=== PATIENT | female | born 1960 | race Caucasian/White ===

== ENCOUNTER 2017-03-03 12:09 | Emergency (ER) | payer MEDICARE, BC ==
[~2017-03-03] VITALS: Ht 170.2 cm; Wt 98.9 kg
[~2017-03-03 12:09] MED LIST: ALB0.5 BC; ALB17R INH; ALBU2.5V36 INH; ALL300 PO; AMO500 PO; AMOX-559 PO; ASP81 PO; ATOR20TA PO; ATOR20TA22 PO; ATOR20TA65; AUG500 PO; AZI250 PO; AZIT-1 PO; AZIT500T47 PO; BENZ100C4 PO; CEFU250T11 PO; CEP500 PO; CEPH500C24 PO; CEPH500T7 PO; CIPR-344 PO; CYC10 PO; DAPA10TA PO; DIA5 PO; DOXY150T6 PO; DULO60CA51 PO; DUONEB; EMPA10TA PO; ESC10 PO; FENO145T PO; FLUO40CA76 PO; FLUT1DIS28 IH; GAB300 PO; GARL1CAP15 PO; GUAI-648 PO; GUALA600 PO; HYDR-2946 PO; HYDR-3078 PO; HYDR-3083 PO; HYDR-3503 PO; HYDR1TAB PO; HYDR2TAB74 PO; HYDR473S4 PO; IBUP600T22 PO; INDO-1 PO; IPRA3AMP36 IH; ISOS30TA55 PO; LEV500 PO; LIDO PATCH; LIRA0.6P3 SQ; LISI-362 PO; LOR5 PO; LOR5/325 PO; LOSA50TA72 PO; MET500 PO; METH-271 PO; METH4TAB66 PO; METHO500 PO; METO25TA91 PO; MUCINEX PO; NAP500 PO; ORP100 PO; OXYC-717 PO; OXYC-865 PO; OXYC1TAB54 PO; OXYGEN INH; PAN40 PO; PER PO; PHEN120S16 PO; PIOG30TA27 PO; PIOG45TA3 PO; PRAS10TA4 PO; PRE20 PO; PRED-1 PO; PRED20TA6 PO; PREG75CA61 PO; SITA1TAB17 PO; SITA1TBM4 PO; SPIR50TA30 PO; SPIR50TA31 PO; SULF-198 PO; TRAM-420 PO; TRILI135PT PO; WARF-1 PO; ZINC30CA2 PO; [UNRECOGNIZED DRUG - CODE] IV; [UNRECOGNIZED DRUG - CODE] PO
--- NOTE | 2017-03-03 12:22 | ER Report ---
History and Physical Time Seen By MD: 12:21 Hx. of Stated Complaint: PATIENT STATES THAT HER COUGH HAS BEEN GETTING WORSE SINCE LAST TUESDAY; PATIENT CAME TO THE ER AND WAS PERSCRIBED MEDICATION AND FINISHED IT AND DID NOT GET BETTER; PATIENT STATES THAT SHE TRIED TO GET INTO HER DOCTOR AND THE DOCTOR DID NOT HAVE ANY OPENINGS AT THIS TIME HPI/ROS CC: Cough with sinusitis HPI: 56-year-old female with a past medical history of axilla abscess on the left abscess of the right groin, rotator cuff tendinitis, bronchitis, COPD, tobacco dependence. Patient Presents to the emergency department with continued cough over the last 2 weeks and increased right sinus maxillary pressure. She was here on 02/22/2017 and was diagnosed with bronchitis and given Z-Seng. She states that she has progressively on worse especially with the right maxillary sinus. Her discomfort level is a 7 out of 10. She states that she is having yellow-green drainage from the nose. She does have increased pressure on the right maxillary sinus. She also states that she has yellow drainage from her lungs. No blood. She denies any chest pain or chest pressure but does have increased shortness of breath. She does use oxygen at night and states that her oxygen requirements have not increased. She tried getting into her PCP but was unable and therefore came to the emergency department. There are no alleviating factors. ROS: 12 point review of systems essentially negative other than what's mentioned in history of present illness. NURSES AND OLD MEDICAL RECORDS: Reviewed PMH: Reviewed SURGICAL HX: Reviewed FAMILY HX: Noncontributory SOCIAL HX: She continues to smoke half a pack to pack of cigarettes a day. Denies any illicit drugs or alcohol. Lives at home. VITAL SIGNS: Reviewed CONSTITUTIONAL: He 6-year-old female in moderate distress. PHYSICAL EXAM: HEENT: Pupils equal round reactive to light and accommodate, EOMI, tympanic membranes pearly white umbo present with good light reflex. Lips dry mucous membranes moist gums nonbleeding uvula midline and rises equally with phonation, oropharynx noninjected, teeth intact. Right maxillary sinus tenderness. NECK: Neck supple, thyroid not appreciated, anterior and posterior cervical lymphadenopathy not appreciated. Trachea midline and rises equally with phonation. CARDIAC: S1-S2 regular rate rhythm no murmurs rubs or gallops. LUNGS: Lungs decreased air movement in bilateral lungs. Bilaterally posteriorly in all jones. ABDOMEN: Abdomen soft, nondistended, bowel sounds active in all 4 quadrants, no bruits noted, no CVA tenderness. MUSCULOSKELETAL: Strength 5 out of 5 x 4 extremities, no deformities noted. NEUROLOGIC: Patient alert and oriented by 3 Allergies: Coded Allergies: egg (Verified Allergy, Mild, 03/03/17) Home Meds Active Scripts Benzonatate 100 Mg Cap (TESSALON PERLE 100 MG CAP) 100 Mg Capsule, 100 MG PO TID for cough, #15 CAP 0 Refills Prov:GRETA MARCANO MD 02/22/17 Albuterol Sulfate 0.083% (ALBUTEROL SULFATE 0.083%) 2.5 Mg/3 Ml Vial.neb, 2.5 MG INH Q4-6H for cough, #1 BOX 0 Refills Prov:GRETA MARCANO MD 05/04/16 Reported Medications Losartan Potassium (LOSARTAN POTASSIUM) 50 Mg Tablet, 50 MG PO QDAY 12/20/16 Pioglitazone Hcl (PIOGLITAZONE HCL) 45 Mg Tablet, 45 MG PO QDAY 12/20/16 Dapagliflozin Propanediol (Farxiga) 10 Mg Tablet, 10 MG PO DAILY 12/20/16 Sitagliptin Phos/Metformin Hcl (JANUMET XR 50-1,000 MG TABLET) 1 Each Tbmp.24hr , 1 EACH PO BID 12/20/16 Guaifenesin/Dextromethorphan (MUCINEX DM ER 600-30 MG TABLET) 1 Each Tab.er.12h , 1 EACH PO BID 05/17/16 Aspirin (Childrens Chewable Aspirin) 81 Mg Chew, 81 MG PO DAILY, 0 Refills 08/26/11 Metoprolol Succinate (Toprol Xl) 25 Mg Tab.sr.24h, 25 MG PO BID, 0 Refills 08/26/11 Spironolactone (Aldactone) 50 Mg Tablet, 50 MG PO DAILY, 0 Refills 08/26/11 Oxygen (Oxygen) 2 L Inha, 2 L INH PRN, 0 Refills At Night With BiPap 03/10/11 Gabapentin (Neurontin) 300 Mg Cap, 600 MG PO TID, 0 Refills 03/10/11 Fluoxetine Hcl (Prozac) 40 Mg Capsule, 40 MG PO BID, #20 0 Refills 03/10/11 Allopurinol (Zyloprim) 300 Mg Tab, 300 MG PO QDAY, 0 Refills 03/10/11 Fluticasone/Salmeterol (Advair 250-50 Diskus) 1 Disk W/Dev Disk.w.dev, 1 DISK IH BID, 0 Refills 03/10/11 Albuterol (Proventil Inhaler) 17 Gm Inh, 0 INH PRN, 0 Refills 1-2 PUFFS 03/10/11 Discontinued Scripts Azithromycin (ZITHROMAX) 250 Mg Tablet, 0 PO QDAY, #6 TAB 0 Refills Prov:GRETA MARCANO MD 02/22/17 Hx Smoking: Yes (1/2 PPD) Smoking Status: Current: Every Day Smoker Exposure to Second Hand Smoke?: Yes Hx Substance Use Disorder: No Hx Alcohol Use: No Constitutional Vital Sign - Last 24 Hours 03/03/17 03/03/17 03/03/17 03/03/17 12:15 12:51 12:51 12:56 Temp 97.6 Pulse 63 58 62 Resp 17 18 18 B/P (MAP) 108/68 Pulse Ox 93 93 O2 Delivery Room Air Room Air Medical Decision Making Data Points Result Diagram: 03/03/17 1323 03/03/17 1323 Laboratory Hematology Test 03/03/17 13:23 Red Blood Count 5.13 M/uL (4.17-5.56) Mean Corpuscular Volume 84.4 fL (80.0-96.0) Mean Corpuscular Hemoglobin 27.2 pg (26.0-33.0) Mean Corpuscular Hemoglobin Concent 32.3 g/dL (32.0-36.0) Red Cell Distribution Width 17.4 % (11.5-14.5) Mean Platelet Volume 7.6 fL (7.2-11.1) Neutrophils (%) (Auto) 64.9 % (39.4-72.5) Lymphocytes (%) (Auto) 23.4 % (17.6-49.6) Monocytes (%) (Auto) 8.3 % (4.1-12.4) Eosinophils (%) (Auto) 2.2 % (0.4-6.7) Basophils (%) (Auto) 1.2 % (0.3-1.4) Nucleated RBC Relative Count (auto) 0.0 /100WBC Neutrophils # (Auto) 8.6 K/uL (2.0-7.4) Lymphocytes # (Auto) 3.1 K/uL (1.3-3.6) Monocytes # (Auto) 1.1 K/uL (0.3-1.0) Eosinophils # (Auto) 0.3 K/uL (0.0-0.5) Basophils # (Auto) 0.2 K/uL (0.0-0.1) Nucleated RBC Absolute Count (auto) 0.00 K/uL Peripheral Blood Smear No Y/N Sodium Level 142 mmol/L (137-145) Potassium Level 4.2 mmol/L (3.5-5.0) Chloride Level 105 mmol/L (98-107) Carbon Dioxide Level 26 mmol/L (22-31) Blood Urea Nitrogen 15 mg/dl (7-18) Creatinine 0.60 mg/dl (0.52-1.04) Glomerular Filtration Rate Calc > 60.0 Random Glucose 112 mg/dl (75-110) Calcium Level 9.5 mg/dl (8.4-10.2) Total Bilirubin 0.4 mg/dl (0.2-1.3) Aspartate Amino Transf (AST/SGOT) 14 U/L (0-35) Alanine Aminotransferase (ALT/SGPT) 22 U/L (0-56) Alkaline Phosphatase 85 U/L (0-126) Total Protein 7.5 gm/dl (6.3-8.2) Albumin 3.9 g/dl (3.5-5.0) Chemistry Test 03/03/17 13:23 White Blood Count 13.2 k/uL (4.5-11.0) Red Blood Count 5.13 M/uL (4.17-5.56) Hemoglobin 14.0 g/dL (12.0-16.0) Hematocrit 43.3 % (34.0-47.0) Mean Corpuscular Volume 84.4 fL (80.0-96.0) Mean Corpuscular Hemoglobin 27.2 pg (26.0-33.0) Mean Corpuscular Hemoglobin Concent 32.3 g/dL (32.0-36.0) Red Cell Distribution Width 17.4 % (11.5-14.5) Platelet Count 361 K/uL (150-450) Mean Platelet Volume 7.6 fL (7.2-11.1) Neutrophils (%) (Auto) 64.9 % (39.4-72.5) Lymphocytes (%) (Auto) 23.4 % (17.6-49.6) Monocytes (%) (Auto) 8.3 % (4.1-12.4) Eosinophils (%) (Auto) 2.2 % (0.4-6.7) Basophils (%) (Auto) 1.2 % (0.3-1.4) Nucleated RBC Relative Count (auto) 0.0 /100WBC Neutrophils # (Auto) 8.6 K/uL (2.0-7.4) Lymphocytes # (Auto) 3.1 K/uL (1.3-3.6) Monocytes # (Auto) 1.1 K/uL (0.3-1.0) Eosinophils # (Auto) 0.3 K/uL (0.0-0.5) Basophils # (Auto) 0.2 K/uL (0.0-0.1) Nucleated RBC Absolute Count (auto) 0.00 K/uL Peripheral Blood Smear No Y/N Glomerular Filtration Rate Calc > 60.0 Calcium Level 9.5 mg/dl (8.4-10.2) Total Bilirubin 0.4 mg/dl (0.2-1.3) Aspartate Amino Transf (AST/SGOT) 14 U/L (0-35) Alanine Aminotransferase (ALT/SGPT) 22 U/L (0-56) Alkaline Phosphatase 85 U/L (0-126) Total Protein 7.5 gm/dl (6.3-8.2) Albumin 3.9 g/dl (3.5-5.0) EKG/Imaging Imaging Chest x-ray reveals peribronchial thickening most likely bronchitis. CT of sinuses shows maxillary sinusitis right greater than left. ED Course/Re-evaluation ED Course I discussed the patient is placed on Augmentin for 3 weeks and follow up with her PCP. Patient will plan and in agreement. Re-evaluation MDM bronchitis versus sinusitis versus pneumonia. This most likely sinusitis with continuing bronchitis. Patient continues to smoke. Decision to Disposition Date: Mar 03, 2017 Decision to Disposition Time: 13:43 Depart Departure Latest Vital Signs Vital Signs Date Time Temp Pulse Resp B/P (MAP) Pulse Ox O2 Delivery O2 Flow Rate FiO2 03/03/17 12:56 62 18 03/03/17 12:51 93 Room Air 03/03/17 12:15 97.6 108/68 Impression: Primary Impression: Sinusitis Condition: Condition Unchanged Disposition: HOME OR SELF-CARE Referrals: EVERARDO PARKS DO (PCP) New Scripts Amoxicillin/Pot Clav 875-125 Mg Tab (AUGMENTIN 875-125 TABLET) 1 Each Tablet 1 TAB PO Q12H for 21 Days, #42 TAB 1 Refill Prov: SHAWN DE LEON MD 03/03/17 Patient Instructions: Sinusitis (ED) Additional Instructions: You have been given Augmentin and take as directed. Follow-up with your regular physician. I and the staff wanted to thank you for allowing us to take care of your needs today in the emergency department at [facility]. We have tried to answer all of your questions and concerns. Please feel free to return to the emergency department for any further concerns or unanswered questions. Problem Qualifiers Primary Impression: Sinusitis Sinusitis location: maxillary Chronicity: acute Recurrence: recurrent Qualified Codes: J01.01 - Acute recurrent maxillary sinusitis SHAWN DE LEON MD Mar 03, 2017 12:22
[2017-03-03] MEDS ORDERED: DEXAMETHASONE 4 MG TAB PO ONE (12:40)
[2017-03-03] MEDS ORDERED: ALBUTEROL/IPRATROPIUM 3 ML NEB NEB ONE (12:40)
[2017-03-03 13:35] LABS: PLATELET COUNT, AUTOMATED 361 K/uL (150-450)
--- NOTE | 2017-03-03 13:39 | RADIOLOGY IMAGING REPORT ---
FACILITY: [facility] [place] PATIENT NAME: Dimas Max : 1960 MR: [id number] V: [id number] EXAM DATE: ORDERING PHYSICIAN: SHAWN DE LEON TECHNOLOGIST: Location: [facility] Patient: Dimas Max : 1960 Visit/Account:[id number] Date of Sevice: 03/03/2017 Examination: CHEST PA AND LAT Comparison: 02/22/2017 and earlier. History: Respiratory distress. Cough for one week. Findings: Mild pulmonary hyperexpansion. Unchanged mild peribronchial thickening. No new or enlarging consolidation. No pneumothorax, edema, or effusion. Cardiac and hilar contour size is within normal limits. Osseous structures are intact. IMPRESSION: Unchanged mild peribronchial thickening which could be due to an acute versus chronic bronchitis or reactive airway disease. No consolidation. Report Dictated By: Mansoor Goddard MD at 03/03/2017 1:34 PM Report E-Signed By: Mansoor Goddard MD at 03/03/2017 1:35 PM WSN:[id number]
[2017-03-03] MEDS ORDERED: AMOX-559 PO (13:46)
--- NOTE | 2017-03-03 13:50 | RADIOLOGY IMAGING REPORT ---
FACILITY: [facility] PATIENT NAME: Dimas Max : 1960 MR: [id number] V: [id number] EXAM DATE: ORDERING PHYSICIAN: SHAWN DE LEON TECHNOLOGIST: Location: [facility] [place] Patient: Dimas Max : 1960 Visit/Account:[id number] Date of Sevice: 03/03/2017 EXAMINATION: CT of the Paranasal Sinuses HISTORY: Right facial pain. TECHNIQUE: Contiguous axial images were obtained through the paranasal sinuses without intravenous c ontrast administration. Coronal and sagittal reformatted images were obtained from the axial source d he. One of the following dose optimization techniques was utilized in the performance of this exam: Autom ated exposure control; adjustment of the mA and/or kV according to the patient's size; or use of an i terative reconstruction technique. Specific details can be referenced in the facility's radiology C T exam operational policy. COMPARISON: None. FINDINGS: Maxillary sinuses: Moderate to severe circumferential mucosal thickening in the bilateral maxillary s inuses. Fractured or carious distal left maxillary molar. Unerupted distal right maxillary molar. Frontal sinuses: Occlusive mucosal thickening in the bilateral frontal sinus drainage pathways. Mild to moderate mucosal thickening in the frontal sinuses. Partially opacified agger nasi and type 3 fro ntal cells on the left. Nearly completely opacified agger nasi and type 1 or 2 frontal cells on the r ight. Ethmoid air cells: Nearly completely opacified bilateral anterior and posterior ethmoid air cells. 2 osteomas in the left anterior ethmoid air cells measuring 6 mm and 3 mm. Small supraorbital ethmoid a ir cells bilaterally. The bilateral anterior ethmoidal artery canals travel through the ethmoid compl ex. Anterior skull base and lamina papyracea are intact. Sphenoid sinuses: Mild mucosal thickening. Otherwise negative. Ostiomeatal units: Patent. Nasal septum / nasal cavity: Mild rightward nasal septal deviation. Orbits: Negative. Visualized intracranial contents/soft tissues: Negative. TMJs: Negative. IMPRESSION: 1. Extensive mucosal thickening throughout the paranasal sinuses. This may represent acute and/or chr onic sinusitis. 2. Small osteomas in the left anterior ethmoid air cells. 3. Mild rightward nasal septal deviation. 4. Fractured or carious distal left maxillary molar. Unerupted distal right maxillary molar. Report Dictated By: Mirza Granger MD at 03/03/2017 1:37 PM Report E-Signed By: Mirza Granger MD at 03/03/2017 1:46 PM WSN:[id number]
[2017-03-03 13:57] VITALS: BP 107/92
== END 2017-03-03 14:00 | disposition home or self-care (01) ==
LOC: ER 12:09
DX: J01.01 Acute recurrent maxillary sinusitis (principal)
CPT/HCPCS: 36415; 70486; 71020; 85025; 94640; 99283; J7620; J8540; 82040; 82247; 82310; 82374; 82435; 82565; 82947; 84075; 84132; 84155; 84295; 84450; 84460; 84520

== ENCOUNTER 2017-04-04 14:40 | Emergency (ER) | payer MEDICARE ==
[~2017-04-04] VITALS: Ht 170.2 cm; Wt 102.5 kg
[2017-04-04] MEDS ORDERED: METF-410 PO (14:48)
--- NOTE | 2017-04-04 14:50 | ER Report ---
History and Physical Time Seen By MD: 14:49 Hx. of Stated Complaint: SORE ON FOOT. SWELLING AND INFLAMATION SURROUNDING. (MIKA CHAU [facility]-) HPI/ROS CHIEF COMPLAINT: Skin infection HISTORY OF PRESENT ILLNESS: This is a 56-year-old female who presents to the emergency department for a skin infection to her right foot. Patient states that yesterday morning she noticed she had some discomfort and mild swelling to the top of her right foot progressively increasing in size, discomfort and redness over the course of the day. Patient states that today she decided come in for further evaluation as the area has doubled in size, there is a spot that has come to a point with increased redness and pain. Patient denies aches, chills, nausea, vomiting, fevers, chest pain or shortness of breath. REVIEW OF SYSTEMS: Constitutional: No fever, no chills. Eyes: No discharge. ENT: No sore throat. Cardiovascular: No chest pain, no palpitations. Respiratory: No cough, no shortness of breath. Gastrointestinal: No abdominal pain, no vomiting. Genitourinary: No hematuria. Musculoskeletal: No back pain. Skin: As above. Neurological: No headache. (MIKA CHAU [facility]) Allergies: Coded Allergies: egg (Verified Allergy, Mild, 04/04/17) Home Meds Active Scripts Doxycycline Hyclate (DOXYCYCLINE HYCLATE) 100 Mg Tablet, 100 MG PO BID, #20 TAB Prov:MIKA CHAU NURSE HEAD- 04/04/17 Amoxicillin/Pot Clav 875-125 Mg Tab (AUGMENTIN 875-125 TABLET) 1 Each Tablet, 1 TAB PO Q12H for 21 Days, #42 TAB 1 Refill Prov:SHAWN DE LEON MD 03/03/17 Benzonatate 100 Mg Cap (TESSALON PERLE 100 MG CAP) 100 Mg Capsule, 100 MG PO TID for cough, #15 CAP 0 Refills Prov:GRETA MARCANO MD 02/22/17 Albuterol Sulfate 0.083% (ALBUTEROL SULFATE 0.083%) 2.5 Mg/3 Ml Vial.neb, 2.5 MG INH Q4-6H for cough, #1 BOX 0 Refills Prov:GRETA MARCANO MD 05/04/16 Reported Medications Metformin Hcl (METFORMIN HCL) 500 Mg Tablet, 1 TAB PO BID, TAB 04/04/17 Losartan Potassium (LOSARTAN POTASSIUM) 50 Mg Tablet, 50 MG PO QDAY 12/20/16 Pioglitazone Hcl (PIOGLITAZONE HCL) 45 Mg Tablet, 45 MG PO QDAY 12/20/16 Dapagliflozin Propanediol (Farxiga) 10 Mg Tablet, 10 MG PO DAILY 12/20/16 Guaifenesin/Dextromethorphan (MUCINEX DM ER 600-30 MG TABLET) 1 Each Tab.er.12h , 1 EACH PO BID 05/17/16 Aspirin (Childrens Chewable Aspirin) 81 Mg Chew, 81 MG PO DAILY, 0 Refills 08/26/11 Metoprolol Succinate (Toprol Xl) 25 Mg Tab.sr.24h, 25 MG PO BID, 0 Refills 08/26/11 Spironolactone (Aldactone) 50 Mg Tablet, 50 MG PO DAILY, 0 Refills 08/26/11 Oxygen (Oxygen) 2 L Inha, 2 L INH PRN, 0 Refills At Night With BiPap 03/10/11 Gabapentin (Neurontin) 300 Mg Cap, 600 MG PO TID, 0 Refills 03/10/11 Fluoxetine Hcl (Prozac) 40 Mg Capsule, 40 MG PO BID, #20 0 Refills 03/10/11 Allopurinol (Zyloprim) 300 Mg Tab, 300 MG PO QDAY, 0 Refills 03/10/11 Fluticasone/Salmeterol (Advair 250-50 Diskus) 1 Disk W/Dev Disk.w.dev, 1 DISK IH BID, 0 Refills 03/10/11 Albuterol (Proventil Inhaler) 17 Gm Inh, 0 INH PRN, 0 Refills 1-2 PUFFS 03/10/11 Discontinued Reported Medications Sitagliptin Phos/Metformin Hcl (JANUMET XR 50-1,000 MG TABLET) 1 Each Tbmp.24hr , 1 EACH PO BID 12/20/16 Past Medical/Surgical History Patient has a past medical and surgical history of migraines, bulging disc in her neck, hypertension, stents 3, [place], chronic bronchitis, asthma, emphysema, pneumonia, COPD, GERD, hysterectomy, arthritis, wears glasses, diabetes, takes oral medications, depression, hysterectomy, tubal ligation, back surgeries, right knee surgery, arm surgery, total right hip, right rotator cuff surgery. (MIKA CHAU[facility]) Reviewed Nurses Notes: Yes (MIKA CHAU) Hx Smoking: Yes (1/2 PPD) Smoking Status: Current: Every Day Smoker Exposure to Second Hand Smoke?: Yes Hx Substance Use Disorder: No Hx Alcohol Use: No (MIKA CHAU) Constitutional Vital Sign - Last 24 Hours 04/04/17 04/04/17 04/04/17 04/04/17 14:44 15:00 15:30 16:00 Temp 97.9 Pulse 72 65 61 Resp 6 B/P (MAP) 139/69 115/59 (77) 109/56 (73) 106/45 (65) Pulse Ox 92 93 93 O2 Delivery Room Air 04/04/17 16:34 B/P (MAP) 116/58 (77) (PRISCILA VALIENTE MD) Physical Exam General Appearance: The patient is alert, has no immediate need for airway protection and no signs of toxicity. Eyes: Pupils equal and round no pallor or injection. ENT, Mouth: Mucous membranes are moist. Respiratory: There are no retractions, lungs are clear to auscultation. Cardiovascular: Regular rate and rhythm, no murmurs, clicks or rubs. Gastrointestinal: Abdomen is soft and non tender, no masses, bowel sounds normal. Neurological: Alert and oriented 4. Moving all extremities. Following all commands. No focal neuro deficits. Skin: Warm and dry, no rashes. Musculoskeletal: Neck is supple non tender. Extremities are nontender, nonswollen and have full range of motion. DIFFERENTIAL DIAGNOSIS: After history and physical exam differential diagnosis was considered for abscess, cellulitis, ostial myelitis. (MIKA CHAU) Medical Decision Making Data Points Result Diagram: 04/04/17 1630 04/04/17 1630 Laboratory Hematology Test 04/04/17 16:30 Red Blood Count 5.32 M/uL (4.17-5.56) Mean Corpuscular Volume 84.8 fL (80.0-96.0) Mean Corpuscular Hemoglobin 27.5 pg (26.0-33.0) Mean Corpuscular Hemoglobin Concent 32.4 g/dL (32.0-36.0) Red Cell Distribution Width 18.8 % (11.5-14.5) Mean Platelet Volume 8.0 fL (7.2-11.1) Neutrophils (%) (Auto) 58.6 % (39.4-72.5) Lymphocytes (%) (Auto) 28.6 % (17.6-49.6) Monocytes (%) (Auto) 9.9 % (4.1-12.4) Eosinophils (%) (Auto) 2.1 % (0.4-6.7) Basophils (%) (Auto) 0.8 % (0.3-1.4) Nucleated RBC Relative Count (auto) 0.0 /100WBC Neutrophils # (Auto) 6.8 K/uL (2.0-7.4) Lymphocytes # (Auto) 3.3 K/uL (1.3-3.6) Monocytes # (Auto) 1.1 K/uL (0.3-1.0) Eosinophils # (Auto) 0.2 K/uL (0.0-0.5) Basophils # (Auto) 0.1 K/uL (0.0-0.1) Nucleated RBC Absolute Count (auto) 0.01 K/uL Sodium Level 144 mmol/L (137-145) Potassium Level 4.0 mmol/L (3.5-5.0) Chloride Level 104 mmol/L (98-107) Carbon Dioxide Level 26 mmol/L (22-31) Blood Urea Nitrogen 13 mg/dl (7-18) Creatinine 0.70 mg/dl (0.52-1.04) Glomerular Filtration Rate Calc > 60.0 Random Glucose 113 mg/dl (75-110) Calcium Level 10.0 mg/dl (8.4-10.2) Total Bilirubin 0.5 mg/dl (0.2-1.3) Aspartate Amino Transf (AST/SGOT) 13 U/L (0-35) Alanine Aminotransferase (ALT/SGPT) 25 U/L (0-56) Alkaline Phosphatase 84 U/L (0-126) Total Protein 8.0 gm/dl (6.3-8.2) Albumin 4.2 g/dl (3.5-5.0) Chemistry Test 04/04/17 16:30 White Blood Count 11.5 k/uL (4.5-11.0) Red Blood Count 5.32 M/uL (4.17-5.56) Hemoglobin 14.6 g/dL (12.0-16.0) Hematocrit 45.1 % (34.0-47.0) Mean Corpuscular Volume 84.8 fL (80.0-96.0) Mean Corpuscular Hemoglobin 27.5 pg (26.0-33.0) Mean Corpuscular Hemoglobin Concent 32.4 g/dL (32.0-36.0) Red Cell Distribution Width 18.8 % (11.5-14.5) Platelet Count 293 K/uL (150-450) Mean Platelet Volume 8.0 fL (7.2-11.1) Neutrophils (%) (Auto) 58.6 % (39.4-72.5) Lymphocytes (%) (Auto) 28.6 % (17.6-49.6) Monocytes (%) (Auto) 9.9 % (4.1-12.4) Eosinophils (%) (Auto) 2.1 % (0.4-6.7) Basophils (%) (Auto) 0.8 % (0.3-1.4) Nucleated RBC Relative Count (auto) 0.0 /100WBC Neutrophils # (Auto) 6.8 K/uL (2.0-7.4) Lymphocytes # (Auto) 3.3 K/uL (1.3-3.6) Monocytes # (Auto) 1.1 K/uL (0.3-1.0) Eosinophils # (Auto) 0.2 K/uL (0.0-0.5) Basophils # (Auto) 0.1 K/uL (0.0-0.1) Nucleated RBC Absolute Count (auto) 0.01 K/uL Glomerular Filtration Rate Calc > 60.0 Calcium Level 10.0 mg/dl (8.4-10.2) Total Bilirubin 0.5 mg/dl (0.2-1.3) Aspartate Amino Transf (AST/SGOT) 13 U/L (0-35) Alanine Aminotransferase (ALT/SGPT) 25 U/L (0-56) Alkaline Phosphatase 84 U/L (0-126) Total Protein 8.0 gm/dl (6.3-8.2) Albumin 4.2 g/dl (3.5-5.0) (PRISCILA VALIENTE MD) Microbiology Microbiology Date/Time Source Procedure Growth Status 04/04/17 16:54 Blood Blood Culture - Final Resulted 04/04/17 16:54 Blood Culture - Preliminary Staphylococcus, Coagulase Neg Resulted 04/04/17 00:00 Blood Blood Culture - Preliminary NO GROWTH AFTER 3 DAYS, REINCUBATED Resulted (PRISCILA VALIENTE MD) EKG/Imaging Imaging PATIENT NAME: Dimas Max : 1960 MR: [id number] V: [id number] EXAM DATE: ORDERING PHYSICIAN: MIKA CHAU TECHNOLOGIST: Location: [facility] Patient: Dimas Max : 1960 Visit/Account:[id number] Date of Sevice: 04/04/2017 Exam type: FOOT 3 VIEW RIGHT History: evaluate for infection, redness and swelling on dorsum of foot Comparison: March 09, 2011. Findings: There is soft tissue swelling along the dorsal soft tissues of the right foot which is particularly prominent adjacent to the tarsal bones. No soft tissue gas or radiopaque foreign body is seen. There are moderate degenerative changes identified in the mid foot . No destructive changes are identified in the visualized bones to suggest osteomyelitis IMPRESSION: 1. Soft tissue spine along the dorsal aspect right foot which is particularly prominent adjacent to the tarsal bones. No soft tissue gas or radiopaque foreign bodies seen. No destructive changes are seen in the visualized bones to suggest osteomyelitis Moderate degenerative changes in the midfoot. Report Dictated By: Jeanne Cancino MD at 04/04/2017 4:01 PM Report E-Signed By: Jeanne Cancino MD at 04/04/2017 4:11 PM WSN:[id number] (MIKA CHAU NURSE HEAD-BC) ED Course/Re-evaluation ED Course The patient was admitted to room. A history physical were obtained. Differential diagnoses were considered. Attempted an I&D of the what appear to be abscess of the right foot. Unable to express any purulent drainage Dr. Valiente evaluated the foot as well. A 3 view x-ray of the foot showing no acute osseous abnormalities. A CBC, CMP and blood cultures were obtained. Labs studies unremarkable. I did review these lab studies with the patient and her daughter as well as the x-ray of the foot. I did tell the patient that the blood cultures would not resolved for at least 3 days, and there were any abnormalities we would contact her. A prescription for doxycycline was sent to the patient's pharmacy. I did place 2 sutures in the incision. Patient was instructed to follow-up with Dr. Awais mcintyre in the next 3-5 days to ensure that she is improving, she was also instructed to follow-up in 10-14 days to have the sutures removed at Dr. Gabriel's office or emergency department or sooner if she has any other concerns. I also encouraged her to monitor for increased signs of infection. She has no questions or concerns at this time and was discharged home. 04/04/2017 4:19:18 pm I & D procedure: The wound on the dorsal aspect of the right foot was anesthetized with 0.5% bupivacaine with epi. The wound was cleaned an scrubbed in the usual fasion. A small incision was made. No drainage from the wound. I did have Dr. Valiente evaluate. Procedure: Laceration repair. Verbal consent was obtained from the patient. The 0.5cm incision from I&D on the dorsal aspect of the right foot was anesthetized in the usual fashion. The wound was scrubbed, draped. There were no deep structures involved. No tendon injury was identified. The wound was repaired with 2 simple interrupted 5-0 sutures. The wound repair was simple. The procedure was performed by myself. Decision to Disposition Date: Apr 04, 2017 Decision to Disposition Time: 17:12 (MIKA CHAU-) Depart Departure Latest Vital Signs Vital Signs Date Time Temp Pulse Resp B/P (MAP) Pulse Ox O2 Delivery O2 Flow Rate FiO2 04/04/17 16:34 116/58 (77) 04/04/17 15:30 61 93 04/04/17 14:44 97.9 6 Room Air (PRISCILA VALIENTE MD) Impression: Primary Impression: Cellulitis of right foot Condition: Improved Disposition: HOME OR SELF-CARE Referrals: EVERARDO GABRIEL DO (PCP) New Scripts Doxycycline Hyclate (DOXYCYCLINE HYCLATE) 100 Mg Tablet 100 MG PO BID, #20 TAB Prov: MIKA CHAU 04/04/17 Patient Instructions: Cellulitis (ED) Additional Instructions: Drink plenty of water. Get plenty of rest. Take the antibiotics as indicated. Continue to monitor for signs of infection. Follow up with Dr. Gabriel in 3-[address] Gabriel can take sutures out of the foot in 10-14 days. Keep the wound clean and dry. May return to the ED for worsening symptoms. [employer]/PA consult with MD: Verbally, Examined Patient (PRISCILA VALIENTE MD) MIKA CHAU NURSE HEAD-BC Apr 04, 2017 14:50 PRISCILA VALIENTE MD Apr 04, 2017 15:35
--- NOTE | 2017-04-04 16:16 | RADIOLOGY IMAGING REPORT ---
[place] [facility] [place]: Dimas Max : 1960 MR: [id number] V: [id number] EXAM DATE: ORDERING PHYSICIAN: MIKA CHAU TECHNOLOGIST: Location: [facility] [place] Patient: Dimas Max : 1960 Visit/Account:[id number] Date of Sevice: 04/04/2017 Exam type: FOOT 3 VIEW RIGHT History: evaluate for infection, redness and swelling on dorsum of foot Comparison: March 09, 2011. Findings: There is soft tissue swelling along the dorsal soft tissues of the right foot which is particularly p rominent adjacent to the tarsal bones. No soft tissue gas or radiopaque foreign body is seen. There are moderate degenerative changes identified in the mid foot . No destructive changes are identifie d in the visualized bones to suggest osteomyelitis IMPRESSION: 1. Soft tissue spine along the dorsal aspect right foot which is particularly prominent adjacent to the tarsal bones. No soft tissue gas or radiopaque foreign bodies seen. No destructive changes are seen in the visualized bones to suggest osteomyelitis Moderate degenerative changes in the midfoot. Report Dictated By: Jeanne Cancino MD at 04/04/2017 4:01 PM Report E-Signed By: Jeanne Cancino MD at 04/04/2017 4:11 PM WSN:[email or web address]
[2017-04-04 16:34] VITALS: BP 116/58
[2017-04-04] MEDS ORDERED: DOXY-179 PO (16:37)
[2017-04-04 16:42] LABS: PLATELET COUNT, AUTOMATED 293 K/uL (150-450)
== END 2017-04-04 17:17 | disposition home or self-care (01) ==
LOC: ER 14:46
DX: L03.115 Cellulitis of right lower limb (principal)
CPT/HCPCS: 36415; 82040; 82247; 82310; 82374; 82435; 82565; 82947; 84075; 84132; 84155; 84295; 84450; 84460; 84520; 85025; 87040; 87077; 87186; 99283

== ENCOUNTER 2017-04-30 13:09 | Emergency (ER) | payer MEDICARE ==
[~2017-04-30 13:09] MED LIST changes: +DOXY-179 PO; +METF-410 PO
--- NOTE | 2017-04-30 13:27 | ER Report ---
History and Physical Time Seen By MD: 13:26 Hx. of Stated Complaint: FELT A POP IN LEFT RIB CAGE WHILE THROWING UP/COUGHING. CAN BARELY MOVE HPI/ROS CHIEF COMPLAINT: Cough; chest pain HISTORY OF PRESENT ILLNESS: Patient has a history of chronic COPD was coughing this morning and then felt a sharp pain just under the left breast. It is worse with movement or cough. It is not exertional. Pain is reproducible to palpation outpatient exactly reproduces the discomfort. REVIEW OF SYSTEMS: Respiratory: Chronic cough Cardiovascular: Anterior chest wall pain Gastrointestinal: No vomiting, no abdominal pain. Musculoskeletal: No back pain. Allergies: Coded Allergies: egg (Verified Allergy, Mild, 04/30/17) Home Meds Active Scripts Hydrocodone Bit/Acetaminophen (HYDROCODON-ACETAMINOPHEN 5-325) 1 Each Tablet, 1 EACH PO Q4-6H for PAIN, #15 TAB 0 Refills Prov:GRETA MARCANO MD 04/30/17 Doxycycline Hyclate (DOXYCYCLINE HYCLATE) 100 Mg Tablet, 100 MG PO BID, #20 TAB Prov:MIKA CHAU STOCK CHECKERER-BC 04/04/17 Amoxicillin/Pot Clav 875-125 Mg Tab (AUGMENTIN 875-125 TABLET) 1 Each Tablet, 1 TAB PO Q12H for 21 Days, #42 TAB 1 Refill Prov:SHAWN DE LEON MD 03/03/17 Benzonatate 100 Mg Cap (TESSALON PERLE 100 MG CAP) 100 Mg Capsule, 100 MG PO TID for cough, #15 CAP 0 Refills Prov:GRETA MARCANO MD 02/22/17 Albuterol Sulfate 0.083% (ALBUTEROL SULFATE 0.083%) 2.5 Mg/3 Ml Vial.neb, 2.5 MG INH Q4-6H for cough, #1 BOX 0 Refills Prov:GRETA MARCANO MD 05/04/16 Reported Medications Metformin Hcl (METFORMIN HCL) 500 Mg Tablet, 1 TAB PO BID, TAB 04/04/17 Losartan Potassium (LOSARTAN POTASSIUM) 50 Mg Tablet, 50 MG PO QDAY 12/20/16 Pioglitazone Hcl (PIOGLITAZONE HCL) 45 Mg Tablet, 45 MG PO QDAY 12/20/16 Dapagliflozin Propanediol (Farxiga) 10 Mg Tablet, 10 MG PO DAILY 12/20/16 Guaifenesin/Dextromethorphan (MUCINEX DM ER 600-30 MG TABLET) 1 Each Tab.er.12h , 1 EACH PO BID 05/17/16 Aspirin (Childrens Chewable Aspirin) 81 Mg Chew, 81 MG PO DAILY, 0 Refills 08/26/11 Metoprolol Succinate (Toprol Xl) 25 Mg Tab.sr.24h, 25 MG PO BID, 0 Refills 08/26/11 Spironolactone (Aldactone) 50 Mg Tablet, 50 MG PO DAILY, 0 Refills 08/26/11 Oxygen (Oxygen) 2 L Inha, 2 L INH PRN, 0 Refills At Night With BiPap 03/10/11 Gabapentin (Neurontin) 300 Mg Cap, 600 MG PO TID, 0 Refills 03/10/11 Fluoxetine Hcl (Prozac) 40 Mg Capsule, 40 MG PO BID, #20 0 Refills 03/10/11 Allopurinol (Zyloprim) 300 Mg Tab, 300 MG PO QDAY, 0 Refills 03/10/11 Fluticasone/Salmeterol (Advair 250-50 Diskus) 1 Disk W/Dev Disk.w.dev, 1 DISK IH BID, 0 Refills 03/10/11 Albuterol (Proventil Inhaler) 17 Gm Inh, 0 INH PRN, 0 Refills 1-2 PUFFS 03/10/11 Past Medical/Surgical History Past medical history for COPD, history of type II diabetes, history of hypertension, history of chronic oxygen use 2 L continuous Hx Smoking: Yes (03/08 PPD) Smoking Status: Current: Every Day Smoker Exposure to Second Hand Smoke?: Yes Hx Substance Use Disorder: No Hx Alcohol Use: No Constitutional Vital Sign - Last 24 Hours 04/30/17 13:14 Temp 97.4 Pulse 69 Resp 22 B/P (MAP) 145/72 Pulse Ox 93 O2 Delivery Nasal Cannula Physical Exam General Appearance: The patient is alert, has no immediate need for airway protection and no current signs of toxicity. Eyes: Pupils equal and round no injection. Respiratory: Chest wall is tender around the 6th or 7th of left anterior ribs. No overlying bruise. Lungs are clear to auscultation bilaterally. Cardiac: regular rate and rhythm Gastrointestinal: Abdomen is soft and non tender, no masses, bowel sounds normal. Musculoskeletal: Neck: Neck is supple and non tender. Extremities have full range of motion and are non tender. Skin: No rashes or lesions. Medical Decision Making EKG/Imaging [place] [facility] [place]: Dimas Max : 1960 MR: [id number] V: [id number] EXAM DATE: ORDERING PHYSICIAN: GRETA MARCANO TECHNOLOGIST: Location: [facility] Patient: Dimas Max : 1960 Visit/Account:[id number] Date of Sevice: 04/30/2017 Single view chest with 2 views of the right lower ribs INDICATION: Rib pain after cough. COMPARISON: Chest radiograph dated February 23, 2017. FINDINGS: Single view chest shows heart size within normal limits. There is no focal infiltrate or consolidation. Persistent mild peribronchial wall thickening. There is no pneumothorax or pleural effusion. Linear atelectasis within the left midlung. Views of right ribs show minimally displaced fractures of the anterior right seventh, eighth, and ninth ribs.. Chronic healed posterior right rib fracture. IMPRESSION: 1. No acute cardiopulmonary process. There is persistent mild bronchial wall thickening. 2. Minimally displaced fractures of the anterior right seventh, eighth, and ninth ribs. Report Dictated By: Uriel Roper MD at 04/30/2017 2:01 PM Report E-Signed By: Uriel Roper MD at 04/30/2017 2:07 PM WSN:[id number] ED Course/Re-evaluation ED Course 04/30/2017 1:43:03 pm plan at this time will be to perform x-ray of the ribs and will get an oral Percocet for pain. Decision to Disposition Date: Apr 30, 2017 Decision to Disposition Time: 14:17 Depart Departure Latest Vital Signs Vital Signs Date Time Temp Pulse Resp B/P (MAP) Pulse Ox O2 Delivery O2 Flow Rate FiO2 04/30/17 13:14 97.4 69 22 145/72 93 Nasal Cannula Impression: Primary Impression: Ribs, multiple fractures Condition: Improved Disposition: HOME OR SELF-CARE Referrals: EVERARDO PARKS DO (PCP) New Scripts Hydrocodone Bit/Acetaminophen (HYDROCODON-ACETAMINOPHEN 5-325) 1 Each Tablet 1 EACH PO Q4-6H for PAIN, #15 TAB 0 Refills Prov: GRETA MARCANO MD 04/30/17 Patient Instructions: Rib Fracture (ED) Additional Instructions: Use your incentive spirometer 10 puffs every hour while awake for the next 7 days Problem Qualifiers Primary Impression: Ribs, multiple fractures Encounter type: initial encounter Fracture type: closed Laterality: left Qualified Codes: S22.42XA - Multiple fractures of ribs, left side, initial encounter for closed fracture GRETA MARCANO MD Apr 30, 2017 13:27
--- NOTE | 2017-04-30 14:10 | RADIOLOGY IMAGING REPORT ---
[place] [facility] [place] NAME: Dimas Max : 1960 MR: [id number] V: [id number] EXAM DATE: ORDERING PHYSICIAN: GRETA MARCANO TECHNOLOGIST: Location: [facility] Patient: Dimas Max : 1960 Visit/Account:[id number] Date of Sevice: 04/30/2017 ADDENDUM #1 Exam title should read: 2 views of the chest and 2 views of the right lower ribs. Report Dictated By: Uriel Roper MD at 05/05/2017 4:52 PM Report E-Signed By: Uriel Roper MD at 05/05/2017 4:52 PM ORIGINAL REPORT Single view chest with 2 views of the right lower ribs INDICATION: Rib pain after cough. COMPARISON: Chest radiograph dated February 23, 2017. FINDINGS: Single view chest shows heart size within normal limits. There is no focal infiltrate or co nsolidation. Persistent mild peribronchial wall thickening. There is no pneumothorax or pleural effus ion. Linear atelectasis within the left midlung. Views of right ribs show minimally displaced fractures of the anterior right seventh, eighth, and ina th ribs.. Chronic healed posterior right rib fracture. IMPRESSION: 1. No acute cardiopulmonary process. There is persistent mild bronchial wall thickening. 2. Minimally displaced fractures of the anterior right seventh, eighth, and ninth ribs. Report Dictated By: Uriel Roper MD at 04/30/2017 2:01 PM Report E-Signed By: Uriel Roper MD at 04/30/2017 2:07 PM WSN:[email or web address]
--- NOTE | 2017-04-30 14:11 | RADIOLOGY IMAGING REPORT ---
FACILITY: [facility] - [place] PATIENT NAME: Dimas Max : 1960 MR: [id number] V: [id number] EXAM DATE: ORDERING PHYSICIAN: GRETA MARCANO TECHNOLOGIST: Location: [facility] [place] Patient: Dimas Max : 1960 Visit/Account:[id number] Date of Sevice: 04/30/2017 ADDENDUM #1 Exam title should read: 2 views of the chest and 2 views of the right lower ribs. Report Dictated By: Uriel Roper MD at 05/05/2017 4:52 PM Report E-Signed By: Uriel Roper MD at 05/05/2017 4:52 PM ORIGINAL REPORT Single view chest with 2 views of the right lower ribs INDICATION: Rib pain after cough. COMPARISON: Chest radiograph dated February 23, 2017. FINDINGS: Single view chest shows heart size within normal limits. There is no focal infiltrate or co nsolidation. Persistent mild peribronchial wall thickening. There is no pneumothorax or pleural effus ion. Linear atelectasis within the left midlung. Views of right ribs show minimally displaced fractures of the anterior right seventh, eighth, and ina th ribs.. Chronic healed posterior right rib fracture. IMPRESSION: 1. No acute cardiopulmonary process. There is persistent mild bronchial wall thickening. 2. Minimally displaced fractures of the anterior right seventh, eighth, and ninth ribs. Report Dictated By: Uriel Roper MD at 04/30/2017 2:01 PM Report E-Signed By: Uriel Roper MD at 04/30/2017 2:07 PM WSN:[email or web address]
[2017-04-30] MEDS ORDERED: LOR5/325 PO (14:21)
[2017-04-30 14:33] VITALS: BP 146/68
== END 2017-04-30 14:33 | disposition home or self-care (01) ==
LOC: ER 13:13
DX: S22.42XA Multiple fractures of ribs, left side, initial encounter for closed fracture (principal); F17.210 Nicotine dependence, cigarettes, uncomplicated
CPT/HCPCS: 71046; 71100; 99284; A9270

== ENCOUNTER → 2017-06-06 | Outpatient (CLI) | payer MEDICARE ==
[~2017-06-06] MED LIST changes: -FENO145T PO; +FENO145T36 PO
[2017-06-06 11:31] LABS: INR 1.94
== END ==
LOC: LAB 11:06
PROVIDERS: ATTEND Physician Assistant Surgical
DX: Z51.81 Encounter for therapeutic drug level monitoring (principal); Z79.01 Long term (current) use of anticoagulants; Z96.641 Presence of right artificial hip joint
CPT/HCPCS: 36415; 85610

== ENCOUNTER → 2017-06-09 | Outpatient (CLI) | payer MEDICARE ==
[2017-06-09 12:57] LABS: INR 2.03
== END ==
LOC: LAB 12:27
PROVIDERS: ATTEND Physician Assistant Surgical
DX: Z51.81 Encounter for therapeutic drug level monitoring (principal); Z79.01 Long term (current) use of anticoagulants; Z96.641 Presence of right artificial hip joint
CPT/HCPCS: 36415; 85610

== ENCOUNTER → 2017-06-16 | Outpatient (CLI) | payer MEDICARE ==
[2017-06-16 13:42] LABS: INR 1.83
== END ==
LOC: LAB 13:18
PROVIDERS: ATTEND Physician Assistant Surgical
DX: Z51.81 Encounter for therapeutic drug level monitoring (principal); Z79.01 Long term (current) use of anticoagulants; Z96.641 Presence of right artificial hip joint
CPT/HCPCS: 36415; 85610

== ENCOUNTER 2017-09-30 11:15 | Outpatient (RCR) | payer MEDICARE ==
--- NOTE | 2017-09-16 15:37 | PT INITIAL EVALUATION ---
MEDICAL DIAGNOSIS: Left Hip Bursitis TREATMENT DIAGNOSIS: Left Greater Trochanteric Bursitis, Generalized Weakness DATE OF ONSET: 09/13/17 SUBJECTIVE: Dimas Lemons" is a 57 year old female presenting to physical therapy with a 3 month history of onset of L hip pain following both L and R hip replacements. Pt reports that her L hip replacement occurred in December 2016 with minimal complications including need for increased hardware secondary to poor bone integrity. Approximately 3 moths ago she also had her R hip replaced which healed much more quickly, but resulted in significant L hip pain. Pt received no physical therapy following either procedure. Pt reports that following months of pain she consulted her doctor who attempted to perform injections into the L hip though could not access the desired area sufficiently. Pt was told that she had likely had L hip bursitis. Pt reports pain is increased with pressure, walking, and also sitting for prolonged periods. Pain has been staying about the same and is typically rated around 5/ 10. At worst pain will increase to 8-9/10 and she requires assistance with transfers and moving at those times. Pain is best with ice and Tylenol and will decrease to 3/10. Pt has a history of back surgery as well that causes her significant pain and reports recent rib fractures on the L side following simply "coughing." Additionally pt recently went to her chiropractor and following manipulation has significant pain on the R ribs that hurt with bearing down, performing transfers or breathing deeply. Pt lives with her daughter who assists in her care and ADL's. REHAB PROBLEM LIST: Increased Pain Decreased ROM Impaired Bed Mobility Decreased Strength Impaired Transfers Decreased Endurance Decreased Balance Decreased Function Decreased ADL's Decreased Mobility Decreased Gait PREVIOUS MEDICAL HISTORY: See EMR OCCUPATION: On disability OBJECTIVE: ROM: Left hip flexion is minimally limited, pt has full hip ext. Abd>Add is full and painful. Strength: LE MMT (R, L): Hip: flexion: 3+/5, 3/5 with pain in hip, ext: 3+/5, 3+ /5 with pain in hip, abd: 4/5, 3+/5 with pain in hip, add: 4-/5, 3+/5 with pain in hip. Knee: ext: 4-/5, 3+/5, flex: 4-/5, 4-/5. Palpation: Pt has minimal bruising on the lateral hip where the injections recently occurred per pt. Pt has slight inflammation with tenderness to palpation. Pt is point tender on R side ribs on the anterior aspect below the breast. Special Tests: Thigh thrust (-) (resulted in decreased pain), FADIR (+), OLI ( slight pain +), Chao (-) Mobility: Pt performs transfers from seated to standing without use of B UE with good knee alignment and no pain with transfers. Gait: Pt ambulates with shortened step length and foot clearance B with antalgic gait pattern. Other Objective Findings: Lower Extremity Functional Scale (LEFS): 27/80 ASSESSMENT: Kassidy shows signs and symptoms consistent with generalized weakness and capsular tightness of the L hip resulting in mild L trochanteric bursitis and significant pain and dysfunction with ADL's. Additionally pt shows signs and symptoms consistent with possible R anterior rib fracture which will be evaluated at a later time if symptoms persist. Physical therapy is indicated for this patient to address the above listed deficits and to improve strength and functional mobility with ADL's. Short Term Goals In 3 weeks pt will decrease hip pain to <5/10 throughout the day for increased function with ADL's. In 3 weeks pt will increase B LE strength to 3+/5 or greater for improved strength and function with ADL's. In 6 weeks pt will increase B LE strength to 4/5 or greater for improved strength and function with ADL's. In 6 weeks pt will increase LEFS score to >36/80 for improved functional mobility with ADL's. Patient's Goals Decrease hip pain. PLAN: Patient to be seen for Manual Therapy/STM/MET Strengthening/condition Ice/Heat Range of Motion Spinal Stabilization Ultrasound Stretching Iontophoresis Neuromuscular Re-ed Closed Chain Program Electrical Stim Posture/Body mechanics Gait Trg/Balance Trg Biofeedback Home Exercise Program Mech./Manual Traction Therapeutic Activities Pelvic Floor 3x/Week for 6 Weeks If you have any questions, comments, or concerns about this report or plan, please contact me at . Thank you, Jaquelin Goyal, PT, DPT, CLT MTDD
[~2017-09-30 11:15] MED LIST changes: -METF-410 PO; +METF-411 PO; -PIOG45TA3 PO; +PIOG45TA65 PO
== END 2017-09-30 18:00 | disposition home or self-care (01) ==
LOC: PT 11:15
PROVIDERS: ATTEND Orthopaedic Surgery Adult Reconstructive Orthopaedic Surgery
DX: M70.72 Other bursitis of hip, left hip (principal); Z96.643 Presence of artificial hip joint, bilateral; R53.1 Weakness; R07.81 Pleurodynia
CPT/HCPCS: 97162

== ENCOUNTER 2017-10-17 09:35 | Emergency (ER) | payer MEDICARE ==
--- NOTE | 2017-10-17 10:42 | RADIOLOGY IMAGING REPORT ---
FACILITY: [facility] PATIENT NAME: Dimas Max : 1960 MR: [id number] V: [id number] EXAM DATE: ORDERING PHYSICIAN: ZULEYKA LOVE TECHNOLOGIST: Location: [facility] Patient: Dimas Max : 1960 Visit/Account:[id number] Date of Sevice: 10/17/2017 Exam type: CHEST PA AND LAT History: Following , chest pain, hurts to breathe Comparison: April 30, 2017. Findings: Cardiac silhouette is enlarged but unchanged. This chronic peribronchial thickening noted bilaterall y and linear scarring in the mid to upper lung jones. Blunting of left costophrenic angle is slight ly increased and the small left pleural effusions not totally excluded. There is no evidence of a pn eumothorax. There are multiple old right-sided rib fractures. IMPRESSION: 1. Cardiomegaly unchanged Chronic peribronchial thickening and linear scarring in the mid to upper lung jones Blunting of the left costophrenic angle is slightly increased and a small pleural effusion is not tot ally excluded Report Dictated By: Jeanne Cancino MD at 10/17/2017 10:36 AM Report E-Signed By: Jeanne Cancino MD at 10/17/2017 10:39 AM WSN:[email or web address]
--- NOTE | 2017-10-17 10:56 | ER Report ---
History and Physical Time Seen By MD: 10:56 Hx. of Stated Complaint: BILAT RIB PAIN FROM FALL ON TUESDAY HPI/ROS CHIEF COMPLAINT: Fall with bilateral anterior rib pain HISTORY OF PRESENT ILLNESS: 57-year-old female patient presents to emergency room with complaint of bilateral anterior rib pain following a fall. Patient states that she was walking around her home, she is in the process of moving, and caught her toe on a box. That caused her to fall forward. She states she landed on her stomach and chest. She did catch herself with her hands a slight bit. She is pain since and has been quite significant. She states that she has worsening pain with deep breath, and pain with over eating. She states that she also has a fair amount of pain with any type of movement. She states that she is not had any improvement with [id number] medication. She denies having any fevers, chills, nausea, vomiting or diarrhea. REVIEW OF SYSTEMS: Respiratory: No cough, no dyspnea. Cardiovascular: No chest pain, no palpitations. Gastrointestinal: No vomiting, no abdominal pain. Musculoskeletal: As noted above Allergies: Coded Allergies: egg (Verified Allergy, Mild, 10/17/17) Home Meds Active Scripts Hydrocodone Bit/Acetaminophen (HYDROCODON-ACETAMINOPHEN 5-325) 1 Each Tablet, 1 EACH PO Q4-6H Y for PAIN, #12 TAB Prov:CANDY BOLANOS [employer] LOAN OFFICER 10/17/17 Hydrocodone Bit/Acetaminophen (HYDROCODON-ACETAMINOPHEN 5-325) 1 Each Tablet, 1 EACH PO Q4-6H for PAIN, #15 TAB 0 Refills Prov:GRETA MARCANO MD 04/30/17 Doxycycline Hyclate (DOXYCYCLINE HYCLATE) 100 Mg Tablet, 100 MG PO BID, #20 TAB Prov:MIKA CHAU [employer] LOAN OFFICER-BC 04/04/17 Amoxicillin/Pot Clav 875-125 Mg Tab (AUGMENTIN 875-125 TABLET) 1 Each Tablet, 1 TAB PO Q12H for 21 Days, #42 TAB 1 Refill Prov:SHAWN DE LEON MD 03/03/17 Benzonatate 100 Mg Cap (TESSALON PERLE 100 MG CAP) 100 Mg Capsule, 100 MG PO TID for cough, #15 CAP 0 Refills Prov:GRETA MARCANO MD 02/22/17 Albuterol Sulfate 0.083% (ALBUTEROL SULFATE 0.083%) 2.5 Mg/3 Ml Vial.neb, 2.5 MG INH Q4-6H for cough, #1 BOX 0 Refills Prov:GRETA MARCANO MD 05/04/16 Reported Medications Metformin Hcl (METFORMIN HCL) 500 Mg Tablet, 1 TAB PO BID, TAB 04/04/17 Losartan Potassium (LOSARTAN POTASSIUM) 50 Mg Tablet, 50 MG PO QDAY 12/20/16 Pioglitazone Hcl (PIOGLITAZONE HCL) 45 Mg Tablet, 45 MG PO QDAY 12/20/16 Dapagliflozin Propanediol (Farxiga) 10 Mg Tablet, 10 MG PO DAILY 12/20/16 Guaifenesin/Dextromethorphan (MUCINEX DM ER 600-30 MG TABLET) 1 Each Tab.er.12h , 1 EACH PO BID 05/17/16 Aspirin (Childrens Chewable Aspirin) 81 Mg Chew, 81 MG PO DAILY, 0 Refills 08/26/11 Metoprolol Succinate (Toprol Xl) 25 Mg Tab.sr.24h, 25 MG PO BID, 0 Refills 08/26/11 Spironolactone (Aldactone) 50 Mg Tablet, 50 MG PO DAILY, 0 Refills 08/26/11 Oxygen (Oxygen) 2 L Inha, 2 L INH PRN, 0 Refills At Night With BiPap 03/10/11 Gabapentin (Neurontin) 300 Mg Cap, 600 MG PO TID, 0 Refills 03/10/11 Fluoxetine Hcl (Prozac) 40 Mg Capsule, 40 MG PO BID, #20 0 Refills 03/10/11 Allopurinol (Zyloprim) 300 Mg Tab, 300 MG PO QDAY, 0 Refills 03/10/11 Fluticasone/Salmeterol (Advair 250-50 Diskus) 1 Disk W/Dev Disk.w.dev, 1 DISK IH BID, 0 Refills 03/10/11 Albuterol (Proventil Inhaler) 17 Gm Inh, 0 INH PRN, 0 Refills 1-2 PUFFS 03/10/11 Past Medical/Surgical History Patient has a past medical history of migraines, hypertension, hyperlipidemia, MA, chronic bronchitis, asthma, emphysema, pneumonia, COPD, reflux, back pain, diabetes, depression. Patient has a surgical history of cardiac stent 3, appendectomy, hysterectomy, tubal ligation, back surgery 2, right knee surgery, arm surgery, right total hip replacement, right rotator cuff, nerves burned and L4, L5, tonsillectomy. Patient has a family medical history of cancer, CAD, diabetes. Reviewed Nurses Notes: Yes Hx Smoking: Yes (1/2 PPD) Smoking Status: Current: Every Day Smoker Exposure to Second Hand Smoke?: Yes Hx Substance Use Disorder: No Hx Alcohol Use: No Constitutional Vital Sign - Last 24 Hours 10/17/17 10/17/17 10/17/17 10/17/17 09:38 10:30 11:00 11:30 Temp 99.0 Pulse 61 57 Resp 16 B/P (MAP) 133/68 118/67 (84) 126/66 (86) 129/73 (91) Pulse Ox 88 94 O2 Delivery Room Air 10/17/17 12:00 Pulse 56 B/P (MAP) 117/65 (82) Pulse Ox 91 Physical Exam General Appearance: The patient is alert, has no immediate need for airway protection and no current signs of toxicity. Respiratory: Chest is tender bilaterally and of the breasts, lungs are clear to auscultation. Cardiac: regular rate and rhythm Gastrointestinal: Abdomen is soft and mildly tender in the left upper quadrant, no masses, bowel sounds normal. Musculoskeletal: Neck: Neck is supple and non tender. Extremities have full range of motion and are non tender. Skin: No rashes or lesions. DIFFERENTIAL DIAGNOSIS: After history and physical exam differential diagnosis was considered for contusion, fracture, sprain, costochondritis. Medical Decision Making EKG/Imaging Imaging Exam type: BILATERAL RIBS History: fall with rib pain Comparison: Left ribs April 30, 2017. Findings: There are old fractures of the anterior aspect of the right seventh eighth and ninth ribs. There are relatively acute appearing fractures through the anterior aspect of the left seventh and eighth ribs. There is blunting of left costophrenic angle not present on the prior study and likely represents a small left pleural effusion. No pneumothorax is seen. Mild chronic peribronchial thickening is present and mild cardiomegaly IMPRESSION: 1. Old anterior right rib fractures Acute appearing fractures of the anterior aspect of the left seventh and eighth ribs Blunting of the left costophrenic angle is suspicious for small left pleural effusion Report Dictated By: Jeanne Cancino MD at 10/17/2017 11:36 AM Report E-Signed By: Jeanne Cancino MD at 10/17/2017 11:45 AM Exam type: CHEST PA AND LAT History: Following , chest pain, hurts to breathe Comparison: April 30, 2017. Findings: Cardiac silhouette is enlarged but unchanged. This chronic peribronchial thickening noted bilaterally and linear scarring in the mid to upper lung jones. Blunting of left costophrenic angle is slightly increased and the small left pleural effusions not totally excluded. There is no evidence of a pneumothorax. There are multiple old right-sided rib fractures. IMPRESSION: 1. Cardiomegaly unchanged Chronic peribronchial thickening and linear scarring in the mid to upper lung jones Blunting of the left costophrenic angle is slightly increased and a small pleural effusion is not totally excluded Report Dictated By: Jeanne Cancino MD at 10/17/2017 10:36 AM Report E-Signed By: Jeanne Cancino MD at 10/17/2017 10:39 AM ED Course/Re-evaluation ED Course Patient was admitted to an exam room, history and physical were obtained. Differential diagnoses were considered. On examination patient does have tenderness to the bilateral anterior ribs. Patient had a chest x-ray which was negative. Due to the pain on palpation I did order a bilateral rib series. That did show rib fractures to the left seventh and eighth ribs. I discussed the findings with patient. We'll go ahead and discharge her home. I did give her an incentive spirometer that she is to use 5-10 times every hour. She is to limit her activity by pain. She is to increase fluid intake. I would like her to ice her ribs 2-3 times a day for 15-20 minutes. She is return to the emergency room if condition worsens. Patient verbalized understanding and we will plan. Decision to Disposition Date: Oct 17, 2017 Decision to Disposition Time: 12:17 Depart Departure Latest Vital Signs Vital Signs Date Time Temp Pulse Resp B/P (MAP) Pulse Ox O2 Delivery O2 Flow Rate FiO2 10/17/17 12:00 56 117/65 (82) 91 10/17/17 09:38 99.0 16 Room Air Impression: Primary Impression: Left rib fracture Condition: Improved Disposition: HOME OR SELF-CARE Referrals: EVERARDO PARKS DO (PCP) New Scripts Hydrocodone Bit/Acetaminophen (HYDROCODON-ACETAMINOPHEN 5-325) 1 Each Tablet 1 EACH PO Q4-6H Y for PAIN, #12 TAB Prov: CANDY BOLANOS 10/17/17 Patient Instructions: Rib Fracture (ED) Additional Instructions: Increase fluid intake. Get plenty of rest. Limit activity by pain. Splint your ribs whenever you cough. Follow up with your primary care provider in the next 1-2 weeks. Ice the ribs for 15-20 minutes 2-3 times a day. Use the incentive spirometer 5-10 times every hour. Problem Qualifiers Primary Impression: Left rib fracture Encounter type: initial encounter Rib fracture type: multiple ribs Fracture type: closed Qualified Codes: S22.42XA - Multiple fractures of ribs , left side, initial encounter for closed fracture CANDY BOLANOS Oct 17, 2017 10:56
--- NOTE | 2017-10-17 11:49 | RADIOLOGY IMAGING REPORT ---
FACILITY: [facility] PATIENT NAME: Dimas Max : 1960 MR: [id number] V: [id number] EXAM DATE: ORDERING PHYSICIAN: CANDY BOLANOS TECHNOLOGIST: Location: [facility] [place] Patient: Dimas Max : 1960 Visit/Account:[id number] Date of Sevice: 10/17/2017 Exam type: BILATERAL RIBS History: fall with rib pain Comparison: Left ribs April 30, 2017. Findings: There are old fractures of the anterior aspect of the right seventh eighth and ninth ribs. There are relatively acute appearing fractures through the anterior aspect of the left seventh and eighth ribs . There is blunting of left costophrenic angle not present on the prior study and likely represents a small left pleural effusion. No pneumothorax is seen. Mild chronic peribronchial thickening is pr esent and mild cardiomegaly IMPRESSION: 1. Old anterior right rib fractures Acute appearing fractures of the anterior aspect of the left seventh and eighth ribs Blunting of the left costophrenic angle is suspicious for small left pleural effusion Report Dictated By: Jeanne Cancino MD at 10/17/2017 11:36 AM Report E-Signed By: Jeanne Cancino MD at 10/17/2017 11:45 AM WSN:[email or web address]
[2017-10-17 12:00] VITALS: BP 117/65
[2017-10-17] MEDS ORDERED: HYDR-385 PO (12:15)
== END 2017-10-17 12:25 | disposition home or self-care (01) ==
LOC: ER 09:47
DX: S22.42XA Multiple fractures of ribs, left side, initial encounter for closed fracture (principal)
CPT/HCPCS: 71046; 71111; 99283

== ENCOUNTER → 2017-10-26 | Outpatient (CLI) | payer MEDICARE ==
[~2017-10-26] MED LIST changes: +HYDR-385 PO
--- NOTE | 2017-10-26 17:22 | RADIOLOGY IMAGING REPORT ---
FAC[place] [facility] [place]IENT NAME: Dimas Max : 1960 MR: [id number] V: [id number] EXAM DATE: ORDERING PHYSICIAN: JUVE BARAJAS TECHNOLOGIST: Location: [facility] [place] Patient: Dimas Max : 1960 Visit/Account:[id number] Date of Sevice: 10/26/2017 CHEST PA AND LAT HISTORY: Follow-up rib fractures COMPARISON: X-ray 10/17/2017 FINDINGS: Cardiomediastinal contours: Normal Lungs and pleura: Improving aeration of the left costophrenic angle. No pneumothorax. Bones/soft tissues: Old right rib fractures. Prior noted left anterior rib fractures are difficult t o visualize. Other findings: None significant IMPRESSION: 1. Improved aeration of the left costophrenic angle. No pneumothorax. 2. Prior left anterior rib fractures are difficult to visualize. Report Dictated By: Stepan Nolasco MD at 10/26/2017 5:17 PM Report E-Signed By: Stepan Nolasco MD at 10/26/2017 5:19 PM WSN:[id number]
== END ==
LOC: RAD 16:25
PROVIDERS: ATTEND Physician Assistant Medical
DX: S22.42XA Multiple fractures of ribs, left side, initial encounter for closed fracture (principal)
CPT/HCPCS: 71046

== ENCOUNTER 2017-12-13 11:25 | Emergency (ER) | payer MEDICARE ==
[~2017-12-13 11:25] MED LIST changes: -LOSA50TA72 PO; +LOSA50TA74 PO; -METF-411 PO; +METF-450 PO
[2017-12-13] MEDS ORDERED: TRAM100T8 PO (11:47)
[2017-12-13] MEDS ORDERED: ACET500T68 PO (11:47)
[2017-12-13] MEDS ORDERED: IBUP-1671 PO (11:47)
--- NOTE | 2017-12-13 11:47 | ER Report ---
History and Physical Time Seen By MD: 11:47 Hx. of Stated Complaint: "HURTS TO BREATH" COUGH X 2 DAYS HPI/ROS CHIEF COMPLAINT: Shortness of breath, chest pain HISTORY OF PRESENT ILLNESS: 57-year-old female patient presents to emergency room with complaints shortness breath and chest pain. The patient states that she has been having this shortness of breath for the last 2 days. She states that she checked her oxygen at home and noted that she was 69% on 2 L. She states she turned up her oxygen at that time was able to get up into the low 80s. She states she is concerned, however she wanted to wait and see if she got better prior to coming in for evaluation. She states that today she is just feeling really short of breath. She states that she has significant amounts of pain with coughing. She denies any fevers, chills, nausea, vomiting or diarrhea. Patient has not taken any medications for this today. REVIEW OF SYSTEMS: Respiratory: As noted above Cardiovascular: No chest pain, no palpitations. Gastrointestinal: No vomiting, no abdominal pain. Musculoskeletal: No back pain. Allergies: Coded Allergies: egg (Verified Allergy, Mild, 12/13/17) Home Meds Active Scripts Prednisone (PREDNISONE) 20 Mg Tablet, 20 MG PO BID, #10 TAB Prov:CICICANDY [facility] 12/13/17 Azithromycin 250 Mg Tab (AZITHROMYCIN 250 MG TAB) 250 Mg Tablet, 1 TAB PO QDAY, #6 TAB Take 2 tabs today and then 1 tab a day until gone. Prov:CANDY BOLANOS [facility] 12/13/17 Albuterol Sulfate 0.083% (ALBUTEROL SULFATE 0.083%) 2.5 Mg/3 Ml Vial.neb, 2.5 MG INH Q4-6H for cough, #1 BOX 0 Refills Prov:GRETA MARCANO MD 05/04/16 Reported Medications Ibuprofen (MOTRIN IB) 200 Mg Tablet, 2 TAB PO TID 12/13/17 Acetaminophen (TYLENOL EXTRA STRENGTH) 500 Mg Tablet, 500 MG PO TID, TAB 12/13/17 Tramadol Hcl (TRAMADOL HCL) 100 Mg Tab.er.24h, 100 MG PO TID, TAB 12/13/17 Metformin Hcl (METFORMIN HCL) 500 Mg Tablet, 1 TAB PO BID, TAB 04/04/17 Losartan Potassium (LOSARTAN POTASSIUM) 50 Mg Tablet, 25 MG PO QDAY 12/20/16 Pioglitazone Hcl (PIOGLITAZONE HCL) 45 Mg Tablet, 45 MG PO QDAY 12/20/16 Guaifenesin/Dextromethorphan (MUCINEX DM ER 600-30 MG TABLET) 1 Each Tab.er.12h, 1 EACH PO TID 05/17/16 Aspirin (Childrens Chewable Aspirin) 81 Mg Chew, 81 MG PO DAILY, 0 Refills 08/26/11 Metoprolol Succinate (Toprol Xl) 25 Mg Tab.sr.24h, 25 MG PO BID, 0 Refills 08/26/11 Spironolactone (Aldactone) 50 Mg Tablet, 50 MG PO DAILY, 0 Refills 08/26/11 Oxygen (Oxygen) 2 L Inha, 2 L INH PRN, 0 Refills At Night With BiPap 03/10/11 Gabapentin (Neurontin) 300 Mg Cap, 600 MG PO TID, 0 Refills 03/10/11 Fluoxetine Hcl (Prozac) 40 Mg Capsule, 40 MG PO BID, #20 0 Refills 03/10/11 Allopurinol (Zyloprim) 300 Mg Tab, 300 MG PO QDAY, 0 Refills 03/10/11 Fluticasone/Salmeterol (Advair 250-50 Diskus) 1 Disk W/Dev Disk.w.dev, 1 DISK IH BID, 0 Refills 03/10/11 Albuterol (Proventil Inhaler) 17 Gm Inh, 0 INH PRN, 0 Refills 1-2 PUFFS 03/10/11 Discontinued Reported Medications Dapagliflozin Propanediol (Farxiga) 10 Mg Tablet, 10 MG PO DAILY 12/20/16 Discontinued Scripts Hydrocodone Bit/Acetaminophen (HYDROCODON-ACETAMINOPHEN 5-325) 1 Each Tablet, 1 EACH PO Q4-6H PRN for PAIN, #12 TAB Prov:CANDY BOLANOS 10/17/17 Hydrocodone Bit/Acetaminophen (HYDROCODON-ACETAMINOPHEN 5-325) 1 Each Tablet, 1 EACH PO Q4-6H for PAIN, #15 TAB 0 Refills Prov:GRETA MARCANO MD 04/30/17 Doxycycline Hyclate (DOXYCYCLINE HYCLATE) 100 Mg Tablet, 100 MG PO BID, #20 TAB Prov:MIKA CHAU NURSE TRANSITION-BC 04/04/17 Amoxicillin/Pot Clav 875-125 Mg Tab (AUGMENTIN 875-125 TABLET) 1 Each Tablet, 1 TAB PO Q12H for 21 Days, #42 TAB 1 Refill Prov:SHAWN DE LEON MD 03/03/17 Benzonatate 100 Mg Cap (TESSALON PERLE 100 MG CAP) 100 Mg Capsule, 100 MG PO TID for cough, #15 CAP 0 Refills Prov:GRETA MARCANO MD 02/22/17 Past Medical/Surgical History Patient has a past medical history of migraines, GA, hypertension, hyperlipidemia, chronic bronchitis, asthma, emphysema, pneumonia, COPD, reflux, arthritis, back pain, type 2 diabetes, depression. Patient has a surgical history of back surgery, right rotator cuff, bilateral hip replacement, tubal ligation, hysterectomy, appendectomy. Patient has a family medical history of cancer, CAD, diabetes. Reviewed Nurses Notes: Yes Hx Smoking: Yes (1/2 PPD) Smoking Status: Current: Every Day Smoker Exposure to Second Hand Smoke?: Yes Hx Substance Use Disorder: No Hx Alcohol Use: No Constitutional Vital Sign - Last 24 Hours 12/13/17 12/13/17 12/13/17 12/13/17 11:37 11:37 11:40 11:45 Temp 99.3 Pulse 72 66 Resp 24 B/P (MAP) 126/68 126/65 (85) Pulse Ox 87 91 O2 Delivery Room Air O2 Flow Rate 2.0 12/13/17 12/13/17 12/13/17 12/13/17 12:00 12:15 12:30 12:48 Pulse 67 67 63 B/P (MAP) 135/94 (108) 119/63 (81) 120/65 (83) Pulse Ox 91 90 97 12/13/17 12/13/17 12/13/17 12/13/17 13:00 13:15 13:30 13:45 Pulse 63 62 66 62 Resp 16 24 16 11 B/P (MAP) 117/64 (81) 126/72 (90) Pulse Ox 91 91 88 88 12/13/17 12/13/17 12/13/17 12/13/17 14:15 14:30 14:45 15:00 Pulse 68 70 66 66 Resp 10 22 12 17 B/P (MAP) 138/70 (92) Pulse Ox 90 89 90 93 Physical Exam General Appearance: The patient is alert, has no immediate need for airway protection and no current signs of toxicity. Respiratory: Chest is non tender, lungs are diminished throughout to auscultation. Cardiac: regular rate and rhythm Gastrointestinal: Abdomen is soft and non tender, no masses, bowel sounds normal. Musculoskeletal: Neck: Neck is supple and non tender. Extremities have full range of motion and are non tender. Skin: No rashes or lesions. DIFFERENTIAL DIAGNOSIS: After history and physical exam differential diagnosis was considered for shortness of breath including but not limited to pulmonary infectious process, COPD, asthma, pulmonary embolus and congestive heart failure. Medical Decision Making Data Points Result Diagram: 12/13/17 1200 12/13/17 1200 Laboratory Hematology Test 12/13/17 12:00 12/13/17 12:45 Red Blood Count 4.66 M/uL (4.17-5.56) Mean Corpuscular Volume 93.6 fL (80.0-96.0) Mean Corpuscular Hemoglobin 30.4 pg (26.0-33.0) Mean Corpuscular Hemoglobin Concent 32.4 g/dL (32.0-36.0) Red Cell Distribution Width 17.9 % (11.5-14.5) Mean Platelet Volume 8.0 fL (7.2-11.1) Neutrophils (%) (Auto) 70.3 % (39.4-72.5) Lymphocytes (%) (Auto) 18.2 % (17.6-49.6) Monocytes (%) (Auto) 9.5 % (4.1-12.4) Eosinophils (%) (Auto) 1.4 % (0.4-6.7) Basophils (%) (Auto) 0.6 % (0.3-1.4) Nucleated RBC Relative Count (auto) 0.1 /100WBC Neutrophils # (Auto) 7.2 K/uL (2.0-7.4) Lymphocytes # (Auto) 1.9 K/uL (1.3-3.6) Monocytes # (Auto) 1.0 K/uL (0.3-1.0) Eosinophils # (Auto) 0.1 K/uL (0.0-0.5) Basophils # (Auto) 0.1 K/uL (0.0-0.1) Nucleated RBC Absolute Count (auto) 0.01 K/uL D-Dimer Quantitative (PE/DVT) 0.67 ug/ml (0-0.50) Sodium Level 144 mmol/L (137-145) Potassium Level 4.4 mmol/L (3.5-5.0) Chloride Level 105 mmol/L (98-107) Carbon Dioxide Level 28 mmol/L (22-31) Blood Urea Nitrogen 15 mg/dl (7-18) Creatinine 0.60 mg/dl (0.52-1.04) Glomerular Filtration Rate Calc > 60.0 Random Glucose 100 mg/dl (75-110) Calcium Level 9.9 mg/dl (8.4-10.2) Total Bilirubin 0.4 mg/dl (0.2-1.3) Aspartate Amino Transf (AST/SGOT) 20 U/L (0-35) Alanine Aminotransferase (ALT/SGPT) 27 U/L (0-56) Alkaline Phosphatase 93 U/L (0-126) Troponin I < 0.012 ng/ml B-Type Natriuretic Peptide 149 pg/ml (0-100) Total Protein 7.8 g/dl (6.3-8.2) Albumin 4.3 g/dl (3.5-5.0) Urine Color Yellow Urine Clarity Slightly-cloudy Urine pH 5.0 pH (4.8-9.5) Urine Specific [place] 1.025 Urine Protein 30 mg/dL (NEGATIVE) Urine Glucose (UA) Negative mg/dL (NEGATIVE) Urine Ketones Negative mg/dL (NEGATIVE) Urine Blood Large (NEGATIVE) Urine Nitrite Negative (NEGATIVE) Urine Bilirubin Negative (NEGATIVE) Urine Urobilinogen Negative mg/dL (0.2-1.9) Urine Leukocyte Esterase Large (NEGATIVE) Urine RBC 250 /HPF (0-2/HPF) Urine WBC 120 /HPF (0-5/HPF) Urine Squamous Epithelial Cells Many /LPF (</=FEW) Urine Transitional Epithelial Cells Many /LPF (NONE-FEW) Urine Bacteria Moderate /HPF (NONE-FEW) Urine Mucus Few /HPF (NONE-FEW) Chemistry Test 12/13/17 12:00 12/13/17 12:45 White Blood Count 10.2 k/uL (4.5-11.0) Red Blood Count 4.66 M/uL (4.17-5.56) Hemoglobin 14.1 g/dL (12.0-16.0) Hematocrit 43.6 % (34.0-47.0) Mean Corpuscular Volume 93.6 fL (80.0-96.0) Mean Corpuscular Hemoglobin 30.4 pg (26.0-33.0) Mean Corpuscular Hemoglobin Concent 32.4 g/dL (32.0-36.0) Red Cell Distribution Width 17.9 % (11.5-14.5) Platelet Count 317 K/uL (150-450) Mean Platelet Volume 8.0 fL (7.2-11.1) Neutrophils (%) (Auto) 70.3 % (39.4-72.5) Lymphocytes (%) (Auto) 18.2 % (17.6-49.6) Monocytes (%) (Auto) 9.5 % (4.1-12.4) Eosinophils (%) (Auto) 1.4 % (0.4-6.7) Basophils (%) (Auto) 0.6 % (0.3-1.4) Nucleated RBC Relative Count (auto) 0.1 /100WBC Neutrophils # (Auto) 7.2 K/uL (2.0-7.4) Lymphocytes # (Auto) 1.9 K/uL (1.3-3.6) Monocytes # (Auto) 1.0 K/uL (0.3-1.0) Eosinophils # (Auto) 0.1 K/uL (0.0-0.5) Basophils # (Auto) 0.1 K/uL (0.0-0.1) Nucleated RBC Absolute Count (auto) 0.01 K/uL D-Dimer Quantitative (PE/DVT) 0.67 ug/ml (0-0.50) Glomerular Filtration Rate Calc > 60.0 Calcium Level 9.9 mg/dl (8.4-10.2) Total Bilirubin 0.4 mg/dl (0.2-1.3) Aspartate Amino Transf (AST/SGOT) 20 U/L (0-35) Alanine Aminotransferase (ALT/SGPT) 27 U/L (0-56) Alkaline Phosphatase 93 U/L (0-126) Troponin I < 0.012 ng/ml B-Type Natriuretic Peptide 149 pg/ml (0-100) Total Protein 7.8 g/dl (6.3-8.2) Albumin 4.3 g/dl (3.5-5.0) Urine Color Yellow Urine Clarity Slightly-cloudy Urine pH 5.0 pH (4.8-9.5) Urine Specific [place] 1.025 Urine Protein 30 mg/dL (NEGATIVE) Urine Glucose (UA) Negative mg/dL (NEGATIVE) Urine Ketones Negative mg/dL (NEGATIVE) Urine Blood Large (NEGATIVE) Urine Nitrite Negative (NEGATIVE) Urine Bilirubin Negative (NEGATIVE) Urine Urobilinogen Negative mg/dL (0.2-1.9) Urine Leukocyte Esterase Large (NEGATIVE) Urine RBC 250 /HPF (0-2/HPF) Urine WBC 120 /HPF (0-5/HPF) Urine Squamous Epithelial Cells Many /LPF (</=FEW) Urine Transitional Epithelial Cells Many /LPF (NONE-FEW) Urine Bacteria Moderate /HPF (NONE-FEW) Urine Mucus Few /HPF (NONE-FEW) Coagulation Test 12/13/17 12:00 D-Dimer Quantitative (PE/DVT) 0.67 ug/ml Urinalysis Test 12/13/17 12:45 Urine Color Yellow Urine Clarity Slightly-cloudy Urine pH 5.0 pH (4.8-9.5) Urine Specific [place] 1.025 Urine Protein 30 mg/dL (NEGATIVE) Urine Glucose (UA) Negative mg/dL (NEGATIVE) Urine Ketones Negative mg/dL (NEGATIVE) Urine Blood Large (NEGATIVE) Urine Nitrite Negative (NEGATIVE) Urine Bilirubin Negative (NEGATIVE) Urine Urobilinogen Negative mg/dL (0.2-1.9) Urine Leukocyte Esterase Large (NEGATIVE) Urine RBC 250 /HPF (0-2/HPF) Urine WBC 120 /HPF (0-5/HPF) Urine Squamous Epithelial Cells Many /LPF (</=FEW) Urine Transitional Epithelial Cells Many /LPF (NONE-FEW) Urine Bacteria Moderate /HPF (NONE-FEW) Urine Mucus Few /HPF (NONE-FEW) EKG/Imaging EKG Interpretation 12 lead EKG: Rhythm: normal sinus rhythm [place]: normal QRS: Prolonged QT, measuring [address] segments: Nonspecific ST abnormality Imaging EXAMINATION: CTA of the chest with IV contrast HISTORY: Shortness of breath. Elevated d-dimer. TECHNIQUE: Pulmonary embolus protocol - Thin axial CT images of the chest were obtained with IV contrast during maximal pulmonary arterial opacification. Reconstruction of the source data includes multiplanar 2D coronal and sagittal reconstructed images, and 3D coronal and sagittal MIP images. [employer] images have been stored on PACS. One of the following dose optimization techniques was utilized in the performance of this exam: Automated exposure control; adjustment of the mA and/or kV according to the patient's size; or use of an iterative reconstruction technique. Specific details can be referenced in the facility's radiology CT exam operational policy. Contrast: 75 mL of IV Isovue-370. COMPARISON: 12/20/2016. FINDINGS: Pulmonary arteries: The pulmonary arteries are well opacified, without suspicious filling defect. Heart, aorta, and great vessels: Normal caliber thoracic aorta, without aneurysm or dissection. Vascular calcifications, including coronary artery ca lcifications. Normal heart size. No pericardial effusion. Lungs and pleura: There is a small region of parenchymal consolidation in the right middle lobe laterally with some associated volume loss. This may represent a focal pneumonia or region of subsegmental atelectasis. There are regions of mild bronchial wall thickening in the mid and lower lungs. Slight scarring or atelectasis in both bases. No other suspicious focal consolidation. No pleural effusion or pneumothorax. Mediastinum and mat: Negative. Visualized upper abdomen: Unremarkable. Chest wall: Negative. Bones: No acute osseous findings. Scattered degenerative changes in the spine. IMPRESSION: 1. No evidence of pulmonary embolism. 2. Mild diffuse bronchial wall thickening in the mid and lower lungs may be co mpatible with bronchitis. 3. There is a small region of parenchymal consolidation in the right middle lobe laterally with some associated volume loss. This could relate to subsegmental atelectasis or could represent a localized pneumonia. 4. No other acute findings in the chest. Report Dictated By: Pierce Spann MD at 12/13/2017 2:32 PM Report E-Signed By: Pierce Spann MD at 12/13/2017 2:41 PM Exam type: CHEST PA AND LAT History: RESP DISTRESS Comparison: October 26, 2017. Findings: There is patchy airspace consolidation in the right lung base which has increased when compared the prior study. There is also increasing peribronchial thickening bilaterally most prominent in the lower lung jones. There is no evidence of pleural effusions or overt pulmonary edema. Cardiac silhouette is mildly enlarged and appears slightly increased when compared to the prior study. Previously noted left-sided rib fractures not ideally seen IMPRESSION: 1. There is now patchy airspace consolidation the right lung base which is increased when compared the prior study which may represent infiltrate and/or atelectasis Increasing peribronchial thickening bilaterally most prominent in the lower lung jones suggestive of an acute peribronchial inflammatory process Cardiac silhouette is mildly enlarged and appears slightly increased when compared the prior study Report Dictated By: Jeanne Cancino MD at 12/13/2017 1:19 PM Report E-Signed By: Jeanne Cancino MD at 12/13/2017 1:22 PM ED Course/Re-evaluation ED Course Patient was admitted to an exam room, history and physical were obtained. Differential diagnoses were considered. On examination lungs are diminished throughout, heart rate is regular. A CBC, CMP, EKG, troponin, d-dimer, BNP, chest x-ray were done. Patient did have some consolidation in the right lower lobe on the labs. Patient had a normal white count. Patient was given a DuoNeb which seemed to open drop we will also give her 125 mg of Solu-Medrol. Patient did have an elevated d-dimer and a CT pulmonary angiogram was done. The CT pulmonary angiogram did show consolidation in the right middle lobe as well as diffuse bronchial thickening consistent with bronchitis. I discussed the findings with the patient. We will go ahead and place her on azithromycin, have her increase her fluid intake, get plenty of rest. On reevaluation patient states she's feeling significantly improved and states she is ready to go home. Patient had a urine that had a large leukocyte esterase, negative nitrites. We will go ahead and culture her urine and see if this was a contaminated urine. With the patient having lots of skin cells in the urine I believe this is likely contaminated. We will go ahead and treat her with azithromycin and prednisone. She is to follow-up with her primary care provider next week. Patient verbalized understanding and agreement with plan. Decision to Disposition Date: Dec 13, 2017 Decision to Disposition Time: 15:04 Depart Departure Latest Vital Signs Vital Signs Date Time Temp Pulse Resp B/P (MAP) Pulse Ox O2 Delivery O2 Flow Rate FiO2 12/13/17 15:00 66 17 93 12/13/17 14:30 138/70 (92) 12/13/17 11:40 2.0 12/13/17 11:37 99.3 Room Air Impression: Primary Impression: Pneumonia Additional Impression: Bronchitis Condition: Improved Disposition: HOME OR SELF-CARE Referrals: EVERARDO PARKS DO (PCP) New Scripts Prednisone (PREDNISONE) 20 Mg Tablet 20 MG PO BID, #10 TAB Prov: CANDY BOLANOS 12/13/17 Azithromycin 250 Mg Tab (AZITHROMYCIN 250 MG TAB) 250 Mg Tablet 1 TAB PO QDAY, #6 TAB Take 2 tabs today and then 1 tab a day until gone. Prov: CANDY BOLANOS 12/13/17 Patient Instructions: Bacterial Pneumonia (ED) Additional Instructions: Take your first dose of prednisone and azithromycin when you pick it up. Follow up with your primary care provider in the next week. Increase fluid intake. Get plenty of rest. Use the oxygen 2-3L for the next couple of days. Return to the ER if condition worsens. Problem Qualifiers Primary Impression: Pneumonia Pneumonia type: due to unspecified organism Laterality: right Lung location: middle lobe of lung Qualified Codes: J18.1 - Lobar pneumonia, unspecified organism CANDY BOLANOS Dec 13, 2017 11:47
[2017-12-13] MEDS ORDERED: methylPREDNIS SUCC 125 MG/2ML IVP ONE (12:25)
[2017-12-13] MEDS ORDERED: ALBUTEROL/IPRATROPIUM 3 ML NEB NEB ONE (12:25)
[2017-12-13 12:41] LABS: PLATELET COUNT, AUTOMATED 317 K/uL (150-450)
--- NOTE | 2017-12-13 13:27 | RADIOLOGY IMAGING REPORT ---
FACILITY: [facility] PATIENT NAME: Dimas Max : 1960 MR: [id number] V: [id number] EXAM DATE: ORDERING PHYSICIAN: CANDY BOLANOS TECHNOLOGIST: Location: [facility] Patient: Dimas Max : 1960 Visit/Account:[id number] Date of Sevice: 12/13/2017 Exam type: CHEST PA AND LAT History: RESP DISTRESS Comparison: October 26, 2017. Findings: There is patchy airspace consolidation in the right lung base which has increased when compared the p rior study. There is also increasing peribronchial thickening bilaterally most prominent in the lowe r lung jones. There is no evidence of pleural effusions or overt pulmonary edema. Cardiac silhouet te is mildly enlarged and appears slightly increased when compared to the prior study. Previously no doris left-sided rib fractures not ideally seen IMPRESSION: 1. There is now patchy airspace consolidation the right lung base which is increased when compared t he prior study which may represent infiltrate and/or atelectasis Increasing peribronchial thickening bilaterally most prominent in the lower lung jones suggestive of an acute peribronchial inflammatory process Cardiac silhouette is mildly enlarged and appears slightly increased when compared the prior study Report Dictated By: Jeanne Cancino MD at 12/13/2017 1:19 PM Report E-Signed By: Jeanne Cancino MD at 12/13/2017 1:22 PM WSN:[email or web address]
[2017-12-13] MEDS ORDERED: IOPAMIDOL 76% 75 ML INFUS BTL 75 ML ONE (13:57)
[2017-12-13] MEDS ORDERED: NS(*) 0.9% 50 ML BAG 50 ML ONE (13:57)
[2017-12-13 14:30] VITALS: BP 138/70
--- NOTE | 2017-12-13 14:43 | EKG ---
FACILITY: [facility] PATIENT NAME: JENNIFER GANDARA : [id number] MR: [id number] V: [id number] EXAM DATE: ORDERING PHYSICIAN: CANDY BOLANOS TECHNOLOGIST: DEB Maxwell Reason : RESPIRAATORY Blood Pressure : / mmHG Vent. Rate : 065 BPM Atrial Rate : 065 BPM P-R Int : 164 ms QRS Dur : 086 ms QT Int : 474 ms P-R-T Axes : 058 041 032 degrees QTc Int : 492 ms Normal sinus rhythm Prolonged QT T inversion consistent with septal ischemia vs normal variant When compared with ECG of 20-DEC-2016 09:15, No significant change was found Confirmed by YANG CONN ([id number]) on 12/13/2017 8:30:53 PM Referred By: Confirmed By:YANG CONN
--- NOTE | 2017-12-13 14:45 | RADIOLOGY IMAGING REPORT ---
FACILITY: [facility] PATIENT NAME: Dimas Max : 1960 MR: [id number] V: [id number] EXAM DATE: ORDERING PHYSICIAN: CANDY BOLANOS TECHNOLOGIST: Location: [facility] Patient: Dimas Max : 1960 Visit/Account:[id number] Date of Sevice: 12/13/2017 EXAMINATION: CTA of the chest with IV contrast HISTORY: Shortness of breath. Elevated d-dimer. TECHNIQUE: Pulmonary embolus protocol - Thin axial CT images of the chest were obtained with IV con trast during maximal pulmonary arterial opacification. Reconstruction of the source data includes mul tiplanar 2D coronal and sagittal reconstructed images, and 3D coronal and sagittal MIP images. Repres entative images have been stored on PACS. One of the following dose optimization techniques was utilized in the performance of this exam: Autom ated exposure control; adjustment of the mA and/or kV according to the patient's size; or use of an i terative reconstruction technique. Specific details can be referenced in the facility's radiology C T exam operational policy. Contrast: 75 mL of IV Isovue-370. COMPARISON: 12/20/2016. FINDINGS: Pulmonary arteries: The pulmonary arteries are well opacified, without suspicious filling defect. Heart, aorta, and great vessels: Normal caliber thoracic aorta, without aneurysm or dissection. Vas cular calcifications, including coronary artery calcifications. Normal heart size. No pericardial e ffusion. Lungs and pleura: There is a small region of parenchymal consolidation in the right middle lobe late rally with some associated volume loss. This may represent a focal pneumonia or region of subsegment al atelectasis. There are regions of mild bronchial wall thickening in the mid and lower lungs. Sli ght scarring or atelectasis in both bases. No other suspicious focal consolidation. No pleural effu leanne or pneumothorax. Mediastinum and mat: Negative. Visualized upper abdomen: Unremarkable. Chest wall: Negative. Bones: No acute osseous findings. Scattered degenerative changes in the spine. IMPRESSION: 1. No evidence of pulmonary embolism. 2. Mild diffuse bronchial wall thickening in the mid and lower lungs may be compatible with bronchit is. 3. There is a small region of parenchymal consolidation in the right middle lobe laterally with some associated volume loss. This could relate to subsegmental atelectasis or could represent a localize d pneumonia. 4. No other acute findings in the chest. Report Dictated By: Pierce Spann MD at 12/13/2017 2:32 PM Report E-Signed By: Pierce Spann MD at 12/13/2017 2:41 PM WSN:[email or web address]
[2017-12-13] MEDS ORDERED: AZIT-18 PO (15:02)
[2017-12-13] MEDS ORDERED: PRED20TA6 PO (15:02)
== END 2017-12-13 15:16 | disposition home or self-care (01) ==
LOC: ER 11:32
DX: J18.1 Lobar pneumonia, unspecified organism (principal); J40 Bronchitis, not specified as acute or chronic
CPT/HCPCS: 36415; 71046; 71275; 81001; 83880; 84484; 85025; 85379; 87040; 87088; 93005; 96374; 99285; J2930; J7050; J7620; Q9967; 82040; 82247; 82310; 82374; 82435; 82565; 82947; 84075; 84132; 84155; 84295; 84450; 84460; 84520

== ENCOUNTER → 2018-02-15 | Outpatient (CLI) | payer MEDICARE ==
[~2018-02-15] MED LIST changes: +ACET500T68 PO; +AZIT-18 PO; +IBUP-1671 PO; -LOSA50TA74 PO; +LOSA50TA80 PO; +PRED50TA22 PO; +TRAM100T8 PO
--- NOTE | 2018-02-15 13:26 | RADIOLOGY IMAGING REPORT ---
FACILITY: [facility] PATIENT NAME: Dimas Max : 1960 MR: [id number] V: [id number] EXAM DATE: ORDERING PHYSICIAN: EVERARDO PARKS TECHNOLOGIST: Location: [facility] Patient: Dimas Max : 1960 Visit/Account:[id number] Date of Sevice: 02/15/2018 Exam type: CHEST PA AND LAT History: Pneumonia, shortness of breath, smoker quit two months ago, asthma, sleep apnea Comparison: February 03, 2018. And December 13, 2017 Findings: Chronic peribronchial thickening appears similar to the prior studies. There is a linear band of ate lectasis now noted in the left lung base. There is flattening the hemidiaphragms consistent with hyp erinflation. The cardiac silhouette is enlarged but unchanged. IMPRESSION: 1. Chronic peribronchial thickening Linear band of atelectasis now present in the left lung base Hyperinflation of the lung jones Stable cardiomegaly Report Dictated By: Jeanne Cancino MD at 02/15/2018 1:19 PM Report E-Signed By: Jeanne Cancino MD at 02/15/2018 1:22 PM WSN:[email or web address]
== END ==
LOC: RAD 11:51
PROVIDERS: ATTEND Family Medicine
DX: I51.7 Cardiomegaly (principal); R91.8 Other nonspecific abnormal finding of lung field; J98.11 Atelectasis
CPT/HCPCS: 71046

== ENCOUNTER 2018-03-10 13:52 | Emergency (ER) | payer MEDICARE ==
--- NOTE | 2018-03-10 14:01 | ER Report ---
History and Physical Time Seen By MD: 14:01 Hx. of Stated Complaint: FALL, LEFT HUMURAL DEFORMITY HPI/ROS CHIEF COMPLAINT: Left arm pain HISTORY OF PRESENT ILLNESS: 57-year-old female patient presents to emergency room with complaint of left arm pain. Patient states that she was walking and tripped while carrying her oxygen. She states she landed on her left elbow. Patient states that she does have significant pain to the left arm is worsened with any type of movement. She denies having any numbness or tingling to the fingers. Patient states that her pain is a 7 out of 10. Patient did come in by EMS and did receive 100 g of fentanyl. She states that she still having a fair amount of pain. Patient denies any head or neck pain. REVIEW OF SYSTEMS: Respiratory: No cough, no dyspnea. Cardiovascular: No chest pain, no palpitations. Gastrointestinal: No vomiting, no abdominal pain. Musculoskeletal: As noted above Allergies: Coded Allergies: egg (Verified Allergy, Mild, 02/03/18) Home Meds Active Scripts Oxycodone Hcl/Acetaminophen (PERCOCET 5-325 MG TABLET) 1 Each Tablet, 1 EACH PO Q4-6H PRN for PAIN, #20 TAB Prov:CANDY BOLANOS RETREAD SUPERVISOR 03/10/18 Albuterol Sulfate 0.083% (ALBUTEROL SULFATE 0.083%) 2.5 Mg/3 Ml Vial.neb, 2.5 MG INH Q4-6H for cough, #1 BOX 0 Refills Prov:GRETA MARCANO MD 05/04/16 Reported Medications Acetaminophen (TYLENOL EXTRA STRENGTH) 500 Mg Tablet, 500 MG PO TID, TAB 12/13/17 Tramadol Hcl (TRAMADOL HCL) 100 Mg Tab.er.24h, 100 MG PO TID, TAB 12/13/17 Metformin Hcl (METFORMIN HCL) 500 Mg Tablet, 1 TAB PO BID, TAB 04/04/17 Losartan Potassium (LOSARTAN POTASSIUM) 50 Mg Tablet, 25 MG PO QDAY 12/20/16 Pioglitazone Hcl (PIOGLITAZONE HCL) 45 Mg Tablet, 45 MG PO QDAY 12/20/16 Guaifenesin/Dextromethorphan (MUCINEX DM ER 600-30 MG TABLET) 1 Each Tab.er.12h, 1 EACH PO TID 05/17/16 Aspirin (Childrens Chewable Aspirin) 81 Mg Chew, 81 MG PO DAILY, 0 Refills 08/26/11 Metoprolol Succinate (Toprol Xl) 25 Mg Tab.sr.24h, 25 MG PO BID, 0 Refills 08/26/11 Spironolactone (Aldactone) 50 Mg Tablet, 50 MG PO DAILY, 0 Refills 08/26/11 Oxygen (Oxygen) 2 L Inha, 2 L INH DAILY, 0 Refills At Night With BiPap 03/10/11 Gabapentin (Neurontin) 300 Mg Cap, 600 MG PO TID, 0 Refills 03/10/11 Fluoxetine Hcl (Prozac) 40 Mg Capsule, 40 MG PO BID, #20 0 Refills 03/10/11 Allopurinol (Zyloprim) 300 Mg Tab, 300 MG PO QDAY, 0 Refills 03/10/11 Fluticasone/Salmeterol (Advair 250-50 Diskus) 1 Disk W/Dev Disk.w.dev, 1 DISK IH BID, 0 Refills 03/10/11 Albuterol (Proventil Inhaler) 17 Gm Inh, 0 INH PRN, 0 Refills 1-2 PUFFS 03/10/11 Discontinued Reported Medications Ibuprofen (MOTRIN IB) 200 Mg Tablet, 2 TAB PO TID 12/13/17 Discontinued Scripts Prednisone (PREDNISONE) 50 Mg Tablet, 50 MG PO QDAY for 5 Days, #5 Prov:ZULEYKA LOVE MD 02/03/18 Azithromycin 250 Mg Tab (AZITHROMYCIN 250 MG TAB) 250 Mg Tablet, 1 TAB PO QDAY for 5 Days, #5 TAB Prov:ZULEYKA LOVE MD 02/03/18 Past Medical/Surgical History Patient has a past medical history of migraines, [place], hypertension, hyperlipidemia, chronic bronchitis, asthma, emphysema, pneumonia, COPD, reflux, arthritis, back pain, type 2 diabetes, depression. Patient has a surgical history of tonsillectomy, back surgery, right rotator cuff surgery, bilateral hip replacement, tubal ligation, hysterectomy, appendectomy, stent placement 3. Patient has a family medical history of cancer, CAD, diabetes Reviewed Nurses Notes: Yes Hx Smoking: Yes (03/08 PPD) Smoking Status: Current: Every Day Smoker Exposure to Second Hand Smoke?: Yes Hx Substance Use Disorder: No Hx Alcohol Use: No Constitutional Vital Sign - Last 24 Hours 03/10/18 03/10/18 03/10/18 03/10/18 13:52 13:55 13:56 14:00 Temp 98.2 Pulse ??? 60 Resp 18 B/P (MAP) 132/63 (86) 132/62 121/70 (87) Pulse Ox 86 O2 Delivery Nasal Cannula 03/10/18 03/10/18 03/10/18 03/10/18 14:22 14:30 14:52 14:57 Pulse 57 59 48 Resp 20 21 30 B/P (MAP) 120/52 (74) Pulse Ox 89 91 03/10/18 03/10/18 15:00 15:27 Pulse 58 B/P (MAP) 135/59 (84) Pulse Ox 86 Physical Exam General Appearance: The patient is alert, has no immediate need for airway protection and no current signs of toxicity. Respiratory: Chest is non tender, lungs are clear to auscultation. Cardiac: regular rate and rhythm Gastrointestinal: Abdomen is soft and non tender, no masses, bowel sounds normal. Musculoskeletal: Neck: Neck is supple and non tender. Extremities have full range of motion and are non tender. Patient does have deformity of the left upper arm, no numbness tingling to her hand, she is good powder line repairer strength. Skin: No rashes or lesions. DIFFERENTIAL DIAGNOSIS: After history and physical exam differential diagnosis was considered for fracture, contusion, dislocation. Medical Decision Making EKG/Imaging Imaging HUMERUS LEFT HISTORY: fall with pain Additional history: None COMPARISON: None. FINDINGS: There is a comminuted humeral transverse midshaft fracture with 50 degree angulation and one half bone width displacement. I do not see evidence of underlying tumor. There is diffuse bony demineralization consistent with osteopenia. IMPRESSION: Comminuted left humeral midshaft fracture per above Report Dictated By: Tyrone Hurst MD at 03/10/2018 2:32 PM Report E-Signed By: Tyrone Hurst MD at 03/10/2018 2:35 PM ED Course/Re-evaluation ED Course Patient was admitted to an exam room, history and physical were obtained. Differential diagnoses were considered. On examination patient does have deformity of the left upper arm. She has tenderness to palpation. Patient was splinted by EMS prior to arrival patient was left in a splint for comfort measures. X-rays done of the left arm which showed a midshaft fracture of the left humerus. Patient did have displacement and 50 angulation. As a result I did call and discuss the case with Dr. Kinney, orthopedist, who recommended placement in just a sling. [place] will help reduce the fracture. He states that she is to follow-up in the clinic on Tuesday. I did go in and speak with the patient about the results of the imaging and my discussion with Dr. Kinney. She verbalized understanding and agreement. We did remove the splint and placed her in a sling. She did have worsening pain with that. Patient was on 8 L of oxygen and satting in the low 90s at that time. I held off giving her any more pain medication due to the hypoxia. I was able to get her into a sitting position after letting her rest for a few minutes. Patient states that she does have significant improvement in the pain at this time. She currently rates it a 4 out of 10. I was able to adjust the sling and wrap it around the body to mobilize the shoulder. Sitting up the patient had improved oxygen saturations up into the mid 90s. I was able to turn her down to 2 L on a nasal cannula and she was able to maintain her oxygen saturations at 90%. Patient will be discharged home at this time with a prescription of Percocet as needed for pain. She is follow-up with orthopedics on Tuesday. Patient verbalized understanding and agreement with plan. Decision to Disposition Date: Mar 10, 2018 Decision to Disposition Time: 15:22 Depart Departure Latest Vital Signs Vital Signs Date Time Temp Pulse Resp B/P (MAP) Pulse Ox O2 Delivery O2 Flow Rate FiO2 03/10/18 15:27 58 86 03/10/18 15:00 135/59 (84) 03/10/18 14:57 30 03/10/18 13:56 98.2 Nasal Cannula Impression: Primary Impression: Humeral shaft fracture Condition: Improved Disposition: HOME OR SELF-CARE Referrals: EVERARDO PARKS DO (PCP) New Scripts Oxycodone Hcl/Acetaminophen (PERCOCET 5-325 MG TABLET) 1 Each Tablet 1 EACH PO Q4-6H PRN for PAIN, #20 TAB Prov: CANDY BOLANOS JUAN M 03/10/18 Patient Instructions: Arm Fracture in Adults (ED) Additional Instructions: Limit activity by pain. Ice the arm 2-3 times a day for 20-30 minutes. With the sling 24 hours a day Follow up with [facility], call this afternoon to make an appointment. Return to the ER with uncontrollable pain or numbness to the hand. You may take Ibuprofen as needed for pain in addition to the pain medication. Don't take any additional Tylenol while on the pain medication. Problem Qualifiers Primary Impression: Humeral shaft fracture Encounter type: initial encounter Fracture type: closed Fracture morphology: comminuted Fracture alignment: displaced Laterality: left Qualified Codes: S42.352A - Displaced comminuted fracture of shaft of humerus, left arm, initial encounter for closed fracture CANDY BOLANOS Mar 10, 2018 14:01
--- NOTE | 2018-03-10 14:38 | RADIOLOGY IMAGING REPORT ---
FACILITY: [facility] PATIENT NAME: Dimas Max : 1960 MR: [id number] V: [id number] EXAM DATE: ORDERING PHYSICIAN: CANDY BOLANOS TECHNOLOGIST: Location: [facility] - [place] Patient: Dimas Max : 1960 Visit/Account:[id number] Date of Sevice: 03/10/2018 HUMERUS LEFT HISTORY: fall with pain Additional history: None COMPARISON: None. FINDINGS: There is a comminuted humeral transverse midshaft fracture with 50 degree angulation and one half bon e width displacement. I do not see evidence of underlying tumor. There is diffuse bony demineraliza tion consistent with osteopenia. IMPRESSION: Comminuted left humeral midshaft fracture per above Report Dictated By: Tyrone Hurst MD at 03/10/2018 2:32 PM Report E-Signed By: Tyrone Hurst MD at 03/10/2018 2:35 PM WSN:[email or web address]
[2018-03-10 15:00] VITALS: BP 135/59
[2018-03-10] MEDS ORDERED: OXYC-865 PO (15:25)
== END 2018-03-10 15:46 | disposition home or self-care (01) ==
LOC: ER 13:58
DX: S42.352A Displaced comminuted fracture of shaft of humerus, left arm, initial encounter for closed fracture (principal); R09.02 Hypoxemia; W01.0XXA Fall on same level from slipping, tripping and stumbling without subsequent striking against object, initial encounter
CPT/HCPCS: 73060; 99283; A9270; L3982; A4565

== ENCOUNTER → 2018-03-10 | Outpatient (CLI) | payer MEDICARE | LOC: AMB 13:07 | PROVIDERS: ATTEND Nurse Practitioner | DX: M79.622 Pain in left upper arm (principal); R09.02 Hypoxemia | CPT/HCPCS: A0425; A0433 ==

== ENCOUNTER 2018-04-08 10:14 | Emergency (ER) | payer MEDICARE ==
--- NOTE | 2018-04-08 10:17 | ER Report ---
History and Physical Time Seen By MD: 10:17 HPI/ROS CHIEF COMPLAINT: "Bronchitis" HISTORY OF PRESENT ILLNESS: Patient is a 57-year-old female with history of oxygen-dependent COPD. She presents to the emergency department with complaint of "bronchitis" patient states that her symptoms began a week ago as a routine cold but now she feels as if things were moving into her lungs. I suppose some burning with deep breathing and discomfort. She states it hurts to lay flat. She denies any nausea vomiting or diarrhea. She does report fevers to 101 at home. REVIEW OF SYSTEMS: Respiratory: Wet sounding cough increased work of breathing Cardiovascular: Pleuritic chest pain no palpitations Gastrointestinal: No vomiting, no abdominal pain. Musculoskeletal: No back pain. Allergies: Coded Allergies: egg (Verified Allergy, Mild, 04/08/18) Home Meds Active Scripts Albuterol Sulfate 0.083% (ALBUTEROL SULFATE 0.083%) 2.5 Mg/3 Ml Vial.neb, 2.5 MG INH Q4-6H for cough, #1 BOX 0 Refills Prov:GRETA MARCANO MD 05/04/16 Reported Medications Guaifenesin/Dextromethorphan (Robitussin Cough-Chest Dm Liq) 100 Mg-5 Mg/5 Ml Liquid, 2 TBS PO Q4H 04/08/18 Pseudoephedrine Hcl (SUDAFED 12 HOUR) 120 Mg Tablet.er, 120 MG PO Q4H 04/08/18 Fluticasone Prop 50 Mcg Ns (FLONASE 50 MCG NS) 16 Gm [place].susp, 1 SPRAY NS TID, BOT 04/08/18 Acetaminophen (TYLENOL EXTRA STRENGTH) 500 Mg Tablet, 500 MG PO TID, TAB 12/13/17 Tramadol Hcl (TRAMADOL HCL) 100 Mg Tab.er.24h, 100 MG PO TID, TAB 12/13/17 Metformin Hcl (METFORMIN HCL) 500 Mg Tablet, 1 TAB PO BID, TAB 04/04/17 Losartan Potassium (LOSARTAN POTASSIUM) 50 Mg Tablet, 25 MG PO QDAY 12/20/16 Pioglitazone Hcl (PIOGLITAZONE HCL) 45 Mg Tablet, 45 MG PO QDAY 12/20/16 Guaifenesin/Dextromethorphan (MUCINEX DM ER 600-30 MG TABLET) 1 Each Tab.er.12h, 1 EACH PO TID 05/17/16 Aspirin (Childrens Chewable Aspirin) 81 Mg Chew, 81 MG PO DAILY, 0 Refills 08/26/11 Metoprolol Succinate (Toprol Xl) 25 Mg Tab.sr.24h, 25 MG PO BID, 0 Refills 08/26/11 Spironolactone (Aldactone) 50 Mg Tablet, 50 MG PO DAILY, 0 Refills 08/26/11 Oxygen (Oxygen) 2 L Inha, 3 L INH DAILY, 0 Refills At Night With BiPap 03/10/11 Gabapentin (Neurontin) 300 Mg Cap, 600 MG PO TID, 0 Refills 03/10/11 Fluoxetine Hcl (Prozac) 40 Mg Capsule, 40 MG PO BID, #20 0 Refills 03/10/11 Allopurinol (Zyloprim) 300 Mg Tab, 300 MG PO QDAY, 0 Refills 03/10/11 Fluticasone/Salmeterol (Advair 250-50 Diskus) 1 Disk W/Dev Disk.w.dev, 1 DISK IH BID, 0 Refills 03/10/11 Albuterol (Proventil Inhaler) 17 Gm Inh, 0 INH PRN, 0 Refills 1-2 PUFFS 03/10/11 Discontinued Scripts Oxycodone Hcl/Acetaminophen (PERCOCET 5-325 MG TABLET) 1 Each Tablet, 1 EACH PO Q4-6H PRN for PAIN, #20 TAB Prov:CICICANDY KOSHER SEALER 03/10/18 Past Medical/Surgical History Past medical history for COPD, history of type II diabetes, history of hypertension, history of chronic oxygen use 2 L continuous Hx Smoking: Yes (1/2 PPD) Smoking Status: Current: Every Day Smoker Exposure to Second Hand Smoke?: Yes Hx Substance Use Disorder: No Hx Alcohol Use: No Constitutional Vital Sign - Last 24 Hours 04/08/18 04/08/18 04/08/18 04/08/18 10:18 10:27 10:54 10:54 Temp 97.6 Pulse 58 56 Resp 16 20 B/P (MAP) 138/74 Pulse Ox 87 94 O2 Delivery Nasal Cannula Nasal Cannula O2 Flow Rate 4.0 4.0 04/08/18 11:15 Pulse 57 Resp 20 Physical Exam General Appearance: The patient is alert, has no immediate need for airway protection and no current signs of toxicity. Eyes: Pupils equal and round no injection. Respiratory: Lungs are noted for diffuse rhonchi throughout. Cardiac: regular rate and rhythm Gastrointestinal: Abdomen is soft and non tender, no masses, bowel sounds normal. Musculoskeletal: Neck: Neck is supple and non tender. Extremities have full range of motion and are non tender. Skin: No rashes or lesions. Medical Decision Making Data Points Laboratory Hematology Test 04/08/18 10:38 Influenza Virus Type A (PCR) Negative (NEGATIVE) Influenza Virus Type B (PCR) Negative (NEGATIVE) Chemistry Test 04/08/18 10:38 Influenza Virus Type A (PCR) Negative (NEGATIVE) Influenza Virus Type B (PCR) Negative (NEGATIVE) EKG/Imaging Imaging Negative for acute pathology as per [facility] radiology ED Course/Re-evaluation ED Course 04/08/2018 10:31:30 am plan at this time will be to obtain chest x-ray influenza swab. We will give her steroids and a breathing treatment. Patient feels improved after her hour-long nebulizer treatment and 60 mg of oral prednisone. Plan at this time I will be to start a five-day course of oral Zithromax for chronic bronchitis. I will also have the patient used her breathing treatments every 6 hours for the next few days and then as needed. We will also prescribe a short course of oral prednisone. Decision to Disposition Date: Apr 08, 2018 Decision to Disposition Time: 11:40 Depart Departure Latest Vital Signs Vital Signs Date Time Temp Pulse Resp B/P (MAP) Pulse Ox O2 Delivery O2 Flow Rate FiO2 04/08/18 11:15 57 20 04/08/18 10:54 94 Nasal Cannula 4.0 04/08/18 10:18 97.6 138/74 Impression: Primary Impression: Bronchitis Condition: Improved Disposition: HOME OR SELF-CARE Referrals: EVERARDO PARKS DO (PCP) New Scripts Azithromycin (ZITHROMAX) 250 Mg Tablet 1 TAB PO QDAY, #4 TAB 0 Refills start on 04/09/18 Prov: GRETA MARCANO MD 04/08/18 Prednisone (PREDNISONE) 20 Mg Tablet 60 MG PO QDAY, #12 TAB 0 Refills start on 04/09/18 Prov: GRETA MARCANO MD 04/08/18 Patient Instructions: Acute Bronchitis (ED) Additional Instructions: Use your albuterol nebulizer every 6 hours for the next 72 hours then every 4-6 hours as needed for cough or shortness of breath. GRETA MARCANO MD Apr 08, 2018 10:17
[2018-04-08] MEDS ORDERED: GUAI237L21 PO (10:26)
[2018-04-08] MEDS ORDERED: FLUT16SP19 NS (10:26)
[2018-04-08] MEDS ORDERED: PSEU120T69 PO (10:26)
[2018-04-08] MEDS ORDERED: predniSONE 20 MG TAB PO ONE (10:35)
[2018-04-08] MEDS ORDERED: IPRATROPIUM 0.5MG/2.5ML NEB NEB ONE (10:35)
[2018-04-08] MEDS ORDERED: ALBUTEROL 2.5 MG/0.5ML ER ONLY NEB ONE (10:35)
[2018-04-08 11:00] VITALS: BP 124/76
--- NOTE | 2018-04-08 11:25 | RADIOLOGY IMAGING REPORT ---
FACILITY: [facility] - [place], [place] PATIENT NAME: Dimas Max : 1960 MR: [id number] V: [id number] EXAM DATE: ORDERING PHYSICIAN: GRETA MARCANO TECHNOLOGIST: Location: [facility] [place] Patient: Dimas Max : 1960 Visit/Account:[id number] Date of Sevice: 04/08/2018 Portable chest, one view. HISTORY: Cough. COMPARISON: 02/15/2018. Two images were obtained. Oxygen tubing projects on the chest. Mild cardiomegaly is unchanged. The mediastinum is not widened. Pulmonary vessels are mildly engorged. Slight elevation of the left he midiaphragm is unchanged. Minimal streaky densities are present in the left lung base, decreased. T he pleural surfaces are otherwise unremarkable. A small density consistent with a calcified granulom a projects on the right lung apex. The bones are partially obscured. IMPRESSION: Mild cardiomegaly and mild pulmonary vascular engorgement without vianey congestive heart failure. Minimal left basilar subsegmental atelectasis or pleural parenchymal scar. Report Dictated By: Pete Justice MD at 04/08/2018 11:17 AM Report E-Signed By: Pete Justice MD at 04/08/2018 11:21 AM WSN:[email or web address]
[2018-04-08] MEDS ORDERED: AZITHROMYCIN 250 MG TAB PO ONE (11:40)
[2018-04-08] MEDS ORDERED: AZIT-1 PO (11:42)
[2018-04-08] MEDS ORDERED: PRED20TA6 PO (11:42)
== END 2018-04-08 11:48 | disposition home or self-care (01) ==
LOC: ER 10:17
DX: J40 Bronchitis, not specified as acute or chronic (principal); F17.210 Nicotine dependence, cigarettes, uncomplicated
CPT/HCPCS: 71045; 87502; 94640; 99284; J7512; J7611; J7644; Q0144

== ENCOUNTER 2018-05-12 10:00 | Emergency (ER) | payer MEDICARE ==
[~2018-05-12 10:00] MED LIST changes: +FLUT16SP19 NS; +GUAI237L21 PO; +PSEU120T69 PO
--- NOTE | 2018-05-12 10:27 | ER Report ---
History and Physical Time Seen By MD: 10:27 Hx. of Stated Complaint: PT REPORTS SHE FELL YESTERDAY, "LOST HER BALANCE". PT REPORTS R HIP, R WRIST, L ARM AND L KNEE PAIN. PT REPORTS SHE TRIED TO REST AND ICE YESTERDAY WITH NO RELIEF. HPI/ROS Fall yesterday and now with multipe areas of pain. ABle to ambulate without pain. No Head trauma. No LOC Allergies: Coded Allergies: egg (Verified Allergy, Mild, 05/12/18) Home Meds Active Scripts Albuterol Sulfate 0.083% (ALBUTEROL SULFATE 0.083%) 2.5 Mg/3 Ml Vial.neb, 2.5 MG INH Q4-6H for cough, #1 BOX 0 Refills Prov:GRETA MARCANO MD 05/04/16 Reported Medications Guaifenesin/Dextromethorphan (Robitussin Cough-Chest Dm Liq) 100 Mg-5 Mg/5 Ml Liquid, 2 TBS PO Q4H 04/08/18 Pseudoephedrine Hcl (SUDAFED 12 HOUR) 120 Mg Tablet.er, 120 MG PO Q4H 04/08/18 Acetaminophen (TYLENOL EXTRA STRENGTH) 500 Mg Tablet, 500 MG PO TID, TAB 12/13/17 Tramadol Hcl (TRAMADOL HCL) 100 Mg Tab.er.24h, 100 MG PO TID, TAB 12/13/17 Metformin Hcl (METFORMIN HCL) 500 Mg Tablet, 1 TAB PO BID, TAB 04/04/17 Losartan Potassium (LOSARTAN POTASSIUM) 50 Mg Tablet, 25 MG PO QDAY 12/20/16 Pioglitazone Hcl (PIOGLITAZONE HCL) 45 Mg Tablet, 45 MG PO QDAY 12/20/16 Guaifenesin/Dextromethorphan (MUCINEX DM ER 600-30 MG TABLET) 1 Each Tab.er.12h, 1 EACH PO TID 05/17/16 Aspirin (Childrens Chewable Aspirin) 81 Mg Chew, 81 MG PO DAILY, 0 Refills 08/26/11 Metoprolol Succinate (Toprol Xl) 25 Mg Tab.sr.24h, 25 MG PO BID, 0 Refills 08/26/11 Spironolactone (Aldactone) 50 Mg Tablet, 50 MG PO DAILY, 0 Refills 08/26/11 Oxygen (Oxygen) 2 L Inha, 3 L INH DAILY, 0 Refills At Night With BiPap 03/10/11 Gabapentin (Neurontin) 300 Mg Cap, 600 MG PO TID, 0 Refills 03/10/11 Fluoxetine Hcl (Prozac) 40 Mg Capsule, 40 MG PO BID, #20 0 Refills 03/10/11 Allopurinol (Zyloprim) 300 Mg Tab, 300 MG PO QDAY, 0 Refills 03/10/11 Fluticasone/Salmeterol (Advair 250-50 Diskus) 1 Disk W/Dev Disk.w.dev, 1 DISK IH BID, 0 Refills 03/10/11 Albuterol (Proventil Inhaler) 17 Gm Inh, 0 INH PRN, 0 Refills 1-2 PUFFS 03/10/11 Discontinued Reported Medications Fluticasone Prop 50 Mcg Ns (FLONASE 50 MCG NS) 16 Gm [place].susp, 1 SPRAY NS TID, BOT 04/08/18 Discontinued Scripts Azithromycin (ZITHROMAX) 250 Mg Tablet, 1 TAB PO QDAY, #4 TAB 0 Refills start on 04/09/18 Prov:GRETA MARCANO MD 04/08/18 Prednisone (PREDNISONE) 20 Mg Tablet, 60 MG PO QDAY, #12 TAB 0 Refills start on 04/09/18 Prov:GRETA MARCANO MD 04/08/18 Hx Smoking: Yes (03/08 PPD) Smoking Status: Current: Every Day Smoker Exposure to Second Hand Smoke?: Yes Hx Substance Use Disorder: No Hx Alcohol Use: No Constitutional Physical Exam General Appearance: The patient is alert, has no immediate need for airway protection and no current signs of toxicity. Eyes: Pupils equal and round no injection. Respiratory: Chest is non tender, lungs are clear to auscultation. Cardiac: regular rate and rhythm Gastrointestinal: Abdomen is soft and non tender, no masses, bowel sounds normal. Musculoskeletal: Multiple areas of TTP. No lacerations/abrasions Neck: Neck is supple and non tender. Extremities have full range of motion and are non tender. Skin: No rashes or lesions. Medical Decision Making ED Course/Re-evaluation ED Course No acute fractures/dislocations. Able to ambulate without pain. No further testing needed. Has pain meds at home. Will follow up with PCM Decision to Disposition Date: May 12, 2018 Decision to Disposition Time: 13:52 Depart Departure Latest Vital Signs Impression: Primary Impression: Contusion Condition: Improved Disposition: HOME OR SELF-CARE Referrals: EVERARDO PARKS DO (PCP) Patient Instructions: Contusion in Adults (ED) Problem Qualifiers Primary Impression: Contusion Encounter type: initial encounter Contusion area: elbow Laterality: left Qualified Codes: S50.02XA - Contusion of left elbow, initial encounter ZULEYKA LOVE MD May 12, 2018 10:27
--- NOTE | 2018-05-12 13:18 | RADIOLOGY IMAGING REPORT ---
FACILITY: [facility] - [place] PATIENT NAME: Dimas Max : 1960 MR: [id number] V: [id number] EXAM DATE: ORDERING PHYSICIAN: ZULEYKA LOVE TECHNOLOGIST: Location: [facility] Patient: Dimas Max : 1960 Visit/Account:[id number] Date of Sevice: 05/12/2018 SHOULDER MIN 2 VIEWS LEFT, XR WRIST 2 VWS LT, ELBOW 2 VIEW LEFT Indication: , known humerus fx with fall yesterday Comparison: 03/10/2018 Findings: Shoulder: There is no acute fracture-dislocation of the left glenohumeral joint. Reidentified is a mildly disp laced transverse fracture of the mid humeral shaft. Bridging periosteal reaction is present. Limited views of the left upper lung zone are unremarkable. Visualized left acromioclavicular joint is unremarkable. Elbow: No evidence of fracture, dislocation, or acute osseous abnormality left elbow. No evidence of elbow joint effusion. There is no focal soft tissue abnormality. No evidence of radiopaque foreign body. Wrist: No evidence of fracture, dislocation, or acute osseous abnormality left wrist. No evidence of radiopaque foreign body. There is no focal soft tissue abnormality. IMPRESSION: 1. Healing transverse fracture of the humeral shaft. 2. Negative shoulder, elbow and wrist Report Dictated By: Niraj Steinberg at 05/12/2018 1:10 PM Report E-Signed By: Niraj Steinberg at 05/12/2018 1:14 PM WSN:[email or web address]
--- NOTE | 2018-05-12 13:18 | RADIOLOGY IMAGING REPORT ---
FACILITY: [facility] - [place] PATIENT NAME: Dimas Max : 1960 MR: [id number] V: [id number] EXAM DATE: ORDERING PHYSICIAN: ZULEYKA LOVE TECHNOLOGIST: [place] [facility] [place] Dimas Max : 1960 Visit/Account:[id number] Date of Sevice: 05/12/2018 SHOULDER MIN 2 VIEWS LEFT, XR WRIST 2 VWS LT, ELBOW 2 VIEW LEFT Indication: , known humerus fx with fall yesterday Comparison: 03/10/2018 Findings: Shoulder: There is no acute fracture-dislocation of the left glenohumeral joint. Reidentified is a mildly disp laced transverse fracture of the mid humeral shaft. Bridging periosteal reaction is present. Limited views of the left upper lung zone are unremarkable. Visualized left acromioclavicular joint is unremarkable. Elbow: No evidence of fracture, dislocation, or acute osseous abnormality left elbow. No evidence of elbow joint effusion. There is no focal soft tissue abnormality. No evidence of radiopaque foreign body. Wrist: No evidence of fracture, dislocation, or acute osseous abnormality left wrist. No evidence of radiopaque foreign body. There is no focal soft tissue abnormality. IMPRESSION: 1. Healing transverse fracture of the humeral shaft. 2. Negative shoulder, elbow and wrist Report Dictated By: Niraj Steinberg at 05/12/2018 1:10 PM Report E-Signed By: Niraj Steinberg at 05/12/2018 1:14 PM WSN:[email or web address]
--- NOTE | 2018-05-12 13:19 | RADIOLOGY IMAGING REPORT ---
FACILITY: PATIENT NAME: Dimas Max : 1960 MR: [id number] V: [id number] EXAM DATE: ORDERING PHYSICIAN: ZULEYKA LOVE TECHNOLOGIST: Location: [facility] Patient: Dimas Max : 1960 Visit/Account:[id number] Date of Sevice: 05/12/2018 SHOULDER MIN 2 VIEWS LEFT, XR WRIST 2 VWS LT, ELBOW 2 VIEW LEFT Indication: , known humerus fx with fall yesterday Comparison: 03/10/2018 Findings: Shoulder: There is no acute fracture-dislocation of the left glenohumeral joint. Reidentified is a mildly disp laced transverse fracture of the mid humeral shaft. Bridging periosteal reaction is present. Limited views of the left upper lung zone are unremarkable. Visualized left acromioclavicular joint is unremarkable. Elbow: No evidence of fracture, dislocation, or acute osseous abnormality left elbow. No evidence of elbow joint effusion. There is no focal soft tissue abnormality. No evidence of radiopaque foreign body. Wrist: No evidence of fracture, dislocation, or acute osseous abnormality left wrist. No evidence of radiopaque foreign body. There is no focal soft tissue abnormality. IMPRESSION: 1. Healing transverse fracture of the humeral shaft. 2. Negative shoulder, elbow and wrist Report Dictated By: Niraj Steinberg at 05/12/2018 1:10 PM Report E-Signed By: Niraj Steinberg at 05/12/2018 1:14 PM [id number]
[2018-05-12 13:25] VITALS: BP 118/62
== END 2018-05-12 13:54 | disposition home or self-care (01) ==
LOC: ER 10:36
DX: S50.02XA Contusion of left elbow, initial encounter (principal)
CPT/HCPCS: 99284

== ENCOUNTER 2018-06-17 12:10 | Emergency (ER) | payer MEDICARE ==
--- NOTE | 2018-06-17 12:28 | ER Report ---
History and Physical Time Seen By MD: 12:28 Hx. of Stated Complaint: A COUPLE DAYS AGO PATIENT STARTED FEELING SICK; STATES THAT TODAY SHE HAS INCREASED TROUBLE BREATHING HPI/ROS Worsening cough and SOB for 24-48 hours. Still smoke daily. On home oxygen. Worried she was getting bronchitis/pna. No fever/chills. No chest pain. Last steroids one month ago. No current steroids or abx. Allergies: Coded Allergies: egg (Verified Allergy, Mild, 05/12/18) Home Meds Active Scripts Albuterol Sulfate 0.083% (ALBUTEROL SULFATE 0.083%) 2.5 Mg/3 Ml Vial.neb, 2.5 MG INH Q4-6H for cough, #1 BOX 0 Refills Prov:GRETA MARCANO MD 05/04/16 Reported Medications Guaifenesin/Dextromethorphan (Robitussin Cough-Chest Dm Liq) 100 Mg-5 Mg/5 Ml Liquid, 2 TBS PO Q4H 04/08/18 Pseudoephedrine Hcl (SUDAFED 12 HOUR) 120 Mg Tablet.er, 120 MG PO Q4H 04/08/18 Acetaminophen (TYLENOL EXTRA STRENGTH) 500 Mg Tablet, 500 MG PO TID, TAB 12/13/17 Tramadol Hcl (TRAMADOL HCL) 100 Mg Tab.er.24h, 100 MG PO TID, TAB 12/13/17 Metformin Hcl (METFORMIN HCL) 500 Mg Tablet, 1 TAB PO BID, TAB 04/04/17 Losartan Potassium (LOSARTAN POTASSIUM) 50 Mg Tablet, 25 MG PO QDAY 12/20/16 Pioglitazone Hcl (PIOGLITAZONE HCL) 45 Mg Tablet, 45 MG PO QDAY 12/20/16 Guaifenesin/Dextromethorphan (MUCINEX DM ER 600-30 MG TABLET) 1 Each Tab.er.12h, 1 EACH PO TID 05/17/16 Aspirin (Childrens Chewable Aspirin) 81 Mg Chew, 81 MG PO DAILY, 0 Refills 08/26/11 Metoprolol Succinate (Toprol Xl) 25 Mg Tab.sr.24h, 25 MG PO BID, 0 Refills 08/26/11 Spironolactone (Aldactone) 50 Mg Tablet, 50 MG PO DAILY, 0 Refills 08/26/11 Oxygen (Oxygen) 2 L Inha, 3 L INH DAILY, 0 Refills At Night With BiPap 03/10/11 Gabapentin (Neurontin) 300 Mg Cap, 600 MG PO TID, 0 Refills 03/10/11 Fluoxetine Hcl (Prozac) 40 Mg Capsule, 40 MG PO BID, #20 0 Refills 03/10/11 Allopurinol (Zyloprim) 300 Mg Tab, 300 MG PO QDAY, 0 Refills 03/10/11 Fluticasone/Salmeterol (Advair 250-50 Diskus) 1 Disk W/Dev Disk.w.dev, 1 DISK IH BID, 0 Refills 03/10/11 Albuterol (Proventil Inhaler) 17 Gm Inh, 0 INH PRN, 0 Refills 1-2 PUFFS 03/10/11 Discontinued Reported Medications Fluticasone Prop 50 Mcg Ns (FLONASE 50 MCG NS) 16 Gm [place].susp, 1 SPRAY NS TID, BOT 04/08/18 Discontinued Scripts Azithromycin (ZITHROMAX) 250 Mg Tablet, 1 TAB PO QDAY, #4 TAB 0 Refills start on 04/09/18 Prov:GRETA MARCANO MD 04/08/18 Prednisone (PREDNISONE) 20 Mg Tablet, 60 MG PO QDAY, #12 TAB 0 Refills start on 04/09/18 Prov:GRETA MARCANO MD 04/08/18 Hx Smoking: Yes (03/08 PPD) Smoking Status: Current: Every Day Smoker Exposure to Second Hand Smoke?: Yes Hx Substance Use Disorder: No Hx Alcohol Use: No Constitutional Vital Sign - Last 24 Hours 06/17/18 06/17/18 06/17/18 06/17/18 12:14 12:14 12:42 12:42 Temp 98.6 Pulse 63 56 Resp 22 14 B/P (MAP) 148/67 Pulse Ox 85 96 O2 Delivery Nasal Cannula Oxy Mask O2 Flow Rate 6.0 5.0 06/17/18 06/17/18 06/17/18 06/17/18 12:51 13:39 13:39 14:21 Pulse 54 55 61 Resp 14 14 14 Pulse Ox 96 O2 Delivery Oxy Mask O2 Flow Rate 5.0 06/17/18 14:21 Pulse Ox 96 O2 Delivery Oxy Mask O2 Flow Rate 5.0 Physical Exam General Appearance: The patient is alert, has no immediate need for airway protection and no current signs of toxicity. Eyes: Pupils equal and round no injection. Respiratory: Chest is non tender, diffuse wheezing and rhonchi on lungs exam. Cardiac: regular rate and rhythm Gastrointestinal: Abdomen is soft and non tender, no masses, bowel sounds placido l. Extremities have full range of motion and are non tender. There is mild b/l pitting edema. Skin: No rashes or lesions. DIFFERENTIAL DIAGNOSIS: After history and physical exam differential diagnosis was considered for shortness of breath including but not limited to pulmonary infectious process, COPD, asthma, pulmonary embolus and congestive heart failure. Medical Decision Making Data Points Result Diagram: 06/17/18 1232 06/17/18 1232 Laboratory Hematology Test 06/17/18 12:32 06/17/18 15:00 Red Blood Count 4.11 M/uL (4.17-5.56) Mean Corpuscular Volume 92.9 fL (80.0-96.0) Mean Corpuscular Hemoglobin 29.8 pg (26.0-33.0) Mean Corpuscular Hemoglobin Concent 32.1 g/dL (32.0-36.0) Red Cell Distribution Width 16.3 % (11.5-14.5) Mean Platelet Volume 8.0 fL (7.2-11.1) Neutrophils (%) (Auto) 66.3 % (39.4-72.5) Lymphocytes (%) (Auto) 22.8 % (17.6-49.6) Monocytes (%) (Auto) 8.6 % (4.1-12.4) Eosinophils (%) (Auto) 1.6 % (0.4-6.7) Basophils (%) (Auto) 0.7 % (0.3-1.4) Nucleated RBC Relative Count (auto) 0.0 /100WBC Neutrophils # (Auto) 8.5 K/uL (2.0-7.4) Lymphocytes # (Auto) 2.9 K/uL (1.3-3.6) Monocytes # (Auto) 1.1 K/uL (0.3-1.0) Eosinophils # (Auto) 0.2 K/uL (0.0-0.5) Basophils # (Auto) 0.1 K/uL (0.0-0.1) Nucleated RBC Absolute Count (auto) 0.00 K/uL Sodium Level 142 mmol/L (137-145) Potassium Level 4.4 mmol/L (3.5-5.0) Chloride Level 106 mmol/L (98-107) Carbon Dioxide Level 26 mmol/L (22-31) Blood Urea Nitrogen 15 mg/dl (7-18) Creatinine 0.60 mg/dl (0.52-1.04) Glomerular Filtration Rate Calc > 60.0 Random Glucose 85 mg/dl (75-110) Calcium Level 9.4 mg/dl (8.4-10.2) Total Bilirubin 0.5 mg/dl (0.2-1.3) Aspartate Amino Transf (AST/SGOT) 14 U/L (0-35) Alanine Aminotransferase (ALT/SGPT) 11 U/L (0-56) Alkaline Phosphatase 88 U/L (0-126) Total Protein 7.4 g/dl (6.3-8.2) Albumin 4.3 g/dl (3.5-5.0) Troponin I < 0.012 ng/ml B-Type Natriuretic Peptide 189 pg/ml (0-100) Chemistry Test 06/17/18 12:32 06/17/18 15:00 White Blood Count 12.8 k/uL (4.5-11.0) Red Blood Count 4.11 M/uL (4.17-5.56) Hemoglobin 12.2 g/dL (12.0-16.0) Hematocrit 38.2 % (34.0-47.0) Mean Corpuscular Volume 92.9 fL (80.0-96.0) Mean Corpuscular Hemoglobin 29.8 pg (26.0-33.0) Mean Corpuscular Hemoglobin Concent 32.1 g/dL (32.0-36.0) Red Cell Distribution Width 16.3 % (11.5-14.5) Platelet Count 318 K/uL (150-450) Mean Platelet Volume 8.0 fL (7.2-11.1) Neutrophils (%) (Auto) 66.3 % (39.4-72.5) Lymphocytes (%) (Auto) 22.8 % (17.6-49.6) Monocytes (%) (Auto) 8.6 % (4.1-12.4) Eosinophils (%) (Auto) 1.6 % (0.4-6.7) Basophils (%) (Auto) 0.7 % (0.3-1.4) Nucleated RBC Relative Count (auto) 0.0 /100WBC Neutrophils # (Auto) 8.5 K/uL (2.0-7.4) Lymphocytes # (Auto) 2.9 K/uL (1.3-3.6) Monocytes # (Auto) 1.1 K/uL (0.3-1.0) Eosinophils # (Auto) 0.2 K/uL (0.0-0.5) Basophils # (Auto) 0.1 K/uL (0.0-0.1) Nucleated RBC Absolute Count (auto) 0.00 K/uL Glomerular Filtration Rate Calc > 60.0 Calcium Level 9.4 mg/dl (8.4-10.2) Total Bilirubin 0.5 mg/dl (0.2-1.3) Aspartate Amino Transf (AST/SGOT) 14 U/L (0-35) Alanine Aminotransferase (ALT/SGPT) 11 U/L (0-56) Alkaline Phosphatase 88 U/L (0-126) Total Protein 7.4 g/dl (6.3-8.2) Albumin 4.3 g/dl (3.5-5.0) Troponin I < 0.012 ng/ml B-Type Natriuretic Peptide 189 pg/ml (0-100) ED Course/Re-evaluation ED Course CXR questionnable for pulmonary edema. BNP low/normal. Pt. needs follow up for outpt. echo, but does not need any further acute treatment for CHF. Symptoms improved with nebs/steroids. Does not need abx. Will d/c with prednisone and a flutter machine. Will follow up with PCM. Two trops negative. No chest pain. Decision to Disposition Date: Jun 17, 2018 Decision to Disposition Time: 15:38 Depart Departure Latest Vital Signs Vital Signs Date Time Temp Pulse Resp B/P (MAP) Pulse Ox O2 Delivery O2 Flow Rate FiO2 06/17/18 14:21 96 Oxy Mask 5.0 06/17/18 14:21 61 14 06/17/18 12:14 98.6 148/67 Impression: Primary Impression: COPD exacerbation Condition: Improved Disposition: HOME OR SELF-CARE Referrals: EVERARDO PARKS DO (PCP) New Scripts Prednisone (PREDNISONE) 20 Mg Tablet 40 MG PO QDAY for 5 Days, #10 TAB Prov: ZULEYKA LOVE MD 06/17/18 Patient Instructions: COPD (Chronic Obstructive Pulmonary Disease) (ED) ZULEYKA LOVE MD Jun 17, 2018 12:28
[2018-06-17] MEDS ORDERED: NS(*) 0.9% 1000 ML BAG 1,000 ML IV ONE (12:35)
[2018-06-17] MEDS ORDERED: ALBUTEROL/IPRATROPIUM 3 ML NEB NEB ONE (12:35)
[2018-06-17 12:44] LABS: PLATELET COUNT, AUTOMATED 318 K/uL (150-450)
[2018-06-17] MEDS ORDERED: ALBUTEROL 2.5 MG/0.5ML ER ONLY NEB ONE (13:15)
--- NOTE | 2018-06-17 13:45 | RADIOLOGY IMAGING REPORT ---
FACILITY: [facility] - [place] PATIENT NAME: Dimas Max : 1960 MR: [id number] V: [id number] EXAM DATE: ORDERING PHYSICIAN: ZULEYKA LOVE TECHNOLOGIST: [place] [facility] [place] : 1960 Visit/Account:[id number] Date of Sevice: 06/17/2018 2 VIEWS CHEST INDICATION: Cough for 2 days. COMPARISON: 04/08/2018. FINDINGS: Cardiac silhouette remains mildly enlarged and similar to the previous exam. The mediastinal silhouet miguel within normal limits. The pulmonary vessels are minimally prominent. There is mild increased interstitial opacities similar to the previous examination. Small right pleur al effusion with minimal right basilar atelectasis. Minimal left pleural effusion. No focal areas of consolidation or discrete nodule. No pneumothorax. Upper abdomen is unremarkable. No acute bony abnormality. IMPRESSION: 1. Mild congestive heart failure with a small right pleural effusion with mild atelectasis and a mini mal left pleural effusion. Report Dictated By: James Weir at 06/17/2018 1:37 PM Report E-Signed By: James Weir at 06/17/2018 1:41 PM WSN:[id number]
[2018-06-17] MEDS ORDERED: methylPREDNIS SUCC 125 MG/2ML IVP ONE (13:55)
[2018-06-17 14:00] VITALS: BP 146/65
--- NOTE | 2018-06-17 14:11 | EKG ---
FACILITY: [facility] - [place] PATIENT NAME: JENNIFER GANDARA : [id number] MR: [id number] V: [id number] EXAM DATE: ORDERING PHYSICIAN: ZULEYKA LOVE TECHNOLOGIST: LIBIA Test Reason : ASPHASIA Blood Pressure : / mmHG Vent. Rate : 057 BPM Atrial Rate : 057 BPM P-R Int : 182 ms QRS Dur : 090 ms QT Int : 518 ms P-R-T Axes : 055 037 033 degrees QTc Int : 504 ms Sinus bradycardia with premature supraventricular complexes Prolonged QT No ST-T abnormalities When compared with ECG of 13-DEC-2017 12:31, premature supraventricular complexes are now present Confirmed by YANG CONN ([id number]) on 06/17/2018 4:31:37 PM Referred By: IVAN Confirmed By:YANG CONN
[2018-06-17] MEDS ORDERED: PRED20TA6 PO (15:39)
== END 2018-06-17 15:52 | disposition home or self-care (01) ==
LOC: ER 12:32
DX: J44.1 Chronic obstructive pulmonary disease with (acute) exacerbation (principal); F17.210 Nicotine dependence, cigarettes, uncomplicated
CPT/HCPCS: 36415; 71046; 83880; 84484; 85025; 93005; 94640; 94667; 96374; 99284; J2930; J7611; J7620; 82040; 82247; 82310; 82374; 82435; 82565; 82947; 84075; 84132; 84155; 84295; 84450; 84460; 84520

== ENCOUNTER 2018-06-20 12:06 | Inpatient (IN) | payer MEDICARE ==
[~2018-06-20] VITALS: Ht 170.2 cm; Wt 121.1 kg
--- NOTE | 2018-06-20 12:01 | ER Report ---
History and Physical Time Seen By MD: 12:00 HPI/ROS CHIEF COMPLAINT: Vomiting, abdominal pain, shortness of breath and cough HISTORY OF PRESENT ILLNESS: Patient is a 58-year-old female who has a history of COPD with chronic O2 use at 2-3 L recent ER visit approximately 3 days ago for COPD exacerbation. Today she presents with complaint of cough and vomiting. She's also been experiencing some left upper quadrant abdominal pain that began today which is what prompted her to come in. She reports subjective fevers without chills. She denies chest pain or chest pressure. She denies any diarrhea. REVIEW OF SYSTEMS: Constitutional: Objective fevers Eyes: No discharge. ENT: No sore throat. Cardiovascular: No chest pain, no palpitations. Respiratory: Cough. Nonproductive Gastrointestinal: Left upper quadrant abdominal pain nausea and vomiting Genitourinary: No hematuria. Musculoskeletal: No back pain. Neurological: No headache. Allergies: Coded Allergies: egg (Verified Allergy, Mild, 05/12/18) Home Meds Active Scripts Albuterol Sulfate 0.083% (ALBUTEROL SULFATE 0.083%) 2.5 Mg/3 Ml Vial.neb, 2.5 MG INH Q4-6H for cough, #1 BOX 0 Refills Prov:GRETA MARCANO MD 05/04/16 Reported Medications Prednisone (PREDNISONE) 20 Mg Tablet, 20 MG PO BID, TAB 06/20/18 Tramadol Hcl (TRAMADOL HCL) 50 Mg Tablet, 2 TAB PO TID 06/20/18 Atorvastatin Calcium (ATORVASTATIN CALCIUM) 20 Mg Tablet, 1 TAB PO DAILY 06/20/18 Metoprolol Tartrate (METOPROLOL TARTRATE) 25 Mg Tablet, 25 MG PO BID 06/20/18 Guaifenesin/Dextromethorphan (Robitussin Cough-Chest Dm Liq) 100 Mg-5 Mg/5 Ml Liquid, 2 TBS PO Q4H 04/08/18 Pseudoephedrine Hcl (SUDAFED 12 HOUR) 120 Mg Tablet.er, 120 MG PO Q4H 04/08/18 Acetaminophen (TYLENOL EXTRA STRENGTH) 500 Mg Tablet, 500 MG PO TID, TAB 12/13/17 Metformin Hcl (METFORMIN HCL) 500 Mg Tablet, 2 TAB PO BID, TAB 04/04/17 Losartan Potassium (LOSARTAN POTASSIUM) 50 Mg Tablet, 25 MG PO QDAY 12/20/16 Pioglitazone Hcl (PIOGLITAZONE HCL) 45 Mg Tablet, 45 MG PO QDAY 12/20/16 Guaifenesin/Dextromethorphan (MUCINEX DM ER 600-30 MG TABLET) 1 Each Tab.er.12h, 1 EACH PO TID 05/17/16 Aspirin (Childrens Chewable Aspirin) 81 Mg Chew, 81 MG PO DAILY, 0 Refills 08/26/11 Spironolactone (Aldactone) 50 Mg Tablet, 50 MG PO DAILY, 0 Refills 08/26/11 Oxygen (Oxygen) 2 L Inha, 3 L INH DAILY, 0 Refills At Night With BiPap 03/10/11 Gabapentin (Neurontin) 300 Mg Cap, 600 MG PO TID, 0 Refills 03/10/11 Fluoxetine Hcl (Prozac) 40 Mg Capsule, 40 MG PO BID, #20 0 Refills 03/10/11 Allopurinol (Zyloprim) 300 Mg Tab, 300 MG PO QDAY, 0 Refills 03/10/11 Fluticasone/Salmeterol (Advair 250-50 Diskus) 1 Disk W/Dev Disk.w.dev, 1 DISK IH BID, 0 Refills 03/10/11 Albuterol (Proventil Inhaler) 17 Gm Inh, 0 INH PRN, 0 Refills 1-2 PUFFS 03/10/11 Discontinued Reported Medications Tramadol Hcl (TRAMADOL HCL) 100 Mg Tab.er.24h, 100 MG PO TID, TAB 12/13/17 Metoprolol Succinate (Toprol Xl) 25 Mg Tab.sr.24h, 25 MG PO BID, 0 Refills 08/26/11 Fluticasone Prop 50 Mcg Ns (FLONASE 50 MCG NS) 16 Gm [place].susp, 1 SPRAY NS TID, BOT 04/08/18 Discontinued Scripts Prednisone (PREDNISONE) 20 Mg Tablet, 40 MG PO QDAY for 5 Days, #10 TAB Prov:ZULEYKA LOVE MD 06/17/18 Azithromycin (ZITHROMAX) 250 Mg Tablet, 1 TAB PO QDAY, #4 TAB 0 Refills start on 04/09/18 Prov:GRETA MARCANO MD 04/08/18 Prednisone (PREDNISONE) 20 Mg Tablet, 60 MG PO QDAY, #12 TAB 0 Refills start on 04/09/18 Prov:GRETA MARCANO MD 04/08/18 Past Medical/Surgical History Past medical history for COPD, history of type II diabetes, history of hypertension, history of chronic oxygen use 2 L continuous Hx Smoking: Yes (1/2 PPD) Smoking Status: Current: Every Day Smoker Exposure to Second Hand Smoke?: Yes Hx Substance Use Disorder: No Hx Alcohol Use: No Constitutional Vital Sign - Last 24 Hours 06/20/18 06/20/18 06/20/18 06/20/18 12:06 12:11 12:12 12:15 Temp 100.3 Pulse ??? 63 Resp 20 B/P (MAP) 146/69 146/69 (94) 149/62 (91) Pulse Ox 84 O2 Delivery Nasal Cannula 06/20/18 06/20/18 06/20/18 06/20/18 12:19 12:19 12:21 12:30 Pulse 68 65 Resp 18 30 B/P (MAP) 147/71 (96) Pulse Ox 91 90 O2 Delivery Oxy Mask 06/20/18 06/20/18 06/20/18 06/20/18 12:36 12:45 12:51 13:00 Pulse 67 67 Resp 21 15 B/P (MAP) 147/70 (95) 135/64 (87) Pulse Ox 90 90 06/20/18 06/20/18 06/20/18 06/20/18 13:06 13:15 13:21 13:30 Pulse 65 65 Resp 22 28 B/P (MAP) 142/63 (89) ???/??? (1665) Pulse Ox 92 91 06/20/18 06/20/18 06/20/18 06/20/18 13:36 13:41 13:45 13:56 Pulse ? 64 Resp 25 B/P (MAP) 130/56 (80) Pulse Ox 88 06/20/18 06/20/18 06/20/18 06/20/18 14:00 14:00 14:11 14:15 Temp 98.0 Pulse 64 Resp 36 B/P (MAP) 111/58 (75) 117/53 (74) Pulse Ox 89 06/20/18 06/20/18 06/20/18 14:26 14:30 14:41 Pulse 62 64 Resp 77 24 B/P (MAP) 124/64 (84) Pulse Ox 89 93 Intake and Output 06/20/18 06/20/18 06/21/18 15:00 23:00 07:00 Output Total 50 ml Balance -50 ml Physical Exam General/Constitutional: Patient is awake, alert, elevated body mass index. Patient is on chronic O2. Head: Normocephalic and atraumatic. Eyes: Conjunctival clear, Pupils are equal and reactive to light. Extraocular muscles are intact and symmetrical. Sclera are clear and anicteric. Ears:External canals are clear. Tympanic membranes are clear with normal landmarks and light reflex. Nares: No rhinorrhea or bleeding. Turbinates are pink and moist. Oropharyngeal: Mucous membranes are moist. There is no pharyngeal erythema or exudate. There are no palatal petechiae. Uvula is midline and symmetrical. Neck: Supple, no adenopathy. Cardiovascular: Heart is regular rate and rhythm without audible murmurs, rubs or gallops. Pulmonary: Lungs are clear bilateral rhonchi Abdomen: Protuberant, upper quadrant tenderness. Extremities: No gross deformities, No peripheral cyanosis. Able to move all 4 extremities. Neuro: Alert and oriented X3, Skin: She has a tinea corporis between the intertriginous spaces of the pannus of the abdomen. Medical Decision Making Data Points Result Diagram: 06/21/18 0546 06/21/18 0546 Laboratory Hematology Test 06/20/18 12:28 06/20/18 13:20 Lactate 1.2 mmol/L (0.7-2.1) B-Type Natriuretic Peptide 416 pg/ml (0-100) Lipase 32 U/L (23-300) Urine Color Yellow Urine Clarity Slightly-cloudy Urine pH 7.0 pH (4.8-9.5) Urine Specific [place] 1.015 Urine Protein 30 mg/dL (NEGATIVE) Urine Glucose (UA) Negative mg/dL (NEGATIVE) Urine Ketones 20 mg/dL (NEGATIVE) Urine Blood Large (NEGATIVE) Urine Nitrite Negative (NEGATIVE) Urine Bilirubin Negative (NEGATIVE) Urine Urobilinogen Negative mg/dL (0.2-1.9) Urine Leukocyte Esterase Trace (NEGATIVE) Urine RBC 282 /HPF (0-2/HPF) Urine WBC 19 /HPF (0-5/HPF) Urine Squamous Epithelial Cells Moderate /LPF (NONE-FEW) Urine Bacteria Negative /HPF (NONE-FEW) Urine Mucus Few /HPF (NONE-FEW) Chemistry Test 06/20/18 12:28 06/20/18 13:20 Lactate 1.2 mmol/L (0.7-2.1) B-Type Natriuretic Peptide 416 pg/ml (0-100) Lipase 32 U/L (23-300) Urine Color Yellow Urine Clarity Slightly-cloudy Urine pH 7.0 pH (4.8-9.5) Urine Specific [place] 1.015 Urine Protein 30 mg/dL (NEGATIVE) Urine Glucose (UA) Negative mg/dL (NEGATIVE) Urine Ketones 20 mg/dL (NEGATIVE) Urine Blood Large (NEGATIVE) Urine Nitrite Negative (NEGATIVE) Urine Bilirubin Negative (NEGATIVE) Urine Urobilinogen Negative mg/dL (0.2-1.9) Urine Leukocyte Esterase Trace (NEGATIVE) Urine RBC 282 /HPF (0-2/HPF) Urine WBC 19 /HPF (0-5/HPF) Urine Squamous Epithelial Cells Moderate /LPF (NONE-FEW) Urine Bacteria Negative /HPF (NONE-FEW) Urine Mucus Few /HPF (NONE-FEW) Urinalysis Test 06/20/18 13:20 Urine Color Yellow Urine Clarity Slightly-cloudy Urine pH 7.0 pH (4.8-9.5) Urine Specific [place] 1.015 Urine Protein 30 mg/dL (NEGATIVE) Urine Glucose (UA) Negative mg/dL (NEGATIVE) Urine Ketones 20 mg/dL (NEGATIVE) Urine Blood Large (NEGATIVE) Urine Nitrite Negative (NEGATIVE) Urine Bilirubin Negative (NEGATIVE) Urine Urobilinogen Negative mg/dL (0.2-1.9) Urine Leukocyte Esterase Trace (NEGATIVE) Urine RBC 282 /HPF (0-2/HPF) Urine WBC 19 /HPF (0-5/HPF) Urine Squamous Epithelial Cells Moderate /LPF (NONE-FEW) Urine Bacteria Negative /HPF (NONE-FEW) Urine Mucus Few /HPF (NONE-FEW) EKG/Imaging EKG Interpretation EKG shows normal sinus rhythm with respiratory pattern and nonspecific ST segment abnormalities. Monitor Interpretation: Normal Sinus Rhythm ED Course/Re-evaluation ED Course 06/20/2018 1:57:58 pm awaiting official results of CT scan and chest x-ray however by reviewing both the chest x-ray and CAT scan myself there is concern for air bronchograms in both lungs in the lower jones. Patient does have a significantly elevated white count which might be partially explained by the use of steroids however with the patient's fever cough and other symptoms feel highly suspicious that this is pneumonia. Awaiting results of scans official read. Case was discussed with Dr. He in the on-call hospitalist and he will agree to accept the patient for admission for pneumonia if no other findi ngs are noted. Decision to Disposition Date: Jun 20, 2018 Decision to Disposition Time: 15:00 Depart Departure Latest Vital Signs Vital Signs Date Time Temp Pulse Resp B/P (MAP) Pulse Ox O2 Delivery O2 Flow Rate FiO2 06/20/18 14:41 64 24 93 06/20/18 14:30 124/64 (84) 06/20/18 14:00 98.0 06/20/18 12:19 Oxy Mask Impression: Primary Impression: Pneumonia Condition: Stable Disposition: HOME OR SELF-CARE Referrals: EVERARDO PARKS DO (PCP) Problem Qualifiers Primary Impression: Pneumonia Pneumonia type: due to unspecified organism Laterality: unspecified laterality Lung location: unspecified part of lung Qualified Codes: J18.9 - Pneumonia, unspecified organism GRETA MARCANO MD Jun 20, 2018 12:01
[~2018-06-20 12:06] MED LIST changes: -AMOX875T60 PO; -ATOR20TA65 PO; -CETI10CA8 PO; -DIPH-464 PO; -METO25TA93 PO; -TIZA4CAP3 PO
[2018-06-20] MEDS ORDERED: NS(*) 0.9% 500 ML BAG 500 ML IV ONE (12:10)
[2018-06-20] MEDS ORDERED: ALBUTEROL/IPRATROPIUM 3 ML NEB NEB ONE (12:10)
[2018-06-20] MEDS ORDERED: ONDANSETRON 4 MG/2 ML VIAL IVP ONE ×2 (12:10→12:50)
--- NOTE | 2018-06-20 12:25 | EKG ---
FACILITY: [facility] [place] PATIENT NAME: JENNIFER GANDARA : [id number] MR: [id number] V: [id number] EXAM DATE: ORDERING PHYSICIAN: GRETA MARCANO TECHNOLOGIST: DOROTHY Maxwell Reason : SOC Blood Pressure : / mmHG Vent. Rate : 066 BPM Atrial Rate : 066 BPM P-R Int : 170 ms QRS Dur : 100 ms QT Int : 482 ms P-R-T Axes : 063 037 049 degrees QTc Int : 505 ms Normal sinus rhythm ST and T wave abnormality, consider anterior ischemia Prolonged QT Abnormal ECG When compared with ECG of 17-JUN-2018 12:30, premature supraventricular complexes are no longer present T wave inversion now evident in Anterior leads Confirmed by YANG CONN ([id number]) on 06/20/2018 3:32:04 PM Referred By: JERSEY Confirmed By:YANG CONN
[2018-06-20] MEDS ORDERED: IOPAMIDOL 76% 150 ML INFUS BTL 150 ML ONE (12:26)
[2018-06-20 12:37] LABS: PLATELET COUNT, AUTOMATED 316 K/uL (150-450)
[2018-06-20] MEDS: NYSTATIN 100,000 U/GM PWD 15GM TP SCH ×2 (12:54→20:53)
[2018-06-20] MEDS ORDERED: LEVOFLOXACIN/D5W 750 MG/150 ML 150 ML IVPB ONE (14:00)
--- NOTE | 2018-06-20 14:24 | RADIOLOGY IMAGING REPORT ---
FACILITY: [facility] [place] PATIENT NAME: Dimas Max : 1960 MR: [id number] V: [id number] EXAM DATE: ORDERING PHYSICIAN: GRETA MARCANO TECHNOLOGIST: Location: [facility] Patient: Dimas Max : 1960 Visit/Account:[id number] Date of Sevice: 06/20/2018 EXAMINATION: CT abdomen with IV contrast CT pelvis with IV contrast HISTORY: Left upper quadrant abdominal pain. COMPARISON: 01/12/2008. TECHNIQUE: Axial images were taken through the abdomen and pelvis with intravenous contrast. Sagitt al and coronal reformatted images are also submitted. CONTRAST: 75 mL of IV Isovue-370 One of the following dose optimization techniques was utilized in the performance of this exam: Autom ated exposure control; adjustment of the mA and/or kV according to the patient's size; or use of an i terative reconstruction technique. Specific details can be referenced in the facility's radiology C T exam operational policy. FINDINGS: Liver/biliary: Negative. Pancreas: Negative. Spleen: Negative. Adrenal glands: Negative. Kidneys: There is a calculus in the left renal pelvis at the ureteropelvic junction measuring 15 x 14 x 11 mm. There is only slight distention of the left renal collecting system. There are a few small cysts in the kidneys. Pelvic structures: The urinary bladder is partially obscured by beam hardening artifact from hip a rthroplasties. Uterus is not seen suggesting previous hysterectomy. Bowel: The bowel is normal caliber without obvious focal wall thickening. The appendix is not identif ied. No pericecal inflammatory changes. Peritoneum/retroperitoneum/mesenteries: No intraperitoneal free air free fluid. Vessels: Mixed plaque along the aorta. Calcified plaque of the splenic artery and superior mesenteric artery. Plaque along the iliofemoral arteries. Musculoskeletal/body wall: Bilateral hip arthroplasties. Small fat-containing umbilical hernia. An 11 mm rounded collection in the superficial subcutaneous soft tissues of the proximal right thigh in th e inguinal region with haziness and stranding in the surrounding subcutaneous fat. Multilevel disc an d facet degenerative changes in the lumbar spine. Grade 2 anterolisthesis of L5 on S1. Interbody kevon ce at the L5-S1 level. Lymph node assessment: Negative. Lower chest: Patchy subsegmental atelectasis in the lung bases. Small subpleural nodule in the right middle lobe, unchanged since 2008. Chronic healed rib fracture deformity on the right. IMPRESSION: There is a calculus in the left renal pelvis at the ureteropelvic junction measuring 15 x 14 x 11 mm. There is slight distention of the left renal collecting system. An 11 mm fluid collection in the superficial subcutaneous soft tissues of the proximal right thigh in the inguinal region with inflammatory changes in the surrounding subcutaneous fat. This probably rep resents a small abscess. Multiple chronic findings as detailed in the body of report. Report Dictated By: Robert Dickson MD at 06/20/2018 1:59 PM Report E-Signed By: Robert Dickson MD at 06/20/2018 2:19 PM [id number]
--- NOTE | 2018-06-20 14:28 | RADIOLOGY IMAGING REPORT ---
FACILITY: PATIENT NAME: Dimas Max : 1960 MR: [id number] V: [id number] EXAM DATE: ORDERING PHYSICIAN: GRETA MARCANO TECHNOLOGIST: Location: [facility] Patient: Dimas Max : 1960 Visit/Account:[id number] Date of Sevice: 06/20/2018 EXAMINATION: Chest radiographs 2 views HISTORY: Cough. COMPARISON: 06/17/2018. CT of the abdomen and pelvis from the same day. FINDINGS: AP and lateral views of the chest are submitted. Lines/tubes: None. Lungs/pleura: Mild opacity at the left lung base which appears the left lateral costophrenic sulcus. Blunting of the posterior costophrenic sulci. No evidence of pneumothorax. Heart: Stable mild prominence of the cardiac silhouette accentuated by AP technique. Mediastinum: Negative. Bony structures/body wall: Negative. IMPRESSION: There is subsegmental atelectasis at the lung bases. Stable mild prominence of the cardiac silhouette. Report Dictated By: Robert Dickson MD at 06/20/2018 2:19 PM Report E-Signed By: Robert Dickson MD at 06/20/2018 2:24 PM [id number]
[2018-06-20] MEDS ORDERED: ONDANSETRON 4 MG ODT TABDP SL ONE (15:17)
[2018-06-20 15:33] VITALS: BP 143/67
[2018-06-20] MEDS ORDERED: METO25TA93 PO (16:06)
[2018-06-20] MEDS ORDERED: ATOR20TA65 PO (16:06)
[2018-06-20] MEDS ORDERED: TRAM-420 PO (16:09)
[2018-06-20] MEDS ORDERED: PRED20TA6 PO (16:10)
[2018-06-20] MEDS ORDERED: PROMETHAZINE 25 MG/ML 1 ML AMP IVP PRN (16:25)
[2018-06-20] MEDS ORDERED: ALBUTEROL 2.5 MG/3 ML NEB NEB PRN (16:25)
--- NOTE | 2018-06-20 17:09 | History & Physical ---
History of Present Illness Chief Complaint Vomiting, Panus fungal infection History of Present Illness Patient is a 58-year-old female who has a history of COPD with chronic O2 use at 2-3 L recent ER visit approximately 3 days ago for COPD exacerbation. Today she presents with complaint of cough and vomiting. She's also been experiencing some left upper quadrant abdominal pain that began today which is what prompted her to come in. She reports subjective fevers without chills. She denies chest pain or chest pressure. She denies any diarrhea. She has fungal infection to Panus on bilateral lower abdomen. She was found to have pneumonia on chest x-ray. She was recommended for admission. History Problems: (1) ENOCH (obstructive sleep apnea) Status: Chronic (2) Hypertension Status: Chronic (3) Hyperlipidemia Status: Chronic (4) Depression Status: Chronic (5) COPD (chronic obstructive pulmonary disease) Status: Chronic (6) CAD (coronary artery disease) Status: Chronic (7) Type 2 diabetes mellitus Status: Chronic (8) Gout Status: Chronic Home Meds Active Scripts Albuterol Sulfate 0.083% (ALBUTEROL SULFATE 0.083%) 2.5 Mg/3 Ml Vial.neb, 2.5 MG INH Q4-6H for cough, #1 BOX 0 Refills Prov:GRETA MARCANO MD 05/04/16 Reported Medications Prednisone (PREDNISONE) 20 Mg Tablet, 20 MG PO BID, TAB 06/20/18 Tramadol Hcl (TRAMADOL HCL) 50 Mg Tablet, 2 TAB PO TID 06/20/18 Atorvastatin Calcium (ATORVASTATIN CALCIUM) 20 Mg Tablet, 1 TAB PO DAILY 06/20/18 Metoprolol Tartrate (METOPROLOL TARTRATE) 25 Mg Tablet, 25 MG PO BID 06/20/18 Guaifenesin/Dextromethorphan (Robitussin Cough-Chest Dm Liq) 100 Mg-5 Mg/5 Ml Liquid, 2 TBS PO Q4H 04/08/18 Pseudoephedrine Hcl (SUDAFED 12 HOUR) 120 Mg Tablet.er, 120 MG PO Q4H 04/08/18 Acetaminophen (TYLENOL EXTRA STRENGTH) 500 Mg Tablet, 500 MG PO TID, TAB 12/13/17 Metformin Hcl (METFORMIN HCL) 500 Mg Tablet, 2 TAB PO BID, TAB 04/04/17 Losartan Potassium (LOSARTAN POTASSIUM) 50 Mg Tablet, 25 MG PO QDAY 12/20/16 Pioglitazone Hcl (PIOGLITAZONE HCL) 45 Mg Tablet, 45 MG PO QDAY 12/20/16 Guaifenesin/Dextromethorphan (MUCINEX DM ER 600-30 MG TABLET) 1 Each Tab.er.12h, 1 EACH PO TID 05/17/16 Aspirin (Childrens Chewable Aspirin) 81 Mg Chew, 81 MG PO DAILY, 0 Refills 08/26/11 Spironolactone (Aldactone) 50 Mg Tablet, 50 MG PO DAILY, 0 Refills 08/26/11 Oxygen (Oxygen) 2 L Inha, 3 L INH DAILY, 0 Refills At Night With BiPap 03/10/11 Gabapentin (Neurontin) 300 Mg Cap, 600 MG PO TID, 0 Refills 03/10/11 Fluoxetine Hcl (Prozac) 40 Mg Capsule, 40 MG PO BID, #20 0 Refills 03/10/11 Allopurinol (Zyloprim) 300 Mg Tab, 300 MG PO QDAY, 0 Refills 03/10/11 Fluticasone/Salmeterol (Advair 250-50 Diskus) 1 Disk W/Dev Disk.w.dev, 1 DISK IH BID, 0 Refills 03/10/11 Albuterol (Proventil Inhaler) 17 Gm Inh, 0 INH PRN, 0 Refills 1-2 PUFFS 03/10/11 Discontinued Reported Medications Tramadol Hcl (TRAMADOL HCL) 100 Mg Tab.er.24h, 100 MG PO TID, TAB 12/13/17 Metoprolol Succinate (Toprol Xl) 25 Mg Tab.sr.24h, 25 MG PO BID, 0 Refills 08/26/11 Fluticasone Prop 50 Mcg Ns (FLONASE 50 MCG NS) 16 Gm Rocky.susp, 1 SPRAY NS TID, BOT 04/08/18 Discontinued Scripts Prednisone (PREDNISONE) 20 Mg Tablet, 40 MG PO QDAY for 5 Days, #10 TAB Prov:ZULEYKA LOVE MD 06/17/18 Azithromycin (ZITHROMAX) 250 Mg Tablet, 1 TAB PO QDAY, #4 TAB 0 Refills start on 04/09/18 Prov:GRETA MARCANO MD 04/08/18 Prednisone (PREDNISONE) 20 Mg Tablet, 60 MG PO QDAY, #12 TAB 0 Refills start on 04/09/18 Prov:GRETA MARCANO MD 04/08/18 Allergies: Coded Allergies: egg (Verified Allergy, Mild, 05/12/18) Patient History: Bone cancer FATHER, FH: brain tumor MOTHER, FH: breast cancer BROTHER OR SISTER FH: heart disease FATHER, FH: hepatic cirrhosis MOTHER, FH: stomach cancer MOTHER, Hx Smoking: Yes (Quit 2017) Smoking Status: Former Smoker Exposure to Second Hand Smoke?: Yes Caffeine Intake: Coffee Caffeine/Cups Per Day: 2 cup/day Hx Alcohol Use: No Hx Substance Use Disorder: No Social Drug Use: Never Review of Systems All Systems Reviewed/Normal: Yes, Except as Noted Respiratory: Shortness of Breath, Cough Gastrointestinal: Nausea, Vomiting Exam Vital Signs Vital Signs Date Time Temp Pulse Resp B/P (MAP) Pulse Ox O2 Delivery O2 Flow Rate FiO2 06/20/18 15:50 94 Oxy Mask 7.0 06/20/18 15:33 98.4 57 16 143/67 (92) General Appearance: Alert, Awake, No Acute Distress Neuro: No Gross deficits Cardiovascular: Regular Rate and Rhythm Respiratory: No Respiratory Distress, Other (diminished bilateral lung sounds) GI: Abd Soft and Non-Tender Musculoskeletal: Other (abscess appearing to right inguinal area) Extremities: Warm, Perfused, Edema (non pitting edema bilateral lower extremities) Integumentary: Other (excoriated skin under panus and breasts) Psych: Alert & Oriented X3, Appropriate Mood & Affect Medical Decision Making Data Points Result Diagram: 06/20/18 1228 06/20/18 1228 Item Value Date Time B-Type Natriuretic Peptide 416 pg/ml H 06/20/18 1228 Lactate 1.2 mmol/L 06/20/18 1228 Blood and urine cultures ordered in ER EKG / Imaging Imaging PATIENT NAME: Dimas Max : 1960 MR: [id number] V: [id number] EXAM DATE: ORDERING PHYSICIAN: GRETA MARCANO TECHNOLOGIST: [place] [facility] [place] Dimas Max : 1960 Visit/Account:[id number] Date of Sevice: 06/20/2018 EXAMINATION: CT abdomen with IV contrast CT pelvis with IV contrast HISTORY: Left upper quadrant abdominal pain. COMPARISON: 01/12/2008. TECHNIQUE: Axial images were taken through the abdomen and pelvis with intravenous contrast. Sagittal and coronal reformatted images are also submitted. CONTRAST: 75 mL of IV Isovue-370 One of the following dose optimization techniques was utilized in the performance of this exam: Automated exposure control; adjustment of the mA and/or kV according to the patient's size; or use of an iterative reconstruction technique. Specific details can be referenced in the facility's radiology CT exam operational policy. FINDINGS: Liver/biliary: Negative. Pancreas: Negative. Spleen: Negative. Adrenal glands: Negative. Kidneys: There is a calculus in the left renal pelvis at the ureteropelvic junc tion measuring 15 x 14 x 11 mm. There is only slight distention of the left renal collecting system. There are a few small cysts in the kidneys. Pelvic structures: The urinary bladder is partially obscured by beam hardening artifact from hip arthroplasties. Uterus is not seen suggesting previous hysterectomy. Bowel: The bowel is normal caliber without obvious focal wall thickening. The appendix is not identified. No pericecal inflammatory changes. Peritoneum/retroperitoneum/mesenteries: No intraperitoneal free air free fluid. Vessels: Mixed plaque along the aorta. Calcified plaque of the splenic artery and superior mesenteric artery. Plaque along the iliofemoral arteries. Musculoskeletal/body wall: Bilateral hip arthroplasties. Small fat-containing umbilical hernia. An 11 mm rounded collection in the superficial subcutaneous soft tissues of the proximal right thigh in the inguinal region with haziness and stranding in the surrounding subcutaneous fat. Multilevel disc and facet degenerative changes in the lumbar spine. Grade 2 anterolisthesis of L5 on S1. Interbody device at the L5-S1 level. Lymph node assessment: Negative. Lower chest: Patchy subsegmental atelectasis in the lung bases. Small subpleural nodule in the right middle lobe, unchanged since 2007. Chronic healed rib fracture deformity on the right. IMPRESSION: There is a calculus in the left renal pelvis at the ureteropelvic junction measuring 15 x 14 x 11 mm. There is slight distention of the left renal collecting system. An 11 mm fluid collection in the superficial subcutaneous soft tissues of the proximal right thigh in the inguinal region with inflammatory changes in the surrounding subcutaneous fat. This probably represents a small abscess. Multiple chronic findings as detailed in the body of report. Report Dictated By: Robert Dickson MD at 06/20/2018 1:59 PM Report E-Signed By: Robert Dickson MD at 06/20/2018 2:19 PM [id number] PATIENT NAME: Dimas Max : 1960 MR: [id number] V: [id number] EXAM DATE: ORDERING PHYSICIAN: GRETA MARCANO TECHNOLOGIST: [place] [facility] [place] Dimas Max : 1960 Visit/Account:[id number] Date of Sevice: 06/20/2018 EXAMINATION: Chest radiographs 2 views HISTORY: Cough. COMPARISON: 06/17/2018. CT of the abdomen and pelvis from the same day. FINDINGS: AP and lateral views of the chest are submitted. Lines/tubes: None. Lungs/pleura: Mild opacity at the left lung base which appears the left lateral costophrenic sulcus. Blunting of the posterior costophrenic sulci. No evidence of pneumothorax. Heart: Stable mild prominence of the cardiac silhouette accentuated by AP technique. Mediastinum: Negative. Bony structures/body wall: Negative. IMPRESSION: There is subsegmental atelectasis at the lung bases. Stable mild prominence of the cardiac silhouette. Report Dictated By: Robert Dickson MD at 06/20/2018 2:19 PM Report E-Signed By: Robert Dickson MD at 06/20/2018 2:24 PM [id number] Assessment and Plan Problems: (1) Pneumonia Status: Acute Assessment & Plan: She presented with cough and shortness of breath. Her Chest X-ray shows opacity in the left lung base. She was started on treatment with Levaquin in the ER. Blood cultures pending. (2) COPD exacerbation Status: Acute Assessment & Plan: She was started on Prednisone three days prior to admission in ER. She will continue Prednisone, nebulizers scheduled and as needed. She is requiring 7L of oxygen from her usual baseline of 3L. (3) Abscess of right groin Status: Acute Assessment & Plan: She has an abscess to her right groin. Will attempt for pat ient to receive I&D of abscess. Continue antibiotics. (4) CAD (coronary artery disease) Status: Chronic Assessment & Plan: She is on chronic treatment with baby aspirin. She has history of 3 cardiac stents and [place] in 2012. (5) Hypertension Status: Chronic Assessment & Plan: She is on chronic treatment with Metoprolol, Losartan and Spironolactone. Metoprolol and Losartan have been restarted with hold parameters. (6) Hyperlipidemia Status: Chronic Assessment & Plan: She is on chronic treatment with Atorvastatin. Continue. (7) Type 2 diabetes mellitus Status: Chronic Assessment & Plan: She is on chronic treatment with Metformin. This will be held for now. She will be placed on SS insulin #2, ADA diet and AC/HS blood sugar checks. (8) ENOCH (obstructive sleep apnea) Status: Chronic Assessment & Plan: She does use BiPap at night. She did not bring her machine to use during admission. She will be placed on our bipap overnight. (9) Depression Status: Chronic Assessment & Plan: She is on chronic treatment with Fluoxetine. Continue. (10) Gout Status: Chronic Assessment & Plan: She is on chronic treatment with Allopurinol. Continue. (11) Humeral shaft fracture Status: Acute Assessment & Plan: She has fracture being treated by Dr. Berry since March. She is wearing brace to left arm. Venous Thromboembolism Antithrombotics Is Pt On Any Antithrombotics?: Yes Exam Sepsis Risk: No Definite Risk Problem Qualifiers (1) Hypertension: Hypertension type: essential hypertension Qualified Codes: I10 - Essential (primary) hypertension CLARK HIGUERA [employer]ONER Jun 20, 2018 17:09
[2018-06-20] MEDS ORDERED: FLUCONAZOLE 150 MG TAB PO ONE (17:10)
[2018-06-20] MEDS: NS(*) 0.9% 1000 ML BAG 1,000 ML IV PRN (17:12)
[2018-06-20] MEDS: ALBUTEROL/IPRATROPIUM 3 ML NEB NEB SCH (17:16)
--- NOTE | 2018-06-20 18:04 | Gen Surgery H&P BLANK ---
GENERAL SURGERY H&P BLANK R infra inguinal abscess noted on CT. It was confirmed by bedside US to be abou t .5cm below the skin and about 2 x 2 x 1 cm. Informed consent was obtained. An area was identified by bedside US to make an incision. The area was prepped with Betadine swabs. 3cc of 1% lidocaine used to anesthetize the area. Purulent material was aspirated at 1 cm depth. An 11 blade scalpel was use and a 1 cm longitudinal incision was made. Purulent material was expressed. Sterile cotton tipped applicator was used to explore the wound x2. Cultures were obtained. The wound covered with simple gauze. Will reassess tomorrow. YANG CONN MD Jun 20, 2018 18:04
[2018-06-20] MEDS: INSULIN HUM LISPRO 100 UN/ML 3 ML VIAL SUBQ PRN (18:12)
[2018-06-20] MEDS ORDERED: LIDOCAINE 2% MDV 400MG/20ML VL MC ONE ×2 (19:40→19:50)
[2018-06-20 19:50] VITALS: BP 132/59
[2018-06-20] MEDS: METOPROLOL TART 50 MG TAB PO SCH (20:52)
[2018-06-20] MEDS: FLUoxetine HCL 20 MG CAP PO SCH (20:52)
[2018-06-20] MEDS: guaiFENesin 600 MG TABCR PO SCH (20:53)
[2018-06-20] MEDS: GABAPENTIN 300 MG CAP PO SCH (20:53)
[2018-06-20] MEDS: traMADol 50 MG TAB PO SCH (20:53)
[2018-06-21 01:05] VITALS: BP 133/58
[2018-06-21] MEDS: NS(*) 0.9% 1000 ML BAG 1,000 ML IV PRN (04:04)
[2018-06-21] MEDS: ACETAMINOPHEN 325 MG TAB PO PRN ×3 (04:19→18:12)
[2018-06-21] MEDS: ALBUTEROL/IPRATROPIUM 3 ML NEB NEB SCH ×3 (05:57→17:19)
[2018-06-21 06:41] LABS: PLATELET COUNT, AUTOMATED 274 K/uL (150-450)
[2018-06-21 07:34] VITALS: BP 133/58
[2018-06-21 07:58] VITALS: BP 127/58
[2018-06-21] MEDS ORDERED: predniSONE 20 MG TAB PO SCH (09:00)
[2018-06-21] MEDS: GABAPENTIN 300 MG CAP PO SCH ×3 (09:19→20:50)
[2018-06-21] MEDS: ENOXAPARIN 40 MG/0.4ML SYR SC SCH (09:19)
[2018-06-21] MEDS: FLUoxetine HCL 20 MG CAP PO SCH ×2 (09:19→20:51)
[2018-06-21] MEDS: ASPIRIN 81 MG CHEW PO SCH (09:20)
[2018-06-21] MEDS: guaiFENesin 600 MG TABCR PO SCH ×2 (09:20→20:50)
[2018-06-21] MEDS: ALLOPURINOL 300 MG TAB PO SCH (09:20)
[2018-06-21] MEDS: LOSARTAN POTASSIUM 50 MG TAB PO SCH (09:20)
[2018-06-21] MEDS: traMADol 50 MG TAB PO SCH ×3 (09:20→20:51)
[2018-06-21] MEDS: ATORVASTATIN 10 MG TAB PO SCH (09:20)
[2018-06-21] MEDS: METOPROLOL TART 50 MG TAB PO SCH ×2 (09:21→20:51)
[2018-06-21] MEDS: NYSTATIN 100,000 U/GM PWD 15GM TP SCH ×2 (09:24→21:35)
[2018-06-21 10:32] VITALS: Ht 170.2 cm; Wt 121.1 kg
[2018-06-21 10:48] VITALS: BP 130/53
[2018-06-21] MEDS: CLINDAMYCIN(*) 600 MG/NS 50 ML 50 ML IVPB SCH ×2 (10:52→18:12)
--- NOTE | 2018-06-21 11:09 | Antimicrobial Stewardship ---
Antimicrobial Stewardship Empiricly appropriate: Yes (Pneumonia + Abscess ) Significant PMH: Yes (COPD, ED visit 3 days ago, DM2, HTN, ENOCH, CAD, current smoker) Support empiric regimen: Yes (Levofloxacin + clindamycin) Approriate Cultures done: Yes Organism identified: Yes (Wound Cx- Beta hemolytic strep) Determine cumulative duration: Pneumonia- day 2 (06/21/18)- 5-7 days, Wound - day 1 (7-10 days) Comment 58 yo F with a PMH of COPD (ED visit 3 days [employer]), DM2, HTN, ENOCH, CAD, and currently smokes. She presented to the ED with complaints of N/V, abdominal pain, and cough with SOB. Tmax 100.9 WBC 23.4 --> 20.5 (on steroids) O2 5L Neutrophils 84.4% -->70% + 5% bands CT showed L renal pelvis calculus, 11mm fluid colletion R thigh Chest Xray: mild opacity LL base Cultures: Blood Cx x 2 --> NGTD Urine Cx - NGTD Abscess - Beta hemolytic strep -- Sensitivity pending UA Blood (large), RBC 282, WBC 19, Squamous Epis -->moderate Plan - treat for pneumonia with levofloxacin 5-7 days ( on Levofloxacin 500mg IV Q24H), abscess in groin drained growing beta hemolytic strep, Clindamycin added 600mg IV Q8H. Plan to treat abscess/cellulitis minimum of 5 days, but up to 10- 14 days. Watch cultures and continue antibiotics. Will monitor closely to determine when to switch to oral antibiotics. Lauren Smith, PharmD, OP LAUREN SMITH Jun 21, 2018 11:09
--- NOTE | 2018-06-21 13:10 | Hospitalist Progress Note ---
Subjective Progress Notes Subjective She was admitted with pneumonia and abscess. She reports she feels a little better today. Patient Complains of: Cardiovascular: No: Chest Pain Respiratory: No: Shortness of Breath Gastrointestinal: No Nausea, No Vomiting Physical Exam Vital Signs Date Time Temp Pulse Resp B/P (MAP) Pulse Ox O2 Delivery O2 Flow Rate FiO2 06/21/18 11:19 61 18 06/21/18 11:19 95 CPAP 5.0 06/21/18 10:48 98.0 130/53 (78) 06/21/18 05:50 60.0 Intake and Output 06/21/18 01:00 Intake Total 1100 ml Output Total 50 ml Balance 1050 ml Intake Oral 500 ml IV Total 600 ml Output Urine Total 50 ml # Voids 2 General Appearance: Alert, Awake, No Acute Distress, Afebrile Neuro: No Gross deficits Cardiovascular: Regular Rate and Rhythm Respiratory: No Respiratory Distress, Other (diminished bilatearlly, no wheezes heard) GI: Soft and Non-Tender Extremities: Warm, Perfused, Edema (non pitting edema to bilatera lower extremities) Integumentary: Other (erythema decreasing to panus and right inguinal region) Psych: Alert & Oriented X3, Appropriate Mood & Affect Result Diagram: 06/21/18 0546 06/21/18 05 Monitor Interpretation: Normal Sinus Rhythm Assessment and Plan Problems: (1) Pneumonia Status: Acute Assessment & Plan: She presented with cough and shortness of breath. Her Chest X-ray shows opacity in the left lung base. She was started on treatment with Levaquin in the ER. Blood cultures pending show no growth. (2) Abscess of right groin Status: Acute Assessment & Plan: She has an abscess to her right groin. She had I&D of abscess 06/20. Wound culture pending showing strep species. She will be started on Clindamycin. Adjust antibiotics as needed per culture. (3) COPD exacerbation Status: Acute Assessment & Plan: She was started on Prednisone three days prior to admission in ER. She received Prednisone dose today, but will stop since she is no longer wheezing, nebulizers scheduled and as needed. She is requiring 5L of oxygen from her usual baseline of 3L. (4) CAD (coronary artery disease) Status: Chronic Assessment & Plan: She is on chronic treatment with baby aspirin. She has history of 3 cardiac stents and [place] in 2012. (5) Hypertension Status: Chronic Assessment & Plan: She is on chronic treatment with Metoprolol, Losartan and Spironolactone. Metoprolol and Losartan have been restarted with hold parameters. (6) Hyperlipidemia Status: Chronic Assessment & Plan: She is on chronic treatment with Atorvastatin. Continue. (7) Type 2 diabetes mellitus Status: Chronic Assessment & Plan: She is on chronic treatment with Metformin. This will be held for now. She will be placed on SS insulin #2, ADA diet and AC/HS blood sugar checks. (8) ENOCH (obstructive sleep apnea) Status: Chronic Assessment & Plan: She does use BiPap at night. She did not bring her machine to use during admission. She will be placed on our bipap overnight. (9) Depression Status: Chronic Assessment & Plan: She is on chronic treatment with Fluoxetine. Continue. (10) Gout Status: Chronic Assessment & Plan: She is on chronic treatment with Allopurinol. Continue. (11) Humeral shaft fracture Status: Acute Assessment & Plan: She has fracture being treated by Dr. Berry since March. She is wearing brace to left arm. Exam Sepsis Risk: No Definite Risk Problem Qualifiers (1) Pneumonia: Pneumonia type: due to unspecified organism Laterality: unspecified laterality Lung location: unspecified part of lung Qualified Codes: J18.9 - Pneumonia, unspecified organism (2) Hypertension: Hypertension type: essential hypertension Qualified Codes: I10 - Essential (primary) hypertension CL[employer] Jun 21, 2018 13:10
[2018-06-21] MEDS ORDERED: DIPH-464 PO (13:46)
[2018-06-21] MEDS ORDERED: CETI10CA8 PO (13:46)
[2018-06-21] MEDS ORDERED: FLUO40CA76 PO (13:49)
[2018-06-21] MEDS ORDERED: LEVOFLOXACIN/D5W*500 MG/100 ML 100 ML IVPB SCH (15:00)
[2018-06-21 15:11] VITALS: BP 141/66
[2018-06-21] MEDS: INSULIN HUM LISPRO 100 UN/ML 3 ML VIAL SUBQ PRN ×2 (17:30→20:52)
[2018-06-21 18:49] VITALS: BP 124/69
[2018-06-21] MEDS ORDERED: TIZA4CAP3 PO (20:10)
[2018-06-22] MEDS: CLINDAMYCIN(*) 600 MG/NS 50 ML 50 ML IVPB SCH ×2 (03:07→10:01)
[2018-06-22] MEDS: ACETAMINOPHEN 325 MG TAB PO PRN ×2 (03:29→11:51)
[2018-06-22 03:41] VITALS: BP 134/63
[2018-06-22] MEDS: ALBUTEROL/IPRATROPIUM 3 ML NEB NEB SCH ×3 (06:04→18:00)
[2018-06-22 06:11] LABS: PLATELET COUNT, AUTOMATED 263 K/uL (150-450)
[2018-06-22 07:00] VITALS: BP 140/69
[2018-06-22] MEDS: ALLOPURINOL 300 MG TAB PO SCH (08:32)
[2018-06-22] MEDS: FLUoxetine HCL 20 MG CAP PO SCH ×2 (08:32→20:24)
[2018-06-22] MEDS: GABAPENTIN 300 MG CAP PO SCH ×3 (08:32→20:24)
[2018-06-22] MEDS: guaiFENesin 600 MG TABCR PO SCH ×2 (08:32→20:24)
[2018-06-22] MEDS: ASPIRIN 81 MG CHEW PO SCH (08:32)
[2018-06-22] MEDS: ATORVASTATIN 10 MG TAB PO SCH (08:32)
[2018-06-22] MEDS: METOPROLOL TART 50 MG TAB PO SCH ×2 (08:33→20:25)
[2018-06-22] MEDS: traMADol 50 MG TAB PO SCH ×3 (08:33→20:24)
[2018-06-22] MEDS: NYSTATIN 100,000 U/GM PWD 15GM TP SCH ×2 (08:34→20:25)
[2018-06-22] MEDS: ENOXAPARIN 40 MG/0.4ML SYR SC SCH (08:34)
[2018-06-22] MEDS: LOSARTAN POTASSIUM 50 MG TAB PO SCH (08:34)
--- NOTE | 2018-06-22 09:59 | NUR ---
Physical Therapy Impression PT wound eval complete- Pt presents with abscess of the R) inguinal region, s/p I&D on 06/20/18. Incision demonstrates near closure, with erythema and induration of surrounding tissue. Pt reports pain and discomfort of the area. Incision from I&D is nearly 100% closed, PT utilized tweezers to open incision which revealed purulent drainage. PT milked surrounding tissue which lead to expression of copious amounts of purulent drainage. After extensive milking, small amounts of sanguineous drainage expressed, but purulent drainage persisted. Hospitalist called to visualize wound and agreed that a consult from general surgery is appropriate at this time, in order to address full extent of underlying abscess. Wound cleansed and packed with 0.25" gauze and covered with a silicone bordered dressing until futher evaluation by Dr. Le. Pt does report pain relief after wound was relieved of underlying pocket of fluid. PT available as needed after consult from surgeon. Physical Therapy Goals Patient's Goals
--- NOTE | 2018-06-22 10:17 | Hospitalist Progress Note ---
Subjective Progress Notes Subjective She was admitted with abscess and pneumonia. She reports she feels much better today. She had no acute events overnight. Patient Complains of: Cardiovascular: No: Chest Pain Respiratory: No: Shortness of Breath Physical Exam Vital Signs Date Time Temp Pulse Resp B/P (MAP) Pulse Ox O2 Delivery O2 Flow Rate FiO2 06/22/18 08:50 CPAP 2.0 06/22/18 08:46 96 06/22/18 07:00 97.9 54 18 140/69 (92) 06/21/18 21:00 60.0 Intake and Output 06/22/18 01:00 Intake Total 1810 ml Balance 1810 ml Intake Oral 560 ml IV Total 1250 ml # Voids 9 General Appearance: Alert, Awake, No Acute Distress, Afebrile Neuro: No Gross deficits Cardiovascular: Regular Rate and Rhythm Respiratory: No Respiratory Distress, Clear to Auscultation GI: Soft and Non-Tender : No CVA Tenderness Extremities: Warm, Perfused, Edema (nonpitting edema bilteral lower extremities) Integumentary: Other (abscess to right groin looks to be draining some purulent fluid) Psych: Alert & Oriented X3, Appropriate Mood & Affect Result Diagram: 06/22/18 0529 06/22/18 05 Monitor Interpretation: Normal Sinus Rhythm Assessment and Plan Problems: (1) Pneumonia Status: Acute Assessment & Plan: She presented with cough and shortness of breath. Her Chest X-ray shows opacity in the left lung base. She was started on treatment with Levaquin in the ER. Blood cultures pending show no growth. WBC continue to trend down. (2) Abscess of right groin Status: Acute Assessment & Plan: She has an abscess to her right groin. She had I&D of abscess 06/20. Wound culture pending showing strep species. She was started on Clindamycin 06/21. Adjust antibiotics as needed per culture. Will consult wound care for abscess. (3) COPD exacerbation Status: Acute Assessment & Plan: She was started on Prednisone three days prior to admission in ER. She received Prednisone dose 06/21, but will stop since she is no longer wheezing, nebulizers scheduled and as needed. She is requiring 4L of oxygen from her usual baseline of 3L. (4) CAD (coronary artery disease) Status: Chronic Assessment & Plan: She is on chronic treatment with baby aspirin. She has history of 3 cardiac stents and [place] in 2012. (5) Hypertension Status: Chronic Assessment & Plan: She is on chronic treatment with Metoprolol, Losartan and Spironolactone. Metoprolol and Losartan have been restarted with hold parameters. (6) Hyperlipidemia Status: Chronic Assessment & Plan: She is on chronic treatment with Atorvastatin. Continue. (7) Type 2 diabetes mellitus Status: Chronic Assessment & Plan: She is on chronic treatment with Metformin. This will be held for now. She will be placed on SS insulin #2, ADA diet and AC/HS blood suga r checks. (8) ENOCH (obstructive sleep apnea) Status: Chronic Assessment & Plan: She does use BiPap at night. She did not bring her machine to use during admission. She will be placed on our bipap overnight. (9) Depression Status: Chronic Assessment & Plan: She is on chronic treatment with Fluoxetine. Continue. (10) Gout Status: Chronic Assessment & Plan: She is on chronic treatment with Allopurinol. Continue. (11) Humeral shaft fracture Status: Acute Assessment & Plan: She has fracture being treated by Dr. Berry since March. She is wearing brace to left arm. Exam Sepsis Risk: No Definite Risk Problem Qualifiers (1) Pneumonia: Pneumonia type: due to unspecified organism Laterality: unspecified lateralit y Lung location: unspecified part of lung Qualified Codes: J18.9 - Pneumonia, unspecified organism (2) Hypertension: Hypertension type: essential hypertension Qualified Codes: I10 - Essential (primary) hypertension CLARK HIGUERA [facility] Jun 22, 2018 10:17
[2018-06-22] MEDS ORDERED: IOPAMIDOL 76% 150 ML INFUS BTL 150 ML ONE (11:19)
[2018-06-22 11:41] VITALS: BP 132/53
--- NOTE | 2018-06-22 13:20 | Medical Nutrition Therapy ---
Nutrition Anthropometrics Height (Inches): 67.00 Height (Calculated Centimeters: 170.295510 Weight (Pounds): 267 Weight (Calculated Kilograms): 121.336 Christoph Nutrition Score: Adequate Christoph Nutrition Risk Score: 17 Dietary Referral Nutrition Risk Factors: Nutrition Risk Comment: Physical Findings Physical Appearance: Morbidly Obese 40+ Skin Appearance Skin Appearance: Edema Edema Location Modifier: Edema Location: Type of Edema: Degree of Edema: Gastrointestinal Symptoms GI Symtoms: Nausea Tube Present: Bowel Sounds: Recent Bowel Pattern: Stool Characteristics: Nutrition/Food History Improving Skipped Meals: Yes Breakfast: 100% Lunch: NA Dinner: Refused Nutritional Diagnosis Nutritional Risk Acuity 3: Morbid Obesity Nutritional Risk Acuity 4: Food Allerg/Intl Past Medical History: Allergic to eggs. DM2 Nutritional Acuity: 3-Mild Nutrition Diagnosis: Inadequate Food Intake Nutrition Etiology: Inconsist. Eating Pattern Nutrition Problem/Etiology/Sym: 06/22 AEB an average of 50% of meals consumed; pt refuses or eats up to 100% of meal Diet Type: Diabetic Nutrition Intervention: Cont diet as ordered, Encourage intake, Check glucose Additional Diet Restrictions: ALLERGIC: EGGS Nutrition Monitoring & Eval RD Patient Assessment Time: [address] Assessment Type: RD Assessment Patient Nutrition Acuity: 3-Mild Follow Up Date: Jun 22, 2018 Nutritional Comment: 06/21 Pt admited for pneumonia/abdominal pain. Pt is morbidly obese (BMI 41.9) and has DM2. Pt should continue ADA diet to assist with DM2 and increased RBG lvl (131). Pt meal consumption is not documented, will assess before anticipated discharge on 06/23. CD 06/22 Pt is no longer has nausea and is eating more of the meals provided. Will moniter for adequate intake BRIANNA RAMIREZ Jun 22, 2018 12:42
[2018-06-22] MEDS: cefTRIAXone 2 GM VIAL IVP SCH (14:21)
--- NOTE | 2018-06-22 14:26 | RADIOLOGY IMAGING REPORT ---
[place] [facility] [place] NAME: Dimas Max : 1960 MR: [id number] V: [id number] EXAM DATE: ORDERING PHYSICIAN: CLARK HIGUERA TECHNOLOGIST: Location: [facility] - [place] Patient: Dimas Max : 1960 Visit/Account:[id number] Date of Sevice: 06/22/2018 CT FEMUR W/ RT COMPARISON: None. HISTORY: Abscess. Sore right groin. TECHNIQUE: Postcontrast axial CT of the right femur with coronal and sagittal reformats. One of the following dose optimization techniques was utilized in the performance of this exam: auto mated exposure control; adjustment of the mA and/or kV according to patient size; or use of iterative reconstruction technique. Specific details can be referenced in the facility's radiology CT exam op erational policy. CONTRAST: 75 mL Isovue-370 intravenously. FINDINGS: BONES : No acute fracture or evidence of osteomyelitis. Right total hip prosthesis in good alignment without evidence of hardware loosening or periprosthesis fracture. Chronic bone fragments along the ischial tuberosity related to remote avulsion fracture. The prosthesis causes streak artifact which p artially obscures the right hip joint soft tissues. FLUID: No appreciable hip or knee effusion. SOFT TISSUES: Moderate fat stranding in the right inguinal and anterior medial proximal thigh subcut aneous fat, with diffuse skin thickening in the proximal thigh. Within the anterior soft tissues of t he proximal thigh there is a 1.0 x 0.9 x 2.0 cm fluid collection present with a small bubble of gas w ithin the nondependent margin. This is most consistent with an abscess. It is difficult to accurately separate from the surrounding soft tissues. There is gas within soft tissue fat stranding medial to this, probably related to drainage, no definite additional soft tissue fluid collection is seen. Circumferential subcutaneous fat edema and skin thickening in the visualized proximal lower leg. Mild diffuse atherosclerotic calcifications. OTHER: Negative. IMPRESSION: 1. Findings consistent with a 1 x 2 cm abscess just deep to the skin in the anterior proximal thigh soft tissues. Extensive adjacent soft tissue fat stranding consistent with cellulitis. A few bubbles of gas within the cellulitis, likely related to recent drainage. No definite additional fluid collect ion. 2. Soft tissue edema throughout the thigh and proximal lower leg. 3. No visible hip effusion or knee effusion. 4. Right hip prosthesis in good alignment, without appreciable complication.. Report Dictated By: Carlos Vega at 06/22/2018 2:05 PM Report E-Signed By: Carlos Vega at 06/22/2018 2:21 PM WSN:[id number]
[2018-06-22 14:37] VITALS: BP 129/45
[2018-06-22] MEDS ORDERED: AZITHROMYCIN(*) 500 MG 500 MG in NS(*) 0.9% 250 ML BAG 250 ML IVPB SCH (15:00)
--- NOTE | 2018-06-22 17:45 | RADIOLOGY IMAGING REPORT ---
[place] [facility] [place] Dimas Max : 1960 MR: [id number] V: [id number] EXAM DATE: ORDERING PHYSICIAN: CLARK HIGUERA TECHNOLOGIST: Location: [facility] Patient: Dimas Max : 1960 Visit/Account:[id number] Date of Sevice: 06/22/2018 CT PELVIS W/CON HISTORY: Abscess; sore right inguinal region. TECHNIQUE: CT pelvis with intravenous contrast. One of the following dose optimization techniques was utilized in the performance of this exam: Autom ated exposure control; adjustment of the mA and/or kV according to the patient's size; or use of an i terative reconstruction technique. Specific details can be referenced in the facility's radiology C T exam operational policy. CONTRAST: 75 mL Isovue-370 IV COMPARISON: 06/20/2018 FINDINGS: Visualized abdomen: Large nonobstructing stone left renal pelvis, incompletely visualized but consist ent with findings on recent prior exam. Visualized GI: Unremarkable. Visualized : Uterus surgically absent. Ovaries either atrophic or also surgically absent. Vessels/spaces/nodes: Moderately severe atherosclerosis. No free fluid. No free gas. Although the rig ht inguinal lymph nodes are slightly prominent relative to those on the left, they're not significant ly changed nor frankly enlarged. Elsewhere, no adenopathy. Bones/soft tissues: Degenerative changes lumbar spine, sacroiliac joints and pubic symphysis. Bilater al L5 pars interarticularis defects with grade 2 anterolisthesis of L5 on S1. Sequela of bilateral hi p arthroplasties. Subcutaneous edema right groin where visualized (2/108). Were these changes are vis ualized, there is no CT evident abscess. Small fat-containing umbilical hernia. IMPRESSION: 1. Subcutaneous edema right inguinal region, incompletely visualized but suspicious for cellulitis. P lease see CT right femur performed and reported separately this same date for further details includi ng additional visualized tissues of the right inguinal region. 2. Other chronic and/or benign-appearing changes of the pelvis detailed above. Report Dictated By: Pascual Gregory MD at 06/22/2018 5:36 PM Report E-Signed By: Pascual Gregory MD at 06/22/2018 5:42 PM WSN:[id number]
[2018-06-22 20:17] VITALS: BP 139/61
[2018-06-23 00:53] VITALS: BP 133/47
[2018-06-23] MEDS: ACETAMINOPHEN 325 MG TAB PO PRN ×3 (00:53→17:42)
[2018-06-23] MEDS: ALBUTEROL/IPRATROPIUM 3 ML NEB NEB SCH ×3 (05:37→16:38)
[2018-06-23 05:40] LABS: PLATELET COUNT, AUTOMATED 283 K/uL (150-450)
[2018-06-23 06:30] VITALS: BP 132/55
[2018-06-23] MEDS ORDERED: POTASSIUM CHL 20 MEQ TABCR PO ONE (08:00)
--- NOTE | 2018-06-23 08:08 | General Surgery Consultation ---
History of Present Illness Reason for Consult Right thigh abscess Chief Complaint Redness, pain and drainage right thigh History of Present Illness This 58 year old female was admitted with pneumonia and was noted to have jennifer lulitis and small abscess right thigh. She underwent I&D and cultures grew Strep. She has responded to antibiotics and is now afebrile with her WBC returning to upper normal range. A CT scan showed a small collection to be undrained. I was consulted to drain this . History Home Meds Active Scripts Albuterol Sulfate 0.083% (ALBUTEROL SULFATE 0.083%) 2.5 Mg/3 Ml Vial.neb, 2.5 MG INH Q4-6H for cough, #1 BOX 0 Refills Prov:GRETA MARCANO MD 05/04/16 Reported Medications Tizanidine Hcl (TIZANIDINE HCL) 4 Mg Capsule, 4 MG PO Q6H PRN for SPASMS, CAPSULE 06/21/18 Fluoxetine Hcl (PROZAC) 40 Mg Capsule, 80 MG PO HS, CAPSULE 06/21/18 Cetirizine Hcl (ZYRTEC) 10 Mg Capsule, 10 MG PO QDAY, CAPSULE 06/21/18 Diphenhydramine Hcl (DIPHENHYDRAMINE HCL) 25 Mg Capsule, 25 MG PO HS, #2 CAPSULE 06/21/18 Tramadol Hcl (TRAMADOL HCL) 50 Mg Tablet, 2 TAB PO TID 06/20/18 Atorvastatin Calcium (ATORVASTATIN CALCIUM) 20 Mg Tablet, 1 TAB PO DAILY 06/20/18 Metoprolol Tartrate (METOPROLOL TARTRATE) 25 Mg Tablet, 25 MG PO BID 06/20/18 Guaifenesin/Dextromethorphan (Robitussin Cough-Chest Dm Liq) 100 Mg-5 Mg/5 Ml Liquid, 2 TBS PO Q4H 04/08/18 Acetaminophen (TYLENOL EXTRA STRENGTH) 500 Mg Tablet, 500 MG PO TID, TAB 12/13/17 Metformin Hcl (METFORMIN HCL) 500 Mg Tablet, 2 TAB PO BID, TAB 04/04/17 Losartan Potassium (LOSARTAN POTASSIUM) 50 Mg Tablet, 1 TAB PO QDAY 12/20/16 Pioglitazone Hcl (PIOGLITAZONE HCL) 45 Mg Tablet, 45 MG PO QDAY 12/20/16 Guaifenesin/Dextromethorphan (MUCINEX DM ER 600-30 MG TABLET) 1 Each Tab.er.12h, 1 EACH PO TID 05/17/16 Aspirin (Childrens Chewable Aspirin) 81 Mg Chew, 81 MG PO DAILY, 0 Refills 08/26/11 Spironolactone (Aldactone) 50 Mg Tablet, 50 MG PO DAILY, 0 Refills 08/26/11 Oxygen (Oxygen) 2 L Inha, 3 L INH DAILY, 0 Refills At Night With BiPap 03/10/11 Gabapentin (Neurontin) 300 Mg Cap, 600 MG PO TID, 0 Refills 03/10/11 Allopurinol (Zyloprim) 300 Mg Tab, 300 MG PO QDAY, 0 Refills 03/10/11 Fluticasone/Salmeterol (Advair 250-50 Diskus) 1 Disk W/Dev Disk.w.dev, 1 DISK IH BID, 0 Refills 03/10/11 Albuterol (Proventil Inhaler) 17 Gm Inh, 0 INH PRN, 0 Refills 1-2 PUFFS 03/10/11 Discontinued Reported Medications Prednisone (PREDNISONE) 20 Mg Tablet, 20 MG PO BID, TAB 06/20/18 Pseudoephedrine Hcl (SUDAFED 12 HOUR) 120 Mg Tablet.er, 120 MG PO Q4H 04/08/18 Fluoxetine Hcl (Prozac) 40 Mg Capsule, 40 MG PO BID, #20 0 Refills 03/10/11 Tramadol Hcl (TRAMADOL HCL) 100 Mg Tab.er.24h, 100 MG PO TID, TAB 12/13/17 Metoprolol Succinate (Toprol Xl) 25 Mg Tab.sr.24h, 25 MG PO BID, 0 Refills 08/26/11 Fluticasone Prop 50 Mcg Ns (FLONASE 50 MCG NS) 16 Gm [place].susp, 1 SPRAY NS TID, BOT 04/08/18 Discontinued Scripts Prednisone (PREDNISONE) 20 Mg Tablet, 40 MG PO QDAY for 5 Days, #10 TAB Prov:ZULEYKA LOVE MD 06/17/18 Azithromycin (ZITHROMAX) 250 Mg Tablet, 1 TAB PO QDAY, #4 TAB 0 Refills start on 04/09/18 Prov:GRETA MARCANO MD 04/08/18 Prednisone (PREDNISONE) 20 Mg Tablet, 60 MG PO QDAY, #12 TAB 0 Refills start on 04/09/18 Prov:GRETA MARCANO MD 04/08/18 Allergies: Coded Allergies: egg (Verified Allergy, Mild, 05/12/18) Family History: Bone cancer FATHER, FH: brain tumor MOTHER, FH: breast cancer BROTHER OR SISTER FH: heart disease FATHER, FH: hepatic cirrhosis MOTHER, FH: stomach cancer MOTHER, Exam Vital Signs Vital Signs Date Time Temp Pulse Resp B/P (MAP) Pulse Ox O2 Delivery O2 Flow Rate FiO2 06/23/18 06:30 98.4 55 24 132/55 (80) 92 CPAP 5.0 06/21/18 21:00 60.0 General Appearance: Alert, Awake, No Acute Distress, Afebrile Extremities: Other (Right thigh erythema decreasing from the previously outlined border. Still with purulent drainage from <1 cm opening. ) Medical Decision Making Data Points Result Diagram: 06/23/1851606/23/18516 Assessment and Plan Problems: (1) Abscess of right thigh Status: Acute Assessment & Plan: I discussed with patient the treatment options, the procedure of wider incision and drainage and the risks and possible complications including the need for more aggressive surgical debridement if this worsens or does not resolve. Informed consent obtained. After a time out the thigh was prepped and draped. Using 1% Xylocaine with epi the skin and subcutaneous tissue surrounding the abscess was infiltrated. Once anesthesia was obtained an incision was made laterally and medially from the small opening. Moderate purulent drainage was noted. The abscess cavity was then debrided with scissors and packed with 1/2 inch Iodoform gauze. This was covered with 4 X 4's and dressed. We will plan on continuing antibiotics per the hospitalist and I will change packing in the am. If this does not continue to resolve we will then need to consider an aggressive operative debridement. Time Spent: < 30 min Venous Thromboembolism Antithrombotics Is Pt On Any Antithrombotics?: Yes Exam Excisional Instrument Used: Scalpel Depth of Debridement to: Subcutaneous Tussue Wound Appearance: Healthy Tissue Revealed MARICRUZ SUÁREZ MD Jun 23, 2018 08:08
[2018-06-23] MEDS: guaiFENesin 600 MG TABCR PO SCH ×2 (08:51→20:50)
[2018-06-23] MEDS: LOSARTAN POTASSIUM 50 MG TAB PO SCH (08:51)
[2018-06-23] MEDS: ASPIRIN 81 MG CHEW PO SCH (08:52)
[2018-06-23] MEDS: ATORVASTATIN 10 MG TAB PO SCH (08:52)
[2018-06-23] MEDS: METOPROLOL TART 50 MG TAB PO SCH ×2 (08:52→20:50)
[2018-06-23] MEDS: GABAPENTIN 300 MG CAP PO SCH ×3 (08:52→20:50)
[2018-06-23] MEDS: ALLOPURINOL 300 MG TAB PO SCH (08:53)
[2018-06-23] MEDS: ENOXAPARIN 40 MG/0.4ML SYR SC SCH (08:53)
[2018-06-23] MEDS: FLUoxetine HCL 20 MG CAP PO SCH ×2 (08:53→20:51)
[2018-06-23] MEDS: AZITHROMYCIN 250 MG TAB PO SCH (08:54)
[2018-06-23] MEDS: NYSTATIN 100,000 U/GM PWD 15GM TP SCH ×2 (08:58→20:49)
[2018-06-23] MEDS: traMADol 50 MG TAB PO SCH ×3 (08:59→20:51)
--- NOTE | 2018-06-23 10:22 | Hospitalist Progress Note ---
Subjective Progress Notes Subjective She was admitted for pneumonia and abscess. She reports improvement in pneumonia symptoms. She continues to have pain to right groin from abscess. Patient Complains of: Cardiovascular: No: Chest Pain Respiratory: No: Shortness of Breath Physical Exam Vital Signs Date Time Temp Pulse Resp B/P (MAP) Pulse Ox O2 Delivery O2 Flow Rate FiO2 06/23/18 06:30 98.4 55 24 132/55 (80) 92 CPAP 5.0 06/21/18 21:00 60.0 Intake and Output 06/23/18 07:00 Intake Total 2263 ml Balance 2263 ml Intake Oral 1950 ml IV Total 313 ml # Voids 8 General Appearance: Alert, Awake, No Acute Distress, Afebrile Neuro: No Gross deficits Cardiovascular: Regular Rate and Rhythm Respiratory: No Respiratory Distress, Clear to Auscultation Extremities: Warm, Perfused; No Edema Integumentary: Other (right groin abscess packed per surgery) Psych: Alert & Oriented X3, Appropriate Mood & Affect Result Diagram: 06/23/1851606/23/18516 Monitor Interpretation: Normal Sinus Rhythm Assessment and Plan Problems: (1) Abscess of right groin Status: Acute Assessment & Plan: She has an abscess to her right groin. She had I&D of abscess 06/20. Wound culture shows strep pyogenes. She was started on Clindamycin 06/21, but organism resistant. She was switched to Rocephin 06/22. Consulted wound care and general surgery for abscess. She had I&D performed again 06/23 by surgery and packed abscess. (2) Pneumonia Status: Acute Assessment & Plan: She presented with cough and shortness of breath. Her Chest X-ray shows opacity in the left lung base. She was started on treatment with Levaquin in the ER, she was switched to Rocephin and Azithromycin. Blood cultures negative. WBC normalized. (3) COPD exacerbation Status: Acute Assessment & Plan: She was started on Prednisone three days prior to admission in ER. She received Prednisone dose 06/21, but will stop since she is no longer wheezing, nebulizers scheduled and as needed. She is requiring 4L of oxygen from her usual baseline of 3L. (4) CAD (coronary artery disease) Status: Chronic Assessment & Plan: She is on chronic treatment with baby aspirin. She has history of 3 cardiac stents and [place] in 2011. (5) Hypertension Status: Chronic Assessment & Plan: She is on chronic treatment with Metoprolol, Losartan and Spironolactone. Metoprolol and Losartan have been restarted with hold parameters. (6) Hyperlipidemia Status: Chronic Assessment & Plan: She is on chronic treatment with Atorvastatin. Continue. (7) Type 2 diabetes mellitus Status: Chronic Assessment & Plan: She is on chronic treatment with Metformin. This will be held for now secondary to 2 CT scans with contrast (last scan 06/22). She will be placed on SS insulin #2, ADA diet and AC/HS blood sugar checks. (8) ENOCH (obstructive sleep apnea) Status: Chronic Assessment & Plan: She does use BiPap at night. She did bring her machine to use during admission. (9) Depression Status: Chronic Assessment & Plan: She is on chronic treatment with Fluoxetine. Continue. (10) Gout Status: Chronic Assessment & Plan: She is on chronic treatment with Allopurinol. Continue. (11) Humeral shaft fracture Status: Acute Assessment & Plan: She has fracture being treated by Dr. Berry since March. She is wearing brace to left arm. Exam Sepsis Risk: No Definite Risk Problem Qualifiers (1) Pneumonia: Pneumonia type: due to unspecified organism Laterality: unspecified laterality Lung location: unspecified part of lung Qualified Codes: J18.9 - Pneumonia, unspecified organism (2) Hypertension: Hypertension type: essential hypertension Qualified Codes: I10 - Essential (primary) hypertension CLARK HIGUERA RECEIVING TANK OPERATOR Jun 23, 2018 10:22
[2018-06-23 11:21] VITALS: BP 116/91
--- NOTE | 2018-06-23 14:11 | Medical Nutrition Therapy ---
Nutrition Anthropometrics Height (Inches): 67.00 Height (Calculated Centimeters: 170.771168 Weight (Pounds): 267 Weight (Calculated Kilograms): 121.336 BMI: 41.8 Christoph Nutrition Score: Adequate Christoph Nutrition Risk Score: 17 Dietary Referral Nutrition Risk Factors: Nutrition Risk Comment: Physical Findings Physical Appearance: Morbidly Obese 40+ Skin Appearance Skin Appearance: Edema Edema Location Modifier: Both Edema Location: Lower Extremity Type of Edema: Degree of Edema: 2+ Gastrointestinal Symptoms GI Symtoms: Change in Bowel Pattern Tube Present: Bowel Sounds: Recent Bowel Pattern: Stool Characteristics: Nutritional Diagnosis Nutritional Risk Acuity 2: Abcess/Non-Healing Wound Nutritional Risk Acuity 3: Morbid Obesity Nutritional Risk Acuity 4: Food Allerg/Intl Past Medical History: Allergic to eggs. DM2 Nutritional Acuity: 2-Moderate Nutrition Diagnosis: Increased Nutrient Needs Nutrition Etiology: Physiological Causes Nutrition Problem/Etiology/Sym: AEB rt tyler abcess Adjusted Energy Requirement Re: 2420 (20 kcal/kg) Protein Requirement: 91 (1.3gm/kg IBW) Fluid Requirement: 2420 (20ml/kg) Diet Type: Diabetic Nutrition Intervention: Cont diet as ordered, Encourage intake Additional Diet Restrictions: ALLERGIC: EGGS Nutrition Monitoring & Eval RD Patient Assessment Time: [address] Assessment Type: RD Assessment Patient Nutrition Acuity: 2-Moderate Follow Up Date: Jun 28, 2018 Nutritional Comment: 06/21 Pt admited for pneumonia/abdominal pain. Pt is morbidly obese (BMI 41.9) and has DM2. Pt should continue ADA diet to assist with DM2 and increased RBG lvl (131). Pt meal consumption is not documented, will assess before anticipated discharge on 06/23. CD 06/22 Pt is no longer has nausea and is eating more of the meals provided. Will moniter for adequate intake CD 06/23 Pt has increased nutr needs r/t rt tyler absess. Pt on diabetic diet and eating 75-100% of meals. BG ranging 117-199. Alb WNR at 3.7. Pt asleep, will offer nutr education when appropriate. Cont to monitor and encourage intake. RUBENS CASEY Jun 23, 2018 14:11
[2018-06-23] MEDS: cefTRIAXone 2 GM VIAL IVP SCH (14:43)
--- NOTE | 2018-06-23 15:20 | NUR ---
Physical Therapy Impression Surgery consult completed and surgeon plans to follow. No further PT need. PT available for consult if required in the future. Physical Therapy Goals Patient's Goals
[2018-06-23] MEDS: INSULIN HUM LISPRO 100 UN/ML 3 ML VIAL SUBQ PRN ×2 (17:03→20:50)
[2018-06-23 20:21] VITALS: BP 136/57
[2018-06-24 01:50] VITALS: BP 157/71
[2018-06-24] MEDS: ACETAMINOPHEN 325 MG TAB PO PRN ×3 (02:03→23:32)
[2018-06-24] MEDS: ALBUTEROL/IPRATROPIUM 3 ML NEB NEB SCH ×3 (05:40→17:03)
[2018-06-24 06:04] LABS: PLATELET COUNT, AUTOMATED 264 K/uL (150-450)
[2018-06-24 08:14] VITALS: BP 145/75
[2018-06-24] MEDS ORDERED: INFLUENZA VIRUS VAC 0.5ML SYR IM ONLY ONE (09:00)
--- NOTE | 2018-06-24 10:07 | Hospitalist Progress Note ---
Subjective Progress Notes Subjective R groin still sore. Otherwise feeling a bit better. Physical Exam Vital Signs Date Time Temp Pulse Resp B/P (MAP) Pulse Ox O2 Delivery O2 Flow Rate FiO2 06/24/18 08:14 98.4 48 16 145/75 (98) 95 CPAP 5.5 06/23/18 07:34 60.0 Intake and Output 06/24/18 07:00 Intake Total 830 ml Balance 830 ml Intake Oral 830 ml # Voids 9 General Appearance: Alert, Awake, No Acute Distress, Afebrile Neuro: No Gross deficits Eyes: PERRLA Cardiovascular: Regular Rate and Rhythm Respiratory: No Respiratory Distress, Other (Harsh cough. Clear anteriorly.) GI: Soft and Non-Tender Extremities: Warm, Perfused, Other (R groin with packed wound. Some surrounding erythema. Surrounding bandages with a lot of drainage noted.) Integumentary: Other (See above.) Psych: Alert & Oriented X3 Result Diagram: 06/24/18 0536 06/24/18 0536 Monitor Interpretation: Normal Sinus Rhythm Assessment and Plan Problems: (1) Abscess of right groin Status: Acute Assessment & Plan: She has an abscess to her right groin. She had I&D of abscess 06/20. Wound culture shows strep pyogenes. She was started on Clindamycin 06/21, but organism resistant. She was switched to Rocephin 06/22. Consulted wound care and general surgery for abscess. She had I&D performed again 06/23 by surgery and packed abscess. (2) Pneumonia Status: Acute Assessment & Plan: She presented with cough and shortness of breath. Her Chest X-ray shows opacity in the left lung base. She was started on treatment with Levaquin in the ER, she was switched to Rocephin and Azithromycin. Blood cultures negative. WBC normalized. (3) COPD exacerbation Status: Acute Assessment & Plan: She was started on Prednisone three days prior to admission in ER. She received Prednisone dose 06/21, but will stop since she is no longer wheezing, nebulizers scheduled and as needed. She is requiring 4L of oxygen from her usual baseline of 3L. (4) CAD (coronary artery disease) Status: Chronic Assessment & Plan: She is on chronic treatment with baby aspirin. She has history of 3 cardiac stents and [place] in 2011. (5) Hypertension Status: Chronic Assessment & Plan: She is on chronic treatment with Metoprolol, Losartan and Spironolactone. Metoprolol and Losartan have been restarted with hold parameters. (6) Hyperlipidemia Status: Chronic Assessment & Plan: She is on chronic treatment with Atorvastatin. Continue. (7) Type 2 diabetes mellitus Status: Chronic Assessment & Plan: She is on chronic treatment with Metformin. This will be held for now secondary to 2 CT scans with contrast (last scan 06/22). She will be placed on SS insulin #2, ADA diet and AC/HS blood sugar checks. (8) ENOCH (obstructive sleep apnea) Status: Chronic Assessment & Plan: She does use BiPap at night. She did bring her machine to use during admission. (9) Depression Status: Chronic Assessment & Plan: She is on chronic treatment with Fluoxetine. Continue. (10) Gout Status: Chronic Assessment & Plan: She is on chronic treatment with Allopurinol. Continue. (11) Humeral shaft fracture Status: Acute Assessment & Plan: She has fracture being treated by Dr. Berry since March. She is wearing brace to left arm. Time Spent on Plan of Care: < 30 min Exam Sepsis Risk: No Definite Risk Problem Qualifiers (1) Pneumonia: Pneumonia type: due to unspecified organism Laterality: unspecified laterality Lung location: unspecified part of lung Qualified Codes: J18.9 - Pneumonia, unspecified organism (2) Hypertension: Hypertension type: essential hypertension Qualified Codes: I10 - Essential (primary) hypertension JOHNNIE FELIX MD Jun 24, 2018 10:07
[2018-06-24] MEDS: FLUoxetine HCL 20 MG CAP PO SCH ×2 (10:15→20:37)
[2018-06-24] MEDS: METOPROLOL TART 50 MG TAB PO SCH ×2 (10:15→20:36)
[2018-06-24] MEDS: ENOXAPARIN 40 MG/0.4ML SYR SC SCH (10:15)
[2018-06-24] MEDS: ATORVASTATIN 10 MG TAB PO SCH (10:15)
[2018-06-24] MEDS: ALLOPURINOL 300 MG TAB PO SCH (10:16)
[2018-06-24] MEDS: LOSARTAN POTASSIUM 50 MG TAB PO SCH (10:16)
[2018-06-24] MEDS: traMADol 50 MG TAB PO SCH ×3 (10:16→20:36)
[2018-06-24] MEDS: ASPIRIN 81 MG CHEW PO SCH (10:16)
[2018-06-24] MEDS: GABAPENTIN 300 MG CAP PO SCH ×3 (10:17→20:36)
[2018-06-24] MEDS: NYSTATIN 100,000 U/GM PWD 15GM TP SCH ×2 (10:17→20:36)
[2018-06-24] MEDS: AZITHROMYCIN 250 MG TAB PO SCH (10:17)
[2018-06-24] MEDS: POTASSIUM CHL 20 MEQ TABCR PO SCH ×2 (10:17→17:11)
[2018-06-24] MEDS: guaiFENesin 600 MG TABCR PO SCH ×2 (10:17→20:36)
--- NOTE | 2018-06-24 11:22 | General Surgery Progress Note ---
Subjective Progress Notes Subjective Feeling a bit better Physical Exam Vital Signs Date Time Temp Pulse Resp B/P (MAP) Pulse Ox O2 Delivery O2 Flow Rate FiO2 06/24/18 11:11 62 18 06/24/18 11:05 92 CPAP 5.0 06/24/18 08:14 98.4 145/75 (98) 06/23/18 07:34 60.0 Intake and Output 06/24/18 07:00 Intake Total 830 ml Balance 830 ml Intake Oral 830 ml # Voids 9 General Appearance: Alert, Awake, No Acute Distress, Afebrile Extremities: Other (Erytehma and tenderness decreased. Still with pourulent drainage.) Psych: Alert & Oriented X3, Appropriate Mood & Affect Result Diagram: 06/24/18 0536 06/24/18 0536 Monitor Interpretation: Normal Sinus Rhythm Assessment and Plan Problems: (1) Abscess of right thigh Status: Acute Assessment & Plan: 06/23/18: I discussed with patient the treatment options, the procedure of wider incision and drainage and the risks and possible complications including the need for more aggressive surgical debridement if this worsens or does not resolve. Informed consent obtained. After a time out the thigh was prepped and draped. Using 1% Xylocaine with epi the skin and subcutaneous tissue surrounding the abscess was infiltrated. Once anesthesia was obtained an incision was made laterally and medially from the small opening. Moderate purulent drainage was noted. The abscess cavity was then debrided with scissors and packed with 1/2 inch Iodoform gauze. This was covered with 4 X 4's and dressed. We will plan on continuing antibiotics per the hospitalist and I will change packing in the am. If this does not continue to resolve we will then need to consider an aggressive operative debridement. 06/24/18: Afebrile and WBC back to normal. Still with significant purulent drainage. Will have nursing change packing BID. K pad for local heat. Continue IV antibiotics. Discussed with hospitalist. Time Spent: < 30 min Exam Sepsis Risk: No Definite Risk MARICRUZ SUÁREZ MD Jun 24, 2018 11:22
[2018-06-24] MEDS: INSULIN HUM LISPRO 100 UN/ML 3 ML VIAL SUBQ PRN ×2 (11:52→20:37)
[2018-06-24] MEDS: cefTRIAXone 2 GM VIAL IVP SCH (14:07)
[2018-06-24 14:58] VITALS: BP 149/63
[2018-06-24 19:17] VITALS: BP 139/57
[2018-06-25 04:09] VITALS: BP 155/62
[2018-06-25] MEDS: ALBUTEROL/IPRATROPIUM 3 ML NEB NEB SCH ×3 (05:26→16:54)
[2018-06-25 06:30] LABS: PLATELET COUNT, AUTOMATED 253 K/uL (150-450)
[2018-06-25 06:49] VITALS: BP 145/65
[2018-06-25] MEDS: POTASSIUM CHL 20 MEQ TABCR PO SCH ×2 (07:51→16:46)
[2018-06-25 10:01] VITALS: BP 153/56
[2018-06-25] MEDS: guaiFENesin 600 MG TABCR PO SCH ×2 (10:01→21:20)
[2018-06-25] MEDS: ASPIRIN 81 MG CHEW PO SCH (10:01)
[2018-06-25] MEDS: AZITHROMYCIN 250 MG TAB PO SCH (10:02)
[2018-06-25] MEDS: ATORVASTATIN 10 MG TAB PO SCH ×2 (10:02→21:20)
[2018-06-25] MEDS: traMADol 50 MG TAB PO SCH ×3 (10:02→21:20)
[2018-06-25] MEDS: FLUoxetine HCL 20 MG CAP PO SCH ×2 (10:03→21:20)
[2018-06-25] MEDS: LOSARTAN POTASSIUM 50 MG TAB PO SCH (10:03)
[2018-06-25] MEDS: ALLOPURINOL 300 MG TAB PO SCH (10:03)
[2018-06-25] MEDS: GABAPENTIN 300 MG CAP PO SCH ×3 (10:03→21:21)
[2018-06-25] MEDS: ENOXAPARIN 40 MG/0.4ML SYR SC SCH (10:04)
[2018-06-25] MEDS: NYSTATIN 100,000 U/GM PWD 15GM TP SCH ×2 (10:04→21:20)
--- NOTE | 2018-06-25 10:27 | Hospitalist Progress Note ---
Subjective Progress Notes Subjective She reports feeling improved. No fever. Physical Exam Vital Signs Date Time Temp Pulse Resp B/P (MAP) Pulse Ox O2 Delivery O2 Flow Rate FiO2 06/25/18 10:01 153/56 (88) 06/25/18 06:49 98.3 51 20 92 CPAP 06/25/18 05:27 6.0 06/24/18 08:32 60.0 Intake and Output 06/25/18 07:00 Intake Total 920 ml Balance 920 ml Intake Oral 920 ml # Voids 6 # Bowel Movements 1 General Appearance: Alert, Awake Cardiovascular: Regular Rate and Rhythm Respiratory: Other (few scattered rhonchi/soft expiratory wheeze) Extremities: Warm, Perfused Integumentary: Other (right groin wound dressed/surrounding erythema appears to have improved based on borders marked previously) Result Diagram: 06/25/18 0620 06/25/18 0515 Assessment and Plan Problems: (1) Abscess of right groin Status: Acute Assessment & Plan: She has an abscess in her right groin. She had I&D of abscess 06/20 and repeat I&D performed 06/23 by surgery. Wound culture shows strep pyogenes. She was started on Clindamycin 06/21, but organism resistant. She was switched to Rocephin 06/22. Continue wound care. (2) Pneumonia Status: Acute Assessment & Plan: She presented with cough and shortness of breath. Her Chest X-ray shows opacity in the left lung base. She was started on treatment with Levaquin in the ER, she was switched to Rocephin and Azithromycin. Blood cultures negative. WBC has normalized. She does still have oxygen requirement, but this has improved. (3) COPD exacerbation Status: Acute Assessment & Plan: Due to pneumonia. Improved with treatment. She is requiring 4L of oxygen from her usual baseline of 3L. (4) CAD (coronary artery disease) Status: Chronic Assessment & Plan: She is on chronic treatment with beta delilah and baby aspirin. She has history of 3 cardiac stents and [place] in 2011. (5) Hypertension Status: Chronic Assessment & Plan: She is on chronic treatment with Metoprolol, Losartan and Spironolactone. Metoprolol and Losartan have been restarted with hold parameters. (6) Hyperlipidemia Status: Chronic Assessment & Plan: She is on chronic treatment with Atorvastatin. Continue. (7) Type 2 diabetes mellitus Status: Chronic Assessment & Plan: She is on chronic treatment with Metformin. This was held secondary to 2 CT scans with contrast (last scan 06/22). Will now resume metformin. She is also on SS insulin #2, ADA diet and AC/HS blood sugar checks. (8) ENOCH (obstructive sleep apnea) Status: Chronic Assessment & Plan: She does use BiPAP at night. She did bring her machine to use during admission. (9) Depression Status: Chronic Assessment & Plan: She is on chronic treatment with Fluoxetine. Continue. (10) Gout Status: Chronic Assessment & Plan: She is on chronic treatment with Allopurinol. Continue. (11) Humeral shaft fracture Status: Acute Assessment & Plan: She has fracture being treated by Dr. Berry since March. She is wearing brace to left arm. Exam Sepsis Risk: No Definite Risk Problem Qualifiers (1) Pneumonia: Pneumonia type: due to unspecified organism Laterality: unspecified laterality Lung location: unspecified part of lung Qualified Codes: J18.9 - Pneumonia, unspecified organism (2) Hypertension: Hypertension type: essential hypertension Qualified Codes: I10 - Essential (primary) hypertension ADRIAN FELIX MD Jun 25, 2018 10:27
--- NOTE | 2018-06-25 11:10 | General Surgery Progress Note ---
Subjective Progress Notes Subjective No new complaints Physical Exam Vital Signs Date Time Temp Pulse Resp B/P (MAP) Pulse Ox O2 Delivery O2 Flow Rate FiO2 06/25/18 10:01 153/56 (88) 06/25/18 06:49 98.3 51 20 92 CPAP 06/25/18 05:27 6.0 06/24/18 08:32 60.0 Intake and Output 06/25/18 07:00 Intake Total 920 ml Balance 920 ml Intake Oral 920 ml # Voids 6 # Bowel Movements 1 General Appearance: Alert, Awake, No Acute Distress, Afebrile Extremities: Other (erythema and induration continue to improve, still with purulence noted at BID dressing changes) Result Diagram: 06/25/18 0620 06/25/18 0515 Assessment and Plan Problems: (1) Abscess of right thigh Status: Acute Assessment & Plan: 06/23/18: I discussed with patient the treatment options, the procedure of wider incision and drainage and the risks and possible complications including the need for more aggressive surgical debridement if this worsens or does not resolve. Informed consent obtained. After a time out the thigh was prepped and draped. Using 1% Xylocaine with epi the skin and subcutaneous tissue surrounding the abscess was infiltrated. Once anesthesia was obtained an incision was made laterally and medially from the small opening. Moderate purulent drainage was noted. The abscess cavity was then debrided with scissors and packed with 1/2 inch Iodoform gauze. This was covered with 4 X 4's and dressed. We will plan on continuing antibiotics per the hospitalist and I will change packing in the am. If this does not continue to resolve we will then need to consider an aggressive operative debridement. 06/24/18: Afebrile and WBC back to normal. Still with significant purulent drainage. Will have nursing change packing BID. K pad for local heat. Continue IV antibiotics. Discussed with hospitalist. Exam Sepsis Risk: No Definite Risk MARICRUZ SUÁREZ MD Jun 25, 2018 11:09
[2018-06-25] MEDS: METOPROLOL TART 50 MG TAB PO SCH ×2 (11:25→21:21)
[2018-06-25 11:46] VITALS: BP 130/73
[2018-06-25] MEDS: cefTRIAXone 2 GM VIAL IVP SCH (13:54)
[2018-06-25 15:31] VITALS: BP 150/65
[2018-06-25] MEDS: metFORMIN HCL 500 MG TAB PO SCH (16:46)
[2018-06-25 19:32] VITALS: BP 138/66
[2018-06-26 01:45] VITALS: BP 153/66
[2018-06-26] MEDS: ALBUTEROL/IPRATROPIUM 3 ML NEB NEB SCH ×3 (05:41→18:03)
[2018-06-26 05:45] LABS: PLATELET COUNT, AUTOMATED 268 K/uL (150-450)
[2018-06-26 06:54] VITALS: BP 137/58
[2018-06-26] MEDS: FLUoxetine HCL 20 MG CAP PO SCH ×2 (08:17→20:35)
[2018-06-26] MEDS: POTASSIUM CHL 20 MEQ TABCR PO SCH ×2 (08:18→17:14)
[2018-06-26] MEDS: traMADol 50 MG TAB PO SCH ×3 (08:18→20:35)
[2018-06-26] MEDS: LOSARTAN POTASSIUM 50 MG TAB PO SCH (08:18)
[2018-06-26] MEDS: GABAPENTIN 300 MG CAP PO SCH ×3 (08:18→20:35)
[2018-06-26] MEDS: METOPROLOL TART 50 MG TAB PO SCH ×2 (08:18→20:35)
[2018-06-26] MEDS: metFORMIN HCL 500 MG TAB PO SCH ×2 (08:18→17:14)
[2018-06-26] MEDS: ENOXAPARIN 40 MG/0.4ML SYR SC SCH (08:19)
[2018-06-26] MEDS: AZITHROMYCIN 250 MG TAB PO SCH (08:19)
[2018-06-26] MEDS: ASPIRIN 81 MG CHEW PO SCH (08:19)
[2018-06-26] MEDS: guaiFENesin 600 MG TABCR PO SCH ×2 (08:19→20:35)
[2018-06-26] MEDS: ALLOPURINOL 300 MG TAB PO SCH (08:19)
[2018-06-26] MEDS: NYSTATIN 100,000 U/GM PWD 15GM TP SCH ×2 (08:24→20:36)
--- NOTE | 2018-06-26 10:07 | General Surgery Progress Note ---
Subjective Progress Notes Subjective No complaints, thigh feels better, with less pain Physical Exam Vital Signs Date Time Temp Pulse Resp B/P (MAP) Pulse Ox O2 Delivery O2 Flow Rate FiO2 06/26/18 06:54 98.4 52 18 137/58 (84) 89 CPAP 10.0 06/24/18 08:32 60.0 Intake and Output 06/26/18 07:00 Intake Total 500 ml Balance 500 ml Intake Oral 500 ml # Voids 9 General Appearance: Alert, Awake, No Acute Distress, Other (T max 99.5) Extremities: Other (Cellulitis resolving, much less tender, still with signif icant drainage. ) Psych: Alert & Oriented X3, Appropriate Mood & Affect Result Diagram: 06/26/1851306/26/18513 Assessment and Plan Problems: (1) Abscess of right thigh Status: Acute Assessment & Plan: 06/23/18: I discussed with patient the treatment options, the procedure of wider incision and drainage and the risks and possible complications including the need for more aggressive surgical debridement if this worsens or does not resolve. Informed consent obtained. After a time out the thigh was prepped and draped. Using 1% Xylocaine with epi the skin and subcutaneous tissue surrounding the abscess was infiltrated. Once anesthesia was obtained an incision was made laterally and medially from the small opening. Moderate purulent drainage was noted. The abscess cavity was then debrided with scissors and packed with 1/2 inch Iodoform gauze. This was covered with 4 X 4's and dressed. We will plan on continuing antibiotics per the hospitalist and I will change packing in the am. If this does not continue to resolve we will then need to consider an aggressive operative debridement. 06/24/18: Afebrile and WBC back to normal. Still with significant purulent drainage. Will have nursing change packing BID. K pad for local heat. Continue IV antibiotics. Discussed with hospitalist. 06/25/18: WBC up slightly, cellulitis improving, still with moderate drainage. Continue IV antibiotics. 06/26/18: T max 99.5, WBC 11K, much less tender, erythema and induration resolved, but still with significant drainage. Will increase dressing changes to QID. Time Spent: < 30 min Exam Sepsis Risk: No Definite Risk MARICRUZ SUÁREZ MD Jun 26, 2018 10:07
--- NOTE | 2018-06-26 11:02 | Hospitalist Progress Note ---
Subjective Progress Notes Subjective She was admitted for abscess. She feels she is getting better everyday. She has no complaints, she had no acute events overnight. Patient Complains of: Cardiovascular: No: Chest Pain Respiratory: No: Shortness of Breath Physical Exam Vital Signs Date Time Temp Pulse Resp B/P (MAP) Pulse Ox O2 Delivery O2 Flow Rate FiO2 06/26/18 06:54 98.4 52 18 137/58 (84) 89 CPAP 10.0 06/24/18 08:32 60.0 Intake and Output 06/26/18 07:00 Intake Total 980 ml Balance 980 ml Intake Oral 980 ml # Voids 9 General Appearance: Alert, Awake, No Acute Distress, Afebrile Neuro: No Gross deficits Cardiovascular: Regular Rate and Rhythm Respiratory: No Respiratory Distress, Clear to Auscultation GI: Soft and Non-Tender Integumentary: Other (large amount of drainage from abscess to right groin, cellulitis appears to be improving, skin tear to right groin) Psych: Alert & Oriented X3, Appropriate Mood & Affect Result Diagram: 06/26/1814 06/26/18513 Assessment and Plan Problems: (1) Abscess of right groin Status: Acute Assessment & Plan: She has an abscess in her right groin. She had I&D of abscess 06/20 and repeat I&D performed 06/23 by surgery. Wound culture shows strep pyogenes. She was started on Clindamycin 06/21, but organism resistant. She was switched to Rocephin 06/22. Continue wound care. (2) Pneumonia Status: Acute Assessment & Plan: She presented with cough and shortness of breath. Her Chest X-ray shows opacity in the left lung base. She was started on treatment with Levaquin in the ER, she was switched to Rocephin and Azithromycin. Blood cultures negative. WBC has normalized. She does still have oxygen requirement, but this has improved. She has completed azithromycin treatment. (3) COPD exacerbation Status: Acute Assessment & Plan: Due to pneumonia. Improved with treatment. She is requiring 4L of oxygen from her usual baseline of 3L. (4) CAD (coronary artery disease) Status: Chronic Assessment & Plan: She is on chronic treatment with beta deillah and baby aspirin. She has history of 3 cardiac stents and [place] in 2011. (5) Hypertension Status: Chronic Assessment & Plan: She is on chronic treatment with Metoprolol, Losartan and Spironolactone. Metoprolol and Losartan have been restarted with hold parameters. (6) Hyperlipidemia Status: Chronic Assessment & Plan: She is on chronic treatment with Atorvastatin. Continue. (7) Type 2 diabetes mellitus Status: Chronic Assessment & Plan: She is on chronic treatment with Metformin. This was held secondary to 2 CT scans with contrast (last scan 06/22). Will now resume metformin. She is also on SS insulin #2, ADA diet and AC/HS blood sugar checks. (8) ENOCH (obstructive sleep apnea) Status: Chronic Assessment & Plan: She does use BiPAP at night. She did bring her machine to use during admission. (9) Depression Status: Chronic Assessment & Plan: She is on chronic treatment with Fluoxetine. Continue. (10) Gout Status: Chronic Assessment & Plan: She is on chronic treatment with Allopurinol. Continue. (11) Humeral shaft fracture Status: Acute Assessment & Plan: She has fracture being treated by Dr. Berry since March. She is wearing brace to left arm. Exam Sepsis Risk: No Definite Risk Problem Qualifiers (1) Pneumonia: Pneumonia type: due to unspecified organism Laterality: unspecified laterality Lung location: unspecified part of lung Qualified Codes: J18.9 - Pneumonia, unspecified organism (2) Hypertension: Hypertension type: essential hypertension Qualified Codes: I10 - Essential (primary) hypertension CLARK HIGUERAP Jun 26, 2018 11:02
[2018-06-26] MEDS: cefTRIAXone 2 GM VIAL IVP SCH (13:33)
[2018-06-26 16:00] VITALS: BP 136/61
[2018-06-26 19:12] VITALS: BP 112/89
[2018-06-26] MEDS: ACETAMINOPHEN 325 MG TAB PO PRN (19:14)
[2018-06-26] MEDS: ATORVASTATIN 10 MG TAB PO SCH (20:35)
[2018-06-27] MEDS: ALBUTEROL/IPRATROPIUM 3 ML NEB NEB SCH ×3 (05:06→16:51)
[2018-06-27 07:08] VITALS: BP 135/50
[2018-06-27 07:19] LABS: PLATELET COUNT, AUTOMATED 243 K/uL (150-450)
[2018-06-27] MEDS: NYSTATIN 100,000 U/GM PWD 15GM TP SCH ×2 (09:20→21:00)
[2018-06-27] MEDS: guaiFENesin 600 MG TABCR PO SCH ×2 (09:20→21:34)
[2018-06-27] MEDS: traMADol 50 MG TAB PO SCH ×3 (09:20→21:34)
[2018-06-27] MEDS: ASPIRIN 81 MG CHEW PO SCH (09:20)
[2018-06-27] MEDS: POTASSIUM CHL 20 MEQ TABCR PO SCH ×2 (09:20→16:37)
[2018-06-27] MEDS: ALLOPURINOL 300 MG TAB PO SCH (09:20)
[2018-06-27] MEDS: metFORMIN HCL 500 MG TAB PO SCH ×2 (09:20→16:37)
[2018-06-27] MEDS: METOPROLOL TART 50 MG TAB PO SCH ×2 (09:20→21:36)
[2018-06-27] MEDS: GABAPENTIN 300 MG CAP PO SCH ×3 (09:21→21:35)
[2018-06-27] MEDS: ENOXAPARIN 40 MG/0.4ML SYR SC SCH (09:21)
[2018-06-27] MEDS: LOSARTAN POTASSIUM 50 MG TAB PO SCH (09:21)
[2018-06-27] MEDS: FLUoxetine HCL 20 MG CAP PO SCH ×2 (09:21→21:35)
[2018-06-27] MEDS: AMOXICILLIN 875 MG TAB PO SCH ×2 (09:27→21:35)
--- NOTE | 2018-06-27 09:49 | Hospitalist Progress Note ---
Subjective Progress Notes Subjective She was admitted with abscess. She reports much improvement in symptoms. She had no acute events overnight. Patient Complains of: Cardiovascular: No: Chest Pain Respiratory: No: Shortness of Breath Physical Exam Vital Signs Date Time Temp Pulse Resp B/P (MAP) Pulse Ox O2 Delivery O2 Flow Rate FiO2 06/27/18 07:08 98.8 54 20 135/50 (78) 91 Bi-PAP 06/27/18 05:05 10.0 06/24/18 08:32 60.0 Intake and Output 06/27/18 07:00 Intake Total 1090 ml Balance 1090 ml Intake Oral 1090 ml # Voids 4 # Bowel Movements 1 General Appearance: Alert, Awake, No Acute Distress, Afebrile Neuro: No Gross deficits Cardiovascular: Regular Rate and Rhythm Respiratory: No Respiratory Distress, Clear to Auscultation GI: Soft and Non-Tender Integumentary: Other (drainage appears much less from yesterday, erythema decreased to leg) Psych: Alert & Oriented X3, Appropriate Mood & Affect Result Diagram: 06/27/18 0706 06/27/18 0706 Assessment and Plan Problems: (1) Abscess of right groin Status: Acute Assessment & Plan: She has an abscess in her right groin. She had I&D of abscess 06/20 and repeat I&D performed 06/23 by surgery. Wound culture shows strep pyogenes. She was started on Clindamycin 06/21, but organism resistant. She was switched to Rocephin 06/22, she will be transitioned to Amoxicillin 875mg BID in anticipation of discharge soon. Continue wound care per surgery. (2) Pneumonia Status: Acute Assessment & Plan: She presented with cough and shortness of breath. Her Chest X-ray shows opacity in the left lung base. She was started on treatment with L evaquin in the ER, she was switched to Rocephin and Azithromycin. Blood cultures negative. WBC has normalized. She does still have oxygen requirement, but this has improved. She has completed azithromycin treatment. (3) COPD exacerbation Status: Acute Assessment & Plan: Due to pneumonia. Improved with treatment. She is requiring 4L of oxygen from her usual baseline of 3L. (4) CAD (coronary artery disease) Status: Chronic Assessment & Plan: She is on chronic treatment with beta delilah and baby aspirin. She has history of 3 cardiac stents and [place] in 2011. (5) Hypertension Status: Chronic Assessment & Plan: She is on chronic treatment with Metoprolol, Losartan and Spironolactone. Metoprolol and Losartan have been restarted with hold parameters. (6) Hyperlipidemia Status: Chronic Assessment & Plan: She is on chronic treatment with Atorvastatin. Continue. (7) Type 2 diabetes mellitus Status: Chronic Assessment & Plan: She is on chronic treatment with Metformin. This was held secondary to 2 CT scans with contrast (last scan 06/22). Will now resume metformin. She is also on SS insulin #2, ADA diet and AC/HS blood sugar checks. (8) ENOCH (obstructive sleep apnea) Status: Chronic Assessment & Plan: She does use BiPAP at night. She did bring her machine to use during admission. (9) Depression Status: Chronic Assessment & Plan: She is on chronic treatment with Fluoxetine. Continue. (10) Gout Status: Chronic Assessment & Plan: She is on chronic treatment with Allopurinol. Continue. (11) Humeral shaft fracture Status: Acute Assessment & Plan: She has fracture being treated by Dr. Berry since March. She is wearing brace to left arm. Exam Sepsis Risk: No Definite Risk Problem Qualifiers (1) Pneumonia: Pneumonia type: due to unspecified organism Laterality: unspecified laterality Lung location: unspecified part of lung Qualified Codes: J18.9 - Pneumonia, unspecified organism (2) Hypertension: Hypertension type: essential hypertension Qualified Codes: I10 - Essential (p rimary) hypertension CLARK HIGUERAP Jun 27, 2018 09:49
[2018-06-27 11:24] VITALS: BP 142/68
[2018-06-27 15:20] VITALS: BP 143/63
--- NOTE | 2018-06-27 15:52 | General Surgery Progress Note ---
Subjective Progress Notes Subjective no acute events Physical Exam Vital Signs Date Time Temp Pulse Resp B/P (MAP) Pulse Ox O2 Delivery O2 Flow Rate FiO2 06/27/18 15:20 98.5 56 143/63 (89) 97 Bi-PAP 06/27/18 11:24 20 06/27/18 11:00 5.0 06/24/18 08:32 60.0 Intake and Output 06/27/18 07:00 Intake Total 1090 ml Balance 1090 ml Intake Oral 1090 ml # Voids 4 # Bowel Movements 1 Integumentary: Other (right groin wound improving. erthyema improved. packed. ) Result Diagram: 06/27/18 0706 06/27/18 0706 Assessment and Plan Problems: (1) Abscess of right thigh Status: Acute Assessment & Plan: 06/23/18: I discussed with patient the treatment options, the procedure of wider incision and drainage and the risks and possible comp lications including the need for more aggressive surgical debridement if this worsens or does not resolve. Informed consent obtained. After a time out the thigh was prepped and draped. Using 1% Xylocaine with epi the skin and subcutaneous tissue surrounding the abscess was infiltrated. Once anesthesia was obtained an incision was made laterally and medially from the small opening. Moderate purulent drainage was noted. The abscess cavity was then debrided with scissors and packed with 1/2 inch Iodoform gauze. This was covered with 4 X 4's and dressed. We will plan on continuing antibiotics per the hospitalist and I will change packing in the am. If this does not continue to resolve we will then need to consider an aggressive operative debridement. 06/24/18: Afebrile and WBC back to normal. Still with significant purulent drainage. Will have nursing change packing BID. K pad for local heat. Continue IV antibiotics. Discussed with hospitalist. 06/25/18: WBC up slightly, cellulitis improving, still with moderate drainage. Continue IV antibiotics. 06/26/18: T max 99.5, WBC 11K, much less tender, erythema and induration resolved, but still with significant drainage. Will increase dressing changes to QID. 06/27/18: Wound improving. Continue abx and wound care. Likely home tomorrow from gen surg standpoint. Exam Sepsis Risk: No Definite Risk SUAD PRATT Jun 27, 2018 15:52
[2018-06-27 19:32] VITALS: BP 127/65
[2018-06-27] MEDS: ATORVASTATIN 10 MG TAB PO SCH (21:33)
[2018-06-27 22:50] VITALS: BP 145/64
[2018-06-28] MEDS: ALBUTEROL/IPRATROPIUM 3 ML NEB NEB SCH ×2 (05:27→11:02)
--- NOTE | 2018-06-28 07:04 | General Surgery Progress Note ---
Subjective Progress Notes Subjective no acute events Physical Exam Vital Signs Date Time Temp Pulse Resp B/P (MAP) Pulse Ox O2 Delivery O2 Flow Rate FiO2 06/28/18 05:28 60 16 06/28/18 05:20 90 CPAP 5.0 06/27/18 22:50 98.9 145/64 (91) 06/24/18 08:32 60.0 Intake and Output 06/28/18 07:00 Intake Total 1300 ml Balance 1300 ml Intake Oral 1300 ml # Voids 3 General Appearance: No Acute Distress Respiratory: No Respiratory Distress Integumentary: Other (wound healing well. no purlence. minimal erythema and ttp.) Result Diagram: 06/27/1870506/27/18705 Assessment and Plan Problems: (1) Abscess of right thigh Status: Acute Assessment & Plan: 06/23/18: I discussed with patient the treatment options, the procedure of wider incision and drainage and the risks and possible complic ations including the need for more aggressive surgical debridement if this worsens or does not resolve. Informed consent obtained. After a time out the thigh was prepped and draped. Using 1% Xylocaine with epi the skin and subcutaneous tissue surrounding the abscess was infiltrated. Once anesthesia was obtained an incision was made laterally and medially from the small opening. Moderate purulent drainage was noted. The abscess cavity was then debrided with scissors and packed with 1/2 inch Iodoform gauze. This was covered with 4 X 4's and dressed. We will plan on continuing antibiotics per the hospitalist and I will change packing in the am. If this does not continue to resolve we will then need to consider an aggressive operative debridement. 06/24/18: Afebrile and WBC back to normal. Still with significant purulent drainage. Will have nursing change packing BID. K pad for local heat. Continue IV antibiotics. Discussed with hospitalist. 06/25/18: WBC up slightly, cellulitis improving, still with moderate drainage. Continue IV antibiotics. 06/26/18: T max 99.5, WBC 11K, much less tender, erythema and induration resolved, but still with significant drainage. Will increase dressing changes to QID. 06/27/18: Wound improving. Continue abx and wound care. Likely home tomorrow from gen surg standpoint. 06/28/18: Wound healing well. Home with abx and home health to change packing daily. F/u Dr. Gerald Rubi 10 days and prn ([phone]). Exam Sepsis Risk: No Definite Risk SUAD RUBI Jun 28, 2018 07:03
[2018-06-28] MEDS: ENOXAPARIN 40 MG/0.4ML SYR SC SCH (08:23)
[2018-06-28] MEDS: metFORMIN HCL 500 MG TAB PO SCH (08:23)
[2018-06-28] MEDS: traMADol 50 MG TAB PO SCH (08:23)
[2018-06-28] MEDS: GABAPENTIN 300 MG CAP PO SCH (08:23)
[2018-06-28] MEDS: ASPIRIN 81 MG CHEW PO SCH (08:24)
[2018-06-28] MEDS: guaiFENesin 600 MG TABCR PO SCH (08:24)
[2018-06-28] MEDS: POTASSIUM CHL 20 MEQ TABCR PO SCH (08:24)
[2018-06-28] MEDS: ALLOPURINOL 300 MG TAB PO SCH (08:24)
[2018-06-28] MEDS: FLUoxetine HCL 20 MG CAP PO SCH (08:24)
[2018-06-28] MEDS: AMOXICILLIN 875 MG TAB PO SCH (08:24)
[2018-06-28] MEDS: LOSARTAN POTASSIUM 50 MG TAB PO SCH (08:25)
[2018-06-28] MEDS: METOPROLOL TART 50 MG TAB PO SCH (08:25)
[2018-06-28 08:28] VITALS: BP 142/93
[2018-06-28] MEDS: NYSTATIN 100,000 U/GM PWD 15GM TP SCH (08:34)
[2018-06-28] MEDS ORDERED: AMOX875T60 PO (09:42)
--- NOTE | 2018-06-28 10:12 | Hospitalist Depart ---
Discharge Summary Reason for Hosp/Final Diag: (1) Abscess of right groin Status: Acute Hospital Course & Plan: She has an abscess in her right groin. She had I&D of abscess 06/20 and repeat I&D performed 06/23 by surgery. Wound culture shows strep pyogenes. She was started on Clindamycin 06/21, but organism resistant. She was switched to Rocephin 06/22, she was transitioned to Amoxicillin 875mg BID. Continue wound care at home once daily with home health nurse. (2) Pneumonia Status: Acute Hospital Course & Plan: She presented with cough and shortness of breath. Her Chest X-ray shows opacity in the left lung base. She was started on treatment with Levaquin in the ER, she was switched to Rocephin and Azithromycin. Blood cultures negative. WBC has normalized. She does still have oxygen requirement, but this has improved. She has completed azithromycin treatment. (3) COPD exacerbation Status: Acute Hospital Course & Plan: Due to pneumonia. Improved with treatment. She is requiring 4L of oxygen from her usual baseline of 3L. (4) CAD (coronary artery disease) Status: Chronic Hospital Course & Plan: She is on chronic treatment with beta delilah and baby aspirin. She has history of 3 cardiac stents and [place] in 2012. (5) Hypertension Status: Chronic Hospital Course & Plan: She is on chronic treatment with Metoprolol, Losartan and Spironolactone. Metoprolol and Losartan were restarted with hold parameters. (6) Hyperlipidemia Status: Chronic Hospital Course & Plan: She is on chronic treatment with Atorvastatin. Continue. (7) Type 2 diabetes mellitus Status: Chronic Hospital Course & Plan: She is on chronic treatment with Metformin. This was held secondary to 2 CT scans with contrast (last scan 06/22). Will now resume metformin. She is also on SS insulin #2, ADA diet and AC/HS blood sugar checks. (8) ENOCH (obstructive sleep apnea) Status: Chronic Hospital Course & Plan: She does use BiPAP at night. She did bring her machine to use during admission. (9) Depression Status: Chronic Hospital Course & Plan: She is on chronic treatment with Fluoxetine. Continue. (10) Gout Status: Chronic Hospital Course & Plan: She is on chronic treatment with Allopurinol. Continue. (11) Humeral shaft fracture Status: Acute Hospital Course & Plan: She has fracture being treated by Dr. Berry since March. She is wearing brace to left arm. Departure Latest Vital Signs Vital Signs 06/24/18 06/28/18 06/28/18 08:32 08:28 08:43 Temp 98.1 Pulse 56 Resp 16 B/P (MAP) 142/93 (109) Pulse Ox 89 O2 Delivery Nasal Cannula O2 Flow Rate 4.0 FiO2 60.0 Weight (Pounds): 267 Weight (Ounces): 8.0 Result Diagram: 06/27/1870506/27/18705 Condition: Improved Discharge: Home, Home Health Home Health RN Follow Up For: Wound Care Discharge Instructions Home Meds Active Scripts Amoxicillin (AMOXICILLIN) 875 Mg Tablet, 875 MG PO BID for 8 Days, #16 TAB Prov:CLARK HIGUERA AUTO CLEANER 06/28/18 Albuterol Sulfate 0.083% (ALBUTEROL SULFATE 0.083%) 2.5 Mg/3 Ml Vial.neb, 2.5 MG INH Q4-6H for cough, #1 BOX 0 Refills Prov:GRETA MARCANO MD 05/04/16 Reported Medications Tizanidine Hcl (TIZANIDINE HCL) 4 Mg Capsule, 4 MG PO Q6H PRN for SPASMS, CAPSULE 06/21/18 Fluoxetine Hcl (PROZAC) 40 Mg Capsule, 80 MG PO HS, CAPSULE 06/21/18 Cetirizine Hcl (ZYRTEC) 10 Mg Capsule, 10 MG PO QDAY, CAPSULE 06/21/18 Diphenhydramine Hcl (DIPHENHYDRAMINE HCL) 25 Mg Capsule, 25 MG PO HS, #2 CAPSULE 06/21/18 Tramadol Hcl (TRAMADOL HCL) 50 Mg Tablet, 2 TAB PO TID 06/20/18 Atorvastatin Calcium (ATORVASTATIN CALCIUM) 20 Mg Tablet, 1 TAB PO DAILY 06/20/18 Metoprolol Tartrate (METOPROLOL TARTRATE) 25 Mg Tablet, 25 MG PO BID 06/20/18 Guaifenesin/Dextromethorphan (Robitussin Cough-Chest Dm Liq) 100 Mg-5 Mg/5 Ml Liquid, 2 TBS PO Q4H 04/08/18 Acetaminophen (TYLENOL EXTRA STRENGTH) 500 Mg Tablet, 500 MG PO TID, TAB 10/9/18 Metformin Hcl (METFORMIN HCL) 500 Mg Tablet, 2 TAB PO BID, TAB 04/04/17 Losartan Potassium (LOSARTAN POTASSIUM) 50 Mg Tablet, 1 TAB PO QDAY 12/20/16 Pioglitazone Hcl (PIOGLITAZONE HCL) 45 Mg Tablet, 45 MG PO QDAY 12/20/16 Guaifenesin/Dextromethorphan (MUCINEX DM ER 600-30 MG TABLET) 1 Each Tab.er.12h, 1 EACH PO TID 05/17/16 Aspirin (Childrens Chewable Aspirin) 81 Mg Chew, 81 MG PO DAILY, 0 Refills 08/26/11 Spironolactone (Aldactone) 50 Mg Tablet, 50 MG PO DAILY, 0 Refills 08/26/11 Oxygen (Oxygen) 2 L Inha, 3 L INH DAILY, 0 Refills At Night With BiPap 03/10/11 Gabapentin (Neurontin) 300 Mg Cap, 600 MG PO TID, 0 Refills 03/10/11 Allopurinol (Zyloprim) 300 Mg Tab, 300 MG PO QDAY, 0 Refills 03/10/11 Fluticasone/Salmeterol (Advair 250-50 Diskus) 1 Disk W/Dev Disk.w.dev, 1 DISK IH BID, 0 Refills 03/10/11 Albuterol (Proventil Inhaler) 17 Gm Inh, 0 INH PRN, 0 Refills 1-2 PUFFS 03/10/11 Discontinued Reported Medications Prednisone (PREDNISONE) 20 Mg Tablet, 20 MG PO BID, TAB 06/20/18 Pseudoephedrine Hcl (SUDAFED 12 HOUR) 120 Mg Tablet.er, 120 MG PO Q4H 04/08/18 Fluoxetine Hcl (Prozac) 40 Mg Capsule, 40 MG PO BID, #20 0 Refills 03/10/11 Diet: Diabetic Activity: As Tolerated Special Instructions: Take antibiotics as prescribed. Wound care dressing daily by home health. Follow up with Dr. Rubi in 1 week. Venous Thromboembolism Antithrombotics Is Pt On Any Antithrombotics?: Yes Eidn-[id number] Certification Face to Face Home Health Certification Patient's Primary Care Provider: Jean Paul Gabriel DO Institutional Provider conducted the [id number] encounter. Electronic Undersigning Physician Certifies Home Health. I certify that the patient has been under my care and that I had a [id number] encounter that meets the physician [id number] encounter requirements with this patient. This patient is home-bound due to safety issues and continues to require assistance with ADL's. I certify that based on my findings, that Nursing, Aides and the following Home Health services are medically necessary: Medical Necessity: Nursing, Rehab Date Face to Face Conducted: Jun 28, 2018 Problem Qualifiers (1) Pneumonia: Pneumonia type: due to unspecified organism Laterality: unspecified laterality Lung location: unspecified part of lung Qualified Codes: J18.9 - Pneumonia, unspecified organism (2) Hypertension: Hypertension type: essential hypertension Qualified Codes: I10 - Essential (primary) hypertension CLARK HIGUERA AUT[employer] CLEANER Jun 28, 2018 10:12
== END 2018-06-28 11:25 | disposition home or self-care (01) | DRG 579 ==
LOC: ER 12:15 → MED 14:44
PROVIDERS: ADMIT Internal Medicine; ATTEND Internal Medicine
PROC: 5A09357 Assistance with Respiratory Ventilation, Less than 24 Consecutive Hours, Continuous Positive Airway Pressure (ICD-10-PCS; principal; 2018-06-20)
PROC: 0Y950ZZ Drainage of Right Inguinal Region, Open Approach (ICD-10-PCS; 2018-06-20)
PROC: 0Y950ZZ Drainage of Right Inguinal Region, Open Approach (ICD-10-PCS; 2018-06-23)
DX: L02.214 Cutaneous abscess of groin (principal); J18.9 Pneumonia, unspecified organism; S42.302A Unspecified fracture of shaft of humerus, left arm, initial encounter for closed fracture; J44.1 Chronic obstructive pulmonary disease with (acute) exacerbation; J44.0 Chronic obstructive pulmonary disease with (acute) lower respiratory infection; L03.115 Cellulitis of right lower limb; I25.10 Atherosclerotic heart disease of native coronary artery without angina pectoris; I10 Essential (primary) hypertension; B95.4 Other streptococcus as the cause of diseases classified elsewhere; E78.5 Hyperlipidemia, unspecified; E11.9 Type 2 diabetes mellitus without complications; G47.33 Obstructive sleep apnea (adult) (pediatric); F32.9 Major depressive disorder, single episode, unspecified; M1A.9XX0 Chronic gout, unspecified, without tophus (tophi); Z79.84 Long term (current) use of oral hypoglycemic drugs; Z87.891 Personal history of nicotine dependence
CPT/HCPCS: 10160; 36415; 36416; 71046; 72193; 74177; 81001; 82040; 82247; 82310; 82374; 82435; 82565; 82947; 82948; 83605; 83690; 83880; 84075; 84132; 84155; 84295; 84450; 84460; 84520; 85025; 87040; 87070; 87077; 87088; 87186; 87205; 93005; 94640; 94660; 94667; 94668; 96361; 96365; 96375; 96376; 97162; 99285; A4353; J0456; J0696; J1650; J1956; J2001; J2405; J2550; J3490; J7030; J7040; J7050; J7512; J7613; Q9967; S0119

== ENCOUNTER → 2018-06-20 | Outpatient (CLI) | payer MEDICARE ==
[~2018-06-20] MED LIST changes: +AMOX875T60 PO; +ATOR20TA65 PO; +CETI10CA8 PO; +DIPH-464 PO; +METO25TA93 PO; +TIZA4CAP3 PO
[2018-06-21 10:32] VITALS: BMI 41.8
== END ==
LOC: AMB 11:29
PROVIDERS: ATTEND Nurse Practitioner
DX: R11.2 Nausea with vomiting, unspecified (principal); R42 Dizziness and giddiness; R51 Headache; R10.12 Left upper quadrant pain; R09.02 Hypoxemia
CPT/HCPCS: A0425; A0427

== ENCOUNTER 2018-07-08 10:33 | Inpatient (IN) | payer MEDICARE ==
[~2018-07-08] VITALS: Ht 170.2 cm; Wt 125.0 kg
[2018-07-08] MEDS ORDERED: ALBUTEROL 2.5 MG/0.5ML ER ONLY NEB ONE (10:39)
[2018-07-08] MEDS ORDERED: IPRATROPIUM 0.5MG/2.5ML NEB NEB ONE (10:40)
[2018-07-08] MEDS ORDERED: MAGNESIUM SUL* 2 GM/50 ML IVPB 50 ML IVPB ONE (10:40)
[2018-07-08] MEDS ORDERED: methylPREDNIS SUCC 125 MG/2ML IVP ONE (10:40)
[2018-07-08] MEDS ORDERED: ALBUTEROL 2.5 MG/3 ML NEB NEB ONE (10:40)
--- NOTE | 2018-07-08 10:45 | ER Report ---
History and Physical Time Seen By MD: 10:43 HPI/ROS CHIEF COMPLAINT: Respiratory compromise fall out of her car HISTORY OF PRESENT ILLNESS: Patient is a 58-year-old female morbidly obese history of COPD potentially CHF set of MD in the past on oxygen 24 7 obstructive sleep apnea comes emergency Department today after having a mechanical fall she is having breakfast and fell while turning out of her car onto her left elbow. Patient had surgery done back in March from a fall still has her left arm in a splint. Patient denies any chest pain this time and says her shortness of breath was worsening when she awoke this morning submental oxygen I was hopeful she went to her breakfast and then a CAT significantly worse. Patient arrival here is in some respiratory compromise and is still denying chest pain at this time no abdominal pain no head or neck trauma no additional complaints noted REVIEW OF SYSTEMS: Respiratory: Shortness of breath no cough Cardiovascular: No chest pain, no palpitations. Gastrointestinal: No vomiting, no abdominal pain. Musculoskeletal: No back pain. Remainder of the 14 system rev: Yes Allergies: Coded Allergies: egg (Verified Allergy, Mild, 05/12/18) Home Meds Active Scripts Amoxicillin (AMOXICILLIN) 875 Mg Tablet, 875 MG PO BID for 8 Days, #16 TAB Prov:CLARK HIGUERA ASSISTANT ATTORNEY GENERAL 06/28/18 Albuterol Sulfate 0.083% (ALBUTEROL SULFATE 0.083%) 2.5 Mg/3 Ml Vial.neb, 2.5 MG INH Q4-6H for cough, #1 BOX 0 Refills Prov:GRETA MARCANO MD 05/04/16 Reported Medications Tizanidine Hcl (TIZANIDINE HCL) 4 Mg Capsule, 4 MG PO Q6H PRN for SPASMS, CAPSULE 06/21/18 Fluoxetine Hcl (PROZAC) 40 Mg Capsule, 80 MG PO HS, CAPSULE 06/21/18 Cetirizine Hcl (ZYRTEC) 10 Mg Capsule, 10 MG PO QDAY, CAPSULE 06/21/18 Diphenhydramine Hcl (DIPHENHYDRAMINE HCL) 25 Mg Capsule, 25 MG PO HS, #2 CAPSULE 06/21/18 Tramadol Hcl (TRAMADOL HCL) 50 Mg Tablet, 2 TAB PO TID 06/20/18 Atorvastatin Calcium (ATORVASTATIN CALCIUM) 20 Mg Tablet, 1 TAB PO DAILY 06/20/18 Metoprolol Tartrate (METOPROLOL TARTRATE) 25 Mg Tablet, 25 MG PO BID 06/20/18 Guaifenesin/Dextromethorphan (Robitussin Cough-Chest Dm Liq) 100 Mg-5 Mg/5 Ml Liquid, 2 TBS PO Q4H 04/08/18 Acetaminophen (TYLENOL EXTRA STRENGTH) 500 Mg Tablet, 500 MG PO TID, TAB 12/13/17 Metformin Hcl (METFORMIN HCL) 500 Mg Tablet, 2 TAB PO BID, TAB 04/04/17 Losartan Potassium (LOSARTAN POTASSIUM) 50 Mg Tablet, 1 TAB PO QDAY 12/20/16 Pioglitazone Hcl (PIOGLITAZONE HCL) 45 Mg Tablet, 45 MG PO QDAY 12/20/16 Guaifenesin/Dextromethorphan (MUCINEX DM ER 600-30 MG TABLET) 1 Each Tab.er.12h, 1 EACH PO TID 05/17/16 Aspirin (Childrens Chewable Aspirin) 81 Mg Chew, 81 MG PO DAILY, 0 Refills 08/26/11 Spironolactone (Aldactone) 50 Mg Tablet, 50 MG PO DAILY, 0 Refills 08/26/11 Oxygen (Oxygen) 2 L Inha, 3 L INH DAILY, 0 Refills At Night With BiPap 03/10/11 Gabapentin (Neurontin) 300 Mg Cap, 600 MG PO TID, 0 Refills 03/10/11 Allopurinol (Zyloprim) 300 Mg Tab, 300 MG PO QDAY, 0 Refills 03/10/11 Fluticasone/Salmeterol (Advair 250-50 Diskus) 1 Disk W/Dev Disk.w.dev, 1 DISK IH BID, 0 Refills 03/10/11 Albuterol (Proventil Inhaler) 17 Gm Inh, 0 INH PRN, 0 Refills 1-2 PUFFS 03/10/11 Reviewed Nurses Notes: Yes Old Medical Records Reviewed: Yes Hx Smoking: Yes (Quit 2017) Smoking Status: Former Smoker Exposure to Second Hand Smoke?: Yes Hx Substance Use Disorder: No Hx Alcohol Use: No Constitutional Vital Sign - Last 24 Hours 07/08/18 07/08/18 07/08/18 07/08/18 10:33 10:36 10:40 10:45 Temp 97.9 Pulse 88 83 64 Resp 22 27 B/P (MAP) 172/117 172/117 (135) Pulse Ox 83 83 O2 Delivery Non-Rebreather 07/08/18 07/08/18 07/08/18 07/08/18 10:45 10:45 10:48 11:03 Pulse 72 65 Resp 35 24 Pulse Ox 93 91 94 O2 Delivery Bi-PAP FiO2 80.0 80.0 07/08/18 07/08/18 07/08/18 07/08/18 11:08 11:11 11:11 11:17 Pulse 72 Resp 28 B/P (MAP) 152/85 (107) O2 Flow Rate 8.0 FiO2 60.0 07/08/18 07/08/18 07/08/18 07/08/18 11:18 11:30 11:33 11:45 Pulse 65 62 Resp 32 23 B/P (MAP) 141/78 (99) 143/72 (95) Pulse Ox 94 95 07/08/18 07/08/18 07/08/18 07/08/18 11:48 12:03 12:11 12:15 Pulse 64 77 Resp 25 34 B/P (MAP) 152/128 (136) 146/92 (110) Pulse Ox 94 92 07/08/18 07/08/18 07/08/18 07/08/18 12:18 12:34 12:34 12:41 Pulse 66 67 67 Resp 29 20 20 Pulse Ox 88 90 O2 Delivery High-Flow Nasal Cannula O2 Flow Rate 7.0 Physical Exam General Appearance: [The patient is alert, has no immediate need for airway protection and no current signs of toxicity.] Uncomfortable breathing hard respiratory compromise Eyes: Pupils equal and round no injection. Respiratory: Minimal air movement with some prominent and expiratory wheezing throughout all lung jones accessory muscle utilization noted patient is tachypneic Cardiac: regular rate and rhythm [ ] Gastrointestinal: Abdomen is soft and non tender, no masses, bowel sounds normal. Musculoskeletal: Examination left upper extremity shows some mild tenderness of the olecranon process of the left elbow no obvious deformities noted neurovascularly intact Neck is supple and non tender. Extremities have full range of motion and are non tender. Other than stated above Skin: No rashes or lesions. [ ] DIFFERENTIAL DIAGNOSIS: After history and physical exam differential diagnosis was considered for pulmonary embolus COPD CHF myocardial infarction hyperreactive airway asthma exacerbation Medical Decision Making Data Points Result Diagram: 07/08/18 1030 07/08/18 1030 Laboratory Hematology Test 07/08/18 10:30 07/08/18 11:30 07/08/18 12:26 Red Blood Count 4.37 M/uL (4.17-5.56) Mean Corpuscular Volume 93.1 fL (80.0-96.0) Mean Corpuscular Hemoglobin 30.3 pg (26.0-33.0) Mean Corpuscular Hemoglobin Concent 32.5 g/dL (32.0-36.0) Red Cell Distribution Width 16.2 % (11.5-14.5) Mean Platelet Volume 7.9 fL (7.2-11.1) Neutrophils (%) (Auto) 64.2 % (39.4-72.5) Lymphocytes (%) (Auto) 27.5 % (17.6-49.6) Monocytes (%) (Auto) 6.0 % (4.1-12.4) Eosinophils (%) (Auto) 1.6 % (0.4-6.7) Basophils (%) (Auto) 0.7 % (0.3-1.4) Nucleated RBC Relative Count (auto) 0.1 /100WBC Neutrophils # (Auto) 6.8 K/uL (2.0-7.4) Lymphocytes # (Auto) 2.9 K/uL (1.3-3.6) Monocytes # (Auto) 0.6 K/uL (0.3-1.0) Eosinophils # (Auto) 0.2 K/uL (0.0-0.5) Basophils # (Auto) 0.1 K/uL (0.0-0.1) Nucleated RBC Absolute Count (auto) 0.01 K/uL D-Dimer Quantitative (PE/DVT) 1.34 ug/ml (0-0.50) Sodium Level 143 mmol/L (137-145) Potassium Level 4.6 mmol/L (3.5-5.0) Chloride Level 105 mmol/L (98-107) Carbon Dioxide Level 23 mmol/L (22-31) Blood Urea Nitrogen 21 mg/dl (7-18) Creatinine 0.70 mg/dl (0.52-1.04) Glomerular Filtration Rate Calc > 60.0 Random Glucose 150 mg/dl (75-110) Calcium Level 10.1 mg/dl (8.4-10.2) Total Bilirubin 0.5 mg/dl (0.2-1.3) Aspartate Amino Transf (AST/SGOT) 17 U/L (0-35) Alanine Aminotransferase (ALT/SGPT) 9 U/L (0-56) Alkaline Phosphatase 100 U/L (0-126) Troponin I < 0.012 ng/ml B-Type Natriuretic Peptide 429 pg/ml (0-100) Total Protein 8.9 g/dl (6.3-8.2) Albumin 4.7 g/dl (3.5-5.0) Blood Gas Puncture Site Right radial Blood Gas Patient Temperature 97.9 DEGREES Arterial Blood pH 7.39 (7.35-7.45) Arterial Blood Partial Pressure CO2 35 mmHg (32-37) Arterial Blood Partial Pressure O2 87 mmHg (60-80) Arterial Blood HCO3 21 mmol/L (20-26) Arterial Blood Oxygen Saturation 97 % (92-100) Arterial Blood Base Excess -4.0 mmol/L Scooter Test Acceptable Oxygen Liters/Minute 60 Lactate 3.1 mmol/L (0.7-2.1) Chemistry Test 07/08/18 10:30 07/08/18 11:30 07/08/18 12:26 White Blood Count 10.6 k/uL (4.5-11.0) Red Blood Count 4.37 M/uL (4.17-5.56) Hemoglobin 13.2 g/dL (12.0-16.0) Hematocrit 40.7 % (34.0-47.0) Mean Corpuscular Volume 93.1 fL (80.0-96.0) Mean Corpuscular Hemoglobin 30.3 pg (26.0-33.0) Mean Corpuscular Hemoglobin Concent 32.5 g/dL (32.0-36.0) Red Cell Distribution Width 16.2 % (11.5-14.5) Platelet Count 413 K/uL (150-450) Mean Platelet Volume 7.9 fL (7.2-11.1) Neutrophils (%) (Auto) 64.2 % (39.4-72.5) Lymphocytes (%) (Auto) 27.5 % (17.6-49.6) Monocytes (%) (Auto) 6.0 % (4.1-12.4) Eosinophils (%) (Auto) 1.6 % (0.4-6.7) Basophils (%) (Auto) 0.7 % (0.3-1.4) Nucleated RBC Relative Count (auto) 0.1 /100WBC Neutrophils # (Auto) 6.8 K/uL (2.0-7.4) Lymphocytes # (Auto) 2.9 K/uL (1.3-3.6) Monocytes # (Auto) 0.6 K/uL (0.3-1.0) Eosinophils # (Auto) 0.2 K/uL (0.0-0.5) Basophils # (Auto) 0.1 K/uL (0.0-0.1) Nucleated RBC Absolute Count (auto) 0.01 K/uL D-Dimer Quantitative (PE/DVT) 1.34 ug/ml (0-0.50) Glomerular Filtration Rate Calc > 60.0 Calcium Level 10.1 mg/dl (8.4-10.2) Total Bilirubin 0.5 mg/dl (0.2-1.3) Aspartate Amino Transf (AST/SGOT) 17 U/L (0-35) Alanine Aminotransferase (ALT/SGPT) 9 U/L (0-56) Alkaline Phosphatase 100 U/L (0-126) Troponin I < 0.012 ng/ml B-Type Natriuretic Peptide 429 pg/ml (0-100) Total Protein 8.9 g/dl (6.3-8.2) Albumin 4.7 g/dl (3.5-5.0) Blood Gas Puncture Site Right radial Blood Gas Patient Temperature 97.9 DEGREES Arterial Blood pH 7.39 (7.35-7.45) Arterial Blood Partial Pressure CO2 35 mmHg (32-37) Arterial Blood Partial Pressure O2 87 mmHg (60-80) Arterial Blood HCO3 21 mmol/L (20-26) Arterial Blood Oxygen Saturation 97 % (92-100) Arterial Blood Base Excess -4.0 mmol/L Scooter Test Acceptable Oxygen Liters/Minute 60 Lactate 3.1 mmol/L (0.7-2.1) Coagulation Test 07/08/18 10:30 D-Dimer Quantitative (PE/DVT) 1.34 ug/ml ED Course/Re-evaluation ED Course Medical decision making this is a 58 year female comes in after a mechanical fall however she had was hypoxic in respiratory distress and compromise on arrival she had bilateral multilobular infiltrates started on IV antibiotics like at 3.1 BNP of greater than 450 CT angiogram showed no pulmonary emboli but does have some prominent arterial hypertension she again was started on IV antibiotics will be admitted for pneumonia Decision to Disposition Date: July 08, 2018 Decision to Disposition Time: 13:57 Depart Departure Latest Vital Signs Vital Signs Date Time Temp Pulse Resp B/P (MAP) Pulse Ox O2 Delivery O2 Flow Rate FiO2 07/08/18 12:41 67 20 07/08/18 12:34 90 High-Flow Nasal Cannula 7.0 07/08/18 12:15 146/92 (110) 07/08/18 11:11 60.0 07/08/18 10:36 97.9 Impression: Primary Impression: Pneumonia Additional Impression: Hypoxia Condition: Improved Disposition: Admitted from ER Referrals: EVERARDO PARKS DO (PCP) Problem Qualifiers VERONICA ROMAN MD July 08, 2018 10:45
[2018-07-08 10:49] LABS: PLATELET COUNT, AUTOMATED 413 K/uL (150-450)
[2018-07-08] MEDS ORDERED: IOPAMIDOL 76% 150 ML INFUS BTL 150 ML ONE (11:36)
[2018-07-08] MEDS ORDERED: NS(*) 0.9% 50 ML BAG 50 ML ONE (11:37)
--- NOTE | 2018-07-08 11:40 | RADIOLOGY IMAGING REPORT ---
[place] [facility] [place] NAME: Dimas Max : 1960 MR: [id number] V: [id number] EXAM DATE: ORDERING PHYSICIAN: VERONICA ROMAN TECHNOLOGIST: Location: [facility] - [place] Patient: Dimas Max : 1960 Visit/Account:[id number] Date of Sevice: 07/08/2018 Portable chest, one view. HISTORY: Fall, shortness of breath. COMPARISON: 06/20/2018. The heart is mildly enlarged. Pulmonary vessels are engorged. Airspace and interstitial infiltrates a re scattered in both lungs, most prominent in the upper lobes. Interlobular septal lines are slightly thickened. The right minor fissure is slightly thickened. The pleural surfaces are otherwise unremar kable. No pneumothorax. No acute bony abnormalities. IMPRESSION: Mild cardiomegaly. Bilateral lung infiltrates consistent with pulmonary edema, pneumonia, and/or aspiration. Report Dictated By: Pete Justice MD at 07/08/2018 11:34 AM Report E-Signed By: Pete Justice MD at 07/08/2018 11:36 AM WSN:[id number]
--- NOTE | 2018-07-08 11:46 | RADIOLOGY IMAGING REPORT ---
FACILITY: [facility] PATIENT NAME: Dimas Max : 1960 MR: [id number] V: [id number] EXAM DATE: ORDERING PHYSICIAN: VERONICA ROMAN TECHNOLOGIST: Location: [facility] Patient: Dimas Max : 1960 Visit/Account:[id number] Date of Sevice: 07/08/2018 Left elbow, 2 views. HISTORY: Fall. COMPARISON: 05/12/2018. The bones are osteopenic. A comminuted fracture is present in the mid shaft of the humerus resulting in moderate medial angulation of the distal fragment. Some of the fracture lines are indistinct and o thers are more sharply defined. A small amount of callus surrounds the fracture. The upper humerus wa s not completely included. Mild degenerative changes are present in the elbow. A true lateral view of the elbow was not obtained. Elbow alignment is otherwise unremarkable. IMPRESSION: Probable refracture of a healing humerus fracture. Humerus images might be considered for further nicolas luation if clinically indicated. Otherwise negative but limited examination of the left elbow. Report Dictated By: Pete Justice MD at 07/08/2018 11:37 AM Report E-Signed By: Pete Justice MD at 07/08/2018 11:41 AM WSN:[id number]
[2018-07-08] MEDS ORDERED: LEVOFLOXACIN/D5W*500 MG/100 ML 100 ML IVPB ONE (11:55)
[2018-07-08] MEDS ORDERED: ALBUTEROL/IPRATROPIUM 3 ML NEB NEB ONE (12:25)
--- NOTE | 2018-07-08 12:27 | EKG ---
FACILITY: [facility] PATIENT NAME: JENNIFER GANDARA : [id number] MR: [id number] V: [id number] EXAM DATE: ORDERING PHYSICIAN: VERONICA ROMAN TECHNOLOGIST: MNOO Test Reason : SOB Blood Pressure : / mmHG Vent. Rate : 069 BPM Atrial Rate : 069 BPM P-R Int : 166 ms QRS Dur : 092 ms QT Int : 486 ms P-R-T Axes : 069 045 016 degrees QTc Int : 520 ms Normal sinus rhythm with sinus arrhythmia Nonspecific ST and T wave abnormality Prolonged QT Abnormal ECG No previous ECGs available Confirmed by ERENDIRA ARRINGTON ([id number]) on 07/08/2018 1:09:27 PM Referred By: JESSIE Confirmed By:ERENDIRA ARRINGTON
[2018-07-08] MEDS ORDERED: LORazepam 2 MG/ML VIAL IVP ONE (12:55)
--- NOTE | 2018-07-08 13:48 | RADIOLOGY IMAGING REPORT ---
FACILITY: [facility] PATIENT NAME: Dimas Max : 1960 MR: [id number] V: [id number] EXAM DATE: ORDERING PHYSICIAN: VERONICA ROMAN TECHNOLOGIST: Location: [facility] - [place] Patient: Dimas Max : 1960 Visit/Account:[id number] Date of Sevice: 07/08/2018 EXAMINATION: CT CHEST PULMONARY ANGIOGRAM COMPARISON: Chest x-ray same day and earlier. Chest CT 12/13/2017 HISTORY: Shortness of breath. PROCEDURE: Pulmonary arterial phase imaging of the chest with 90 mL intravenous Isovue 370. Reconstru ction of the source data set includes multiplanar 2D in the sagittal and coronal planes, and 3D recon structed coronal slab MIP series. One of the following dose optimization techniques was utilized in the performance of this exam: Autom ated exposure control; adjustment of the mA and/or kV according to the patient's size; or use of an i terative reconstruction technique. Specific details can be referenced in the facility's radiology C T exam operational policy. FINDINGS: Pulmonary vasculature: There is adequate contrast opacification of the pulmonary arterial system alth ough image quality is degraded by the patient's body habitus. Dilated 4.1 cm main pulmonary artery is unchanged. No pulmonary artery filling defect is identified to the proximal subsegmental level. Cardiac and mediastinum: Cardiac chamber size is within normal limits. No pericardial effusion. Coron kathy calcifications. No thoracic aortic aneurysm. Lymph nodes: There are a few mildly prominent mediastinal lymph nodes. These are nonspecific but give n the pulmonary changes are favored to be reactive. Lungs and pleura: Multifocal patchy consolidation greatest in the bilateral upper lobes and to lesser extent the right lower lobe superior segment. Prominent peripheral interlobular septal thickening. N o pneumothorax. Trace right pleural effusion. Airways: Negative. Visualized upper abdomen: No acute findings. Osseous structures: Thoracic spine multilevel mild degenerative disc disease. Right anterior rib heal ed fractures. No acute findings. IMPRESSION: 1. Bilateral upper lobe consolidation. Although there is interlobular septal thickening which is sugg estive of vascular congestion, the distribution of the consolidation is more consistent with pneumoni a rather than pulmonary edema. 2. Trace right pleural effusion. 3. Dilated main pulmonary artery is unchanged and suggestive of pulmonary artery hypertension. 4. No pulmonary embolism. 5. Coronary atherosclerosis. Report Dictated By: Manosor Goddard MD at 07/08/2018 1:32 PM Report E-Signed By: Mansoor Goddard MD at 07/08/2018 1:44 PM WSN:[id number]
[2018-07-08 14:48] VITALS: BP 150/86
[2018-07-08] MEDS ORDERED: ALBUTEROL 2.5 MG/3 ML NEB NEB PRN (15:20)
--- NOTE | 2018-07-08 15:44 | History & Physical ---
History of Present Illness Chief Complaint Shortness of breath History of Present Illness This patient presented to the emergency room after a fall. She was unable to get up from the fall and started to have shortness of breath. She was in resp iratory distress by the time she arrived in the emergency room, but her breathing was much improved after arriving to the medical floor. She denies any shortness of breath, fever, or cough prior to the fall. History Problems: (1) COPD (chronic obstructive pulmonary disease) Status: Chronic (2) Gout Status: Chronic (3) Depression Status: Chronic (4) CAD (coronary artery disease) Status: Chronic (5) Hyperlipidemia Status: Chronic (6) Hypertension Status: Chronic (7) Type 2 diabetes mellitus Status: Chronic (8) ENOCH (obstructive sleep apnea) Status: Chronic (9) Abscess of right groin Status: Acute (10) Humeral shaft fracture Status: Acute Home Meds Active Scripts Albuterol Sulfate 0.083% (ALBUTEROL SULFATE 0.083%) 2.5 Mg/3 Ml Vial.neb, 2.5 MG INH Q4-6H for cough, #1 BOX 0 Refills Prov:GRETA MARCANO MD 05/04/16 Reported Medications Tizanidine Hcl (TIZANIDINE HCL) 4 Mg Capsule, 4 MG PO Q6H PRN for SPASMS, CAPSULE 06/21/18 Fluoxetine Hcl (PROZAC) 40 Mg Capsule, 80 MG PO HS, CAPSULE 06/21/18 Cetirizine Hcl (ZYRTEC) 10 Mg Capsule, 10 MG PO QDAY, CAPSULE 06/21/18 Diphenhydramine Hcl (DIPHENHYDRAMINE HCL) 25 Mg Capsule, 25 MG PO HS, #2 CAPSULE 06/21/18 Tramadol Hcl (TRAMADOL HCL) 50 Mg Tablet, 2 TAB PO TID 06/20/18 Atorvastatin Calcium (ATORVASTATIN CALCIUM) 20 Mg Tablet, 1 TAB PO DAILY 06/20/18 Metoprolol Tartrate (METOPROLOL TARTRATE) 25 Mg Tablet, 12.5 MG PO BID 06/20/18 Acetaminophen (TYLENOL EXTRA STRENGTH) 500 Mg Tablet, 500 MG PO TID, TAB 12/13/17 Metformin Hcl (METFORMIN HCL) 500 Mg Tablet, 2 TAB PO BID, TAB 04/04/17 Losartan Potassium (LOSARTAN POTASSIUM) 50 Mg Tablet, 1 TAB PO QDAY 12/20/16 Pioglitazone Hcl (PIOGLITAZONE HCL) 45 Mg Tablet, 45 MG PO QDAY 12/20/16 Guaifenesin/Dextromethorphan (MUCINEX DM ER 600-30 MG TABLET) 1 Each Tab.er.12h, 1 EACH PO TID 05/17/16 Aspirin (Childrens Chewable Aspirin) 81 Mg Chew, 81 MG PO DAILY, 0 Refills 08/26/11 Spironolactone (Aldactone) 50 Mg Tablet, 50 MG PO DAILY, 0 Refills 08/26/11 Oxygen (Oxygen) 2 L Inha, 4 L INH DAILY, 0 Refills At Night With BiPap 03/10/11 Gabapentin (Neurontin) 300 Mg Cap, 600 MG PO TID, 0 Refills 03/10/11 Allopurinol (Zyloprim) 300 Mg Tab, 300 MG PO QDAY, 0 Refills 03/10/11 Fluticasone/Salmeterol (Advair 250-50 Diskus) 1 Disk W/Dev Disk.w.dev, 1 DISK IH BID, 0 Refills 03/10/11 Albuterol (Proventil Inhaler) 17 Gm Inh, 0 INH PRN, 0 Refills 1-2 PUFFS 03/10/11 Discontinued Reported Medications Guaifenesin/Dextromethorphan (Robitussin Cough-Chest Dm Liq) 100 Mg-5 Mg/5 Ml Liquid, 2 TBS PO Q4H 04/08/18 Discontinued Scripts Amoxicillin (AMOXICILLIN) 875 Mg Tablet, 875 MG PO BID for 8 Days, #16 TAB Prov:[employer] 06/28/18 Allergies: Coded Allergies: egg (Verified Allergy, Mild, 05/12/18) Patient History: Bone cancer FATHER, FH: brain tumor MOTHER, FH: breast cancer BROTHER OR SISTER FH: heart disease FATHER, FH: hepatic cirrhosis MOTHER, FH: stomach cancer MOTHER, Hx Smoking: Yes (Quit 2017) Smoking Status: Former Smoker Exposure to Second Hand Smoke?: Yes Caffeine Intake: Coffee Caffeine/Cups Per Day: 2 cup/day Hx Alcohol Use: No Hx Substance Use Disorder: No Social Drug Use: Never Review of Systems All Systems Reviewed/Normal: Yes, Except as Noted Respiratory: Shortness of Breath Exam Vital Signs Vital Signs Date Time Temp Pulse Resp B/P (MAP) Pulse Ox O2 Delivery O2 Flow Rate FiO2 07/08/18 15:04 88 Nasal Cannula 8.0 07/08/18 14:48 97.9 72 20 150/86 (107) 07/08/18 11:11 60.0 Neuro: No Gross deficits Cardiovascular: Regular Rate and Rhythm Respiratory: Other (Dimisihed breath sounds bilateral.) GI: Abd Soft and Non-Tender Extremities: No Edema Integumentary: No Cyanosis Medical Decision Making Data Points Result Diagram: 07/08/18 1030 07/08/18 1030 Assessment and Plan Problems: (1) Aspiration pneumonia Assessment & Plan: She had an acute onset of shortness of breath after a fall. The fall did happen just after she finished breakfast. Her x-ray and CT scan both show increased bilateral infiltrates. I suspect she may have aspirated as a result of the fall. She has been started on treatment with Unasyn. Blood cultures are pending. (2) COPD exacerbation Status: Acute Assessment & Plan: She has been started on nebulizers and IV steroids. (3) Abscess of right groin Status: Acute Assessment & Plan: This is preexisting from her previous admission, but she is still requiring wound care. A consult has been placed. (4) Humeral shaft fracture Status: Acute Assessment & Plan: She did suffer a refracture of her pre existing humerus fracture. Dr. Richter is going to review her images. She has been seeing Dr. Litzy Mckeon as an outpatient. (5) Type 2 diabetes mellitus Status: Chronic Assessment & Plan: She is on chronic treatment with metformin and pioglitazone. The metformin is on hold secondary to contrast and lactic acidosis. (6) Hypertension Status: Chronic Assessment & Plan: She is on chronic treatment with losartan and spironolactone. (7) Depression Status: Chronic Assessment & Plan: She is on chronic treatment with Prozac. (8) Gout Status: Chronic Assessment & Plan: She is on chronic treatment with allopurinol. Copies to: EVERARDO PARKS DO ; Venous Thromboembolism Antithrombotics Is Pt On Any Antithrombotics?: No Exam Sepsis Risk: No Definite Risk ERENDIRA ARRINGTON DO July 08, 2018 15:44
[2018-07-08] MEDS: NS(*) 0.9% 1000 ML BAG 1,000 ML IV PRN (15:51)
[2018-07-08] MEDS: traMADol 50 MG TAB PO PRN (15:51)
[2018-07-08] MEDS: AMPICILLIN/SULBACT (*) 3 GM VL 3 GM in NS(*) 0.9% 100 ML MINI-BAG 100 ML IVPB SCH ×2 (15:55→21:49)
[2018-07-08] MEDS: methylPREDNIS SUCC 125 MG/2ML IVP SCH (16:40)
[2018-07-08] MEDS: INSULIN HUM LISPRO 100 UN/ML 3 ML VIAL SUBQ PRN ×2 (16:40→21:44)
[2018-07-08] MEDS: ALBUTEROL 2.5 MG/3 ML NEB NEB SCH ×2 (17:12→23:54)
[2018-07-08] MEDS: SALMETEROL/FLUTIC 250/50 1 INH INH SCH (17:12)
[2018-07-08 18:57] VITALS: BP 154/78
[2018-07-08] MEDS ORDERED: PROMETHAZINE 25 MG/ML 1 ML AMP IVP PRN (21:25)
[2018-07-08] MEDS: ACETAMINOPHEN 500 MG TAB PO SCH (21:33)
[2018-07-08] MEDS: diphenhydrAMINE 25 MG CAP PO SCH (21:33)
[2018-07-08] MEDS: GABAPENTIN 300 MG CAP PO SCH (21:33)
[2018-07-08] MEDS: FLUoxetine HCL 20 MG CAP PO SCH (21:33)
[2018-07-08] MEDS: METOPROLOL TART 50 MG TAB PO SCH (21:34)
[2018-07-08 23:31] VITALS: BP 162/81
[2018-07-09] MEDS: traMADol 50 MG TAB PO PRN ×2 (00:11→08:53)
[2018-07-09] MEDS: methylPREDNIS SUCC 125 MG/2ML IVP SCH ×3 (01:05→16:55)
[2018-07-09] MEDS: NS(*) 0.9% 1000 ML BAG 1,000 ML IV PRN ×2 (02:55→14:54)
[2018-07-09 03:05] VITALS: BP 166/70
[2018-07-09] MEDS: AMPICILLIN/SULBACT (*) 3 GM VL 3 GM in NS(*) 0.9% 100 ML MINI-BAG 100 ML IVPB SCH ×4 (03:47→22:05)
[2018-07-09] MEDS: ALBUTEROL 2.5 MG/3 ML NEB NEB SCH ×3 (05:30→17:18)
[2018-07-09 05:38] LABS: PLATELET COUNT, AUTOMATED 318 K/uL (150-450)
[2018-07-09] MEDS: SALMETEROL/FLUTIC 250/50 1 INH INH SCH ×2 (06:00→17:18)
[2018-07-09 06:44] VITALS: BP 144/76
--- NOTE | 2018-07-09 06:53 | RADIOLOGY IMAGING REPORT ---
FACILITY: [facility] PATIENT NAME: Dimas Max : 1960 MR: [id number] V: [id number] EXAM DATE: ORDERING PHYSICIAN: ERENDIRA ARRINGTON TECHNOLOGIST: Location: [facility] - [place] Patient: Dimas Max : 1960 Visit/Account:[id number] Date of Sevice: 07/09/2018 PORTABLE CHEST: Indication: Pneumonia. Technique: A single frontal film was obtained. Comparison: 07/08/2018 Skeletal and soft tissue structures: Stable. Heart and mediastinum: Stable. Lung jones: The bilateral parenchymal opacities have improved. No new focal findings. Pleural spaces: Unremarkable. Impression: The bilateral parenchymal opacities have improved. Report Dictated By: Ra Silva MD at 07/09/2018 6:47 AM Report E-Signed By: Ra Silva MD at 07/09/2018 6:48 AM WSN:[id number]
[2018-07-09] MEDS: GABAPENTIN 300 MG CAP PO SCH ×3 (08:52→20:59)
[2018-07-09] MEDS: SPIRONOLACTONE 25 MG TAB PO SCH (08:52)
[2018-07-09] MEDS: ATORVASTATIN 10 MG TAB PO SCH (08:52)
[2018-07-09] MEDS: CETIRIZINE HCL 10 MG TAB PO SCH (08:52)
[2018-07-09] MEDS: ALLOPURINOL 300 MG TAB PO SCH (08:53)
[2018-07-09] MEDS: ACETAMINOPHEN 500 MG TAB PO SCH (08:53)
[2018-07-09] MEDS: ASPIRIN 81 MG CHEW PO SCH (08:53)
[2018-07-09] MEDS: LOSARTAN POTASSIUM 50 MG TAB PO SCH (08:53)
[2018-07-09] MEDS: METOPROLOL TART 50 MG TAB PO SCH ×2 (08:54→21:00)
[2018-07-09] MEDS: ENOXAPARIN 40 MG/0.4ML SYR SC SCH (08:56)
[2018-07-09] MEDS: INSULIN HUM LISPRO 100 UN/ML 3 ML VIAL SUBQ PRN ×4 (08:56→21:01)
[2018-07-09] MEDS: APAP/HYDROCODONE 325/5 TAB PO PRN ×2 (11:08→17:07)
[2018-07-09 14:56] VITALS: BP 153/77
--- NOTE | 2018-07-09 16:03 | Hospitalist Progress Note ---
Subjective Progress Notes Subjective The patient is having significant pain in her left arm. Breathing is improved today. Physical Exam Vital Signs Date Time Temp Pulse Resp B/P (MAP) Pulse Ox O2 Delivery O2 Flow Rate FiO2 07/09/18 14:56 98.1 68 16 153/77 (102) 88 CPAP 6.0 07/08/18 11:11 60.0 Intake and Output 07/09/18 06:59 Intake Total 2128 ml Balance 2128 ml Intake Oral 720 ml IV Total 1408 ml # Voids 7 General Appearance: Alert, Awake, No Acute Distress Neuro: No Gross deficits Cardiovascular: Regular Rate and Rhythm Respiratory: Clear to Auscultation (Anteriorly.) GI: Soft and Non-Tender Extremities: Warm, Perfused, Other (L arm in sling.) Integumentary: Skin Intact without Lesion / Mass Psych: Appropriate Mood & Affect Result Diagram: 07/09/1851907/09/18519 Assessment and Plan Problems: (1) Aspiration pneumonia Assessment & Plan: She had an acute onset of shortness of breath after a fall. The fall did happen just after she finished breakfast. Her x-ray and CT scan both show increased bilateral upper lobe infiltrates. It is suspected she may have aspirated as a result of the fall. She has been started on treatment with Unasyn. Blood cultures are negative to date. (2) COPD exacerbation Status: Acute Assessment & Plan: She has been started on nebulizers and IV steroids. (3) Abscess of right groin Status: Acute Assessment & Plan: This is preexisting from her previous admission, but she is still requiring wound care. A consult has been placed. (4) Humeral shaft fracture Status: Acute Assessment & Plan: She did suffer a refracture of her pre existing humerus fracture. Dr. Richter is going to review her images. She has been seeing Dr. Berry as an outpatient. She is on Lortab for her acute pain. (5) Type 2 diabetes mellitus Status: Chronic Assessment & Plan: She is on chronic treatment with metformin and pioglitazone. The metformin is on hold secondary to contrast and lactic acidosis. Continue SSI for now. (6) Hypertension Status: Chronic Assessment & Plan: She is on chronic treatment with losartan and spironolactone. (7) Depression Status: Chronic Assessment & Plan: She is on chronic treatment with Prozac. (8) Gout Status: Chronic Assessment & Plan: She is on chronic treatment with allopurinol. Time Spent on Plan of Care: < 30 min Exam Sepsis Risk: No Definite Risk JOHNNIE FELIX MD July 09, 2018 16:03
[2018-07-09 18:39] VITALS: BP 137/67
[2018-07-09] MEDS: diphenhydrAMINE 25 MG CAP PO SCH (20:59)
[2018-07-09] MEDS: FLUoxetine HCL 20 MG CAP PO SCH (21:00)
[2018-07-10 00:12] VITALS: BP 147/71
[2018-07-10] MEDS: APAP/HYDROCODONE 325/5 TAB PO PRN ×4 (00:18→21:36)
[2018-07-10] MEDS: methylPREDNIS SUCC 125 MG/2ML IVP SCH ×2 (00:20→09:41)
[2018-07-10] MEDS: NS(*) 0.9% 1000 ML BAG 1,000 ML IV PRN (02:01)
[2018-07-10 04:04] VITALS: BP 159/77
[2018-07-10] MEDS: AMPICILLIN/SULBACT (*) 3 GM VL 3 GM in NS(*) 0.9% 100 ML MINI-BAG 100 ML IVPB SCH ×2 (04:07→09:38)
[2018-07-10] MEDS: SALMETEROL/FLUTIC 250/50 1 INH INH SCH ×2 (05:22→17:01)
[2018-07-10] MEDS: ALBUTEROL 2.5 MG/3 ML NEB NEB SCH ×5 (05:22→23:12)
[2018-07-10 07:23] VITALS: BP 151/87
[2018-07-10] MEDS: INSULIN HUM LISPRO 100 UN/ML 3 ML VIAL SUBQ PRN ×4 (07:42→21:47)
[2018-07-10] MEDS ORDERED: BISACODYL 10 MG SUPP PR PRN (08:30)
[2018-07-10] MEDS ORDERED: MAGNESIUM HYDROXIDE* 30ML UDCP PO PRN (08:30)
[2018-07-10] MEDS: DOCUSATE SODIUM 100 MG CAP PO SCH ×2 (09:00→21:26)
[2018-07-10] MEDS: POLYETHYLENE GLYCOL 17 GM PKT PO SCH (09:00)
[2018-07-10] MEDS: ASPIRIN 81 MG CHEW PO SCH (09:38)
[2018-07-10] MEDS: CETIRIZINE HCL 10 MG TAB PO SCH (09:38)
[2018-07-10] MEDS: GABAPENTIN 300 MG CAP PO SCH ×3 (09:38→21:26)
[2018-07-10] MEDS: ATORVASTATIN 10 MG TAB PO SCH (09:38)
[2018-07-10] MEDS: SPIRONOLACTONE 25 MG TAB PO SCH (09:39)
[2018-07-10] MEDS: METOPROLOL TART 50 MG TAB PO SCH ×2 (09:39→21:27)
[2018-07-10] MEDS: LOSARTAN POTASSIUM 50 MG TAB PO SCH (09:39)
[2018-07-10] MEDS: ALLOPURINOL 300 MG TAB PO SCH (09:39)
[2018-07-10] MEDS: ENOXAPARIN 40 MG/0.4ML SYR SC SCH (09:40)
[2018-07-10] MEDS ORDERED: INFLUENZA VIRUS VAC 0.5ML SYR IM ONLY ONE (15:20)
[2018-07-10 15:53] VITALS: BP 157/75
[2018-07-10 15:57] VITALS: Ht 170.2 cm; Wt 125.0 kg
[2018-07-10] MEDS: AMPICILLIN IVPB SCH ×2 (15:57→21:37)
[2018-07-10] MEDS: [UNRECOGNIZED DRUG - OTHER] IVPB SCH ×2 (15:57→21:37)
[2018-07-10] MEDS: SULBACT IVPB SCH ×2 (15:57→21:37)
[2018-07-10] MEDS: NS 0.9% IVPB SCH ×2 (15:57→21:37)
--- NOTE | 2018-07-10 15:57 | NUR ---
Occupational Therapy Impression Initial OT evaluation completed. Mod (I) bed mobility. Independent ambulation in room. Independent toileting. Min A LB dressing. Independent oral care standing sinkfront. Discussion and education for fall prevention strategies, pt verbalized understanding. SpO2 WNL on 4L. Pt declines further needs to address with OT at this time. Reports assist from daughter for all ADLs/IADLs and desire to resume HomeHealth upon discharge. Occupational Therapy Goals Patient's Goal
--- NOTE | 2018-07-10 16:05 | Medical Nutrition Therapy ---
Nutrition Anthropometrics Height (Inches): 67.00 Height (Calculated Centimeters: 170.462831 Weight (Pounds): 275 Weight (Calculated Kilograms): 124.965 BMI: 43.1 Christoph Nutrition Score: Adequate Christoph Nutrition Risk Score: 17 Dietary Referral Nutrition Risk Factors: Nutrition Risk Comment: Physical Findings Physical Appearance: Morbidly Obese 40+ Skin Appearance Skin Appearance: Edema Edema Location Modifier: Both Edema Location: Lower Extremity Type of Edema: Degree of Edema: 1+ Gastrointestinal Symptoms GI Symtoms: Change in Bowel Pattern Tube Present: Bowel Sounds: Recent Bowel Pattern: Stool Characteristics: Nutritional Diagnosis Nutritional Risk Acuity 2: Abcess/Non-Healing Wound Nutritional Risk Acuity 3: COPD Unstable Nutritional Risk Acuity 4: Good Appetite, Modified Diet Past Medical History: Allergic to eggs. DM2 Nutritional Acuity: 2-Moderate Nutrition Diagnosis: Over-weight/Obesity Nutrition Etiology: Physiological Causes Nutrition Problem/Etiology/Sym: AEB BMI 43.1 Adjusted Energy Requirement Re: 2480 (20 kcal/kg) Protein Requirement: 91 (1.3gm/kg IBW) Fluid Requirement: 2000 Diet Type: Diabetic Nutrition Intervention: Cont diet as ordered, Encourage intake, Between meal supplement Drug: Diuretics Diet Comment To RSA: OFFER STALIN BREAKFAST AND SUPPER Nutrition Monitoring & Eval Nutrition Goals: Eat 75-100% Meal RD Patient Assessment Time: [address] Assessment Type: RD Assessment Patient Nutrition Acuity: 2-Moderate Follow Up Date: July 14, 2018 Nutritional Comment: 5/6 Pt admitted with aspiration pneumonia following fall after eating. Pt may benefit from SPL eval. Pt on diabetic diet, eatting 100% of meals. BG ranging 168-249. alb 4.7, BNP 429. Pt is on K+ sparing duiretic. K+ wWNR at 4.5. Pt has non-healing wound. Will offer wound healing nutr supplment. RUBENS CASEY July 10, 2018 16:05
--- NOTE | 2018-07-10 16:07 | Antimicrobial Stewardship ---
Antimicrobial Stewardship Empiricly appropriate: Yes (Aspiration Pneumonia - unasyn) Significant PMH: Yes (COPD, CAD, gout, depression, HL, HTN, DM2, ENOCH, R groin abscess, Humeral fx) Approriate Cultures done: Yes (Blood Cx x 2 - NGTD, Urine Cx - NGTD) Determine cumulative duration: Day 2 - 07/10/18 Determine standard duration: Total of 7 days Comment 58 yo F with a PMH of COPD, CAD, gout, depression, HL, HTN, DM2, ENOCH, R groin abscess, Humeral fx, who presented to the ED with SOB after a fall from her car. Tmax afebrile WBC 10.6-6.4 BNP 429 Lactate 3.1 - 2.1 Chest Xray showed BL upper lobe infiltrates CTA (-) PE, (+) upper lobe infiltrates UA - (+) protein, (+) glucose, (+) RBC (+) RBC 3349, (-) leukocyte esterase (-) squamous epi's Prior Hx: Admitted with pneumonia/abscess of the groin on 06/20-06/28: on clindamycin, azithromycin and ceftriaxone, sent home with amoxicillin/clavulanate to complete a course for groin abscess Current Abx: Unasyn 3g IV q6h Plan to continue Unasyn 3g IV q6h for aspiration pneumonia. Considering patient has had multiple IV antibiotics within the last 90 days, may be higher risk for MDR pathogens. However, with her improvement on Unasyn at this point would not consider broadening coverage. In addition, she has not had an elevated white blood cell count or fever. If she declines, would broaden coverage to include and anti-pseudomonal agent and potentially Vancomycin to cover MRSA. For now, continue Unasyn to complete a 7 day course as patient is improving and there is questionable aspiration. As for the bloody UA, culture not necessary, no symptoms and not likely infected looking at the UA results. On prior admission, CT of abdomen showed a stone in the L renal pelvis, consider urology consult to further evaluate. Currently, without complaint about her left flank, but is also receiving [place]. Lauren Smith, PharmD, BCOP LAUREN SMITH July 10, 2018 16:07
--- NOTE | 2018-07-10 16:14 | Hospitalist Progress Note ---
Subjective Progress Notes Subjective Arm is sore. Not reporting SOB. Still requiring 4-6 liters of O2 Physical Exam Vital Signs Date Time Temp Pulse Resp B/P (MAP) Pulse Ox O2 Delivery O2 Flow Rate FiO2 07/10/18 15:53 97.8 56 16 157/75 (102) 91 Nasal Cannula 4.0 07/10/18 07:43 60.0 Intake and Output 07/10/18 07:00 Intake Total 2988 ml Balance 2988 ml Intake Oral 730 ml IV Total 2258 ml # Voids 10 General Appearance: Alert, Awake, No Acute Distress Cardiovascular: Regular Rate and Rhythm Respiratory: Clear to Auscultation Extremities: No Edema Result Diagram: 07/09/1851907/09/18519 Assessment and Plan Problems: (1) Aspiration pneumonia Assessment & Plan: She had an acute onset of shortness of breath after a fall. The fall did happen just after she finished breakfast. Her x-ray and CT scan both show increased bilateral upper lobe infiltrates. It is suspected she may have aspirated as a result of the fall. She has been started on treatment with Unasyn. Blood cultures are negative to date. She is afebrile and has a normal wbc. (2) COPD exacerbation Status: Acute Assessment & Plan: She was started on nebulizers and IV steroids. She is breathing comfortably and lungs are clear. Will switch to prednisone for to liz. (3) Abscess of right groin Status: Acute Assessment & Plan: This is preexisting from her previous admission, but she is still requiring wound care. A consult has been placed. (4) Humeral shaft fracture Status: Acute Assessment & Plan: She did suffer a refracture of her pre existing humerus fracture. She has been seeing Dr. Berry as an outpatient and he wants to continue conservative care at this time. She is on Lortab for her acute pain. (5) Type 2 diabetes mellitus Status: Chronic Assessment & Plan: She is on chronic treatment with metformin and pioglitazone. The metformin was on hold secondary to contrast and lactic acidosis. Continue SSI and restart metformin. (6) Hypertension Status: Chronic Assessment & Plan: She is on chronic treatment with losartan and spironolactone. (7) Depression Status: Chronic Assessment & Plan: She is on chronic treatment with Prozac. (8) Gout Status: Chronic Assessment & Plan: She is on chronic treatment with allopurinol. Exam Sepsis Risk: No Definite Risk YANG CONN MD July 10, 2018 16:14
[2018-07-10] MEDS: metFORMIN HCL 500 MG TAB PO SCH (17:20)
[2018-07-10 19:59] VITALS: BP 156/78
[2018-07-10] MEDS: diphenhydrAMINE 25 MG CAP PO SCH (21:26)
[2018-07-10] MEDS: FLUoxetine HCL 20 MG CAP PO SCH (21:27)
[2018-07-10 23:26] VITALS: BP 142/72
[2018-07-11 03:05] VITALS: BP 157/81
[2018-07-11] MEDS: APAP/HYDROCODONE 325/5 TAB PO PRN ×4 (03:25→22:40)
[2018-07-11] MEDS: SULBACT IVPB SCH ×4 (03:28→21:29)
[2018-07-11] MEDS: AMPICILLIN IVPB SCH ×4 (03:28→21:29)
[2018-07-11] MEDS: NS 0.9% IVPB SCH ×4 (03:28→21:29)
[2018-07-11] MEDS: [UNRECOGNIZED DRUG - OTHER] IVPB SCH ×4 (03:28→21:29)
[2018-07-11] MEDS: SALMETEROL/FLUTIC 250/50 1 INH INH SCH ×2 (05:29→17:02)
[2018-07-11] MEDS: ALBUTEROL 2.5 MG/3 ML NEB NEB SCH ×4 (05:29→23:09)
[2018-07-11 05:55] LABS: PLATELET COUNT, AUTOMATED 298 K/uL (150-450)
[2018-07-11 07:39] VITALS: BP 155/65
[2018-07-11] MEDS: metFORMIN HCL 500 MG TAB PO SCH ×2 (07:55→16:23)
[2018-07-11] MEDS: INSULIN HUM LISPRO 100 UN/ML 3 ML VIAL SUBQ PRN ×4 (08:04→21:30)
[2018-07-11] MEDS: DOCUSATE SODIUM 100 MG CAP PO SCH ×2 (09:00→21:28)
[2018-07-11] MEDS: POLYETHYLENE GLYCOL 17 GM PKT PO SCH (09:00)
[2018-07-11] MEDS: LOSARTAN POTASSIUM 50 MG TAB PO SCH (09:33)
[2018-07-11] MEDS: ATORVASTATIN 10 MG TAB PO SCH (09:33)
[2018-07-11] MEDS: CETIRIZINE HCL 10 MG TAB PO SCH (09:33)
[2018-07-11] MEDS: predniSONE 20 MG TAB PO SCH (09:33)
[2018-07-11] MEDS: ASPIRIN 81 MG CHEW PO SCH (09:33)
[2018-07-11] MEDS: GABAPENTIN 300 MG CAP PO SCH ×3 (09:33→21:28)
[2018-07-11] MEDS: ALLOPURINOL 300 MG TAB PO SCH (09:33)
[2018-07-11] MEDS: METOPROLOL TART 50 MG TAB PO SCH ×2 (09:34→21:28)
[2018-07-11] MEDS: SPIRONOLACTONE 25 MG TAB PO SCH (09:34)
--- NOTE | 2018-07-11 10:15 | Hospitalist Progress Note ---
Subjective Progress Notes Subjective She reports doing well. No CP/SOB/abdominal pain. Physical Exam Vital Signs Date Time Temp Pulse Resp B/P (MAP) Pulse Ox O2 Delivery O2 Flow Rate FiO2 07/11/18 07:39 97.4 58 18 155/65 (95) 99 CPAP 07/11/18 05:20 4.0 07/10/18 07:43 60.0 Intake and Output 07/11/18 07:00 Intake Total 1807 ml Balance 1807 ml Intake Oral 1400 ml IV Total 407 ml # Voids 9 # Bowel Movements 1 General Appearance: Alert, Awake Cardiovascular: Regular Rate and Rhythm Respiratory: Other (fairly clear with only few fine rales at bases) GI: Soft and Non-Tender Extremities: Warm, Perfused Psych: Alert & Oriented X3 Result Diagram: 07/11/1852207/11/18522 Assessment and Plan Problems: (1) Aspiration pneumonia Assessment & Plan: She had an acute onset of shortness of breath after a fall. The fall did happen just after she finished breakfast. Her x-ray and CT scan both show increased bilateral upper lobe infiltrates. It is suspected she may have aspirated as a result of the fall. She has been started on treatment with IV Unasyn. Blood cultures are negative to date. She is afebrile and has a normal WBC count. Her CXR showed fairly quick improvements. Question if this may have been some pulmonary edema. Troponin was normal at time of admission. Will check echocardiogram to evaluate function. (2) COPD exacerbation Status: Acute Assessment & Plan: She was started on nebulizers and IV steroids. She has been breathing comfortably. She has been transitioned to oral prednisone. (3) Abscess of right groin Status: Acute Assessment & Plan: This is pre-existing from her previous admission, but she is still requiring wound care. She has continued to show progress. (4) Humeral shaft fracture Status: Acute Assessment & Plan: She did suffer a re-fracture of her pre-existing humerus fracture. She has been seeing Dr. Berry as an outpatient and he wants to continue conservative care at this time. She is on Lortab for her acute pain. (5) Type 2 diabetes mellitus Status: Chronic Assessment & Plan: She is on chronic treatment with metformin and pioglitazone. The metformin was on hold secondary to contrast and lactic acidosis. Will continue SSI and have restarted her metformin. (6) Hypertension Status: Chronic Assessment & Plan: She is on chronic treatment with losartan and spironola ctone. (7) Depression Status: Chronic Assessment & Plan: She is on chronic treatment with Prozac. (8) Gout Status: Chronic Assessment & Plan: She is on chronic treatment with allopurinol. (9) Hematuria Status: Acute Assessment & Plan: Most likely due to left renal pelvis stone seen on CT scan done during her last admission. This has been exacerbated by the Lovenox for DVT prophylaxis. She is now more mobile, so will stop the Lovenox. Will also discuss with Dr. Herrera (urology). Exam Sepsis Risk: No Definite Risk ADRIAN FELIX MD July 11, 2018 10:15
[2018-07-11 13:00] VITALS: BP 160/70
--- NOTE | 2018-07-11 14:07 | CONSULTATION ---
EVENT DATE: July 09, 2018 REASON FOR CONSULTATION Gross hematuria with kidney stone. HISTORY OF PRESENT ILLNESS Patient is a 58-year old white female who is currently in the hospital after being admitted on July 08 with shortness of breath after a fall. She was diagnosed with aspiration pneumonia and refractory left humeral fracture. She is now in the hospitalist service for appropriate treatment. She was noted to have gross painless hematuria on admission after starting on DVT prophylactic anticoagulation. Of note, she had a CT scan performed on June 20 with her last admission, which showed a 15 x 14 x 11 mm left renal pelvic stone. Her bladder could not be adequately visualized secondary to bilateral hip replacement. The patient is currently without complaint. She denies prior kidney stones, flank pain, nausea, vomiting, fever, chills or other issues. She does have a smoking history and quit approximately six months ago. PAST MEDICAL HISTORY 1. Gout. 2. Degenerative disk disease in C-spine and L-spine. 3. Coronary artery disease, status post MA. 4. Hypercholesterolemia. 5. Hypertension. 6. COPD. 7. Obstructive sleep apnea, requiring BiPAP. 8. Gastroesophageal reflux disease. 9. Non-insulin dependent diabetes. 10. Depression. 11. CHF. 12. Obesity. PAST SURGICAL HISTORY 1, Tonsillectomy. 2. Cardiac stent in 2011. 3. Hysterectomy. 4. Back surgery x2. 5. Right knee surgery. 6. Right rotator cuff repair. 7. Bilateral hip replacement. 8. Bedside I and D of right thigh abscess, June 23, 2018. SOCIAL HISTORY Patient lives in [place], [place]. She denies illicit drug use. She has quit smoking for approximately six months. FAMILY HISTORY Noncontributory. REVIEW OF SYSTEMS Patient denies chest pain, nausea, vomiting, flank pain, liver disease, chronic headaches, bleeding disorder or prior kidney stones. ALLERGIES No known drug allergies. CURRENT MEDICATIONS 1. Allopurinol. 2. Proventil inhaler. 3. Unasyn. 4. Aspirin. 5. Lipitor. 6. Zyrtec. 7. Benadryl. 8. Colace. 9. Prozac. 10. Advair inhaler. 11. Neurontin. 12. Lortab. 13. Humalog. 14. Cozaar. 15. Milk of Magnesia. 16. Glucophage. 17. Lopressor. 18. MiraLAX. 19. Spironolactone. 20. Ultram. PHYSICAL EXAMINATION GENERAL: Patient is a moderately obese white female examined in the bed. She is using BiPAP machine and without complaint. ABDOMEN: Soft, obese. No masses palpated. She has no CVAT. IMPRESSION 58-year old white female with history of gross hematuria and left renal pelvis stone. I had an extensive discussion with the patient concerning these findings. Given her smoking history, we need to perform anesthetic cystoscopy to rule out any transition cell carcinoma. However, given her history, it is likely that her hematuria is related to her left kidney stone. She did have a CT scan performed at [facility] [place] in 2007, which was without stones or other anomalies. Options for the treatment of the stone were discussed including percutaneous nephrolithotomy, stent placement with extracorporeal shock wave lithotripsy and/or possible ureteroscopy. PLAN We will have the patient recover from her current episode and have a cardiac workup and then we will plan to perform anesthetic cystoscopy followed by stent placement with extracorporeal shock wave lithotripsy and/or ureteroscopy for her left renal stone. CASSIE
[2018-07-11 19:33] VITALS: BP 163/88
[2018-07-11] MEDS: FLUoxetine HCL 20 MG CAP PO SCH (21:28)
[2018-07-11] MEDS: diphenhydrAMINE 25 MG CAP PO SCH (21:29)
[2018-07-12 03:17] VITALS: BP 170/86
[2018-07-12] MEDS ORDERED: NS(*) 0.9% 500 ML BAG 500 ML ONE (03:21)
[2018-07-12] MEDS: [UNRECOGNIZED DRUG - OTHER] IVPB SCH ×2 (03:23→10:33)
[2018-07-12] MEDS: NS 0.9% IVPB SCH ×2 (03:23→10:33)
[2018-07-12] MEDS: SULBACT IVPB SCH ×2 (03:23→10:33)
[2018-07-12] MEDS: AMPICILLIN IVPB SCH ×2 (03:23→10:33)
[2018-07-12] MEDS: SALMETEROL/FLUTIC 250/50 1 INH INH SCH (05:17)
[2018-07-12] MEDS: ALBUTEROL 2.5 MG/3 ML NEB NEB SCH ×2 (05:17→11:00)
[2018-07-12 06:18] LABS: PLATELET COUNT, AUTOMATED 289 K/uL (150-450)
[2018-07-12 07:11] VITALS: BP 157/92
[2018-07-12] MEDS: APAP/HYDROCODONE 325/5 TAB PO PRN (07:32)
[2018-07-12] MEDS: POLYETHYLENE GLYCOL 17 GM PKT PO SCH (09:00)
[2018-07-12] MEDS: DOCUSATE SODIUM 100 MG CAP PO SCH ×2 (09:00→09:03)
[2018-07-12] MEDS: ASPIRIN 81 MG CHEW PO SCH (09:03)
[2018-07-12] MEDS: CETIRIZINE HCL 10 MG TAB PO SCH (09:03)
[2018-07-12] MEDS: predniSONE 20 MG TAB PO SCH (09:03)
[2018-07-12] MEDS: ATORVASTATIN 10 MG TAB PO SCH (09:03)
[2018-07-12] MEDS: GABAPENTIN 300 MG CAP PO SCH (09:03)
[2018-07-12] MEDS: SPIRONOLACTONE 25 MG TAB PO SCH (09:04)
[2018-07-12] MEDS: METOPROLOL TART 50 MG TAB PO SCH (09:04)
[2018-07-12] MEDS: LOSARTAN POTASSIUM 50 MG TAB PO SCH (09:04)
[2018-07-12] MEDS: metFORMIN HCL 500 MG TAB PO SCH (09:04)
[2018-07-12] MEDS: ALLOPURINOL 300 MG TAB PO SCH (09:04)
[2018-07-12] MEDS ORDERED: LOR5/325 PO (09:57)
[2018-07-12] MEDS ORDERED: PRED-1 PO (09:57)
--- NOTE | 2018-07-12 10:04 | Hospitalist Depart ---
Discharge Summary Reason for Hosp/Final Diag: (1) Aspiration pneumonia Hospital Course & Plan: She had an acute onset of shortness of breath after a fall. The fall did happen just after she finished breakfast. Her x-ray and CT scan both show increased bilateral upper lobe infiltrates. It is suspected she may have aspirated as a result of the fall. She was treated with Unasyn. (2) COPD exacerbation Status: Acute Hospital Course & Plan: She was started on nebulizers and IV steroids. She will complete a prednisone taper after discharge. (3) Abscess of right groin Status: Acute Hospital Course & Plan: This is pre-existing from her previous admission. Wound care was continued and she will resume with home health after discharge. (4) Humeral shaft fracture Status: Acute Hospital Course & Plan: She did suffer a re-fracture of her pre-existing humerus fracture. She has been seeing Dr. Colon as an outpatient. She will follow up with him after discharge. (5) Type 2 diabetes mellitus Status: Chronic Hospital Course & Plan: She is on chronic treatment with metformin and pioglitazone. (6) Hypertension Status: Chronic Hospital Course & Plan: She is on chronic treatment with losartan and spiron olactone. (7) Depression Status: Chronic Hospital Course & Plan: She is on chronic treatment with Prozac. (8) Gout Status: Chronic Hospital Course & Plan: She is on chronic treatment with allopurinol. (9) Hematuria Status: Acute Hospital Course & Plan: Most likely due to left renal pelvis stone seen on CT scan done during her last admission. Her Lovenox was discontinued and she will need to follow up with Dr. Herrera for lithotripsy. Departure Latest Vital Signs Vital Signs 07/10/18 07/12/18 07/12/18 07:43 07:11 07:16 Temp 98.0 Pulse 49 Resp 20 B/P (MAP) 157/92 (113) Pulse Ox 93 O2 Delivery Bi-PAP O2 Flow Rate 4.0 FiO2 60.0 Weight (Pounds): 275 Weight (Ounces): 8.0 Result Diagram: 07/12/1851907/12/18519 Condition: Improved Discharge: Home, Home Health Home Health RN Follow Up For: Wound Care Discharge Instructions Home Meds Active Scripts Prednisone 10 Mg Tab (PREDNISONE 10 MG TAB) 10 Mg Tablet, 10 MG PO DIRECTED, #30 TAB Take 4 tab daily x 3 days, then 3 tab daily x 3 days, then 2 tab daily x 3 days, then 1 tab daily x 3 days. Prov:ERENDIRA ARRINGTON DO 07/12/18 Hydrocodone Bit/Acetaminophen (HYDROCODON-ACETAMINOPHEN 5-325) 1 Each Tablet, 1 TAB PO Q4H PRN for PAIN, #42 TAB Prov:ERENDIRA ARRINGTON DO 07/12/18 Albuterol Sulfate 0.083% (ALBUTEROL SULFATE 0.083%) 2.5 Mg/3 Ml Vial.neb, 2.5 MG INH Q4-6H for cough, #1 BOX 0 Refills Prov:GRETA MARCANO MD 05/04/16 Reported Medications Tizanidine Hcl (TIZANIDINE HCL) 4 Mg Capsule, 4 MG PO Q6H PRN for SPASMS, CAPSULE 06/21/18 Fluoxetine Hcl (PROZAC) 40 Mg Capsule, 80 MG PO HS, CAPSULE 06/21/18 Cetirizine Hcl (ZYRTEC) 10 Mg Capsule, 10 MG PO QDAY, CAPSULE 06/21/18 Diphenhydramine Hcl (DIPHENHYDRAMINE HCL) 25 Mg Capsule, 25 MG PO HS, #2 CAPSULE 06/21/18 Tramadol Hcl (TRAMADOL HCL) 50 Mg Tablet, 1-2 TAB PO Q6H PRN for PAIN 06/20/18 Atorvastatin Calcium (ATORVASTATIN CALCIUM) 20 Mg Tablet, 1 TAB PO DAILY 06/20/18 Metoprolol Tartrate (METOPROLOL TARTRATE) 25 Mg Tablet, 1 TAB PO BID 06/20/18 Acetaminophen (TYLENOL EXTRA STRENGTH) 500 Mg Tablet, 500 MG PO TID, TAB 12/13/17 Metformin Hcl (METFORMIN HCL) 500 Mg Tablet, 2 TAB PO BID, TAB 04/04/17 Losartan Potassium (LOSARTAN POTASSIUM) 50 Mg Tablet, 1 TAB PO QDAY 12/20/16 Pioglitazone Hcl (PIOGLITAZONE HCL) 45 Mg Tablet, 45 MG PO QDAY 12/20/16 Guaifenesin/Dextromethorphan (MUCINEX DM ER 600-30 MG TABLET) 1 Each Tab.er.12h, 1 EACH PO TID 05/17/16 Spironolactone (Aldactone) 50 Mg Tablet, 50 MG PO DAILY, 0 Refills 08/26/11 Oxygen (Oxygen) 2 L Inha, 4 L INH DAILY, 0 Refills At Night With BiPap 03/10/11 Gabapentin (Neurontin) 300 Mg Cap, 600 MG PO TID, 0 Refills 03/10/11 Allopurinol (Zyloprim) 300 Mg Tab, 300 MG PO QDAY, 0 Refills 03/10/11 Fluticasone/Salmeterol (Advair 250-50 Diskus) 1 Disk W/Dev Disk.w.dev, 1 DISK IH BID, 0 Refills 03/10/11 Albuterol (Proventil Inhaler) 17 Gm Inh, 1 PUFF INH Q4-6H PRN for SHORTNESS OF BREATH, 0 Refills 03/10/11 Discontinued Reported Medications Aspirin (Childrens Chewable Aspirin) 81 Mg Chew, 81 MG PO DAILY, 0 Refills 08/26/11 Guaifenesin/Dextromethorphan (Robitussin Cough-Chest Dm Liq) 100 Mg-5 Mg/5 Ml Liquid, 2 TBS PO Q4H 04/08/18 Discontinued Scripts Amoxicillin (AMOXICILLIN) 875 Mg Tablet, 875 MG PO BID for 8 Days, #16 TAB Prov:CLARK HIGUERA DIRECTOR OF LABOR RELATIONS 06/28/18 Diet: Diabetic Activity: As Tolerated Copies to: NORBERTO COLON MD; EVERARDO PARKS DO; JOSELUIS HERRERA MD ; Venous Thromboembolism Antithrombotics Is Pt On Any Antithrombotics?: No ERENDIRA ARRINGTON DO July 12, 2018 10:04
[2018-07-12 11:18] VITALS: BP 146/71
== END 2018-07-12 13:30 | disposition home or self-care (01) | DRG 178 ==
LOC: ER 10:46 → MED 14:21
PROVIDERS: ADMIT Family Medicine; ATTEND Family Medicine
PROC: 5A09357 Assistance with Respiratory Ventilation, Less than 24 Consecutive Hours, Continuous Positive Airway Pressure (ICD-10-PCS; principal; 2018-07-08)
DX: J69.0 Pneumonitis due to inhalation of food and vomit (principal); J44.1 Chronic obstructive pulmonary disease with (acute) exacerbation; L02.214 Cutaneous abscess of groin; Z68.41 Body mass index [BMI] 40.0-44.9, adult; S42.352G Displaced comminuted fracture of shaft of humerus, left arm, subsequent encounter for fracture with delayed healing; E11.9 Type 2 diabetes mellitus without complications; N20.0 Calculus of kidney; F32.9 Major depressive disorder, single episode, unspecified; R31.9 Hematuria, unspecified; E66.01 Morbid (severe) obesity due to excess calories; I50.9 Heart failure, unspecified; I11.0 Hypertensive heart disease with heart failure; G47.33 Obstructive sleep apnea (adult) (pediatric); R09.02 Hypoxemia; I25.10 Atherosclerotic heart disease of native coronary artery without angina pectoris; E78.5 Hyperlipidemia, unspecified; I25.2 Old myocardial infarction; M1A.9XX0 Chronic gout, unspecified, without tophus (tophi); W17.89XA Other fall from one level to another, initial encounter; Z96.643 Presence of artificial hip joint, bilateral; Z87.891 Personal history of nicotine dependence; Z79.84 Long term (current) use of oral hypoglycemic drugs; Z79.01 Long term (current) use of anticoagulants; Z90.710 Acquired absence of both cervix and uterus; Z99.81 Dependence on supplemental oxygen
CPT/HCPCS: 36415; 36416; 36600; 71045; 71275; 81001; 82040; 82247; 82310; 82374; 82435; 82565; 82803; 82947; 82948; 83605; 83880; 84075; 84132; 84155; 84295; 84450; 84460; 84484; 84520; 85025; 85379; 87040; 87088; 93005; 94640; 94660; 96365; 96367; 96375; 97161; 97166; 99285; C8929; J0295; J1650; J1956; J2060; J2550; J2930; J3475; J7030; J7040; J7050; J7512; J7611; J7613; J7644; Q0163; Q9957; Q9967

== ENCOUNTER → 2018-07-08 | Outpatient (CLI) | payer MEDICARE ==
[~2018-07-08] MED LIST changes: +AMOX875T60 PO; +ATOR20TA65 PO; +CETI10CA8 PO; +DIPH-464 PO; +METO25TA93 PO; +TIZA4CAP3 PO
[2018-07-10 15:57] VITALS: BMI 43.1
== END ==
LOC: AMB 10:17
PROVIDERS: ATTEND Nurse Practitioner
DX: M25.522 Pain in left elbow (principal); R06.00 Dyspnea, unspecified; W18.30XA Fall on same level, unspecified, initial encounter
CPT/HCPCS: A0425; A0427

== ENCOUNTER 2018-08-21 01:30 | Observation (INO) | payer MEDICARE ==
[2018-08-17 15:39] LABS: PLATELET COUNT, AUTOMATED 317 K/uL (150-450)
[2018-08-17 15:50] LABS: INR 1.06
--- NOTE | 2018-08-18 14:49 | HISTORY AND PHYSICAL ---
DATE OF ADMISSION: August 21, 2018 CHIEF COMPLAINT Gross hematuria with left renal pelvis renal calculus. HISTORY OF PRESENT ILLNESS The patient is a 58-year-old white female with multiple medical problems who was admitted to the hospital on July 08, 2018 with a diagnosis of aspiration pneumonia and a recent left humeral fracture. At that time, she was placed on DVT prophylactic anticoagulation and developed gross hematuria. She had had a CT scan performed in June of this year on a prior admission which showed a 15 x 14 x 11 mm left renal pelvic stone. Her bladder was not well visualized secondary to bilateral hip replacements. The patient is now scheduled to undergo anesthetic cystoscopy to rule out bladder causes of hematuria followed by left ureteroscopy with stone fragmentation and stent placement. She understands that given the large size of the stone, this will likely require 2 to 3 separate operative trips to rid her stone free. Lithotripsy was also discussed with the patient, but has been ruled out secondary to a need to continue her aspirin therapy during the operative period after a consultation with her shade matcher. Percutaneous nephrolithotomy was also discussed. PAST MEDICAL HISTORY * Gout. * Degenerative disc disease in the C-spine and L-spine. * Coronary artery disease status post GA. * Hypercholesterolemia. * Hypertension. * COPD. * Obstructive sleep apnea requiring BiPAP. * Gastroesophageal reflux disease. * Noninsulin dependent diabetes. * Depression. * Obesity. * Mild congestive heart failure. * Degenerative joint disease. PAST SURGICAL HISTORY * Carpal tunnel release. * C section x2. * Tonsillectomy. * Cardiac stenting x3 in 2011. * Hysterectomy. * Back surgery x2. * Right knee arthroscopy. * Right rotator cuff repair. * Bilateral hip replacements. * Bedside I and D of right thigh abscess. ALLERGIES No known drug allergies. CURRENT MEDICATIONS * Allopurinol. * Proventil. * Unasyn. * Aspirin. * Lipitor. * Zyrtec. * Insulin. * Colace. * Prozac. * Advair inhaler. * Neurontin. * Humalog. * Cozaar. * Glucophage. * Lopressor. * MiraLAX. * Spironolactone. * Ultram. SOCIAL HISTORY The patient lives [place], [place]. She has a past history of smoking but has recently quit. She denies any illicit drug use. She is . FAMILY HISTORY Noncontributory. REVIEW OF SYSTEMS The patient denies chest pain, productive cough, nausea, vomiting, fever, chills, flank or abdominal pain, bleeding disorder, chronic headaches or liver disease. PHYSICAL EXAMINATION GENERAL: The patient is an obese white female in no acute distress. HEENT: Normocephalic, atraumatic. CHEST: Clear to auscultation bilaterally. CARDIOVASCULAR: Regular rate and rhythm. ABDOMEN: Soft, nontender. No peritoneal signs. BACK: Without CVA tenderness. EXTREMITIES: She has a brace on her left upper extremity and 2+ pitting edema bilateral lower extremities. : Deferred to the operating room. NEURO: Nonfocal. ASSESSMENT This is a 58-year-old white female with a 15 mm left renal pelvis stone and gross hematuria. PLAN We will perform anesthetic cystoscopy followed by left ureteroscopy with laser fragmentation and stent placement. MTDD
[2018-08-21] VITALS (9 sets, daily range): BP systolic 126–184; BP diastolic 47–92
[~2018-08-21] VITALS: Ht 170.2 cm; Wt 127.7 kg
[~2018-08-21 01:30] MED LIST changes: +ASPI81TA94 PO
--- NOTE | 2018-08-21 05:50 | NUR ---
pt reports unable to use fleets enema last night, had bowel movement this am, refuses fleets enema this am.
[2018-08-21] MEDS ORDERED: IOPAMIDOL-200 50 ML VIAL IS ONE (06:52)
[2018-08-21] MEDS ORDERED: PROPOFOL EMUL(*) 10MG/ML 20 ML 20 ML ONE ×2 (07:01→07:20)
[2018-08-21] MEDS ORDERED: LIDOCAINE MPF 1% 5 ML VIAL ONE ×2 (07:01→07:20)
[2018-08-21] MEDS ORDERED: fentaNYL CITR 100 MCG/2 ML AMP ONE (07:01)
[2018-08-21] MEDS ORDERED: ONDANSETRON 4 MG/2 ML VIAL ONE (07:01)
[2018-08-21] MEDS ORDERED: DEXAMETHASONE SOD 4 MG/ML VIAL ONE (07:01)
[2018-08-21] MEDS ORDERED: KETAMINE HCL-NS 50 MG/5 ML SYR ONE (07:02)
[2018-08-21] MEDS ORDERED: ceFAZolin(*) 2GM/D5W 50ML 50 ML IVPB ONE (08:00)
[2018-08-21] MEDS ORDERED: FAMOTIDINE 20 MG TAB PO ONE (08:00)
[2018-08-21] MEDS ORDERED: LIDOCAINE/SOD BICARB 8.4% SYR ID ONE (08:00)
[2018-08-21] MEDS ORDERED: MIDAZOLAM 2 MG/2 ML VIAL IVP PRN (08:00)
[2018-08-21] MEDS ORDERED: NORMOSOL R SOLN(*) 1000 ML BAG 1,000 ML IV PRN (08:00)
[2018-08-21] MEDS ORDERED: BELLADONNA ALK/OPIUM 60MG SUPP PR ONE (08:55)
[2018-08-21] MEDS ORDERED: ALBUTEROL/IPRATROPIUM 3 ML NEB ONE (09:34)
--- NOTE | 2018-08-21 09:39 | RADIOLOGY IMAGING REPORT ---
FAC[place] [facility] [place]IENT NAME: Dimas Max : 1960 MR: [id number] V: [id number] EXAM DATE: ORDERING PHYSICIAN: JOSELUIS BENZ TECHNOLOGIST: [place] [facility] [place] Dimas Max : 1960 Visit/Account:[id number] Date of Sevice: 08/21/2018 Technique: C-ARM FLUORO 1 HR HISTORY: STENT PLACEMENT Comparison studies: None FINDINGS: Operative imaging was obtained left hemiabdomen and pelvis. There has been placement of an internal left-sided ureteral stent. Air Kerma: 164.8 mGy IMPRESSION: 1. Operative imaging as above. Please see procedural report for complete details. Report Dictated By: Black Tucker DO at 08/21/2018 9:32 AM Report E-Signed By: Black Tucker DO at 08/21/2018 9:33 AM WSN:[id number]
[2018-08-21] MEDS ORDERED: IBUP600T22 PO (09:43)
[2018-08-21] MEDS ORDERED: DOCU-416 PO (09:44)
[2018-08-21] MEDS ORDERED: OXYB15TA14 PO (09:44)
[2018-08-21] MEDS ORDERED: PHEN200T32 PO (09:45)
[2018-08-21] MEDS ORDERED: HYDR-653 PO (09:46)
--- NOTE | 2018-08-21 11:16 | OPERATIVE REPORT 1 ---
EVENT DATE: August 21, 2018 SURGEON: Anthony Herrera MD ANESTHESIOLOGIST: Feroz Thomas MD ANESTHESIA: General anesthetic PREOPERATIVE DIAGNOSIS 15 x 14 x 11 mm left renal pelvis calculus POSTOPERATIVE DIAGNOSIS 15 x 14 x 11 mm left renal pelvis calculus PROCEDURE PERFORMED 1. Cystoscopy. 2. Left semirigid ureteroscopy with laser holmium fragmentation of renal pelvis stone. 3. Placement of left double-J ureteral stent. ESTIMATED BLOOD LOSS 10 cc IV FLUIDS Crystalloids DRAINS 6-Bulgarian x 26 cm contour stent on left. SPECIMENS None COMPLICATIONS The patient was taken to the recovery room awake and in stable condition. STATEMENT OF MEDICAL NECESSITY The patient is a 57-year-old white female with multiple medical problems, who was noted to have gross painless hematuria in early July after being admitted for aspiration pneumonia and placed on a DVT prophylaxis with anticoagulation. CT scan performed showed a 15 x 14 x 11 mm left renal pelvis stone. Her bladder was incompletely visualized secondary to bilateral hip arthrosis. The patient was evaluated by her em physician preoperatively who recommended she continue her aspirin therapy in the operative period. Therefore, she is now being brought to the operating room for planned left ureteroscopy with laser fragmentation of the stone. Given the large size and the patient's multiple comorbidities, she has been instructed that the likelihood of multiple operative events or significantly likely with at least 2 to 3 depending on stone composition. DESCRIPTION OF PROCEDURE The patient was brought to the operating room. After general anesthetic was obtained, she was placed in the dorsal lithotomy position on the cystoscopic table and prepped and draped in the usual sterile manner. Anesthetic cystoscopy was performed with the 21-Bulgarian Olympus sheath in both 30 and 70-degree lens. She had a normal appearing urethra without evidence of stricture of the bladder neck and secondary polyps. Her bladder mucosa was smooth without tumors or other lesions. She had slit-like ureteral orifices both effluxing clear urine on their respective hemitrigone. At this point, the left ureteral orifice was cannulated with a 6-Bulgarian open-end access catheter which was advanced in the distal ureter under the aid of fluoroscopy. A double-floppy 0.035 wire was advanced in the lumen of the access catheter to the upper poly calyx. The access catheter was removed. This wire was used to place an 8/10 dilating system. A second wire was placed along the first wire inside the 10 sheath. The 10 sheath was removed. One wire was secured to the drapes as a safety wire and the next wire was used as the working wire. It should be noted that there was significant resistance on extraction of the 10 sheath in the distal ureter. The digital Olympus cystoscope was then advanced over the working wire and under direct advancing to the ureteral orifice. However, after advancing approximately 5 to 10 mm, significant resistance was encountered and the scope would not advance easily after multiple attempts. The ready working wire was removed and a super-stiff guidewire placed. Again, advancing under direct vision and fluoroscopic imaging failed to have any significant advancement of the scope beyond approximately 15 mm in the ureteral orifice. Therefore, this digital scope was removed and the regular flexible ureteroscope was placed over the super-stiff wire and this advanced significantly more easily up the ureteral orifice all the way to the renal pelvis. At this point, the large stone was encountered in the renal pelvis which was spheroid in shape and approximately 15 mm across with an irregular-like montanez surface. The working wire was removed and the 200 Micron holmium laser fiber introduced into the working channel of the cystoscope. Holmium laser fragmentation using a long fragmentating setting of the large stone was then engaged and in situ laser holmium fragmentation was then performed in the renal pelvis. Dusting of the stone was done under direct vision, sweeping up and down across the surface of the stone in a [id number] manner. Following this, the stone was manipulated up to the upper renal pelvis and turned so the back of the stone was visualized and again laser dusting was performed. This was done slowly and steadily over the course of approximately an hour and 15 minutes. Approximately 80% of the stone was treated down to dust-like particles. There was one remaining fragment of approximately 5 x 8 mm. At this point, Dr. Thmoas of Anesthesia reported to the patient to have some decreased oxygen saturation which required increasing her FIO2. Given her significant pulmonary history, it was felt that it would be best to terminate the procedure at this point. Therefore, the scope was removed with pull-out ureteroscopy being performed. There was no evidence of ureteral injury or stones along the course of the ureter. At this point, the safety wire was back-loaded into the cystoscope and this was used to place a 6-Bulgarian x 26 cm contour microvasive stent. The wire was removed. She was noted to have good curling in the renal pelvis by fluoroscopy and good curling in the bladder by direct vision. The patient's bladder was drained through the cystoscopic sheath. A B and O suppository was given per rectum at the conclusion of the case. She was awakened in the operating room and taken to the recovery area in stable condition. PLAN The plan will be to monitor the patient's vital signs and O2 sat in the recovery room and when she is deemed stable, she will be discharged home. If there is any question we will keep her for a 23 hour observation. The plan will be her to return to the operating room in approximately 2 to 4 weeks for follow up ureteroscopy and treatment of the remaining stone fragments. CASSIE
--- NOTE | 2018-08-21 12:35 | Hospitalist Progress Note ---
Subjective Progress Notes Subjective Patient seen post-op. She is well known to our service from her previous admissions. She had renal stone removal/ureteral stenting. She was noted to have increased oxygen requirement near the end of surgery and in PACU. She does have history significant for ENOCH/hypoventilation. At present, she is on her BiPAP and reports doing well. No CP or dyspnea. Physical Exam Vital Signs Date Time Temp Pulse Resp B/P (MAP) Pulse Ox O2 Delivery O2 Flow Rate FiO2 08/21/18 12:00 93 Bi-PAP 12.0 08/21/18 11:56 98.0 73 24 184/92 (122) General Appearance: Alert, Awake Neuro: No Gross deficits Cardiovascular: Other (Distant tones regular no obvious murmur) Respiratory: Other (diminished breaths ounds bilaterally but equal and fairly clear) GI: Other (obese) Extremities: Warm, Perfused Psych: Alert & Oriented X3 Result Diagram: 08/17/18 1519 08/17/18 1519 Assessment and Plan Problems: (1) Hypoxia Status: Acute Assessment & Plan: Most likely due to her underlying COPD and ENOCH/hypoventilation. Would continue with her BiPAP with supplemental oxygen for now. Will also resume her usual respiratory medications and work on pulmonary toilet. (2) COPD (chronic obstructive pulmonary disease) Status: Chronic Assessment & Plan: Will continue her usual medications and supplemental oxygen. (3) ENOCH (obstructive sleep apnea) Status: Chronic Assessment & Plan: Continue BiPAP. (4) Type 2 diabetes mellitus Status: Chronic Assessment & Plan: Will continue her usual oral hypoglycemics, monitor glucoses, use SSI as needed. (5) Hematuria Status: Acute Assessment & Plan: Related to renal stone. As per Dr. Herrera. (6) CAD (coronary artery disease) Status: Chronic Assessment & Plan: She appears to be stable from this standpoint. Will continue her beta delilah and resume low dose aspirin when OK with Dr. Herrera. (7) Gout Status: Chronic Assessment & Plan: Continue allopurinol. ADRIAN FELIX MD Aug 21, 2018 12:35
[2018-08-21] MEDS ORDERED: BELLADONNA ALK/OPIUM 60MG SUPP PR PRN (13:15)
[2018-08-21] MEDS ORDERED: PHENAZOPYRIDINE 200 MG TAB PO PRN (13:20)
[2018-08-21] MEDS: APAP/HYDROCODONE 325/5 TAB PO PRN ×2 (14:29→22:29)
[2018-08-21] MEDS ORDERED: ALBUTEROL 2.5 MG/3 ML NEB NEB PRN (15:20)
[2018-08-21] MEDS ORDERED: diphenhydrAMINE 25 MG CAP PO PRN (15:20)
[2018-08-21] MEDS ORDERED: INSULIN HUM LISPRO 100 UN/ML 3 ML VIAL SUBQ PRN (15:25)
[2018-08-21] MEDS ORDERED: PROMETHAZINE 25 MG/ML 1 ML AMP IVP PRN (15:55)
[2018-08-21] MEDS: metFORMIN HCL 500 MG TAB PO SCH (16:29)
[2018-08-21] MEDS: ALBUTEROL/IPRATROPIUM 3 ML NEB NEB SCH (17:47)
[2018-08-21] MEDS: DOCUSATE SODIUM 100 MG CAP PO SCH ×2 (21:00)
[2018-08-21] MEDS ORDERED: FLUoxetine HCL 20 MG CAP PO SCH (21:00)
[2018-08-21] MEDS: METOPROLOL TART 50 MG TAB PO SCH (22:29)
[2018-08-21] MEDS: GABAPENTIN 300 MG CAP PO SCH (22:30)
[2018-08-22 01:46] VITALS: BP 156/74
[2018-08-22] MEDS: ALBUTEROL/IPRATROPIUM 3 ML NEB NEB SCH ×2 (05:42→11:06)
[2018-08-22] MEDS: APAP/HYDROCODONE 325/5 TAB PO PRN ×3 (05:57→15:01)
[2018-08-22 06:25] VITALS: BP 143/66
[2018-08-22 07:50] VITALS: BP 143/66
[2018-08-22] MEDS: METOPROLOL TART 50 MG TAB PO SCH (08:16)
[2018-08-22] MEDS: GABAPENTIN 300 MG CAP PO SCH ×2 (08:19→14:30)
[2018-08-22] MEDS: metFORMIN HCL 500 MG TAB PO SCH (08:24)
[2018-08-22] MEDS: DOCUSATE SODIUM 100 MG CAP PO SCH ×2 (08:29→08:30)
[2018-08-22] MEDS ORDERED: CETIRIZINE HCL 10 MG TAB PO SCH (09:00)
[2018-08-22] MEDS ORDERED: PIOGLITAZONE HCL 15 MG TAB PO SCH (09:00)
[2018-08-22] MEDS ORDERED: ALLOPURINOL 300 MG TAB PO SCH (09:00)
[2018-08-22] MEDS ORDERED: ATORVASTATIN 10 MG TAB PO SCH (09:00)
[2018-08-22] MEDS ORDERED: LOSARTAN POTASSIUM 50 MG TAB PO SCH (09:00)
[2018-08-22] MEDS ORDERED: SPIRONOLACTONE 25 MG TAB PO SCH (09:00)
[2018-08-22] MEDS ORDERED: OXYBUTYNIN CHL XL 5 MG TABCR PO SCH (09:00)
--- NOTE | 2018-08-22 10:06 | Hospitalist Progress Note ---
Subjective Progress Notes Subjective She was admitted s/p urological procedure. She denies any SOB/CP. She would like to go home today. She is requiring 6-7L of oxygen, but reports she does already have oxygen concentrator that goes to 10L from her last hospitalization. Patient Complains of: Cardiovascular: No: Chest Pain Respiratory: No: Shortness of Breath Physical Exam Vital Signs Date Time Temp Pulse Resp B/P (MAP) Pulse Ox O2 Delivery O2 Flow Rate FiO2 08/22/18 07:50 94 Bi-PAP 5.0 08/22/18 07:50 98.2 20 143/66 (91) 08/22/18 06:25 60 Intake and Output 08/22/18 07:01 Intake Total 1325 ml Output Total 3100 ml Balance -1775 ml Intake Oral 200 ml IV Total 1125 ml Output Urine Total 2750 ml Emesis 350 ml # Voids 12 # Emeses 1 General Appearance: Alert, Awake, No Acute Distress, Afebrile Neuro: No Gross deficits Cardiovascular: Regular Rate and Rhythm Respiratory: No Respiratory Distress, Clear to Auscultation GI: Soft and Non-Tender Psych: Alert & Oriented X3, Appropriate Mood & Affect Assessment and Plan Problems: (1) Hypoxia Status: Acute Assessment & Plan: Most likely due to her underlying COPD and ENOCH/hypoventilation. She was placed on her BiPAP with supplemental oxygen overnight. Will also resume her usual respiratory medications and work on pulmonary toilet. She will continue Flutter and IS at home. She will follow up with Dr. Gabriel within one week. She will continue 7L at home. (2) COPD (chronic obstructive pulmonary disease) Status: Chronic Assessment & Plan: Will continue her usual medications and supplemental oxygen. (3) ENOCH (obstructive sleep apnea) Status: Chronic Assessment & Plan: Continue BiPAP. (4) Type 2 diabetes mellitus Status: Chronic Assessment & Plan: Will continue her usual oral hypoglycemics, monitor glucoses, use SSI as needed. (5) Hematuria Status: Acute Assessment & Plan: Related to renal stone. As per Dr. Herrera. (6) CAD (coronary artery disease) Status: Chronic Assessment & Plan: She appears to be stable from this standpoint. Will continue her beta delilah and resume low dose aspirin when OK with Dr. Herrera. (7) Gout Status: Chronic Assessment & Plan: Continue allopurinol. Exam Sepsis Risk: No Definite Risk CLARK HIGUERA TELEMARKETING FUNDRAISER Aug 22, 2018 10:06
[2018-08-22 11:29] VITALS: BP 117/76
[2018-08-22 15:34] VITALS: Ht 170.2 cm; Wt 127.7 kg
== END 2018-08-22 09:54 | disposition home or self-care (01) ==
LOC: OR 01:30 → MED 11:50
PROVIDERS: ADMIT Urology; ATTEND Urology
DX: N20.0 Calculus of kidney (principal)
CPT/HCPCS: 36416; 52356; 76000; 81001; 82948; 85025; 85610; 85730; 87077; 87088; 87186; 94640; 94667; 94668; 96372; A9270; C1769; C1894; C2617; G0378; J1100; J1815; J2001; J2405; J2550; J2704; J3010; J3490; J7613; J7620; 82040; 82247; 82310; 82374; 82435; 82565; 82947; 84075; 84132; 84155; 84295; 84450; 84460; 84520; J0690; Q9966

== ENCOUNTER 2018-09-01 15:50 | Emergency (ER) | payer MEDICARE ==
[2018-08-22 15:34] VITALS: Wt 127.5 kg
[~2018-09-01 15:50] MED LIST changes: +DOCU-416 PO; +HYDR-653 PO; +OXYB15TA14 PO; +PHEN200T32 PO
--- NOTE | 2018-09-01 16:04 | ER Report ---
History and Physical Time Seen By MD: 15:55 Hx. of Stated Complaint: TRIPPED AND FELL IN PARKING LOT. STATES SHE HIT THE POSTERIOR RIGHT SIDE OF HEAD AND THINKS SHE BROKE RIBS ON BOTH SIDES HPI/ROS CHIEF COMPLAINT: Trip and fall HISTORY OF PRESENT ILLNESS: This is a 58-year-old female who presents to the emergency department for a fall. The patient states that she tripped over a curb, fell backwards landing on her buttock's, and then landed flat on her back and also struck the back of her head. She denies loss of consciousness. EMS was contacted, however the patient decided to forego the EMS transfer and family brought her into the ER for an evaluation. Patient states "I think I broke some ribs on the right and left side". She also has some soft tissue swelling to the back of her head. She denies C-spine tenderness. No nausea or vomiting. Mild headache. Denies chest pain or shortness of breath however she does state that the rib pain increases with deep inspiration. No other complaints. REVIEW OF SYSTEMS: Constitutional: No fever, no chills. Eyes: No discharge. ENT: No sore throat. Cardiovascular: No chest pain, no palpitations. Respiratory: No cough, no shortness of breath. Gastrointestinal: No abdominal pain, no vomiting. Genitourinary: No hematuria. Musculoskeletal: As above. Skin: As above. Neurological: As above. Allergies: Coded Allergies: egg (Verified Allergy, Mild, 09/01/18) Home Meds Active Scripts Albuterol Sulfate 0.083% (ALBUTEROL SULFATE 0.083%) 2.5 Mg/3 Ml Vial.neb, 2.5 MG INH Q4-6H for cough, #1 BOX 0 Refills Prov:GRETA MARCANO MD 05/04/16 Reported Medications Hydrocodone Bit/Acetaminophen (NORCO 5-325 TABLET) 1 Each Tablet, 1 EACH PO Q6H PRN for PAIN, #20 TAB 08/21/18 Phenazopyridine Hcl (PHENAZOPYRIDINE HCL) 200 Mg Tablet, 200 MG PO TID PRN for DISCOMFORT, #30 TAB 08/21/18 Oxybutynin Chloride (OXYBUTYNIN CHLORIDE ER) 15 Mg Tab.er.24, 15 MG PO QDAY, #30 TAB.SA 08/21/18 Docusate Sodium (COLACE) 100 Mg Capsule, 100 MG PO BID, #30 CAPSULE 08/21/18 Ibuprofen (IBUPROFEN) 600 Mg Tablet, 1 TAB PO Q6H PRN for PAIN, #20 TAB 08/21/18 Metoprolol Tartrate (METOPROLOL TARTRATE) 25 Mg Tablet, 12.5 MG PO BID, TAB 08/16/18 Aspirin (ASPIRIN) 81 Mg Tab.chew, 81 MG PO QDAY, TAB.CHEW 08/16/18 Tizanidine Hcl (TIZANIDINE HCL) 4 Mg Capsule, 4 MG PO Q6H PRN for SPASMS, CAPSULE 06/21/18 Fluoxetine Hcl (PROZAC) 40 Mg Capsule, 80 MG PO HS, CAPSULE 06/21/18 Cetirizine Hcl (ZYRTEC) 10 Mg Capsule, 10 MG PO QDAY, CAPSULE 06/21/18 Diphenhydramine Hcl (DIPHENHYDRAMINE HCL) 25 Mg Capsule, 25 MG PO HS, #2 CAPSULE 06/21/18 Tramadol Hcl (TRAMADOL HCL) 50 Mg Tablet, 1-2 TAB PO Q6H PRN for PAIN 06/20/18 Atorvastatin Calcium (ATORVASTATIN CALCIUM) 20 Mg Tablet, 1 TAB PO DAILY 06/20/18 Acetaminophen (TYLENOL EXTRA STRENGTH) 500 Mg Tablet, 500 MG PO TID, TAB 12/13/17 Metformin Hcl (METFORMIN HCL) 500 Mg Tablet, 2 TAB PO BID, TAB 04/04/17 Losartan Potassium (LOSARTAN POTASSIUM) 50 Mg Tablet, 1 TAB PO QDAY 12/20/16 Pioglitazone Hcl (PIOGLITAZONE HCL) 45 Mg Tablet, 45 MG PO QDAY 12/20/16 Guaifenesin/Dextromethorphan (MUCINEX DM ER 600-30 MG TABLET) 1 Each Tab.er.12h, 1 EACH PO TID 05/17/16 Spironolactone (Aldactone) 50 Mg Tablet, 50 MG PO DAILY, 0 Refills 08/26/11 Oxygen (Oxygen) 2 L Inha, 4 L INH DAILY, 0 Refills At Night With BiPap 03/10/11 Gabapentin (Neurontin) 300 Mg Cap, 600 MG PO TID, 0 Refills 03/10/11 Allopurinol (Zyloprim) 300 Mg Tab, 300 MG PO QDAY, 0 Refills 03/10/11 Albuterol (Proventil Inhaler) 17 Gm Inh, 1 PUFF INH Q4-6H PRN for SHORTNESS OF BREATH, 0 Refills 03/10/11 Past Medical/Surgical History Patient has a past medical and surgical history of headaches, secondary to bulging disc in her neck, myocardial infarction, 3 stents, hypertension, hypercholesterolemia, bronchitis, asthma, pneumonia, COPD, GERD, kidney stones, arthritis, left humerus fracture, rib fracture, back injury, wears glasses, type II diabetes, rashes, depression, obesity, appendectomy, hysterectomy, C-sections 2, tubal ligation, right knee surgery, left arm surgery, bilateral total hip replacements, rotator cuff surgery L4-5 nerve surgery. Reviewed Nurses Notes: Yes Hx Smoking: Yes (Quit 2018 1 PPD X 30 YEARS ) Smoking Status: Former Smoker Exposure to Second Hand Smoke?: Yes Hx Substance Use Disorder: No Hx Alcohol Use: No Constitutional Vital Sign - Last 24 Hours 09/01/18 09/01/18 09/01/18 09/01/18 15:50 15:55 15:56 17:00 Temp 98.0 Pulse ??? 72 Resp 24 B/P (MAP) 148/67 (94) 148/67 133/59 (83) Pulse Ox 91 O2 Delivery Nasal Cannula 09/01/18 09/01/18 17:20 17:30 Pulse 65 B/P (MAP) 127/88 (101) Pulse Ox 92 Physical Exam General Appearance: The patient is alert, has no immediate need for airway protection and no signs of toxicity. Eyes: Pupils equal and round no pallor or injection. EOMs intact. ENT, Mouth: Mucous membranes are moist. Respiratory: There are no retractions, lungs are clear to auscultation. Cardiovascular: Regular rate and rhythm. No murmurs, clicks or rubs. Gastrointestinal: Abdomen is soft and non tender, no masses, bowel sounds normal. Neurological: Alert and oriented 4. Moving all extremities. Following all commands. No focal neuro deficits. Skin: Warm and dry, no rashes. Musculoskeletal: Neck is supple non tender. Swelling and small abrasion to the posterior scalp and head. No active bleeding. No depressions, no crepitus. Pain to the ribs on the right side midaxillary, no crepitus or flail segments. Pain to the left ribs near the left breast, no crepitus or flail segments identified. Extremities are nontender, nonswollen and have full range of motion. DIFFERENTIAL DIAGNOSIS: After history and physical exam differential diagnosis was considered for contusion, abrasion, subdural bleed, C-spine fracture, subluxation, rib fractures, contusion, pneumothorax. Medical Decision Making EKG/Imaging Imaging PATIENT NAME: Dimas Max : 1960 MR: [id number] V: [id number] EXAM DATE: ORDERING PHYSICIAN: MIKA CHAU TECHNOLOGIST: Location: [facility] [place] Patient: Dimas Max : 1960 Visit/Account:[id number] Date of Sevice: 09/01/2018 EXAMINATION: Chest 2 Views Bilateral rib views HISTORY: Fall. Bilateral rib pain. COMPARISON: Chest radiograph 07/09/2018. CT chest 07/08/2018. FINDINGS: Mild chronic appearing interstitial changes bilaterally with slight scarring or atelectasis at the lung bases. No focal consolidation or pleural effusion. No pneumothorax. Mild cardiac enlargement with normal pulmonary vascularity. Stable cardiomediastinal contours. No acute rib fracture is visualized on either side on the dedicated rib views. Several old bilateral anterior rib fractures appear stable from prior imaging. Generalized osteopenia. Degenerative changes along the spine. IMPRESSION: 1. No evidence of acute cardiopulmonary disease. 2. No evidence of any acute rib fracture on either side. Report Dictated By: Pierce Spann MD at 09/01/2018 5:08 PM Report E-Signed By: Pierce Spann MD at 09/01/2018 5:12 PM WSN:[id number] PATIENT NAME: Dimas Max : 1960 MR: [id number] V: [id number] EXAM DATE: ORDERING PHYSICIAN: MIKA CHAU TECHNOLOGIST: Location: [facility] [place] Patient: Dimas Max : 1960 Visit/Account:[id number] Date of Sevice: 09/01/2018 CT OF THE BRAIN AND CERVICAL SPINE WITHOUT CONTRAST HISTORY: Fall. Head injury. PROCEDURE: 3.0 mm contiguous axial sections were performed through the brain AND 2.0 mm axial images were obtained through the cervical spine. Sagittal and coronal reformats were submitted. FINDINGS: BRAIN: Brain and intracranial structures: There is no mass lesion, hemorrhage or acute infarct. Prominent cavernous carotid atherosclerosis. Orbits (included portions): Normal. Scalp: Small to moderate size scalp hematoma posteriorly on the right. Skull: No skull fracture. Paranasal sinuses and mastoid air cells (included portions): A few right mastoid air cells are nonspecifically opacified. C-SPINE: Vertebral body heights are maintained. Straightening of the normal cervical curvature may be positional or related to muscle spasm. There is no cervical spine fracture or dislocation. The imaged lung apices are clear. Soft tissues of the neck are grossly unremarkable. IMPRESSION: 1. Small to moderate sized posterior scalp hematoma but no underlying skull fracture or evidence of acute intracranial abnormality. 2. No cervical spine fracture or dislocation. One of the following dose optimization techniques was utilized in the performance of this exam: Automated exposure control; adjustment of the mA and/or kV according to the patient's size; or use of an iterative reconstruction technique. Specific details can be referenced in the facility's radiology CT exam operational policy. Report Dictated By: Adwoa Rojas MD at 09/01/2018 4:52 PM Report E-Signed By: Adwoa Rojas MD at 09/01/2018 4:59 PM WSN:[facility] ED Course/Re-evaluation ED Course The patient was admitted to room. A history and physical obtained. Differential diagnoses were considered. A CT of the brain and C-spine were negative. Negative chest x-ray, negative rib x-rays. I did review the results with the patient, she was relieved. She did have a hematoma to the back of her head, did recommend monitoring closely, we did discuss signs and symptoms of concussion, she'll follow-up with her primary care provider next week for reevaluation. She did decline pain medications while in the emergency department. Patient had no other questions or concerns at this time and discharged home. She did ambulate with a steady gait. Decision to Disposition Date: Sep 01, 2018 Decision to Disposition Time: 17:31 Depart Departure Latest Vital Signs Vital Signs Date Time Temp Pulse Resp B/P (MAP) Pulse Ox O2 Delivery O2 Flow Rate FiO2 09/01/18 17:30 127/88 (101) 09/01/18 17:20 65 92 6/28/19 15:56 98.0 24 Nasal Cannula Impression: Primary Impression: Fall Additional Impressions: Scalp hematoma Contusion Condition: Improved Disposition: HOME OR SELF-CARE Referrals: EVERARDO PARKS DO (PCP) 1 Week Patient Instructions: Contusion in Adults (ED), Hematoma (ED) Additional Instructions: The x-rays of her ribs and chest did not show rib fractures. The CT of your head and neck did not show any bleeding or fractures. You may be sore for the next couple of days, continue taking your regular medications. Be sure to drink plenty of water. When walking up and down the stairs be sure to do this slowly and methodically. Follow-up through primary care provider within one week for reevaluation. Return to the ER for any concerns or worsening symptoms. Problem Qualifiers Primary Impression: Fall Encounter type: initial encounter Qualified Codes: W19.XXXA - Unspecified fall, initial encounter Additional Impressions: Scalp hematoma Encounter type: initial encounter Qualified Codes: S00.03XA - Contusion of scalp, initial encounter Contusion Encounter type: initial encounter Contusion area: thoracic wall Contusion of thoracic wall detail: unspecified area of thoracic wall Qualified Codes: S20.20XA - Contusion of thorax, unspecified, initial encounter MIKA CHAUP-BC Sep 01, 2018 16:04
--- NOTE | 2018-09-01 17:05 | RADIOLOGY IMAGING REPORT ---
FACILITY: [facility] - [place] PATIENT NAME: Dimas Max : 1960 MR: [id number] V: [id number] EXAM DATE: ORDERING PHYSICIAN: MIKA CHAU TECHNOLOGIST: Location: [facility] Patient: Dimas Max : 1960 Visit/Account:[id number] Date of Sevice: 09/01/2018 CT OF THE BRAIN AND CERVICAL SPINE WITHOUT CONTRAST HISTORY: Fall. Head injury. PROCEDURE: 3.0 mm contiguous axial sections were performed through the brain AND 2.0 mm axial images were obtained through the cervical spine. Sagittal and coronal reformats were submitted. FINDINGS: BRAIN: Brain and intracranial structures: There is no mass lesion, hemorrhage or acute infarct. Prominent c avernous carotid atherosclerosis. Orbits (included portions): Normal. Scalp: Small to moderate size scalp hematoma posteriorly on the right. Skull: No skull fracture. Paranasal sinuses and mastoid air cells (included portions): A few right mastoid air cells are nonspe cifically opacified. C-SPINE: Vertebral body heights are maintained. Straightening of the normal cervical curvature may be positio nal or related to muscle spasm. There is no cervical spine fracture or dislocation. The imaged lung apices are clear. Soft tissues of the neck are grossly unremarkable. IMPRESSION: 1. Small to moderate sized posterior scalp hematoma but no underlying skull fracture or evidence of acute intracranial abnormality. 2. No cervical spine fracture or dislocation. One of the following dose optimization techniques was utilized in the performance of this exam: Autom ated exposure control; adjustment of the mA and/or kV according to the patient's size; or use of an i terative reconstruction technique. Specific details can be referenced in the facility's radiology C T exam operational policy. Report Dictated By: Adwoa Rojas MD at 09/01/2018 4:52 PM Report E-Signed By: Adwoa Rojas MD at 09/01/2018 4:59 PM WSN:[id number]
--- NOTE | 2018-09-01 17:06 | RADIOLOGY IMAGING REPORT ---
[place] [facility] [place] Dimas Max : 1960 MR: [id number] V: [id number] EXAM DATE: ORDERING PHYSICIAN: MIKA CHAU TECHNOLOGIST: Location: [facility] Patient: Dimas Max : 1960 Visit/Account:[id number] Date of Sevice: 09/01/2018 CT OF THE BRAIN AND CERVICAL SPINE WITHOUT CONTRAST HISTORY: Fall. Head injury. PROCEDURE: 3.0 mm contiguous axial sections were performed through the brain AND 2.0 mm axial images were obtained through the cervical spine. Sagittal and coronal reformats were submitted. FINDINGS: BRAIN: Brain and intracranial structures: There is no mass lesion, hemorrhage or acute infarct. Prominent c avernous carotid atherosclerosis. Orbits (included portions): Normal. Scalp: Small to moderate size scalp hematoma posteriorly on the right. Skull: No skull fracture. Paranasal sinuses and mastoid air cells (included portions): A few right mastoid air cells are nonspe cifically opacified. C-SPINE: Vertebral body heights are maintained. Straightening of the normal cervical curvature may be positio nal or related to muscle spasm. There is no cervical spine fracture or dislocation. The imaged lung apices are clear. Soft tissues of the neck are grossly unremarkable. IMPRESSION: 1. Small to moderate sized posterior scalp hematoma but no underlying skull fracture or evidence of acute intracranial abnormality. 2. No cervical spine fracture or dislocation. One of the following dose optimization techniques was utilized in the performance of this exam: Autom ated exposure control; adjustment of the mA and/or kV according to the patient's size; or use of an i terative reconstruction technique. Specific details can be referenced in the facility's radiology C T exam operational policy. Report Dictated By: Adwoa Rojas MD at 09/01/2018 4:52 PM Report E-Signed By: Adwoa Rojas MD at 09/01/2018 4:59 PM WSN:[id number]
--- NOTE | 2018-09-01 17:18 | RADIOLOGY IMAGING REPORT ---
[place] [facility] [place] Dimas Max : 1960 MR: [id number] V: [id number] EXAM DATE: ORDERING PHYSICIAN: MIKA CHAU TECHNOLOGIST: Location: [facility] - [place], [place] Patient: Dimas Max : 1960 Visit/Account:[id number] Date of Sevice: 09/01/2018 EXAMINATION: Chest 2 Views Bilateral rib views HISTORY: Fall. Bilateral rib pain. COMPARISON: Chest radiograph 07/09/2018. CT chest 07/08/2018. FINDINGS: Mild chronic appearing interstitial changes bilaterally with slight scarring or atelectasis at the heidi ng bases. No focal consolidation or pleural effusion. No pneumothorax. Mild cardiac enlargement with normal pulmonary vascularity. Stable cardiomediastinal contours. No acute rib fracture is visualized on either side on the dedicated rib views. Several old bilateral anterior rib fractures appear stable from prior imaging. Generalized osteopenia. Degenerative changes along the spine. IMPRESSION: 1. No evidence of acute cardiopulmonary disease. 2. No evidence of any acute rib fracture on either side. Report Dictated By: Pierce Spann MD at 09/01/2018 5:08 PM Report E-Signed By: Pierce Spann MD at 09/01/2018 5:12 PM WSN:[id number]
--- NOTE | 2018-09-01 17:19 | RADIOLOGY IMAGING REPORT ---
FACILITY: [facility] [place] PATIENT NAME: Dimas Max : 1960 MR: [id number] V: [id number] EXAM DATE: ORDERING PHYSICIAN: MIKA CHAU TECHNOLOGIST: Location: [facility] [place] Patient: Dimas Max : 1960 Visit/Account:[id number] Date of Sevice: 09/01/2018 EXAMINATION: Chest 2 Views Bilateral rib views HISTORY: Fall. Bilateral rib pain. COMPARISON: Chest radiograph 07/09/2018. CT chest 07/08/2018. FINDINGS: Mild chronic appearing interstitial changes bilaterally with slight scarring or atelectasis at the heidi ng bases. No focal consolidation or pleural effusion. No pneumothorax. Mild cardiac enlargement with normal pulmonary vascularity. Stable cardiomediastinal contours. No acute rib fracture is visualized on either side on the dedicated rib views. Several old bilateral anterior rib fractures appear stable from prior imaging. Generalized osteopenia. Degenerative changes along the spine. IMPRESSION: 1. No evidence of acute cardiopulmonary disease. 2. No evidence of any acute rib fracture on either side. Report Dictated By: Pierce Spann MD at 09/01/2018 5:08 PM Report E-Signed By: Pierce Spann MD at 09/01/2018 5:12 PM WSN:[id number]
[2018-09-01 17:30] VITALS: BP 127/88
== END 2018-09-01 17:55 | disposition home or self-care (01) ==
LOC: ER 16:11
DX: S20.20XA Contusion of thorax, unspecified, initial encounter (principal); S00.03XA Contusion of scalp, initial encounter
CPT/HCPCS: 36415; 70450; 71046; 71111; 72125; 99284

== ENCOUNTER 2018-09-06 07:53 | Inpatient (IN) | payer MEDICARE ==
[2018-08-22 15:34] VITALS: Ht 170.2 cm; Wt 120.9 kg
[~2018-09-06] VITALS: Ht 170.2 cm; Wt 120.9 kg
[~2018-09-06 07:53] MED LIST changes: -IPRA3AMP10 IH; -LEVO750T27 PO; -OXYB5TAB86 PO; -SUMA50TA35 PO
--- NOTE | 2018-09-06 08:08 | ER Report ---
History and Physical Time Seen By MD: 08:04 Hx. of Stated Complaint: PATIENT CALLED EMS THIS MORNING FOR SHORTNESS OF BREATH AND RIB PAIN HPI/ROS CHIEF COMPLAINT: Chest pain shortness of breath HISTORY OF PRESENT ILLNESS: 58-year-old morbidly obese female history of peripheral neuropathy and multiple falls comes back to the emergency room she had a fall approximately 1 week prior to presentation under her right side with right rib pain she also has surgical repair done on a left humeral fracture from 2 falls in the last 12 months since her falls are secondary to her neuropathy. Patient states when she fell was recently under her right side she had pain to her ribs x-rays were performed had C-spine and chest x-rays were all evaluated no fractures dislocation or subluxations diagnosed with contusions and sent ho me. Patient is on chronic chronic tramadol for her chronic back discomfort which she's been taking for many years. Patient states that she does take her tramadol has some relief of her pain but is worsening of her shortness of breath. Patient also has baseline COPD since she stopped smoking approximately 5 months ago but has been a many pack year smoker. Patient states that she is submental oxygen as high as 6 L at home but she's been using 4 L per nasal cannula recently. Patient denies any nausea vomiting diarrhea says that the pain in her ribs and her chest is prevent her from taking deep breaths. REVIEW OF SYSTEMS: Respiratory: No cough shortness of breath Cardiovascular: Pleuritic chest pain or palpitation Gastrointestinal: No vomiting, no abdominal pain. Musculoskeletal: No back pain. Remainder of the 14 system rev: Yes Allergies: Coded Allergies: egg (Verified Allergy, Mild, 09/01/18) Home Meds Active Scripts Albuterol Sulfate 0.083% (ALBUTEROL SULFATE 0.083%) 2.5 Mg/3 Ml Vial.neb, 2.5 MG INH Q4-6H for cough, #1 BOX 0 Refills Prov:GRETA MARCANO MD 05/04/16 Reported Medications Hydrocodone Bit/Acetaminophen (NORCO 5-325 TABLET) 1 Each Tablet, 1 EACH PO Q6H PRN for PAIN, #20 TAB 08/21/18 Phenazopyridine Hcl (PHENAZOPYRIDINE HCL) 200 Mg Tablet, 200 MG PO TID PRN for DISCOMFORT, #30 TAB 08/21/18 Oxybutynin Chloride (OXYBUTYNIN CHLORIDE ER) 15 Mg Tab.er.24, 15 MG PO QDAY, #30 TAB.SA 08/21/18 Docusate Sodium (COLACE) 100 Mg Capsule, 100 MG PO BID, #30 CAPSULE 08/21/18 Ibuprofen (IBUPROFEN) 600 Mg Tablet, 1 TAB PO Q6H PRN for PAIN, #20 TAB 08/21/18 Metoprolol Tartrate (METOPROLOL TARTRATE) 25 Mg Tablet, 12.5 MG PO BID, TAB 08/16/18 Aspirin (ASPIRIN) 81 Mg Tab.chew, 81 MG PO QDAY, TAB.CHEW 08/16/18 Tizanidine Hcl (TIZANIDINE HCL) 4 Mg Capsule, 4 MG PO Q6H PRN for SPASMS, CAPSULE 06/21/18 Fluoxetine Hcl (PROZAC) 40 Mg Capsule, 80 MG PO HS, CAPSULE 06/21/18 Cetirizine Hcl (ZYRTEC) 10 Mg Capsule, 10 MG PO QDAY, CAPSULE 06/21/18 Diphenhydramine Hcl (DIPHENHYDRAMINE HCL) 25 Mg Capsule, 25 MG PO HS, #2 CAPSULE 06/21/18 Tramadol Hcl (TRAMADOL HCL) 50 Mg Tablet, 1-2 TAB PO Q6H PRN for PAIN 06/20/18 Atorvastatin Calcium (ATORVASTATIN CALCIUM) 20 Mg Tablet, 1 TAB PO DAILY 06/20/18 Acetaminophen (TYLENOL EXTRA STRENGTH) 500 Mg Tablet, 500 MG PO TID, TAB 12/13/17 Metformin Hcl (METFORMIN HCL) 500 Mg Tablet, 2 TAB PO BID, TAB 04/04/17 Losartan Potassium (LOSARTAN POTASSIUM) 50 Mg Tablet, 1 TAB PO QDAY 12/20/16 Pioglitazone Hcl (PIOGLITAZONE HCL) 45 Mg Tablet, 45 MG PO QDAY 12/20/16 Guaifenesin/Dextromethorphan (MUCINEX DM ER 600-30 MG TABLET) 1 Each Tab.er.12h, 1 EACH PO TID 05/17/16 Spironolactone (Aldactone) 50 Mg Tablet, 50 MG PO DAILY, 0 Refills 08/26/11 Oxygen (Oxygen) 2 L Inha, 4 L INH DAILY, 0 Refills At Night With BiPap 03/10/11 Gabapentin (Neurontin) 300 Mg Cap, 600 MG PO TID, 0 Refills 03/10/11 Allopurinol (Zyloprim) 300 Mg Tab, 300 MG PO QDAY, 0 Refills 03/10/11 Albuterol (Proventil Inhaler) 17 Gm Inh, 1 PUFF INH Q4-6H PRN for SHORTNESS OF BREATH, 0 Refills 03/10/11 Reviewed Nurses Notes: Yes Old Medical Records Reviewed: Yes Hx Smoking: Yes (Quit 2018 1 PPD X 30 YEARS ) Smoking Status: Former Smoker Exposure to Second Hand Smoke?: Yes Hx Substance Use Disorder: No Hx Alcohol Use: No Constitutional Vital Sign - Last 24 Hours 09/06/18 09/06/18 09/06/18 09/06/18 07:59 08:15 08:41 08:41 Temp 98.3 Pulse 62 66 Resp 20 18 B/P (MAP) 141/64 Pulse Ox 93 95 O2 Delivery Nasal Cannula Nasal Cannula O2 Flow Rate 4.0 5.0 Physical Exam General Appearance: The patient is alert, has no immediate need for airway protection and no current signs of toxicity. Appears uncomfortable Eyes: Pupils equal and round no injection. Respiratory: As tender to palpation on the right side lungs otherwise clear good breath sounds Cardiac: regular rate and rhythm [ ] Gastrointestinal: Abdomen is soft and non tender, no masses, bowel sounds normal. Musculoskeletal: Right correction left upper extremity currently in an immobilized splint Neck is supple and non tender. Extremities have full range of motion and are non tender. Skin: No rashes or lesions. [ ] DIFFERENTIAL DIAGNOSIS: After history and physical exam differential diagnosis was considered for pulmonary embolus COPD exacerbation pneumothorax rib fractures rib contusions react tissue Medical Decision Making Data Points Result Diagram: 09/06/18 0809 09/06/18 0809 Laboratory Hematology Test 09/06/18 08:09 09/06/18 08:22 09/06/18 09:52 09/06/18 09:58 Red Blood Count 3.94 M/uL (4.17-5.56) Mean Corpuscular Volume 89.2 fL (80.0-96.0) Mean Corpuscular Hemoglobin 29.3 pg (26.0-33.0) Mean Corpuscular Hemoglobin Concent 32.8 g/dL (32.0-36.0) Red Cell Distribution Width 16.8 % (11.5-14.5) Mean Platelet Volume 7.8 fL (7.2-11.1) Neutrophils (%) (Auto) 71.1 % (39.4-72.5) Lymphocytes (%) (Auto) 19.7 % (17.6-49.6) Monocytes (%) (Auto) 6.7 % (4.1-12.4) Eosinophils (%) (Auto) 1.6 % (0.4-6.7) Basophils (%) (Auto) 0.9 % (0.3-1.4) Nucleated RBC Relative Count (auto) 0.1 /100WBC Neutrophils # (Auto) 7.2 K/uL (2.0-7.4) Lymphocytes # (Auto) 2.0 K/uL (1.3-3.6) Monocytes # (Auto) 0.7 K/uL (0.3-1.0) Eosinophils # (Auto) 0.2 K/uL (0.0-0.5) Basophils # (Auto) 0.1 K/uL (0.0-0.1) Nucleated RBC Absolute Count (auto) 0.01 K/uL Sodium Level 145 mmol/L (137-145) Potassium Level 4.7 mmol/L (3.5-5.0) Chloride Level 105 mmol/L (98-107) Carbon Dioxide Level 26 mmol/L (22-31) Blood Urea Nitrogen 16 mg/dl (7-18) Creatinine 0.60 mg/dl (0.52-1.04) Glomerular Filtration Rate Calc > 60.0 Random Glucose 166 mg/dl (75-110) Calcium Level 10.3 mg/dl (8.4-10.2) Total Bilirubin 0.7 mg/dl (0.2-1.3) Aspartate Amino Transf (AST/SGOT) 15 U/L (0-35) Alanine Aminotransferase (ALT/SGPT) 19 U/L (0-56) Alkaline Phosphatase 108 U/L (0-126) Troponin I < 0.012 ng/ml Total Protein 8.2 g/dl (6.3-8.2) Albumin 4.5 g/dl (3.5-5.0) Urine Color Yellow Urine Clarity Clear Urine pH 6.0 pH (4.8-9.5) Urine Specific [place] 1.011 Urine Protein Negative mg/dL (NEGATIVE) Urine Glucose (UA) Negative mg/dL (NEGATIVE) Urine Ketones Negative mg/dL (NEGATIVE) Urine Blood Small (NEGATIVE) Urine Nitrite Negative (NEGATIVE) Urine Bilirubin Negative (NEGATIVE) Urine Urobilinogen Negative mg/dL (0.2-1.9) Urine Leukocyte Esterase Moderate (NEGATIVE) Urine RBC 14 /HPF (0-2/HPF) Urine WBC 28 /HPF (0-5/HPF) Urine Squamous Epithelial Cells Many /LPF (</=FEW) Urine Bacteria Negative /HPF (NONE-FEW) Urine Mucus None /HPF (NONE-FEW) Blood Gas Puncture Site Right radial Blood Gas Patient Temperature 98 DEGREES Arterial Blood pH 7.56 (7.35-7.45) Arterial Blood Partial Pressure CO2 < 25 mmHg (32-37) Arterial Blood Partial Pressure O2 60 mmHg (60-80) Arterial Blood HCO3 19 mmol/L (20-26) Arterial Blood Oxygen Saturation 95 % (92-100) Arterial Blood Base Excess -3.0 mmol/L Scooter Test Acceptable Oxygen Liters/Minute 37 Chemistry Test 09/06/18 08:09 09/06/18 08:22 09/06/18 09:52 09/06/18 09:58 White Blood Count 10.1 k/uL (4.5-11.0) Red Blood Count 3.94 M/uL (4.17-5.56) Hemoglobin 11.5 g/dL (12.0-16.0) Hematocrit 35.2 % (34.0-47.0) Mean Corpuscular Volume 89.2 fL (80.0-96.0) Mean Corpuscular Hemoglobin 29.3 pg (26.0-33.0) Mean Corpuscular Hemoglobin Concent 32.8 g/dL (32.0-36.0) Red Cell Distribution Width 16.8 % (11.5-14.5) Platelet Count 356 K/uL (150-450) Mean Platelet Volume 7.8 fL (7.2-11.1) Neutrophils (%) (Auto) 71.1 % (39.4-72.5) Lymphocytes (%) (Auto) 19.7 % (17.6-49.6) Monocytes (%) (Auto) 6.7 % (4.1-12.4) Eosinophils (%) (Auto) 1.6 % (0.4-6.7) Basophils (%) (Auto) 0.9 % (0.3-1.4) Nucleated RBC Relative Count (auto) 0.1 /100WBC Neutrophils # (Auto) 7.2 K/uL (2.0-7.4) Lymphocytes # (Auto) 2.0 K/uL (1.3-3.6) Monocytes # (Auto) 0.7 K/uL (0.3-1.0) Eosinophils # (Auto) 0.2 K/uL (0.0-0.5) Basophils # (Auto) 0.1 K/uL (0.0-0.1) Nucleated RBC Absolute Count (auto) 0.01 K/uL Glomerular Filtration Rate Calc > 60.0 Calcium Level 10.3 mg/dl (8.4-10.2) Total Bilirubin 0.7 mg/dl (0.2-1.3) Aspartate Amino Transf (AST/SGOT) 15 U/L (0-35) Alanine Aminotransferase (ALT/SGPT) 19 U/L (0-56) Alkaline Phosphatase 108 U/L (0-126) Troponin I < 0.012 ng/ml Total Protein 8.2 g/dl (6.3-8.2) Albumin 4.5 g/dl (3.5-5.0) Urine Color Yellow Urine Clarity Clear Urine pH 6.0 pH (4.8-9.5) Urine Specific [place] 1.011 Urine Protein Negative mg/dL (NEGATIVE) Urine Glucose (UA) Negative mg/dL (NEGATIVE) Urine Ketones Negative mg/dL (NEGATIVE) Urine Blood Small (NEGATIVE) Urine Nitrite Negative (NEGATIVE) Urine Bilirubin Negative (NEGATIVE) Urine Urobilinogen Negative mg/dL (0.2-1.9) Urine Leukocyte Esterase Moderate (NEGATIVE) Urine RBC 14 /HPF (0-2/HPF) Urine WBC 28 /HPF (0-5/HPF) Urine Squamous Epithelial Cells Many /LPF (</=FEW) Urine Bacteria Negative /HPF (NONE-FEW) Urine Mucus None /HPF (NONE-FEW) Blood Gas Puncture Site Right radial Blood Gas Patient Temperature 98 DEGREES Arterial Blood pH 7.56 (7.35-7.45) Arterial Blood Partial Pressure CO2 < 25 mmHg (32-37) Arterial Blood Partial Pressure O2 60 mmHg (60-80) Arterial Blood HCO3 19 mmol/L (20-26) Arterial Blood Oxygen Saturation 95 % (92-100) Arterial Blood Base Excess -3.0 mmol/L Scooter Test Acceptable Oxygen Liters/Minute 37 Urinalysis Test 09/06/18 08:22 Urine Color Yellow Urine Clarity Clear Urine pH 6.0 pH (4.8-9.5) Urine Specific [place] 1.011 Urine Protein Negative mg/dL (NEGATIVE) Urine Glucose (UA) Negative mg/dL (NEGATIVE) Urine Ketones Negative mg/dL (NEGATIVE) Urine Blood Small (NEGATIVE) Urine Nitrite Negative (NEGATIVE) Urine Bilirubin Negative (NEGATIVE) Urine Urobilinogen Negative mg/dL (0.2-1.9) Urine Leukocyte Esterase Moderate (NEGATIVE) Urine RBC 14 /HPF (0-2/HPF) Urine WBC 28 /HPF (0-5/HPF) Urine Squamous Epithelial Cells Many /LPF (</=FEW) Urine Bacteria Negative /HPF (NONE-FEW) Urine Mucus None /HPF (NONE-FEW) ED Course/Re-evaluation ED Course Medical decision-making 58-year-old female comes in with hypoxia baseline histo ry of COPD after a fall she's had an obvious atelectasis versus infiltrate certain antibiotics along with that it was discovered a 3 large centimeter mass in her left breast this was discussed in great detail due to her frequent falls her hypoxia [place] infiltrate versus atelectasis chest pain and her new diagnosis will be admitting to the hospitalist service today Decision to Disposition Date: Sep 06, 2018 Decision to Disposition Time: 10:45 Depart Departure Latest Vital Signs Vital Signs Date Time Temp Pulse Resp B/P (MAP) Pulse Ox O2 Delivery O2 Flow Rate FiO2 09/06/18 08:41 66 18 09/06/18 08:41 95 Nasal Cannula 5.0 09/06/18 07:59 98.3 141/64 Impression: Primary Impression: Breast mass Additional Impression: Hypoxia Condition: Improved Disposition: Admitted from ER Referrals: EVERARDO PARKS DO (PCP) Problem Qualifiers VERONICA ROMAN MD Sep 06, 2018 08:08
[2018-09-06] MEDS ORDERED: methylPREDNIS SUCC 125 MG/2ML IVP ONE (08:10)
[2018-09-06] MEDS ORDERED: ALBUTEROL/IPRATROPIUM 3 ML NEB NEB ONE (08:10)
[2018-09-06 08:27] LABS: PLATELET COUNT, AUTOMATED 356 K/uL (150-450)
[2018-09-06] MEDS ORDERED: IOPAMIDOL 76% 100 ML INFUS BTL 100 ML ONE (08:45)
[2018-09-06] MEDS ORDERED: NS(*) 0.9% 50 ML BAG 50 ML ONE (08:46)
--- NOTE | 2018-09-06 09:57 | RADIOLOGY IMAGING REPORT ---
FACILITY: [facility] [place] PATIENT NAME: Dimas Max : 1960 MR: [id number] V: [id number] EXAM DATE: ORDERING PHYSICIAN: VERONICA ROMAN TECHNOLOGIST: Location: [facility] Patient: Dimas Max : 1960 Visit/Account:[id number] Date of Sevice: 09/06/2018 CT CTA CHEST W & W/O CON HISTORY: Shortness of breath and chest pain ADDITIONAL HISTORY: None. TECHNIQUE: CTA chest with intravenous contrast. Axial imaging acquired following administration of IV contrast timed for maximum opacification of the pulmonary arterial vasculature. Slab 3-D MIP alejandrina nstructed images were also created for further evaluation and interpretation. [facility] includes multiplanar 2-D in the sagittal and coronal planes and 3-D reconstructed selina nal slab MIP series. 3-D images were created by the technologist.Dose Lowering Technique One of the following dose optimization techniques was utilized in the performance of this exam: Autom ated exposure control; adjustment of the mA and/or kV according to the patient's size; or use of an i terative reconstruction technique. Specific details can be referenced in the facility's radiology C T exam operational policy. CONTRAST: 75 mL [id number] COMPARISON: July 08, 2018 FINDINGS: Lungs/pleura: There Is a small right pleural effusion relatively unchanged when compared the prior st udy with adjacent airspace consolidation the right lower lobe consistent with atelectasis and or infi ltrate. There is a small amount of airspace consolidation in the dependent portion left lower lobe s lightly increased with the same differential diagnosis. There is a 4 mm calcified nodule posterior aspect of the right upper lobe Heart/vessels: Again noted is a mildly dilated main pulmonary arteries and pulmonary trunk suggestiv e of pulmonary arterial hypertension Contrast bolus to the pulmonary arteries is somewhat limited. There is no evidence of obvious pulmon kathy emboli within the central or lobar pulmonary arteries although the segmental and subsegmental art erial branches are not ideally opacified. There are moderate coronary artery calcifications Mediastinum/lymph nodes: No pathologically enlarged lymph nodes are identified Visualized upper abdomen: Negative. Bones/soft tissues: There spondylotic changes in the thoracic spine. Incidentally noted is a spiculated appearing mass in the deep central left breast measuring approxima tely 3 cm in diameter. Correlation with mammography is recommended. This was not as apparent on the prior study. Additional findings: None IMPRESSION: There small right pleural effusion which is relatively unchanged. There is adjacent airspace consoli dation the right lower lobe consistent with atelectasis and or infiltrate. Similar findings but to a lesser extent are identified in the left lung base Mildly dilated main pulmonary arteries and probably trunk suggestive of pulmonary arterial hypertensi on The contrast bolus to pulmonary arteries is somewhat limited. There is no evidence of obvious pulmon kathy emboli within the central or lobar pulmonary arteries although the segmental and subsegmental art erial branches are not ideally opacified Moderate coronary artery calcifications Incidental note of a spiculated appearing mass in the deep central left breast measuring approximatel y 3 cm in diameter. Correlation with mammography recommended Report Dictated By: Jeanne Cancino MD at 09/06/2018 9:31 AM Report E-Signed By: Jeanne Cancino MD at 09/06/2018 9:50 AM WSN:[id number]
[2018-09-06] MEDS ORDERED: LEVOFLOXACIN/D5W*500 MG/100 ML 100 ML IVPB ONE (10:10)
[2018-09-06] MEDS ORDERED: INFLUENZA VIRUS VAC 0.5ML SYR IM ONLY ONE (12:05)
[2018-09-06] MEDS ORDERED: ALBUTEROL 2.5 MG/3 ML NEB NEB PRN (12:05)
[2018-09-06] MEDS ORDERED: CETIRIZINE HCL 10 MG TAB PO PRN (12:20)
[2018-09-06] MEDS ORDERED: OXYB5TAB86 PO (12:29)
[2018-09-06 12:58] VITALS: BP 174/75
--- NOTE | 2018-09-06 13:04 | History & Physical ---
History of Present Illness History of Present Illness 58yo female with a h/o morbid obesity, COPD, HFpEF and recent pneumonia who came to the ER for worsening SOB. She was treated for an aspiration pneumonia with Unasyn from 07/08-07/12. She came to the ER on 09/01 after a fall. She had a scalp hematoma, but no fractures seen. She has been more SOB intermittently since then. Starting last night at about 9:30, she has been more SOB. She chronically sleeps in a recliner since March because it is easy for her to breath. She has chronic LE edema. She doesn't report any chest pain or chills. In the ER, she was more hypoxic and her dyspnea didn't improve with a DuoNeb, Methylprednisolone and increased O2. History Problems: (1) Morbid obesity Status: Chronic (2) Hypertension Status: Chronic (3) COPD (chronic obstructive pulmonary disease) Status: Chronic (4) CAD (coronary artery disease) Status: Chronic (5) Type 2 diabetes mellitus Status: Chronic (6) Gout Status: Chronic (7) ENOCH (obstructive sleep apnea) Status: Chronic (8) Kidney stone on left side Status: Chronic (9) Humeral shaft fracture Status: Chronic Home Meds Active Scripts Albuterol Sulfate 0.083% (ALBUTEROL SULFATE 0.083%) 2.5 Mg/3 Ml Vial.neb, 2.5 MG INH Q4-6H for cough, #1 BOX 0 Refills Prov:GRETA MARCANO MD 05/04/16 Reported Medications Oxybutynin Chloride (OXYBUTYNIN CHLORIDE) 5 Mg Tablet, 5 MG PO TID, TAB 09/06/18 Docusate Sodium (COLACE) 100 Mg Capsule, 100 MG PO BID, #30 CAPSULE 08/21/18 Ibuprofen (IBUPROFEN) 600 Mg Tablet, 1 TAB PO Q6H PRN for PAIN, #20 TAB 08/21/18 Metoprolol Tartrate (METOPROLOL TARTRATE) 25 Mg Tablet, 12.5 MG PO BID, TAB 08/16/18 Aspirin (ASPIRIN) 81 Mg Tab.chew, 81 MG PO QDAY, TAB.CHEW 08/16/18 Tizanidine Hcl (TIZANIDINE HCL) 4 Mg Capsule, 4 MG PO Q6H PRN for SPASMS, CAPSULE 06/21/18 Fluoxetine Hcl (PROZAC) 40 Mg Capsule, 80 MG PO HS, CAPSULE 06/21/18 Cetirizine Hcl (ZYRTEC) 10 Mg Capsule, 10 MG PO QDAY, CAPSULE 06/21/18 Diphenhydramine Hcl (DIPHENHYDRAMINE HCL) 25 Mg Capsule, 25 MG PO HS, #2 CAPSULE 06/21/18 Tramadol Hcl (TRAMADOL HCL) 50 Mg Tablet, 1-2 TAB PO Q8H PRN for PAIN 06/20/18 Atorvastatin Calcium (ATORVASTATIN CALCIUM) 20 Mg Tablet, 1 TAB PO HS 06/20/18 Acetaminophen (TYLENOL EXTRA STRENGTH) 500 Mg Tablet, 500 MG PO TID, TAB 12/13/17 Metformin Hcl (METFORMIN HCL) 500 Mg Tablet, 2 TAB PO BID, TAB 04/04/17 Losartan Potassium (LOSARTAN POTASSIUM) 50 Mg Tablet, 1 TAB PO QDAY 12/20/16 Pioglitazone Hcl (PIOGLITAZONE HCL) 45 Mg Tablet, 45 MG PO QDAY 12/20/16 Guaifenesin/Dextromethorphan (MUCINEX DM ER 600-30 MG TABLET) 1 Each Tab.er.12h, 1 EACH PO TID 05/17/16 Spironolactone (Aldactone) 50 Mg Tablet, 50 MG PO DAILY, 0 Refills 08/26/11 Oxygen (Oxygen) 2 L Inha, 4 L INH DAILY, 0 Refills At Night With BiPap 03/10/11 Gabapentin (Neurontin) 300 Mg Cap, 600 MG PO TID, 0 Refills 03/10/11 Allopurinol (Zyloprim) 300 Mg Tab, 300 MG PO HS, 0 Refills 03/10/11 Albuterol (Proventil Inhaler) 17 Gm Inh, 1 PUFF INH Q4-6H PRN for SHORTNESS OF BREATH, 0 Refills 03/10/11 Discontinued Reported Medications Phenazopyridine Hcl (PHENAZOPYRIDINE HCL) 200 Mg Tablet, 200 MG PO TID PRN for DISCOMFORT, #30 TAB 08/21/18 Oxybutynin Chloride (OXYBUTYNIN CHLORIDE ER) 15 Mg Tab.er.24, 15 MG PO QDAY, #30 TAB.SA 08/21/18 Allergies: Coded Allergies: egg (Verified Allergy, Mild, 09/01/18) Patient History: Bone cancer FATHER, FH: brain tumor MOTHER, FH: breast cancer BROTHER OR SISTER FH: heart disease FATHER, FH: hepatic cirrhosis MOTHER, FH: stomach cancer MOTHER, Other Social/Family Hx Quit smoking about a year ago with a 30 pk yr hx. No alcohol use. Lives with her daughter. They are currently in the process of trying to move. Hx Smoking: Yes (Quit 2018 1 PPD X 30 YEARS ) Smoking Status: Former Smoker Exposure to Second Hand Smoke?: Yes Caffeine Intake: Coffee Caffeine/Cups Per Day: 2 cup/day Hx Alcohol Use: No Hx Substance Use Disorder: No Social Drug Use: Never Review of Systems All Systems Reviewed/Normal: Yes, Except as Noted Exam Vital Signs Vital Signs Date Time Temp Pulse Resp B/P (MAP) Pulse Ox O2 Delivery O2 Flow Rate FiO2 09/06/18 11:41 60.0 09/06/18 11:00 75 154/79 (104) 92 09/06/18 08:41 18 09/06/18 08:41 Nasal Cannula 5.0 09/06/18 07:59 98.3 General Appearance: Alert, Awake Cardiovascular: Regular Rate and Rhythm Respiratory: Clear to Auscultation (mild increased wob) Extremities: Edema (1+ pitting to thighs) Integumentary: No Jaundice, No Cyanosis; Other (about 1cm painful nodule on right side of perineal area. Mild erythema. No discharge) Medical Decision Making Data Points Result Diagram: 09/06/18 0809 09/06/18 0809 Item Value Date Time Calcium Level 10.3 mg/dl H 09/06/18 0809 Total Bilirubin 0.7 mg/dl 09/06/18 0809 Aspartate Amino Transf (AST/SGOT) 15 U/L 09/06/18 0809 Alanine Aminotransferase (ALT/SGPT) 19 U/L 09/06/18 0809 Alkaline Phosphatase 108 U/L 09/06/18 0809 Troponin I < 0.012 ng/ml 09/06/18 0809 Neutrophils (%) (Auto) 71.1 % 09/06/18 0809 Lymphocytes (%) (Auto) 19.7 % 09/06/18 0809 Monocytes (%) (Auto) 6.7 % 09/06/18 0809 Eosinophils (%) (Auto) 1.6 % 09/06/18 0809 Basophils (%) (Auto) 0.9 % 09/06/18 0809 Nucleated RBC Relative Count (auto) 0.1 /100WBC 09/06/18 08 Arterial Blood pH 7.56 H 09/06/18951 Arterial Blood Partial Pressure CO2 < 25 mmHg L 09/06/18951 Arterial Blood Partial Pressure O2 60 mmHg 09/06/18 09 Arterial Blood HCO3 19 mmol/L L 09/06/18 09 Arterial Blood Oxygen Saturation 95 % 09/06/18951 Urine Leukocyte Esterase Moderate H 09/06/18 08 Urine RBC 14 /HPF 09/06/18821 Urine WBC 28 /HPF 09/06/18 08 Urine Squamous Epithelial Cells Many /LPF H 09/06/18 08 Urine Bacteria Negative /HPF 09/06/18821 Urine Blood Small 09/06/18821 Group A Streptococcus (PCR) Negative 09/06/18 0958 EKG / Imaging Imaging Chest CTA - There small right pleural effusion which is relatively unchanged. There is adjacent airspace consolidation the right lower lobe consistent with atelectasis and or infiltrate. Similar findings but to a lesser extent are identified in the left lung base Mildly dilated main pulmonary arteries and probably trunk suggestive of pulmonary arterial hypertension The contrast bolus to pulmonary arteries is somewhat limited. There is no evidence of obvious pulmonary emboli within the central or lobar pulmonary arteries although the segmental and subsegmental arterial branches are not ideally opacified Moderate coronary artery calcifications Incidental note of a spiculated appearing mass in the deep central left breast measuring approximately 3 cm in diameter. Correlation with mammography recommended Assessment and Plan Problems: (1) Pneumonia Status: Acute Assessment & Plan: She presented with worsening SOB for 5 days prior to admission. She has an increased O2 requirement and increased WOB. CTA of the chest showed a a RLL consolidation. BP/P stable. She was treated for an aspiration pneumonia with Unasyn about 2 months ago. She was started on Levofloxacin in the ER and that will be continued. (2) COPD exacerbation Status: Acute Assessment & Plan: She has been started on methylprednisolone, DuoNebs and prn albuterol. She is on BiPAP at night, chronically, but will use it now for comfort. No CO2 retention on ABG. (3) Perineal abscess Status: Acute Assessment & Plan: She has had an erythematous, 1cm, painful nodule on the left side of the perineal area. She gets skin fold sore frequently. I will ask Dr. Le to take a look to see if it needs any surgical drainage. (4) (HFpEF) heart failure with preserved ejection fraction Status: Chronic Assessment & Plan: BNP chronically elevated for last year. EF 60-65% without wall motion abnormalities on 07/11/18 echo. She chronically has LE edema partly from always sleeping in a recliner. Will check a BNP. (5) Type 2 diabetes mellitus Status: Chronic Assessment & Plan: Chronically on metformin and pioglitazone. Hold Metformin secondary to illness and receiving IV contrast. SSI level 2 to cover AC and HS glucose. (6) CAD (coronary artery disease) Status: Chronic Assessment & Plan: Continue ASA, atorvastatin, and metoprolol. (7) Hypertension Status: Chronic Assessment & Plan: Continue chronic metoprolol, losartan, and spironolactone with parameters. (8) Humeral shaft fracture Status: Chronic Assessment & Plan: Being managed conservatively by Dr. Berry. Continue brace. (9) Kidney stone on left side Status: Chronic Assessment & Plan: Followed by Dr. Herrera. She had a partial surgical ex traction on 08/21. Stent in place. There are plans for further extraction, per the patient. (10) Breast mass Status: Acute Assessment & Plan: 3cm spiculated mass on the left. Radiology recommends to correlate with mammography. Once she is feeling better from pneumonia, then can consider further evaluation. (11) Morbid obesity Status: Chronic Copies to: EVERARDO PARKS DO ; Venous Thromboembolism Antithrombotics Is Pt On Any Antithrombotics?: No Exam Sepsis Risk: No Definite Risk YANG CONN MD Sep 06, 2018 13:04
[2018-09-06] MEDS: ALBUTEROL/IPRATROPIUM 3 ML NEB NEB SCH ×2 (13:34→17:35)
[2018-09-06] MEDS: GABAPENTIN 300 MG CAP PO SCH ×2 (14:00→20:44)
[2018-09-06] MEDS: OXYBUTYNIN CHL 5 MG TAB PO SCH ×2 (14:02→20:37)
[2018-09-06] MEDS ORDERED: PROMETHAZINE 25 MG/ML 1 ML AMP IVP PRN (15:25)
[2018-09-06] MEDS ORDERED: diphenhydrAMINE 25 MG CAP PO PRN (15:25)
--- NOTE | 2018-09-06 15:27 | EKG ---
FACILITY: [facility] [place] PATIENT NAME: JENNIFER GANDARA : [id number] MR: [id number] V: [id number] EXAM DATE: ORDERING PHYSICIAN: VERONICA ROMAN TECHNOLOGIST: LIBIA Test Reason : FALL Blood Pressure : / mmHG Vent. Rate : 066 BPM Atrial Rate : 066 BPM P-R Int : 158 ms QRS Dur : 086 ms QT Int : 502 ms P-R-T Axes : 091 026 031 degrees QTc Int : 526 ms Normal sinus rhythm Prolonged QT No ST-T abnormalites, but baseline artifact in V4 Abnormal ECG When compared with ECG of 08-JUL-2018 10:48, Relatively unchanged Confirmed by YANG CONN ([id number]) on 09/06/2018 8:52:05 PM Referred By: KATE Confirmed By:YANG CONN
[2018-09-06] MEDS ORDERED: SUMA50TA35 PO (17:02)
[2018-09-06] MEDS ORDERED: ALBU2.5V36 INH (17:02)
[2018-09-06] MEDS: methylPREDNIS SUCC 125 MG/2ML IVP SCH (18:40)
[2018-09-06 18:57] VITALS: BP 156/77
[2018-09-06] MEDS: guaiFENesin/P-EPHED 1 EA TABCR PO SCH (20:37)
[2018-09-06] MEDS: ATORVASTATIN 10 MG TAB PO SCH (20:37)
[2018-09-06] MEDS: METOPROLOL TART 50 MG TAB PO SCH (20:45)
[2018-09-06] MEDS: ALLOPURINOL 300 MG TAB PO SCH (20:45)
[2018-09-06] MEDS: FLUoxetine HCL 20 MG CAP PO SCH (20:45)
[2018-09-06] MEDS: INSULIN HUM LISPRO 100 UN/ML 3 ML VIAL SUBQ PRN (20:48)
[2018-09-07] MEDS: methylPREDNIS SUCC 125 MG/2ML IVP SCH ×2 (00:48→07:20)
[2018-09-07 00:54] VITALS: BP 158/82
[2018-09-07] MEDS: ALBUTEROL/IPRATROPIUM 3 ML NEB NEB SCH ×4 (05:39→16:53)
[2018-09-07 06:54] LABS: PLATELET COUNT, AUTOMATED 297 K/uL (150-450)
[2018-09-07 08:10] VITALS: BP 162/74
[2018-09-07] MEDS: INSULIN HUM LISPRO 100 UN/ML 3 ML VIAL SUBQ PRN ×4 (08:29→21:29)
[2018-09-07] MEDS: LOSARTAN POTASSIUM 50 MG TAB PO SCH (08:30)
[2018-09-07] MEDS: guaiFENesin/P-EPHED 1 EA TABCR PO SCH ×2 (08:30→21:30)
[2018-09-07] MEDS: METOPROLOL TART 50 MG TAB PO SCH ×2 (08:30→21:29)
[2018-09-07] MEDS: SPIRONOLACTONE 25 MG TAB PO SCH (08:30)
[2018-09-07] MEDS: GABAPENTIN 300 MG CAP PO SCH ×3 (08:30→21:30)
[2018-09-07] MEDS: ASPIRIN 81 MG ENTERIC COATED PO SCH (08:30)
[2018-09-07] MEDS: PIOGLITAZONE HCL 15 MG TAB PO SCH (08:30)
[2018-09-07] MEDS: OXYBUTYNIN CHL 5 MG TAB PO SCH ×3 (08:30→21:30)
[2018-09-07] MEDS: ENOXAPARIN 40 MG/0.4ML SYR SC SCH (08:31)
--- NOTE | 2018-09-07 10:17 | General Surgery Consultation ---
History of Present Illness Requesting Physician Dr. He, hospitalist service Reason for Consult Left breast mass seen on CT, perineal abscess Chief Complaint Left breast mass on CT, perineal abscess History of Present Illness 58-year-old female, admitted to hospitalist service with pneumonia, complained on admission of pain in her buttock region and on examination was found to have what appeared to be an abscess. She's had multiple abscesses in her groins and buttock areas in the recent past. Also incidentally found on CT scan of her chest was a left breast mass. A previous CT obtained 2 months ago retrospectively showed the mass but it has grown since then. The patient's last mammogram was in 2009. Her sister is currently undergoing treatment for breast cancer. She is not aware of any other family history of breast cancer. She has not felt a lump in her breast. Regarding the pain in her perineal region, this has resolved overnight and she has noticed drainage. She thinks the abscess started draining overnight. She is now asymptomatic in this area. She also was dealing with kidney stones and is scheduled to have some sort of kidney stone procedure/surgery in 2 weeks. History Problems: (1) Hyperlipidemia Status: Chronic (2) Depression Status: Chronic (3) COPD (chronic obstructive pulmonary disease) Status: Chronic (4) Gout Status: Chronic (5) ENOCH (obstructive sleep apnea) Status: Chronic (6) Morbid obesity Status: Chronic (7) CAD (coronary artery disease) Status: Chronic (8) Hypertension Status: Chronic (9) Type 2 diabetes mellitus Status: Chronic (10) Kidney stone on left side Status: Chronic (11) Humeral shaft fracture Status: Chronic (12) (HFpEF) heart failure with preserved ejection fraction Status: Chronic Home Meds Reported Medications Sumatriptan Succinate (SUMATRIPTAN SUCCINATE) 50 Mg Tablet, 1 TAB PO PRN FOR MIGRAINE; MAY REPEAT DOSE EVERY 2 HOURS PRN MAX OF 4 DOSES IN 24 HOURS 09/06/18 Albuterol Sulfate 0.083% (ALBUTEROL SULFATE 0.083%) 2.5 Mg/3 Ml Vial.neb, 1 PKT INH QID PRN for WHEEZING, INH 09/06/18 Oxybutynin Chloride (OXYBUTYNIN CHLORIDE) 5 Mg Tablet, 5 MG PO TID, TAB PRN URINARY INCONTINENCE 09/06/18 Ibuprofen (IBUPROFEN) 600 Mg Tablet, 1 TAB PO Q6H PRN for PAIN, #20 TAB 08/21/18 Metoprolol Tartrate (METOPROLOL TARTRATE) 25 Mg Tablet, 12.5 MG PO BID, TAB 08/16/18 Aspirin (ASPIRIN) 81 Mg Tab.chew, 81 MG PO QDAY, TAB.CHEW 08/16/18 Tizanidine Hcl (TIZANIDINE HCL) 4 Mg Capsule, 4 MG PO Q6H PRN for SPASMS, CAPSULE 06/21/18 Fluoxetine Hcl (PROZAC) 40 Mg Capsule, 80 MG PO QAM, CAPSULE 06/21/18 Cetirizine Hcl (ZYRTEC) 10 Mg Capsule, 10 MG PO QDAY, CAPSULE 06/21/18 Diphenhydramine Hcl (DIPHENHYDRAMINE HCL) 25 Mg Capsule, 25 MG PO HS, #2 CAPSULE 06/21/18 Tramadol Hcl (TRAMADOL HCL) 50 Mg Tablet, 1-2 TAB PO Q6H PRN for PAIN 06/20/18 Atorvastatin Calcium (ATORVASTATIN CALCIUM) 20 Mg Tablet, 1 TAB PO HS 06/20/18 Acetaminophen (TYLENOL EXTRA STRENGTH) 500 Mg Tablet, 500 MG PO TID, TAB 12/13/17 Metformin Hcl (METFORMIN HCL) 500 Mg Tablet, 2 TAB PO BID, TAB 04/04/17 Losartan Potassium (LOSARTAN POTASSIUM) 50 Mg Tablet, 1 TAB PO QDAY 12/20/16 Pioglitazone Hcl (PIOGLITAZONE HCL) 45 Mg Tablet, 45 MG PO QDAY 12/20/16 Guaifenesin/Dextromethorphan (MUCINEX DM ER 600-30 MG TABLET) 1 Each Tab.er.12h, 1 EACH PO TID 05/17/16 Spironolactone (Aldactone) 50 Mg Tablet, 50 MG PO DAILY, 0 Refills 08/26/11 Oxygen (Oxygen) 2 L Inha, 4 L INH DAILY, 0 Refills At Night With BiPap 03/10/11 Gabapentin (Neurontin) 300 Mg Cap, 600 MG PO TID, 0 Refills 03/10/11 Allopurinol (Zyloprim) 300 Mg Tab, 300 MG PO HS, 0 Refills 03/10/11 Albuterol (Proventil Inhaler) 17 Gm Inh, 1 PUFF INH Q4-6H PRN for SHORTNESS OF BREATH, 0 Refills 03/10/11 Discontinued Reported Medications Phenazopyridine Hcl (PHENAZOPYRIDINE HCL) 200 Mg Tablet, 200 MG PO TID PRN for DISCOMFORT, #30 TAB 08/21/18 Oxybutynin Chloride (OXYBUTYNIN CHLORIDE ER) 15 Mg Tab.er.24, 15 MG PO QDAY, #30 TAB.SA 08/21/18 Docusate Sodium (COLACE) 100 Mg Capsule, 100 MG PO BID, #30 CAPSULE 08/21/18 Discontinued Scripts Albuterol Sulfate 0.083% (ALBUTEROL SULFATE 0.083%) 2.5 Mg/3 Ml Vial.neb, 2.5 MG INH Q4-6H for cough, #1 BOX 0 Refills Prov:GRETA MARCANO MD 05/04/16 Allergies: Coded Allergies: egg (Verified Allergy, Mild, 09/01/18) Family History: Bone cancer FATHER, FH: brain tumor MOTHER, FH: breast cancer BROTHER OR SISTER FH: heart disease FATHER, FH: hepatic cirrhosis MOTHER, FH: stomach cancer MOTHER, Review of Systems All Systems Reviewed/Normal: Yes, Except as Noted Respiratory: Shortness of Breath Exam Vital Signs Vital Signs Date Time Temp Pulse Resp B/P (MAP) Pulse Ox O2 Delivery O2 Flow Rate FiO2 09/07/18 09:07 71 16 09/07/18 09:02 95 Bi-PAP 4.0 09/07/18 08:10 97.7 162/74 (103) 09/06/18 11:41 60.0 General Appearance: Alert, Awake, No Acute Distress, Afebrile, Other (she is wearing nasal BiPAP during this encounter) Chest: Other (I do not feel a palpable mass in her left breast separate from her breast tissue) Lymph: No Adenopathy (no obvious axillary or supraclavicular lymphadenopathy) Extremities: Warm, Edema Integumentary: Other (the area of abscess on her perineum is draining. There does not appear to be any residual abscess. There is no tenderness to palpation.) Medical Decision Making Data Points Result Diagram: 09/07/18 0557 09/07/18 0557 Assessment and Plan Problems: (1) Breast mass, left Status: Chronic Assessment & Plan: 09/07/18: This mass is certainly concerning for a neoplasm, especially given her family history and its growth over 2 months. She has not had any mammograms for 9 years. I recommend, after the pneumonia has resolved that she get a mammogram and ultrasound as well as a biopsy of this mass. I will have my clinic orchestrate this as an outpatient. I will then see her back to discuss these results and if this is cancer I will discuss her surgical options to begin treating this. I have explained the radiologic findings and my opinion and proposed plan with the patient in detail. She seems to understand and she seems agreeable with this plan. (2) Perineal abscess, superficial Status: Resolved Assessment & Plan: 09/07/18: This has drained on its own overnight. She is now asymptomatic. I recommend no further intervention for this other than warm compresses and observation. Condition Stable Time Spent: < 30 min Venous Thromboembolism Antithrombotics Is Pt On Any Antithrombotics?: No ERENDIRA KRISHNA MD Sep 07, 2018 10:17
[2018-09-07] MEDS ORDERED: IPRA3AMP10 IH (10:27)
[2018-09-07] MEDS: ACETAMINOPHEN 500 MG TAB PO PRN ×2 (10:28→23:40)
[2018-09-07] MEDS: traMADol 50 MG TAB PO PRN ×2 (10:29→19:22)
--- NOTE | 2018-09-07 10:29 | Medical Nutrition Therapy ---
Nutrition Anthropometrics Height (Inches): 67.00 Height (Calculated Centimeters: 170.970678 Weight (Pounds): 266 Weight (Calculated Kilograms): 120.882 BMI: 41.7 Christoph Nutrition Score: Adequate Christoph Nutrition Risk Score: 16 Dietary Referral Nutrition Risk Factors: Nutrition Risk Comment: Physical Findings Physical Appearance: Morbidly Obese 40+ Skin Appearance Skin Appearance: Edema Edema Location Modifier: Both Edema Location: Leg Type of Edema: Degree of Edema: 1+ Gastrointestinal Symptoms GI Symtoms: Nausea Tube Present: Bowel Sounds: Recent Bowel Pattern: Stool Characteristics: Nutrition/Food History Special Diet Prior Admit (pt states follows diabetic diet at home) Nutritional Diagnosis Nutritional Risk Acuity 2: Abcess/Non-Healing Wound Nutritional Risk Acuity 3: COPD Unstable Nutritional Risk Acuity 4: Modified Diet Past Medical History: Allergic to eggs. T2DM, COPD Nutritional Acuity: 2-Moderate Nutrition Diagnosis: Increased Nutrient Needs Nutrition Etiology: Physiological Causes Nutrition Problem/Etiology/Sym: AEB perianal abscess and humeral fx Adjusted Energy Requirement Re: 2400 (IJ adj for obesity) Protein Requirement: 95 (1.3gm/kg IBW) Fluid Requirement: 2400 (1ml/kcal) Diet Type: Diabetic Nutrition Intervention: Cont diet as ordered, Encourage intake Drug: Diuretics Nutritional Education Nutrition Education Topic: Diabetic Nutrition Learning Readiness: Not Interested Response to Teaching: Patient Refused Nutrition Counseling: Pt states follows diet for diabetes at home. Was seen in [facility] in 2007. Pt states BG range 120-130's with last A1C of 6.8. Pt declined eduction at this time and not interested in f/u with diabetes clinic. Nutrition Monitoring & Eval Nutrition Goals: Eat 75-100% Meal RD Patient Assessment Time: [address] Assessment Type: RD Assessment Patient Nutrition Acuity: 2-Moderate Follow Up Date: Sep 12, 2018 Nutritional Comment: 09/07 Pt admitted for pneumonia. Pt has increased nutritional needs with perianal abscess and humeral fx. Pt on K+ sparing duiretic. Pt on diabetic diet. Refused first meal in faciliyt but pt stated she ate well at breakfast this am. RBG range 198-254. Alb 4.1, K+ 4.7. Will cont to monitor and encourage healthy intake. RUBENS CASEY Sep 07, 2018 10:29
[2018-09-07] MEDS: predniSONE 20 MG TAB PO SCH (10:55)
--- NOTE | 2018-09-07 10:55 | Antimicrobial Stewardship ---
Antimicrobial Time Out Antimicrobial Stewardship MD Service: Hospitalist Indications: CAP Antimicrobial Used LEVAQUIN 500MG IV - TRANSITIONED TO PO 09/07/18 Start Date: Sep 06, 2018 Culture Results: N/A Eligible for PO Conversion Eligable for PO Conversion: Yes Comments Comments PATIENT ADMITTED FOR PNEUMONIA - STARTED ON LEVAQUIN 500MG IV, TRANSITIONED TO LEVAQUIN 500MG PO. CONTINUE LEVAQUIN FOR MIN 5 DAYS TOTAL TREATMENT GATRH IGLESIAS Sep 07, 2018 10:55
[2018-09-07] MEDS ORDERED: LEVOFLOXACIN 750 MG TAB PO SCH (11:00)
[2018-09-07 11:13] VITALS: BP 146/70
[2018-09-07] MEDS ORDERED: LEVOFLOXACIN/D5W*500 MG/100 ML 100 ML IVPB SCH (11:30)
--- NOTE | 2018-09-07 13:16 | Hospitalist Progress Note ---
Subjective Progress Notes Subjective LUCIA overnight, without new complaint this am. Nearing baseline anticipate discharge tomorrow. Patient Complains of: Respiratory: Shortness of Breath; No: Cough, Congestion, Wheezing Physical Exam Vital Signs Date Time Temp Pulse Resp B/P (MAP) Pulse Ox O2 Delivery O2 Flow Rate FiO2 09/07/18 11:13 98.3 69 24 146/70 (95) 96 CPAP 09/07/18 09:02 4.0 09/06/18 11:41 60.0 Intake and Output 09/07/18 07:02 Intake Total 320 ml Output Total 30 ml Balance 290 ml Intake Oral 220 ml IV Total 100 ml Output Emesis 30 ml # Voids 11 General Appearance: Alert, Awake, No Acute Distress, Afebrile Neuro: No Gross deficits Cardiovascular: Normal Rhythm & Peripheral Pulses Respiratory: No Respiratory Distress GI: Soft and Non-Tender Extremities: Soft and Non Tender, Warm, Pulses, Perfused Result Diagram: 09/07/18 0557 09/07/18 05 Assessment and Plan Problems: (1) Pneumonia Status: Acute Assessment & Plan: She presented with worsening SOB for 5 days prior to admis leanne. CTA of the chest showed a a RLL consolidation. BP/P stable. She was treated for an aspiration pneumonia with Unasyn about 2 months ago. She was started on Levofloxacin in the ER and that will be continued. Near her baseline respiratory status. (2) COPD exacerbation Status: Acute Assessment & Plan: She has been started on steroid, DuoNebs and prn albuterol. She is on BiPAP at night, chronically, but will use it now for comfort. No CO2 retention on ABG. (3) Perineal abscess Status: Acute Assessment & Plan: She has had an erythematous, 1cm, painful nodule on the left side of the perineal area. She gets skin fold sore frequently. Dr Le to follow outpatient, area spontaneously drained. (4) (HFpEF) heart failure with preserved ejection fraction Status: Chronic Assessment & Plan: BNP chronically elevated for last year. EF 60-65% without wall motion abnormalities on 07/11/18 echo. She chronically has LE edema partly from always sleeping in a recliner. BNP near her normal level. (5) Type 2 diabetes mellitus Status: Chronic Assessment & Plan: Chronically on metformin and pioglitazone. Hold Metformin secondary to illness and receiving IV contrast. SSI level 2 to cover AC and HS glucose. (6) CAD (coronary artery disease) Status: Chronic Assessment & Plan: Continue ASA, atorvastatin, and metoprolol. (7) Hypertension Status: Chronic Assessment & Plan: Continue chronic metoprolol, losartan, and spironolactone with parameters. (8) Humeral shaft fracture Status: Chronic Assessment & Plan: Being managed conservatively by Dr. Berry. Continue brace. (9) Kidney stone on left side Status: Chronic Assessment & Plan: Followed by Dr. Herrera. She had a partial surgical extraction on 08/21. Stent in place. There are plans for further extraction, per the patient. (10) Breast mass Status: Acute Assessment & Plan: 3cm spiculated mass on the left. Radiology recommends to correlate with mammography. Once she is feeling better from pneumonia, then can consider further evaluation. Plan is mammogram and US guided biopsy when outpatient. (11) Morbid obesity Status: Chronic Exam Sepsis Risk: No Definite Risk TAMAYO HOA RAY DO Sep 07, 2018 13:16
[2018-09-07 14:58] VITALS: BP 156/73
[2018-09-07 21:13] VITALS: BP 143/67
[2018-09-07] MEDS: ATORVASTATIN 10 MG TAB PO SCH (21:30)
[2018-09-07] MEDS: ALLOPURINOL 300 MG TAB PO SCH (21:30)
[2018-09-07] MEDS: FLUoxetine HCL 20 MG CAP PO SCH (21:30)
[2018-09-07 23:41] VITALS: BP 151/68
[2018-09-08] MEDS: traMADol 50 MG TAB PO PRN (03:43)
[2018-09-08] MEDS: ALBUTEROL/IPRATROPIUM 3 ML NEB NEB SCH ×2 (05:39→09:10)
[2018-09-08 07:22] VITALS: BP 135/70
[2018-09-08] MEDS: INSULIN HUM LISPRO 100 UN/ML 3 ML VIAL SUBQ PRN (08:35)
[2018-09-08] MEDS ORDERED: LEVO750T27 PO (08:56)
[2018-09-08] MEDS ORDERED: PRED20TA6 PO (08:56)
[2018-09-08] MEDS ORDERED: predniSONE 20 MG TAB PO SCH (09:00)
[2018-09-08] MEDS: SPIRONOLACTONE 25 MG TAB PO SCH (09:00)
[2018-09-08] MEDS: LOSARTAN POTASSIUM 50 MG TAB PO SCH (09:00)
--- NOTE | 2018-09-08 09:03 | Hospitalist Depart ---
Discharge Summary Reason for Hosp/Final Diag: (1) Pneumonia Status: Acute Hospital Course & Plan: She presented with worsening SOB for 5 days prior to admission. CTA of the chest showed a a RLL consolidation. BP/P stable. She was treated for an aspiration pneumonia with Unasyn about 2 months ago. She was started on Levofloxacin in the ER and that will be continued to complete 5 days therapy. (2) Breast mass Status: Acute Hospital Course & Plan: 3cm spiculated mass on the left. Radiology recommends to correlate with mammography. Once she is feeling better from pneumonia, then can consider further evaluation. Plan is mammogram and US guided biopsy when outpatient working with Dr Le. (3) COPD exacerbation Status: Acute Hospital Course & Plan: She has been started on steroid, DuoNebs and prn albuterol. She is on BiPAP at night, chronically, but will use it now for co mfort. No CO2 retention on ABG. (4) Perineal abscess Status: Acute Hospital Course & Plan: She has had an erythematous, 1cm, painful nodule on the left side of the perineal area. She gets skin fold sore frequently. Dr Le to follow outpatient, area spontaneously drained. (5) (HFpEF) heart failure with preserved ejection fraction Status: Chronic Hospital Course & Plan: BNP chronically elevated for last year. EF 60-65% without wall motion abnormalities on 07/11/18 echo. She chronically has LE edema partly from always sleeping in a recliner. BNP near her normal level. (6) Type 2 diabetes mellitus Status: Chronic Hospital Course & Plan: Chronically on metformin and pioglitazone. (7) CAD (coronary artery disease) Status: Chronic Hospital Course & Plan: Continue ASA, atorvastatin, and metoprolol. (8) Hypertension Status: Chronic Hospital Course & Plan: Continue chronic metoprolol, losartan, and spironolactone with parameters. (9) Humeral shaft fracture Status: Chronic Hospital Course & Plan: Being managed conservatively by Dr. Berry. Continue brace. (10) Kidney stone on left side Status: Chronic Hospital Course & Plan: Followed by Dr. Herrera. She had a partial surgical extraction on 08/21. Stent in place. There are plans for further extraction, per the patient. (11) Morbid obesity Status: Chronic Departure Weight (Pounds): 266 Weight (Ounces): 8.0 Result Diagram: 7/4/19 0557 09/07/18 0557 Condition: Improved Discharge: Home Discharge Instructions Home Meds Active Scripts Prednisone (PREDNISONE) 20 Mg Tablet, 40 MG PO QDAY for 3 Days, #6 TAB Prov:HOA SUAREZ DO 09/08/18 Levofloxacin 750 Mg Tab (LEVOFLOXACIN 750 MG TAB) 750 Mg Tablet, 750 MG PO QDAY@1100 for 3 Days, #3 TAB Prov:HOA SUAREZ DO 09/08/18 Ipratropium/Albuterol Sulfate (IPRAT-ALBUT 0.5-3(2.5) MG/3 ML) 3 Ml Ampul.neb, 3 ML IH Q6H PRN for WHEEZING for 30 Days, #60 DOSE-PACK Prov:HOA SUAREZ DO 09/07/18 Reported Medications Sumatriptan Succinate (SUMATRIPTAN SUCCINATE) 50 Mg Tablet, 1 TAB PO PRN FOR MIGRAINE; MAY REPEAT DOSE EVERY 2 HOURS PRN MAX OF 4 DOSES IN 24 HOURS 09/06/18 Albuterol Sulfate 0.083% (ALBUTEROL SULFATE 0.083%) 2.5 Mg/3 Ml Vial.neb, 1 PKT INH QID PRN for WHEEZING, INH 09/06/18 Oxybutynin Chloride (OXYBUTYNIN CHLORIDE) 5 Mg Tablet, 5 MG PO TID, TAB PRN URINARY INCONTINENCE 09/06/18 Metoprolol Tartrate (METOPROLOL TARTRATE) 25 Mg Tablet, 12.5 MG PO BID, TAB 08/16/18 Aspirin (ASPIRIN) 81 Mg Tab.chew, 81 MG PO QDAY, TAB.CHEW 08/16/18 Fluoxetine Hcl (PROZAC) 40 Mg Capsule, 80 MG PO QAM, CAPSULE 06/21/18 Cetirizine Hcl (ZYRTEC) 10 Mg Capsule, 10 MG PO QDAY, CAPSULE 06/21/18 Diphenhydramine Hcl (DIPHENHYDRAMINE HCL) 25 Mg Capsule, 25 MG PO HS, #2 CAPSULE 06/21/18 Tramadol Hcl (TRAMADOL HCL) 50 Mg Tablet, 1-2 TAB PO Q6H PRN for PAIN 06/20/18 Atorvastatin Calcium (ATORVASTATIN CALCIUM) 20 Mg Tablet, 1 TAB PO HS 06/20/18 Acetaminophen (TYLENOL EXTRA STRENGTH) 500 Mg Tablet, 500 MG PO TID, TAB 12/13/17 Metformin Hcl (METFORMIN HCL) 500 Mg Tablet, 2 TAB PO BID, TAB 04/04/17 Losartan Potassium (LOSARTAN POTASSIUM) 50 Mg Tablet, 1 TAB PO QDAY 12/20/16 Pioglitazone Hcl (PIOGLITAZONE HCL) 45 Mg Tablet, 45 MG PO QDAY 12/20/16 Guaifenesin/Dextromethorphan (MUCINEX DM ER 600-30 MG TABLET) 1 Each Tab.er.12h, 1 EACH PO TID 05/17/16 Spironolactone (Aldactone) 50 Mg Tablet, 50 MG PO DAILY, 0 Refills 08/26/11 Oxygen (Oxygen) 2 L Inha, 4 L INH DAILY, 0 Refills At Night With BiPap 03/10/11 Gabapentin (Neurontin) 300 Mg Cap, 600 MG PO TID, 0 Refills 03/10/11 Allopurinol (Zyloprim) 300 Mg Tab, 300 MG PO HS, 0 Refills 03/10/11 Albuterol (Proventil Inhaler) 17 Gm Inh, 1 PUFF INH Q4-6H PRN for SHORTNESS OF BREATH, 0 Refills 03/10/11 Discontinued Reported Medications Ibuprofen (IBUPROFEN) 600 Mg Tablet, 1 TAB PO Q6H PRN for PAIN, #20 TAB 08/21/18 Tizanidine Hcl (TIZANIDINE HCL) 4 Mg Capsule, 4 MG PO Q6H PRN for SPASMS, CAPSULE 06/21/18 Phenazopyridine Hcl (PHENAZOPYRIDINE HCL) 200 Mg Tablet, 200 MG PO TID PRN for DISCOMFORT, #30 TAB 08/21/18 Oxybutynin Chloride (OXYBUTYNIN CHLORIDE ER) 15 Mg Tab.er.24, 15 MG PO QDAY, #30 TAB.SA 08/21/18 Docusate Sodium (COLACE) 100 Mg Capsule, 100 MG PO BID, #30 CAPSULE 08/21/18 Discontinued Scripts Albuterol Sulfate 0.083% (ALBUTEROL SULFATE 0.083%) 2.5 Mg/3 Ml Vial.neb, 2.5 MG INH Q4-6H for cough, #1 BOX 0 Refills Prov:GRETA MARCANO MD 05/04/16 Special Instructions: You were started on levofloxacin and prednisone, for lung infection. Take these as directed until gone. A new prescription for Duoneb was sent to the pharmacy to use as directed when needed. Follow up with Dr Le to continue work-up of breast mass noted on CT. Copies to: EVERARDO PARKS DO ; Venous Thromboembolism Antithrombotics Is Pt On Any Antithrombotics?: No HOA SUAREZ DO Sep 08, 2018 09:03
[2018-09-08 09:22] VITALS: BP 121/59
[2018-09-08] MEDS: METOPROLOL TART 50 MG TAB PO SCH (09:27)
[2018-09-08] MEDS: predniSONE 20 MG TAB PO SCH (09:27)
[2018-09-08] MEDS: OXYBUTYNIN CHL 5 MG TAB PO SCH (09:27)
[2018-09-08] MEDS: GABAPENTIN 300 MG CAP PO SCH (09:27)
[2018-09-08] MEDS: PIOGLITAZONE HCL 15 MG TAB PO SCH (09:27)
[2018-09-08] MEDS: ENOXAPARIN 40 MG/0.4ML SYR SC SCH (09:28)
[2018-09-08] MEDS: ASPIRIN 81 MG ENTERIC COATED PO SCH (09:28)
[2018-09-08] MEDS: guaiFENesin/P-EPHED 1 EA TABCR PO SCH (09:28)
[2018-09-08] MEDS: ACETAMINOPHEN 500 MG TAB PO PRN (09:39)
== END 2018-09-08 11:00 | disposition home or self-care (01) | DRG 194 ==
LOC: ER 08:32 → MED 11:05
PROVIDERS: ADMIT Internal Medicine; ATTEND Internal Medicine
DX: J18.9 Pneumonia, unspecified organism (principal); J44.0 Chronic obstructive pulmonary disease with (acute) lower respiratory infection; J44.1 Chronic obstructive pulmonary disease with (acute) exacerbation; Z68.41 Body mass index [BMI] 40.0-44.9, adult; L02.215 Cutaneous abscess of perineum; I50.32 Chronic diastolic (congestive) heart failure; I25.10 Atherosclerotic heart disease of native coronary artery without angina pectoris; E66.01 Morbid (severe) obesity due to excess calories; N63.20 Unspecified lump in the left breast, unspecified quadrant; I11.0 Hypertensive heart disease with heart failure; E11.9 Type 2 diabetes mellitus without complications; G47.33 Obstructive sleep apnea (adult) (pediatric); N20.0 Calculus of kidney; E78.5 Hyperlipidemia, unspecified; M84.422D Pathological fracture, left humerus, subsequent encounter for fracture with routine healing; M1A.9XX0 Chronic gout, unspecified, without tophus (tophi); Z87.891 Personal history of nicotine dependence; Z79.84 Long term (current) use of oral hypoglycemic drugs
CPT/HCPCS: 36415; 36416; 36600; 71275; 81001; 82040; 82247; 82310; 82374; 82435; 82565; 82803; 82947; 82948; 83880; 84075; 84132; 84155; 84295; 84450; 84460; 84484; 84520; 85025; 87653; 93005; 94640; 94660; 96365; 96375; 99284; J1650; J1956; J2550; J2930; J7050; J7512; Q9967

== ENCOUNTER → 2018-09-06 | Outpatient (CLI) | payer MEDICARE ==
[2018-08-22 15:34] VITALS: BMI 44.0
[~2018-09-06] MED LIST changes: +IPRA3AMP10 IH; +LEVO750T27 PO; +OXYB5TAB86 PO; +SUMA50TA35 PO
== END ==
LOC: AMB 07:29
PROVIDERS: ATTEND Nurse Practitioner
DX: R07.81 Pleurodynia (principal); R10.11 Right upper quadrant pain; M54.2 Cervicalgia; W19.XXXA Unspecified fall, initial encounter
CPT/HCPCS: A0425; A0427

== ENCOUNTER → 2018-09-20 | Outpatient (CLI) | payer MEDICARE ==
[2018-08-22 15:34] VITALS: BMI 44.0
[~2018-09-20] MED LIST changes: +IPRA3AMP10 IH; +LEVO750T27 PO; +OXYB5TAB86 PO; +SUMA50TA35 PO
--- NOTE | 2018-09-20 15:41 | RADIOLOGY IMAGING REPORT ---
FACILITY: [facility] PATIENT NAME: Dimas Max : 1960 MR: [id number] V: [id number] EXAM DATE: ORDERING PHYSICIAN: EVERARDO PARKS TECHNOLOGIST: Location: [facility] [place] Patient: Dimas Max : 1960 Visit/Account:[id number] Date of Sevice: 09/20/2018 Chest with lateral, two views. HISTORY: Pneumonia, right hip pain after fall. COMPARISON: 09/01/2018. The heart is mildly enlarged. The mediastinum is not widened. Pulmonary vessels are mildly engorged . Interstitial markings are mildly thickened bilaterally. No focal pulmonary consolidation. Mild r ight lateral pleural thickening is unchanged. The posterior costophrenic sulci are minimally blunted . No acute bony abnormalities. IMPRESSION: Mild cardiomegaly and mild pulmonary vascular engorgement without vianey congestive heart failure. Small bilateral pleural effusions and/or thickening, unchanged. Report Dictated By: Pete Justice MD at 09/20/2018 3:31 PM Report E-Signed By: Pete Justice MD at 09/20/2018 3:34 PM WSN:[email or web address]
--- NOTE | 2018-09-20 15:45 | RADIOLOGY IMAGING REPORT ---
FACILITY: [facility] - [place] PATIENT NAME: Dimas Max : 1960 MR: [id number] V: [id number] EXAM DATE: ORDERING PHYSICIAN: EVERARDO PARKS TECHNOLOGIST: Location: [facility] Patient: Dimas Max : 1960 Visit/Account:[id number] Date of Sevice: 09/20/2018 AP pelvis, one view, and right hip, two views. HISTORY: Right hip pain after fall. COMPARISON: CT scan 06/20/2018. Three images were obtained. The femoral heads have been resected and replaced with prosthetic compon ents. The acetabular components have a normal relationship to the bony pelvis. The femoral stems are unremarkable. The inferior aspect of the left femoral stem was not completely included. A stent pro jects on the left ureter and bladder. Degenerative and postsurgical changes are present in the lower lumbar spine. No acute fractures. IMPRESSION: Unremarkable bilateral hip replacements. Report Dictated By: Pete Justice MD at 09/20/2018 3:34 PM Report E-Signed By: Pete Justice MD at 09/20/2018 3:37 PM WSN:[email or web address]
== END ==
LOC: RAD 13:19
PROVIDERS: ATTEND Family Medicine
DX: I51.7 Cardiomegaly (principal); J90 Pleural effusion, not elsewhere classified; Z96.643 Presence of artificial hip joint, bilateral
CPT/HCPCS: 71046

== ENCOUNTER → 2018-09-20 | Outpatient (CLI) | payer MEDICARE ==
[2018-08-22 15:34] VITALS: BMI 44.0
--- NOTE | 2018-09-26 10:05 | RADIOLOGY IMAGING REPORT ---
FACILITY: [facility] [place] PATIENT NAME: JENNIFER GANDARA : [id number] MR: [id number] V: [id number] EXAM DATE: [id number] ORDERING PHYSICIAN: ERENDIRA KRISHNA TECHNOLOGIST: Vania Reyna PROCEDURE:BILATERAL DIAGNOSTIC DIGITAL MAMMOGRAM WITH CAD ASSISTED INTERPRETATION & 3D TOMOSYNTHESIS REASON FOR STUDY: Left breast mass, Left humerus fracture. FAMILY HISTORY OF BREAST CANCER: BREAST PROCEDURES/TREATMENTS: COMPARISON STUDIES: Mammogram 02/09/06 & chest CTA scan 09/06/18 MAMMOGRAM VIEWS OBTAINED: Bilateral 2D & 3D full field CC & MLO projections BREAST DENSITY: Scattered fibroglandular densities are present in both breasts. MAMMOGRAM FINDINGS: Benign appearing asymmetries are scattered bilaterally. Acute benign appearing calcifications are scattered bilaterally. The posterior aspect of the Left breast could not be completely included because of difficulties positioning the patient. ULTRASOUND LEFT BREAST AREA SCANNED: ULTRASOUND FINDINGS: An indistinct slightly heterogeneous hypoechoic area measuring 3 x 2 x 2cm is present in the Left upper outer quadrant, 7cm from the nipple, probably corresponding to the CT abnormality. The lesion fades into surrounding fibroglandular tissue. The area demonstrates mild elastographic abnormalities. DIAGNOSTIC CATEGORY 4--SUSPICIOUS FOR MALIGNANCY. RECOMMENDATIONS: ULTRASOUND-GUIDED CORE BIOPSY: LEFT BREAST. IMPRESSION: BIRADS 4: Suspicious for malignancy Suspicious abnormality. Recommend Ultrasound guided core biopsy of Left breast lesion. Dictated by: Pete Justice M.D. on 09/20/2018 at 15:47 Transcribed by: MYCHAL on 09/21/2018 at 13:33 Approved by: Angelica Elaine M.D. on 09/26/2018 at 10:01 [facility]
--- NOTE | 2018-09-26 10:05 | RADIOLOGY IMAGING REPORT ---
[place] [facility] [place] NAME: JENNIFER GANDARA : [id number] MR: [id number] V: [id number] EXAM DATE: [id number] ORDERING PHYSICIAN: ERENDIRA KRISHNA TECHNOLOGIST: Familia Mayes RDMS, RDARSEN PROCEDURE:BILATERAL DIAGNOSTIC DIGITAL MAMMOGRAM WITH CAD ASSISTED INTERPRETATION & 3D TOMOSYNTHESIS REASON FOR STUDY: Left breast mass, Left humerus fracture. FAMILY HISTORY OF BREAST CANCER: BREAST PROCEDURES/TREATMENTS: COMPARISON STUDIES: Mammogram 02/09/06 & chest CTA scan 09/06/18 MAMMOGRAM VIEWS OBTAINED: Bilateral 2D & 3D full field CC & MLO projections BREAST DENSITY: Scattered fibroglandular densities are present in both breasts. MAMMOGRAM FINDINGS: Benign appearing asymmetries are scattered bilaterally. Acute benign appearing calcifications are scattered bilaterally. The posterior aspect of the Left breast could not be completely included because of difficulties positioning the patient. ULTRASOUND LEFT BREAST AREA SCANNED: ULTRASOUND FINDINGS: An indistinct slightly heterogeneous hypoechoic area measuring 3 x 2 x 2cm is present in the Left upper outer quadrant, 7cm from the nipple, probably corresponding to the CT abnormality. The lesion fades into surrounding fibroglandular tissue. The area demonstrates mild elastographic abnormalities. DIAGNOSTIC CATEGORY 4--SUSPICIOUS FOR MALIGNANCY. RECOMMENDATIONS: ULTRASOUND-GUIDED CORE BIOPSY: LEFT BREAST. IMPRESSION: BIRADS 4: Suspicious for malignancy Suspicious abnormality. Recommend Ultrasound guided core biopsy of Left breast lesion. Dictated by: Pete Justice M.D. on 09/20/2018 at 15 Approved by: Angelica Elaine M.D. on 09/26/2018 at 10:01 [facility]
== END ==
LOC: MAMO 00:31
PROVIDERS: ATTEND Surgery
DX: N63.20 Unspecified lump in the left breast, unspecified quadrant (principal); Z80.3 Family history of malignant neoplasm of breast
CPT/HCPCS: 77062; 77066

== ENCOUNTER 2018-10-09 02:14 | Day surgery (SDC) | payer MEDICARE ==
[2018-08-22 15:34] VITALS: Ht 170.2 cm; Wt 122.5 kg
[2018-10-03 16:20] LABS: PLATELET COUNT, AUTOMATED 385 K/uL (150-450)
[2018-10-03 16:37] LABS: INR 1.07
--- NOTE | 2018-10-06 14:33 | HISTORY AND PHYSICAL ---
DATE OF ADMISSION: October 09, 2018 CHIEF COMPLAINT Left kidney stones. HISTORY OF PRESENT ILLNESS The patient is a 57-year-old white female with multiple medical problems who originally experienced gross painless hematuria. A CT scan at that time revealed a 15 x 14 x 11 mm left renal pelvis stone. The patient subsequently underwent left semirigid ureteroscopy with partial holmium fragmentation of her stone on August 21, 2018. Approximately 80% of the stone was fragmented. However, she begin to experience some respiratory difficulty at the end of the case, therefore it was terminated. She was left with a left ureteral stent. The plan is to return her for completion of the stone treatment with ureteroscopy. PAST MEDICAL HISTORY * Gout. * Degenerative disc disease. * Coronary artery disease status post UT. * Hypercholesterolemia. * Hypertension. * COPD. * Obstructive sleep apnea requiring BiPAP. * Gastroesophageal reflux disease. * Noninsulin dependent diabetes. * Obesity. * Depression. * Degenerative joint disease. * Mild congestive heart failure. PAST SURGICAL HISTORY * x2. * Tonsillectomy. * Carpal tunnel release. * Cardiac stenting x3 in 2011. * Hysterectomy. * Back surgery. * Right knee arthroscopy. * Right rotator cuff repair. * Bilateral hip replacements. * Bedside I and D of right thigh abscess. * Left ureteroscopy with stent placement August 21, 2018. ALLERGIES No known drug allergies. CURRENT MEDICATIONS * Allopurinol. * Proventil. * Aspirin. * Lipitor. * Zyrtec. * Insulin. * Colace. * Prozac. * Advair inhaler. * Neurontin. * Humalog. * Cozaar. * Glucophage. * Lopressor. * MiraLAX. * Spironolactone. * Ultram. SOCIAL HISTORY The patient is . She lives in [place], [place]. She has a past smoking history. FAMILY HISTORY Noncontributory. REVIEW OF SYSTEMS The patient is currently without shortness of breath, productive cough, fever, chills, gross hematuria, or nausea and vomiting. PHYSICAL EXAMINATION GENERAL: The patient is an obese white female in no acute distress. HEENT: Normocephalic, atraumatic. CHEST: Clear to auscultation bilaterally. CARDIOVASCULAR: Regular rate and rhythm. ABDOMEN: Soft, nontender, no masses are palpated. : Deferred to the OR. EXTREMITIES: Without clubbing, cyanosis, or edema. NEURO: Nonfocal. ASSESSMENT This is a 57-year-old white female with multiple medical conditions, who is status post partial laser lithotripsy by retrograde ureteroscopy approximately 6 weeks ago, now returning for follow up treatment. MELISSAD
[2018-10-09] VITALS (13 sets, daily range): BP systolic 143–183; BP diastolic 55–88
[~2018-10-09] VITALS: Ht 170.2 cm; Wt 122.5 kg
[~2018-10-09 02:14] MED LIST changes: +ceFAZolin(*) 1 GM VIAL 3 GM in NS(*) 0.9% 100 ML BAG 100 ML IVPB ONE
[2018-10-09] MEDS ORDERED: LIDOCAINE MPF 1% 5 ML VIAL ONE (06:01)
[2018-10-09] MEDS ORDERED: ONDANSETRON 4 MG/2 ML VIAL ONE ×2 (06:01→09:42)
[2018-10-09] MEDS ORDERED: PROPOFOL EMUL(*) 10MG/ML 20 ML 40 ML ONE (06:01)
[2018-10-09] MEDS ORDERED: DEXAMETHASONE SOD 4 MG/ML VIAL ONE (06:02)
[2018-10-09] MEDS ORDERED: fentaNYL CITR 100 MCG/2 ML AMP ONE ×2 (06:03→08:52)
[2018-10-09] MEDS ORDERED: LIDOCAINE/SOD BICARB 8.4% SYR ONE (06:09)
[2018-10-09] MEDS ORDERED: BELLADONNA ALK/OPIUM 60MG SUPP PR ONE (06:45)
[2018-10-09] MEDS ORDERED: IOPAMIDOL 20 ML VIAL IT ONE (06:45)
[2018-10-09] MEDS ORDERED: ceFAZolin(*) 1 GM VIAL 3 GM in NS(*) 0.9% 100 ML BAG 100 ML IVPB ONE (07:40)
[2018-10-09] MEDS ORDERED: NORMOSOL R SOLN(*) 1000 ML BAG 1,000 ML IV PRN (07:40)
[2018-10-09] MEDS ORDERED: LIDOCAINE/SOD BICARB 8.4% SYR ID ONE (07:40)
[2018-10-09] MEDS ORDERED: ceFAZolin(*) 2GM/D5W 50ML 50 ML IVPB ONE (07:40)
[2018-10-09] MEDS ORDERED: FAMOTIDINE 20 MG TAB PO ONE (07:40)
[2018-10-09] MEDS ORDERED: MIDAZOLAM 2 MG/2 ML VIAL IVP PRN (07:40)
[2018-10-09] MEDS ORDERED: LABETALOL HCL 100 MG/20ML VIAL ONE (10:13)
[2018-10-09] MEDS ORDERED: DOCU-416 PO (10:15)
[2018-10-09] MEDS ORDERED: HYDR-653 PO (10:16)
[2018-10-09] MEDS ORDERED: IBUP600T22 PO (10:17)
[2018-10-09] MEDS ORDERED: OXYB15TA14 PO (10:18)
[2018-10-09] MEDS ORDERED: PHEN200T32 PO (10:19)
--- NOTE | 2018-10-09 10:24 | RADIOLOGY IMAGING REPORT ---
FACILITY: [facility] - [place] PATIENT NAME: Dimas Max : 1960 MR: [id number] V: [id number] EXAM DATE: ORDERING PHYSICIAN: JOSELUIS BENZ TECHNOLOGIST: Location: [facility] - [place] Patient: Dimas Max : 1960 Visit/Account:[id number] Date of Sevice: 10/09/2018 Exam type: RETROGRADE PYELOGRAM History: STENT PLACEMENT Comparison: CT abdomen and pelvis June 20, 2018. Findings: 62 portable intraoperative C-arm spot views over the abdomen pelvis were submitted. The total fluoro scopy time was 0.57 minutes. The fluoroscopy dose was 120.77 mg. Initial images demonstrate a left ureteral stent in place. A rounded calcification projects over the stent at the level of the left sacral chacha likely the previously noted calculus at the left UPJ. So bsequent images demonstrate removal of the stent with placement of a left ureteral scope and injectio n of contrast into the moderately dilated left renal collecting system final images demonstrate place ment of a left ureteral stent. IMPRESSION: 1. As above Report Dictated By: Jeanne Cancino MD at 10/09/2018 10:12 AM Report E-Signed By: Jeanne Cancino MD at 10/09/2018 10:17 AM WSN:[email or web address]
--- NOTE | 2018-10-09 10:48 | PIERCE CYSTOSCOPY ---
EVENT DATE: October 09, 2018 SURGEON: Anthony Herrera MD ANESTHESIOLOGIST: Shaheen Atkins MD ANESTHESIA: General PREOPERATIVE DIAGNOSIS Left renal calculus with indwelling stent. POSTOPERATIVE DIAGNOSES 1. Left lower pole renal calculus fragment measuring 6 x 4 mm. 2. Left ureteral stone fragments measuring 4 to 5 mm x3. PROCEDURES PERFORMED 1. Cystoscopy. 2. Left double J stent removal. 3. Left semirigid ureteroscopy. 4. Left retrograde pyelograms. 5. Grasping and removal of ureteral fragments x3. 6. Holmium laser fragmentation of left lower pole stone with grasping of fragments at 5. 7. Left ureteral stent replacement. ESTIMATED BLOOD LOSS Minimal.. IV FLUIDS Crystalloids. DRAINS 6-Filipino x 26 cm Contour stent on left. PATHOLOGY Stone fragments sent for permanent analysis. COMPLICATIONS None. CONDITION The patient was taken to recovery room awake and in stable condition. STATEMENT OF MEDICAL NECESSITY The patient is a 58-year old white female with multiple medical problems who was originally brought to the operating room on August 21 for laser lithotripsy of a 15 x 14 x 11 mm stone. We were approximately 80% with fragmentation when she experienced respiratory difficulty and, therefore, the procedure was terminated. She has now been optimized up and from a pulmonary standpoint is being returned to the operating room for followup treatment. DESCRIPTION OF OPERATION PERFORMED The patient was brought to the operating room and after general anesthetic was obtained, she was placed in the dorsal lithotomy position and prepped and draped in the usual sterile manner. Anesthetic cystoscopy was performed with the 21- Filipino rigid sheath and 30-degree lens. The stent was seen emanating from the left ureteral orifice. There was some mild encrustation and bowel film on the distal end. The stent was grasped on the distal end and brought out the meatus. The lumen was cannulated with a 0.035 Bentson type wire, which was advanced at the lumen to the inner pole of calyx. The wire was then removed. This wire was then used to place an 8/10 dilating system, which advanced easily up the ureter. Following this, the 8/10 system was removed and a navigator ureter access sheath was placed. An 11/13 size sheath was used and 36 cm in length. It advanced over the working wire with mild resistance. At this point, the inner obturator sheath was removed and the LithoVue flexible ureteroscope was introduced. It was advanced up the sheath to the proximal ureter and medial pelvis. A retrograde pyelogram was performed to delineate the calyceal anatomy. Each calyx of the upper mid and lower pole were sequentially inspected. There were some small fragments in the lower pole in addition to having one remaining fragment, which measured approximately 6 x 4 mm in size. This was too big to be grasped and tacked and moved down the axis sheath. Therefore, the 200 micron holmium laser fiber was introduced and laser in situ lithotripsy of this stone was performed on the dusting settings. The stone was greatly reduced to dust with just two remaining fragments up to 2 mm in size. The Donell-8 Filipino basket was introduced and five to six of these smaller fragments were grasped and removed intact and were safe to be sent for analysis. At this point, there were some remaining dust-like fragments in the lower pole. Therefore, approximately 4 cc of the patient's blood was introduced into the working channel of the scope around this dust collection and allowed to sit for five minutes. This clot was then removed, bringing out the vast majority of small fragments with it. Following this, a pull-out ureteroscopy was performed. Three stone fragments were encountered in the mid ureter, measuring approximately 3 to 4 mm in size. These were each sequentially grasped with the Donell and removed. The remainder of the ureter appeared normal with no other fragments or abnormalities. Just before removal of the scope from the ureter, a 0.035 wire was advanced in the working channel of the scope and advanced up the upper pole of calyx by fluoroscopy. The LithoVue ureteroscope was removed. This wire was backloaded into the cystoscope and was used to place a 6-Filipino x 26 cm Contour stent. The wire was removed. Good coloring was noted in the upper pole of calyx by fluoroscopy and good curling was noted in the bladder by direct vision. The patient's bladder was drained through the cystoscopic sheath. B and O suppository was given at the conclusion of the case. Patient was transferred to the recovery area in stable condition. The plan will be to allow her to be discharged home today on [place], Motrin, Colace, Ditropan XL and Pyridium. We will plan to see her in the Urology Clinic in approximately two to three weeks for stent removal and proceed with metabolic evaluation as well as obtaining an ultrasound to ensure resolution of any obstructive process. CASSIE
--- NOTE | 2018-10-09 12:26 | NUR ---
[address] of Dr. Atkins to discuss the increase in blood pressure. No orders given. Addressed Pt back pain. stated when she is discharged she can go home and take her regular medication.
--- NOTE | 2018-10-09 12:28 | NUR ---
1030 Sent family home to get flutter valve to aid in Pt O2 sat increase. 1215 Family returned with flutter valve. 1226 Given warm blanket for back pain.
--- NOTE | 2018-10-09 13:20 | NUR ---
1235 SBAR REPORT WAS RECEIVED FROM CAMILO LEHMAN. 1243 FINISHED DC INSTRUCTIONS WITH PATIENT AND FAMILY. THEY VERBALIZED UNDERSTANDING. 1250 BEGAN DOING ORTHOSTATICS. SHE DENIES ANY DIZZINESS OR LIGHTHEADEDNESS 1252 PATIENT BEGAN STANDING. 1254 PATIENT WAS UNABLE TO HOLD BLADDER AND VOIDED IN THE ROOM. URINE WAS PINK TINGED. UNABLE TO ASSESS BEYOND THIS. 1255 PATIENT BEGAN GETTING DRESSED 1306 PATIENT FINISHED GETTING AND BP WAS RECHECKED AFTER PATIENT NO LONGER HAD TO VOID. BP IMPROVED SEE VITAL NOTES 1315 IV WAS DC'D WITH CATH INTACT 1320 PATIENT WAS TAKEN OUT VIA WHEELCHAIR. LUNGS ARE DIMINISHED THROUGHOUT. SHE REMAINS ON 5 LITERS NASAL CANNULA. BOWEL SOUNDS ARE ACTIVE. SHE STATES SHE HAS LOWER BACK PAIN BUT KIDNEYS FEEL GREAT. SEE DISCHARGE ASSESSMENT.
== END 2018-10-09 10:36 | disposition home or self-care (01) ==
LOC: OR 02:14
PROVIDERS: ATTEND Urology
DX: N20.0 Calculus of kidney (principal); E11.9 Type 2 diabetes mellitus without complications; I10 Essential (primary) hypertension; I25.10 Atherosclerotic heart disease of native coronary artery without angina pectoris; K21.9 Gastro-esophageal reflux disease without esophagitis; E78.00 Pure hypercholesterolemia, unspecified; G47.33 Obstructive sleep apnea (adult) (pediatric); Z79.82 Long term (current) use of aspirin; I25.2 Old myocardial infarction; I50.9 Heart failure, unspecified
CPT/HCPCS: 36415; 36416; 52332; 52352; 74420; 81001; 82365; 82948; 85025; 85610; 85730; 87088; 88300; A9270; C1758; C1769; C1894; C2617; J0690; J1100; J2001; J2405; J2704; J3010; J7050; Q9966; 82040; 82247; 82310; 82374; 82435; 82565; 82947; 84075; 84132; 84155; 84295; 84450; 84460; 84520

== ENCOUNTER 2018-10-12 11:31 | Inpatient (IN) | payer MEDICARE ==
[~2018-10-12] VITALS: Ht 170.2 cm; Wt 121.3 kg
[2018-10-12] VITALS (11 sets, daily range): BP systolic 126–151; BP diastolic 23–108
[~2018-10-12 11:31] MED LIST changes: -ceFAZolin(*) 1 GM VIAL 3 GM in NS(*) 0.9% 100 ML BAG 100 ML IVPB ONE
[2018-10-12] MEDS ORDERED: DILTIAZEM HCL 125 MG/25 ML SDV 125 MG in NS(*) 0.9% 100 ML BAG 100 ML IV ONE (11:55)
[2018-10-12] MEDS ORDERED: ASPIRIN 81 MG CHEW PO ONE (11:55)
[2018-10-12] MEDS ORDERED: DILTIAZEM 5 MG/ML 5ML IVPUSH IVP ONE (11:55)
[2018-10-12 12:07] LABS: PLATELET COUNT, AUTOMATED 452 K/uL (150-450)
[2018-10-12] MEDS ORDERED: IOPAMIDOL 76% 100 ML INFUS BTL 100 ML ONE (12:12)
[2018-10-12] MEDS ORDERED: NS(*) 0.9% 50 ML BAG 50 ML ONE (12:12)
--- NOTE | 2018-10-12 12:34 | ER Report ---
History and Physical Time Seen By MD: 11:45 Hx. of Stated Complaint: PT REPORTS INCREASED SOB, HBP, NEW ONSET A. FIB, INCREASED URINARY FREQUENCY (GRETA MARCANO MD) HPI/ROS CHIEF COMPLAINT: new onset a-fib HISTORY OF PRESENT ILLNESS: Patient is a 58 yo F was referred by her PCP after discovering new onset a-fib and short runs of V-Tach in the office this morning. Patient reports intermittent dizziness for the last few weeks, seemed to improve with laying down. She had previously had a ureteral stent placed, and 4 days ago she had a procedure done to remove a large stone and reports worsening dizziness since then. She saw her PCP today because of the worsening dizziness and associated nausea, no vomiting. She also reported palpitations and increased dyspnea on exertion. She denied any lower extremity pain she has chronic lower extremity edema. She has a complicated medical history, listed below, including [place] with 3 stents placed and COPD and is normally on 4 L nasal cannula but is currently on 68 L to help with dyspnea.. No prior hx of DVT or history of atrial fib. REVIEW OF SYSTEMS: Constitutional: No fever, no chills. Eyes: No discharge. ENT: No sore throat. Cardiovascular: No chest pain, palpitations Respiratory: No cough, chronic shortness of breath. Gastrointestinal: No abdominal pain, no vomiting. Genitourinary: No hematuria. Musculoskeletal: No back pain. Skin: No rashes. Neurological: mild headache. (GRETA MARCANO MD) Allergies: Coded Allergies: egg (Verified Allergy, Mild, 10/12/18) Home Meds Active Scripts Ipratropium/Albuterol Sulfate (IPRAT-ALBUT 0.5-3(2.5) MG/3 ML) 3 Ml Ampul.neb, 3 ML IH Q6H PRN for WHEEZING for 30 Days, #60 DOSE-PACK Prov:HOA SUAREZ DO 09/07/18 Reported Medications Phenazopyridine Hcl (PHENAZOPYRIDINE HCL) 200 Mg Tablet, 200 MG PO TID PRN for BURNING WITH URINATION, #20 TAB 10/09/18 Oxybutynin Chloride (OXYBUTYNIN CHLORIDE ER) 15 Mg Tab.er.24, 15 MG PO QDAY PRN for URGENCY, #20 TAB.SA 10/09/18 Ibuprofen (IBUPROFEN) 600 Mg Tablet, 1 TAB PO Q6H PRN for PAIN, #20 TAB 0 Refills 10/09/18 Sumatriptan Succinate (SUMATRIPTAN SUCCINATE) 50 Mg Tablet, 1 TAB PO PRN FOR MIGRAINE; MAY REPEAT DOSE EVERY 2 HOURS PRN MAX OF 4 DOSES IN 24 HOURS 09/06/18 Albuterol Sulfate 0.083% (ALBUTEROL SULFATE 0.083%) 2.5 Mg/3 Ml Vial.neb, 1 PKT INH QID PRN for WHEEZING, INH 09/06/18 Metoprolol Tartrate (METOPROLOL TARTRATE) 25 Mg Tablet, 12.5 MG PO BID, TAB 08/16/18 Aspirin (ASPIRIN) 81 Mg Tab.chew, 81 MG PO QDAY, TAB.CHEW 08/16/18 Fluoxetine Hcl (PROZAC) 40 Mg Capsule, 80 MG PO QAM, CAPSULE 06/21/18 Cetirizine Hcl (ZYRTEC) 10 Mg Capsule, 10 MG PO QDAY, CAPSULE 06/21/18 Diphenhydramine Hcl (DIPHENHYDRAMINE HCL) 25 Mg Capsule, 25 MG PO HS, #2 CAPSULE 06/21/18 Atorvastatin Calcium (ATORVASTATIN CALCIUM) 20 Mg Tablet, 1 TAB PO HS 06/20/18 Acetaminophen (TYLENOL EXTRA STRENGTH) 500 Mg Tablet, 500 MG PO TID, TAB 12/13/17 Metformin Hcl (METFORMIN HCL) 500 Mg Tablet, 2 TAB PO BID, TAB 04/04/17 Losartan Potassium (LOSARTAN POTASSIUM) 50 Mg Tablet, 1 TAB PO QDAY 12/20/16 Pioglitazone Hcl (PIOGLITAZONE HCL) 45 Mg Tablet, 45 MG PO QDAY 12/20/16 Guaifenesin/Dextromethorphan (MUCINEX DM ER 600-30 MG TABLET) 1 Each Tab.er.12h, 1 EACH PO TID 05/17/16 Oxygen (Oxygen) 2 L Inha, 4-6 L INH DAILY, 0 Refills At Night With BiPap 03/10/11 Gabapentin (Neurontin) 300 Mg Cap, 600 MG PO TID, 0 Refills 03/10/11 Allopurinol (Zyloprim) 300 Mg Tab, 300 MG PO HS, 0 Refills 03/10/11 Albuterol (Proventil Inhaler) 17 Gm Inh, 1 PUFF INH Q4-6H PRN for SHORTNESS OF BREATH, 0 Refills 03/10/11 Discontinued Reported Medications Hydrocodone Bit/Acetaminophen (NORCO 5-325 TABLET) 1 Each Tablet, 1 EACH PO Q6H PRN for PAIN, #20 TAB 10/09/18 Docusate Sodium (COLACE) 100 Mg Capsule, 100 MG PO BID for STOOL SOFTENER, #30 CAPSULE 10/09/18 Oxybutynin Chloride (OXYBUTYNIN CHLORIDE) 5 Mg Tablet, 5 MG PO TID, TAB PRN URINARY INCONTINENCE 09/06/18 Tramadol Hcl (TRAMADOL HCL) 50 Mg Tablet, 1-2 TAB PO Q6H PRN for PAIN 06/20/18 Past Medical/Surgical History Patient has a past medical and surgical history of headaches, secondary to bulging disc in her neck, myocardial infarction, 3 stents, hypertension, hypercholesterolemia, bronchitis, asthma, pneumonia, COPD, GERD, kidney stones, arthritis, left humerus fracture, rib fracture, back injury, wears glasses, type II diabetes, rashes, depression, obesity, appendectomy, hysterectomy, C-sections 2, tubal ligation, right knee surgery, left arm surgery, bilateral total hip replacements, rotator cuff surgery L4-5 nerve surgery. (GRETA MARCANO MD) Hx Smoking: Yes (Quit 2018 1 PPD X 30 YEARS ) Smoking Status: Former Smoker Exposure to Second Hand Smoke?: Yes Hx Substance Use Disorder: No Hx Alcohol Use: No (GRETA MARCANO MD) Constitutional Vital Sign - Last 24 Hours 10/12/18 10/12/18 10/12/18 10/12/18 11:35 11:51 12:38 12:40 Temp 99.2 Pulse 130 116 Resp 20 22 B/P (MAP) 138/97 145/86 (105) Pulse Ox 95 93 O2 Delivery Nasal Cannula O2 Flow Rate 8.0 10/12/18 10/12/18 10/12/18 10/12/18 12:45 12:50 12:55 13:00 Pulse 131 120 123 121 Resp 12 11 9 10 B/P (MAP) 160/113 (129) 149/108 (122) 155/104 (121) 151/108 (122) Pulse Ox 92 83 89 90 10/12/18 10/12/18 10/12/18 10/12/18 13:05 13:10 13:15 13:20 Pulse 118 122 118 126 Resp 17 6 7 19 B/P (MAP) 131/93 (106) 138/96 (110) 161/89 (113) 137/113 (121) Pulse Ox 92 91 90 91 10/12/18 10/12/18 10/12/18 10/12/18 13:25 13:30 13:35 13:40 Pulse 116 118 120 Resp 9 23 11 21 B/P (MAP) 154/112 (126) 152/118 (129) 151/117 (128) 164/103 (123) Pulse Ox 92 91 91 92 10/12/18 10/12/18 13:45 13:50 Pulse 118 115 Resp 6 8 B/P (MAP) 162/98 (119) 159/94 (115) Pulse Ox 89 90 (LAURORA,SAADIA V DO) Physical Exam General Appearance: The patient is alert, has no immediate need for airway protection and no signs of toxicity. Cushingoid appearance, in no acute distress. Eyes: Pupils equal and round no pallor or injection. ENT, Mouth: Mucous membranes are moist. Respiratory: There are no retractions, lungs are clear to auscultation. Cardiovascular: Tachycardic, irregularly irregular Gastrointestinal: Abdomen is soft, bowel sounds normal. Tender to palpation over the umbilical region, umbilical hernia present Neurological: Alert and oriented, no focal neurological deficits, CN 2-12 grossly intact Skin: Warm and dry, no rashes. Musculoskeletal: Neck is supple non tender. Extremities are nontender, nonswollen and have full range of motion. DIFFERENTIAL DIAGNOSIS: After history and physical exam differential diagnosis was considered for new-onset a-fib, W[place], PE, COPD exacerbation, CHF, pneumonia. (GRETA MARCANO MD) Medical Decision Making Data Points Result Diagram: 10/12/18 1145 10/12/18 1145 Laboratory Hematology Test 10/12/18 11:45 White Blood Count 11.2 k/uL (4.5-11.0) H Red Blood Count 3.91 M/uL (4.17-5.56) L Hemoglobin 11.1 g/dL (12.0-16.0) L Hematocrit 34.1 % (34.0-47.0) Mean Corpuscular Volume 87.2 fL (80.0-96.0) Mean Corpuscular Hemoglobin 28.5 pg (26.0-33.0) Mean Corpuscular Hemoglobin Concent 32.7 g/dL (32.0-36.0) Red Cell Distribution Width 16.4 % (11.5-14.5) H Platelet Count 452 K/uL (150-450) H Mean Platelet Volume 7.7 fL (7.2-11.1) Neutrophils (%) (Auto) 83.6 % (39.4-72.5) H Lymphocytes (%) (Auto) 10.3 % (17.6-49.6) L Monocytes (%) (Auto) 5.8 % (4.1-12.4) Eosinophils (%) (Auto) 0.1 % (0.4-6.7) L Basophils (%) (Auto) 0.2 % (0.3-1.4) L Nucleated RBC Relative Count (auto) 0.2 /100WBC Neutrophils # (Auto) 9.3 K/uL (2.0-7.4) H Lymphocytes # (Auto) 1.1 K/uL (1.3-3.6) L Monocytes # (Auto) 0.7 K/uL (0.3-1.0) Eosinophils # (Auto) 0.0 K/uL (0.0-0.5) Basophils # (Auto) 0.0 K/uL (0.0-0.1) Nucleated RBC Absolute Count (auto) 0.03 K/uL Chemistry Test 10/12/18 11:45 10/12/18 15:53 Sodium Level 145 mmol/L (137-145) Potassium Level 3.4 mmol/L (3.5-5.0) Chloride Level 104 mmol/L (98-107) Carbon Dioxide Level 31 mmol/L (22-31) Blood Urea Nitrogen 11 mg/dl (7-18) Creatinine 0.40 mg/dl (0.52-1.04) Glomerular Filtration Rate Calc > 60.0 Random Glucose 150 mg/dl (75-110) Calcium Level 9.8 mg/dl (8.4-10.2) Magnesium Level 1.5 mg/dl (1.7-2.2) Total Bilirubin 0.7 mg/dl (0.2-1.3) Aspartate Amino Transf (AST/SGOT) 20 U/L (0-35) Alanine Aminotransferase (ALT/SGPT) 21 U/L (0-56) Alkaline Phosphatase 119 U/L (0-126) B-Type Natriuretic Peptide 615 pg/ml (0-100) Total Protein 7.9 g/dl (6.3-8.2) Albumin 4.2 g/dl (3.5-5.0) Troponin I 0.029 ng/ml Coagulation Test 10/12/18 11:45 Prothrombin Time 13.6 seconds (12.0-14.4) Prothromb Time International Ratio 1.04 Activated Partial Thromboplast Time 41 seconds (23-35) (LAURORASAADIA V DO) EKG/Imaging EKG Interpretation EKG shows atrial fibrillation with a ventricular rate of 144 bpm. There is some ST segment abnormalities without any overt evidence of ST elevation. Monitor Interpretation: Atrial Fibrillation Imaging FACILITY: [facility] - [place], [place] PATIENT NAME: Dimas Max : 1960 MR: [id number] V: [id number] EXAM DATE: ORDERING PHYSICIAN: GRETA MARCANO TECHNOLOGIST: Location: [facility] [place] Patient: Dimas Max : 1960 Visit/Account:[id number] Date of Sevice: 10/12/2018 CT CTA CHEST W & W/O CON HISTORY: sob/post op ADDITIONAL HISTORY: None. TECHNIQUE: CTA chest with intravenous contrast. Axial imaging acquired following administration of IV contrast timed for maximum opacification of the pulmonary arterial vasculature. Slab 3-D MIP reconstructed images were also created for further evaluation and interpretation. Reconstruction of the source data set includes multiplanar 2-D in the sagittal and coronal planes and 3-D reconstructed coronal slab MIP series. 3-D images were created by the technologist.Dose Lowering Technique One of the following dose optimization techniques was utilized in the performance of this exam: Automated exposure control; adjustment of the mA and/or kV according to the patient's size; or use of an iterative reconstruction technique. Specific details can be referenced in the facility's radiology CT exam operational policy. CONTRAST: 75 mL Isovue-370 COMPARISON: September 06, 2018 FINDINGS: Lungs/pleura: Four mm calcified nodule posterior aspect the right upper lobe again seen. There is a small posterior layering right pleural effusion slightly increased when compared the prior study. The adjacent airspace consolidation the right lower lobe however is partially improved. The small amount of airspace consolidation left lower lobe is also partially improved Heart/vessels: There is no evidence of pulmonary emboli to the segmental level. There is slightly limited opacification of the subsegmental arterial branches. Mildly prominent central pulmonary arteries again seen similar to the prior study There are moderate coronary artery calcifications Mediastinum/lymph nodes: There is a 2.1 x 1.3 cm pretracheal lymph node and smaller AP window and hilar lymph nodes Visualized upper abdomen: Negative. Bones/soft tissues: Spiculated mass in the deep central left breast appear slightly decreased in size although this has recently been biopsied. A biopsy clip is noted within the mass. There are spondylotic changes of the thoracic spine Additional findings: None IMPRESSION: There is no evidence of pulmonary emboli to the segmental level Small posterior layering right pleural effusion is slightly increased in size when compared the prior study although the adjacent airspace consolidation is slightly decreased Small amount of airspace consolidation left lower lobe is also partially improved Mildly prominent central pulmonary arteries appear similar to the prior study and may be related to pulmonary arterial hypertension 2.1 x 1.2 cm pretracheal lymph node may be reactive. Clinical correlation needed Speech related mass in the deep central left breast appears slightly decreased in size following recent biopsy Report Dictated By: Jeanne Cancino MD at 10/12/2018 12:59 PM Report E-Signed By: Jeanne Cancino MD at 10/12/2018 1:10 PM WSN:AMICIVN (GRETA MARCANO MD) ED Course/Re-evaluation ED Course 10/12/2018 12:53:26 pm patient still with elevated heart rate in the 140's to 150s, we'll increase diltiazem drip to 10 initial troponin is negative EKG just showing atrial fib with rapid ventricular response. We'll perform cardiac rule out and likely admission for new onset A. fib 10/12/2018 2:00:56 pm heart rate decreased to the one-teens; and symptomatically patient feels improved although she does remain in atrial fibrillation. The heart exam is negative however repeat a 4 hour troponin. We will obtain CT of the chest for PE. 10/12/2018 2:27:[address] of chest is negative for PE there is a small right- sided pleural effusion that appears to be decreased in size. We will repeat troponin at 4 hour window to before p.m. Decision to Disposition Date: Oct 12, 2018 Decision to Disposition Time: 18:00 (GRETA MARCANO MD) ED Course 10/12/2018 4:30:29 pm PT signed out to me pending second troponin. Second troponin continues to be in normal range. Spoke with Dr. Foley who accepts pt to his service. Pt is happy to be admitted to [facility] and not transfered. PT continues to be on the diltiazem gtt Decision to Disposition Date: Oct 12, 2018 Decision to Disposition Time: 16:31 (SAADIA MICHELLE DO) Depart Departure Latest Vital Signs Vital Signs Date Time Temp Pulse Resp B/P (MAP) Pulse Ox O2 Delivery O2 Flow Rate FiO2 10/12/18 13:50 115 8 159/94 (115) 90 10/12/18 11:51 8.0 10/12/18 11:35 99.2 Nasal Cannula (SAADIA MICHELLE DO) Impression: Primary Impression: New onset a-fib Additional Impressions: Atrial fibrillation with RVR Hypomagnesemia Hypokalemia Condition: Stable Disposition: Admitted from ER Referrals: EVERARDO PARKS DO (PCP) Problem Qualifiers GRETA MARCANO MD Oct 12, 2018 12:34 SAADIA MICHELLE DO Oct 12, 2018 16:36
[2018-10-12] MEDS ORDERED: MAGNESIUM SUL* 2 GM/50 ML IVPB 50 ML IVPB ONE (13:10)
--- NOTE | 2018-10-12 13:18 | RADIOLOGY IMAGING REPORT ---
FACILITY: [facility] - [place] PATIENT NAME: Dimas Max : 1960 MR: [id number] V: [id number] EXAM DATE: ORDERING PHYSICIAN: GRETA MARCANO TECHNOLOGIST: Location: [facility] Patient: Dimas Max : 1960 Visit/Account:[id number] Date of Sevice: 10/12/2018 CT CTA CHEST W & W/O CON HISTORY: sob/post op ADDITIONAL HISTORY: None. TECHNIQUE: CTA chest with intravenous contrast. Axial imaging acquired following administration of IV contrast timed for maximum opacification of the pulmonary arterial vasculature. Slab 3-D MIP alejandrina nstructed images were also created for further evaluation and interpretation. Reconstruction of the [facility] data set includes multiplanar 2-D in the sagittal and coronal planes and 3-D reconstructed selina nal slab MIP series. 3-D images were created by the technologist.Dose Lowering Technique One of the following dose optimization techniques was utilized in the performance of this exam: Autom ated exposure control; adjustment of the mA and/or kV according to the patient's size; or use of an i terative reconstruction technique. Specific details can be referenced in the facility's radiology C T exam operational policy. CONTRAST: 75 mL Isovue-370 COMPARISON: September 06, 2018 FINDINGS: Lungs/pleura: Four mm calcified nodule posterior aspect the right upper lobe again seen. There is a small posterior layering right pleural effusion slightly increased when compared the prior study. The adjacent airspace consolidation the right lower lobe however is partially improved. The small amount of airspace consolidation left lower lobe is also partially improved Heart/vessels: There is no evidence of pulmonary emboli to the segmental level. There is slightly l imited opacification of the subsegmental arterial branches. Mildly prominent central pulmonary arteries again seen similar to the prior study There are moderate coronary artery calcifications Mediastinum/lymph nodes: There is a 2.1 x 1.3 cm pretracheal lymph node and smaller AP window and hi lar lymph nodes Visualized upper abdomen: Negative. Bones/soft tissues: Spiculated mass in the deep central left breast appear slightly decreased in siz e although this has recently been biopsied. A biopsy clip is noted within the mass. There are spond ylotic changes of the thoracic spine Additional findings: None IMPRESSION: There is no evidence of pulmonary emboli to the segmental level Small posterior layering right pleural effusion is slightly increased in size when compared the prior study although the adjacent airspace consolidation is slightly decreased Small amount of airspace consolidation left lower lobe is also partially improved Mildly prominent central pulmonary arteries appear similar to the prior study and may be related to p ulmonary arterial hypertension 2.1 x 1.2 cm pretracheal lymph node may be reactive. Clinical correlation needed Speech related mass in the deep central left breast appears slightly decreased in size following rece nt biopsy Report Dictated By: Jeanne Cancino MD at 10/12/2018 12:59 PM Report E-Signed By: Jeanne Cancino MD at 10/12/2018 1:10 PM WSN:AMICIVN
[2018-10-12 13:34] LABS: INR 1.04
--- NOTE | 2018-10-12 14:58 | EKG ---
FACILITY: [facility] PATIENT NAME: JENNIFER GANDARA : [id number] MR: [id number] V: [id number] EXAM DATE: ORDERING PHYSICIAN: GRETA MARCANO TECHNOLOGIST: LIBIA Test Reason : NAUSEA Blood Pressure : / mmHG Vent. Rate : 144 BPM Atrial Rate : 144 BPM P-R Int : 000 ms QRS Dur : 084 ms QT Int : 262 ms P-R-T Axes : 000 019 230 degrees QTc Int : 405 ms Atrial fibrillation with premature ventricular or aberrantly conducted complexes Low voltage QRS Marked ST abnormality, possible inferior subendocardial injury Abnormal ECG When compared with ECG of 06-SEP-2018 08:29, Atrial fibrillation has replaced Sinus rhythm Vent. rate has increased BY [address] now depressed in Inferior leads T wave inversion now evident in Inferior leads T wave inversion now evident in Lateral leads Confirmed by ERENDIRA ARRINGTON ([id number]) on 10/12/2018 6:35:16 PM Referred By: JEET Confirmed By:ERENDIRA ARRINGTON
[2018-10-12] MEDS ORDERED: POTASSIUM CHL 20 MEQ TABCR PO ONE (16:40)
[2018-10-12] MEDS ORDERED: PHENAZOPYRIDINE 200 MG TAB PO PRN (18:00)
[2018-10-12] MEDS ORDERED: OXYBUTYNIN CHL XL 5 MG TABCR PO PRN (18:00)
[2018-10-12] MEDS ORDERED: INFLUENZA VIRUS VAC 0.5ML SYR IM ONLY ONE (18:00)
[2018-10-12] MEDS ORDERED: WARFARIN SOD 5 MG TAB PO ONE (18:00)
[2018-10-12] MEDS ORDERED: ALBUTEROL 8 GM INHALER INH PRN (18:00)
[2018-10-12] MEDS ORDERED: INSULIN HUM LISPRO 100 UN/ML 3 ML VIAL SUBQ PRN (18:00)
[2018-10-12] MEDS ORDERED: ONDANSETRON 4 MG/2 ML VIAL IVP PRN (18:15)
--- NOTE | 2018-10-12 18:21 | History & Physical ---
History of Present Illness Chief Complaint Dizziness History of Present Illness This patient presented to the emergency room complaining of dizziness. Her symptoms started after a urologic procedure 3 days ago. She has also had some associated shortness of breath. History Problems: (1) Hematuria Status: Chronic (2) COPD (chronic obstructive pulmonary disease) Status: Chronic (3) Gout Status: Chronic (4) ENOCH (obstructive sleep apnea) Status: Chronic (5) Morbid obesity Status: Chronic (6) CAD (coronary artery disease) Status: Chronic (7) Hypertension Status: Chronic (8) Type 2 diabetes mellitus Status: Chronic (9) Depression Status: Chronic (10) Breast mass, left Status: Chronic Home Meds Active Scripts Ipratropium/Albuterol Sulfate (IPRAT-ALBUT 0.5-3(2.5) MG/3 ML) 3 Ml Ampul.neb, 3 ML IH Q6H PRN for WHEEZING for 30 Days, #60 DOSE-PACK Prov:BELKIS RAYHOA 09/07/18 Reported Medications Phenazopyridine Hcl (PHENAZOPYRIDINE HCL) 200 Mg Tablet, 200 MG PO TID PRN for BURNING WITH URINATION, #20 TAB 10/09/18 Oxybutynin Chloride (OXYBUTYNIN CHLORIDE ER) 15 Mg Tab.er.24, 15 MG PO QDAY PRN for URGENCY, #20 TAB.SA 10/09/18 Ibuprofen (IBUPROFEN) 600 Mg Tablet, 1 TAB PO Q6H PRN for PAIN, #20 TAB 0 Refills 10/09/18 Sumatriptan Succinate (SUMATRIPTAN SUCCINATE) 50 Mg Tablet, 1 TAB PO PRN FOR MIGRAINE; MAY REPEAT DOSE EVERY 2 HOURS PRN MAX OF 4 DOSES IN 24 HOURS 09/06/18 Albuterol Sulfate 0.083% (ALBUTEROL SULFATE 0.083%) 2.5 Mg/3 Ml Vial.neb, 1 PKT INH QID PRN for WHEEZING, INH 09/06/18 Metoprolol Tartrate (METOPROLOL TARTRATE) 25 Mg Tablet, 12.5 MG PO BID, TAB 08/16/18 Aspirin (ASPIRIN) 81 Mg Tab.chew, 81 MG PO QDAY, TAB.CHEW 08/16/18 Fluoxetine Hcl (PROZAC) 40 Mg Capsule, 80 MG PO QAM, CAPSULE 06/21/18 Cetirizine Hcl (ZYRTEC) 10 Mg Capsule, 10 MG PO QDAY, CAPSULE 06/21/18 Diphenhydramine Hcl (DIPHENHYDRAMINE HCL) 25 Mg Capsule, 25 MG PO HS, #2 CAPSULE 06/21/18 Atorvastatin Calcium (ATORVASTATIN CALCIUM) 20 Mg Tablet, 1 TAB PO HS 06/20/18 Acetaminophen (TYLENOL EXTRA STRENGTH) 500 Mg Tablet, 500 MG PO TID, TAB 12/13/17 Metformin Hcl (METFORMIN HCL) 500 Mg Tablet, 2 TAB PO BID, TAB 04/04/17 Losartan Potassium (LOSARTAN POTASSIUM) 50 Mg Tablet, 1 TAB PO QDAY 12/20/16 Pioglitazone Hcl (PIOGLITAZONE HCL) 45 Mg Tablet, 45 MG PO QDAY 12/20/16 Guaifenesin/Dextromethorphan (MUCINEX DM ER 600-30 MG TABLET) 1 Each Tab.er.12h, 1 EACH PO TID 05/17/16 Oxygen (Oxygen) 2 L Inha, 4-6 L INH DAILY, 0 Refills At Night With BiPap 03/10/11 Gabapentin (Neurontin) 300 Mg Cap, 600 MG PO TID, 0 Refills 03/10/11 Allopurinol (Zyloprim) 300 Mg Tab, 300 MG PO HS, 0 Refills 03/10/11 Albuterol (Proventil Inhaler) 17 Gm Inh, 1 PUFF INH Q4-6H PRN for SHORTNESS OF BREATH, 0 Refills 03/10/11 Discontinued Reported Medications Hydrocodone Bit/Acetaminophen (NORCO 5-325 TABLET) 1 Each Tablet, 1 EACH PO Q6H PRN for PAIN, #20 TAB 10/09/18 Docusate Sodium (COLACE) 100 Mg Capsule, 100 MG PO BID for STOOL SOFTENER, #30 CAPSULE 10/09/18 Oxybutynin Chloride (OXYBUTYNIN CHLORIDE) 5 Mg Tablet, 5 MG PO TID, TAB PRN URINARY INCONTINENCE 09/06/18 Tramadol Hcl (TRAMADOL HCL) 50 Mg Tablet, 1-2 TAB PO Q6H PRN for PAIN 06/20/18 Spironolactone (Aldactone) 50 Mg Tablet, 50 MG PO DAILY, 0 Refills 08/26/11 Allergies: Coded Allergies: egg (Verified Allergy, Mild, 10/12/18) Patient History: Bone cancer FATHER, FH: brain tumor MOTHER, FH: breast cancer BROTHER OR SISTER FH: heart disease FATHER, FH: hepatic cirrhosis MOTHER, FH: stomach cancer MOTHER, Hx Smoking: Yes (Quit 2018 1 PPD X 30 YEARS ) Smoking Status: Former Smoker Exposure to Second Hand Smoke?: Yes Caffeine Intake: Coffee Caffeine/Cups Per Day: 2 cup/day Hx Alcohol Use: No Hx Substance Use Disorder: No Social Drug Use: Never Review of Systems All Systems Reviewed/Normal: Yes, Except as Noted Neurological: Dizziness Respiratory: Shortness of Breath Exam Vital Signs Vital Signs Date Time Temp Pulse Resp B/P (MAP) Pulse Ox O2 Delivery O2 Flow Rate FiO2 10/12/18 17:11 97.7 111 20 144/108 (120) 95 Oxy Mask 5.0 Neuro: No Gross deficits Eyes: PERRLA Cardiovascular: Other (Irregular rhythm.) Respiratory: Clear to Auscultation Extremities: No Edema Integumentary: No Cyanosis Medical Decision Making Data Points Result Diagram: 10/12/18 1145 10/12/18 1145 Assessment and Plan Problems: (1) New onset a-fib Status: Acute Assessment & Plan: She was found to be in atrial fibrillation, which is a new diagnosis for her. She is currently on a diltiazem drip. We have started anticoagulation with Lovenox and warfarin. Daily INR monitoring has been ordered. She had an echocardiogram in July of this year. A TSH has been ordered. (2) COPD (chronic obstructive pulmonary disease) Status: Chronic Assessment & Plan: She is on chronic treatment with nebulizers. (3) Type 2 diabetes mellitus Status: Chronic Assessment & Plan: She is on chronic treatment with metformin and pioglitazone. Both of the medications are on hold and she has been placed on sliding scale level #2. She did receive IV contrast. (4) Hypertension Status: Chronic Assessment & Plan: She is on chronic treatment with metoprolol and losartan, which are both on hold. (5) Depression Status: Chronic Assessment & Plan: She is on chronic treatment with fluoxetine. (6) ENOCH (obstructive sleep apnea) Status: Chronic Assessment & Plan: She is on chronic CPAP (7) Breast mass, left Status: Chronic Assessment & Plan: Dr. Le is following her for this. (8) Gout Status: Chronic Assessment & Plan: She is on chronic treatment with allopurinol. (9) Morbid obesity with BMI of 40.0-44.9, adult Venous Thromboembolism Antithrombotics Is Pt On Any Antithrombotics?: No Exam Sepsis Risk: No Definite Risk ERENDIRA ARRINGTON DO Oct 12, 2018 18:21
[2018-10-12] MEDS ORDERED: NS(*) 0.9% 250 ML BAG 250 ML ONE (19:49)
[2018-10-12] MEDS: DILTIAZEM HCL* 100 MG ADDVIAL 100 MG in NS(*) 0.9% 100 ML ADDVANT BAG 100 ML IV SCH (20:35)
[2018-10-12] MEDS: ALBUTEROL/IPRATROPIUM 3 ML NEB INH PRN (21:46)
[2018-10-12] MEDS: GABAPENTIN 300 MG CAP PO SCH (22:03)
[2018-10-12] MEDS: ATORVASTATIN 10 MG TAB PO SCH (22:04)
[2018-10-12] MEDS: ALLOPURINOL 300 MG TAB PO SCH (22:04)
[2018-10-12] MEDS: ENOXAPARIN 30 MG/0.3 ML SYR SC SCH (22:08)
[2018-10-12] MEDS: ENOXAPARIN 100 MG/ML SYR SC SCH (22:08)
[2018-10-13] VITALS (10 sets, daily range): BP systolic 125–153; BP diastolic 67–77; Ht 170.2 cm; Wt 121.3 kg
[2018-10-13] MEDS: DILTIAZEM HCL* 100 MG ADDVIAL 100 MG in NS(*) 0.9% 100 ML ADDVANT BAG 100 ML IV SCH (03:55)
[2018-10-13 07:01] LABS: INR 1.1
[2018-10-13] MEDS ORDERED: DILTIAZEM HCL* 100 MG ADDVIAL 100 MG in NS(*) 0.9% 100 ML ADDVANT BAG 100 ML IV SCH (08:30)
[2018-10-13] MEDS: GABAPENTIN 300 MG CAP PO SCH ×3 (08:41→21:10)
[2018-10-13] MEDS: CETIRIZINE HCL 10 MG TAB PO SCH (08:41)
[2018-10-13] MEDS: FLUoxetine HCL 20 MG CAP PO SCH (08:41)
[2018-10-13] MEDS: ENOXAPARIN 100 MG/ML SYR SC SCH (08:42)
[2018-10-13] MEDS: ENOXAPARIN 30 MG/0.3 ML SYR SC SCH ×2 (08:42→21:10)
[2018-10-13] MEDS: ALBUTEROL/IPRATROPIUM 3 ML NEB INH PRN ×3 (09:55→21:16)
[2018-10-13] MEDS ORDERED: METOPROLOL TART 50 MG TAB PO SCH (10:25)
--- NOTE | 2018-10-13 10:31 | Hospitalist Progress Note ---
Subjective Progress Notes Subjective She converted to a sinus rhythm about 12 hours ago. She reported feeling much better when it occurred. Physical Exam Vital Signs Date Time Temp Pulse Resp B/P (MAP) Pulse Ox O2 Delivery O2 Flow Rate FiO2 10/13/18 10:01 63 16 10/13/18 09:56 98 CPAP 8.0 10/13/18 07:13 97.8 147/73 (97) Intake and Output 10/13/18 07:03 Intake Total 223 ml Balance 223 ml IV Total 223 ml # Voids 5 General Appearance: Alert, Awake, No Acute Distress Cardiovascular: Regular Rate and Rhythm Result Diagram: 10/12/18 1145 10/12/18 1145 Monitor Interpretation: Atrial Fibrillation Assessment and Plan Problems: (1) New onset a-fib Status: Acute Assessment & Plan: She was found to be in atrial fibrillation the day of admission, which is a new diagnosis for her. She felt dizziness, nausea and COBURN when it started. She was started on a diltiazem drip. She converted to a sinus rhythm about 12 hours ago. She reports noticing the conversion. She is to get an echo today. TSH is pending. Her chronic metoprolol will be continued, but cannot be titrated up because of her low baseline heart rate and problems with nausea in the past with higher dosing. She has been started on warfarin. She has follow up with her Colleter on 11/06. (2) COPD (chronic obstructive pulmonary disease) Status: Chronic Assessment & Plan: She is on chronic treatment with nebulizers. (3) Type 2 diabetes mellitus Status: Chronic Assessment & Plan: She is on chronic treatment with metformin and pioglitazone. Metformin on hold and she has been placed on sliding scale level #2. She did receive IV contrast. (4) Hypertension Status: Chronic Assessment & Plan: She is on chronic treatment with metoprolol and losartan. Metoprolol has been continued. (5) Depression Status: Chronic Assessment & Plan: She is on chronic treatment with fluoxetine. (6) ENOCH (obstructive sleep apnea) Status: Chronic Assessment & Plan: She is on chronic CPAP (7) Breast mass, left Status: Chronic Assessment & Plan: Dr. Le is following her for this. (8) Gout Status: Chronic Assessment & Plan: She is on chronic treatment with allopurinol. (9) Morbid obesity with BMI of 40.0-44.9, adult Exam Sepsis Risk: No Definite Risk YANG CONN MD Oct 13, 2018 10:31
[2018-10-13] MEDS: PIOGLITAZONE HCL 15 MG TAB PO SCH (10:58)
--- NOTE | 2018-10-13 11:14 | EKG ---
FACILITY: [facility] PATIENT NAME: JENNIFER GANDARA : [id number] MR: [id number] V: [id number] EXAM DATE: ORDERING PHYSICIAN: YANG CONN TECHNOLOGIST: Test Reason : atrial fibrillation Blood Pressure : / mmHG Vent. Rate : 061 BPM Atrial Rate : 061 BPM P-R Int : 132 ms QRS Dur : 098 ms QT Int : 654 ms P-R-T Axes : 043 047 037 degrees QTc Int : 659 ms Normal sinus rhythm Nonspecific ST and T wave abnormality Prolonged QT Abnormal ECG When compared with ECG of 12-OCT-2018 11:36, Sinus rhythm has replaced Atrial fibrillation Vent. rate has decreased BY 83 BPM T wave inversion no longer evident in Inferior leads T wave inversion no longer evident in Lateral leads Confirmed by YANG CONN ([id number]) on 10/13/2018 11:14:46 AM Referred By: Confirmed By:YANG CONN
[2018-10-13] MEDS ORDERED: POTASSIUM CHL PWDR 20 MEQ PKT PO ONE (11:20)
[2018-10-13] MEDS ORDERED: MAGNESIUM SULF 4 GM/50 ML BAG 50 ML IVPB ONE (12:00)
[2018-10-13] MEDS ORDERED: WARFARIN SOD 5 MG TAB PO SCH (13:00)
--- NOTE | 2018-10-13 15:21 | EKG ---
FACILITY: [facility] [place] PATIENT NAME: JENNIFER GANDARA : [id number] MR: [id number] V: [id number] EXAM DATE: ORDERING PHYSICIAN: YANG CONN TECHNOLOGIST: Test Reason : Prolong QT Blood Pressure : / mmHG Vent. Rate : 057 BPM Atrial Rate : 057 BPM P-R Int : 172 ms QRS Dur : 100 ms QT Int : 654 ms P-R-T Axes : 050 024 014 degrees QTc Int : [address] abnormality, possible digitalis effect Prolonged QT Abnormal ECG When compared with ECG of 13-OCT-2018 09:41, Relatively unchanged Confirmed by YANG CONN ([id number]) on 10/13/2018 3:56:33 PM Referred By: Confirmed By:YANG CONN
--- NOTE | 2018-10-13 16:28 | Miscellaneous Provider Note ---
Miscellaneous Provider Note Note ECG this morning showed a QTc of 659. Her Mg was 1.5 and potassium 3.4. She was given 4g IV Mg and 20mEg oral KCL. Repeat QTc was 636. I spoke with Dr. Shukla. He reviewed the ECG's and prior ECG's. He agreed that it is prolonged and thought it was congenital and possibly related to the Zofran that was given about 21 hours ago. Prozac can cause prolonged QT, but the patient has been on it for many years. He advised to watch her overnight, hold metoprolol/Prozac and check again in the morning. She has follow up with Dr. Rinaldi on 11/06 for her CAD. YANG CONN MD Oct 13, 2018 16:27
[2018-10-13] MEDS ORDERED: OXYB5TAB86 PO (20:21)
[2018-10-13] MEDS ORDERED: TIZA-128 PO (20:21)
[2018-10-13] MEDS ORDERED: SPIR50TA33 PO (20:21)
[2018-10-13] MEDS: ALLOPURINOL 300 MG TAB PO SCH (21:10)
[2018-10-13] MEDS: ATORVASTATIN 10 MG TAB PO SCH (21:10)
[2018-10-14 02:42] VITALS: BP 163/82
[2018-10-14 06:37] LABS: INR 1.16
[2018-10-14 06:55] VITALS: BP 151/79
[2018-10-14] MEDS: PIOGLITAZONE HCL 15 MG TAB PO SCH (08:35)
[2018-10-14] MEDS: GABAPENTIN 300 MG CAP PO SCH (08:36)
[2018-10-14] MEDS: CETIRIZINE HCL 10 MG TAB PO SCH (08:36)
[2018-10-14] MEDS: FLUoxetine HCL 20 MG CAP PO SCH (08:37)
--- NOTE | 2018-10-14 08:39 | EKG ---
FAC[place] [facility] [place]IENT NAME: JENNIFER GANDARA : [id number] MR: [id number] V: [id number] EXAM DATE: ORDERING PHYSICIAN: YANG CONN TECHNOLOGIST: ARNIE Maxwell Reason : PROLONGED QT Blood Pressure : / mmHG Vent. Rate : 059 BPM Atrial Rate : 059 BPM P-R Int : 176 ms QRS Dur : 096 ms QT Int : 554 ms P-R-T Axes : 067 031 021 degrees QTc Int : 548 ms Sinus bradycardia Nonspecific ST findings Prolonged QT Abnormal ECG When compared with ECG of 13-OCT-2018 14:05, QT has shortened Confirmed by ADRIAN FELIX ([id number]) on 10/14/2018 10:46:04 AM Referred By: Confirmed By:ADRIAN FELIX
[2018-10-14] MEDS ORDERED: ENOXAPARIN 40 MG/0.4ML SYR SC SCH (09:00)
--- NOTE | 2018-10-14 09:05 | Hospitalist Depart ---
Discharge Summary Reason for Hosp/Final Diag: (1) New onset a-fib Status: Acute Hospital Course & Plan: She was found to be in atrial fibrillation the day of admission, which was a new diagnosis for her. She knew exactly when it started as she felt dizziness, nausea and dyspnea when it began. She was initially started on a diltiazem drip. She converted to a sinus rhythm within a few hours. She reports being aware of the conversion as well. Her echocardiogram preliminary report was relatively unchanged. TSH is slightly low and T4/T3 levels have been drawn, but are pending at the time of discharge. Her usual metoprolol will be continued, but cannot be titrated up because of her low baseline heart rate and problems with nausea in the past with higher dosing. She was initially started on warfarin, but this has been stopped due to her problems with falls and the fact she did not have any recurrence of the a-fib during her stay. She is very aware of when the atrial fibrillation occurred, so she has agreed to contact Dr. Parks/Bakari or go to the ER if she has any recurrence. She has follow up with Dr. Villegas (cardiology) on 11/06/18. (2) Prolonged Q-T interval on ECG Status: Chronic Hospital Course & Plan: ECG following conversion to sinus rhythm showed a QTc interval of 659. Her Mg++ was 1.5 and potassium 3.4. She was given 4g IV Mg and 20mEg oral KCL. Dr. Conn spoke with Dr. Shukla. He reviewed the ECGs and her prior ECGs. He agreed that it is prolonged and thought it may be a congenital abnormality and possibly exacerbated by the Zofran that was given in the ER. Prozac can cause potentially prolong QT, but the patient has been on it for many years. He advised to watch her overnight, hold metoprolol/Prozac and check again in the morning. Her QTc interval did improve to ~550 msec. Her electrolytes were improved as well (Mg++ 2.0 and K+ 3.6). We discussed this in depth with Dimas as she is on several medications that can potentially prolong the QT interval. She agreed to hold the antihistamines, Ditropan, Ultram. She did wish to stay on her Prozac and Neurontin for now. She will need follow up EKG on her visits with her primary care provider and cardiology. She has follow up with Dr. Parks on Tuesday10/23/[address] Rinaldi on 11/06/18. (3) COPD (chronic obstructive pulmonary disease) Status: Chronic Hospital Course & Plan: She is on chronic treatment with nebulizers. (4) Type 2 diabetes mellitus Status: Chronic Hospital Course & Plan: She is on chronic treatment with metformin and pioglitazone. Metformin was initially placed on hold as she did receive IV contrast. It will be resumed at discharge. (5) Hypertension Status: Chronic Hospital Course & Plan: She is on chronic treatment with metoprolol and losartan. Both have been continued. (6) Depression Status: Chronic Hospital Course & Plan: She is on chronic treatment with fluoxetine. (7) ENOCH (obstructive sleep apnea) Status: Chronic Hospital Course & Plan: She is on chronic CPAP therapy. (8) Breast mass, left Status: Chronic Hospital Course & Plan: Dr. Le is following her for this. (9) Gout Status: Chronic Hospital Course & Plan: She is on chronic treatment with allopurinol. (10) Morbid obesity with BMI of 40.0-44.9, adult Departure Weight (Pounds): 267 Weight (Ounces): 8.0 Result Diagram: 10/12/18 1145 10/14/18 0636 Item Value Date Time Sodium Level 145 mmol/L 10/12/18 1145 Potassium Level 3.4 mmol/L L 10/12/18 1145 Chloride Level 104 mmol/L 10/12/18 1145 Carbon Dioxide Level 31 mmol/L 10/12/18 1145 Blood Urea Nitrogen 11 mg/dl 10/12/18 1145 Creatinine 0.40 mg/dl L 10/12/18 1145 Glomerular Filtration Rate Calc > 60.0 10/12/18 1145 Random Glucose 150 mg/dl H 10/12/18 1145 Calcium Level 9.8 mg/dl 10/12/18 1145 Total Bilirubin 0.7 mg/dl 10/12/18 1145 Aspartate Amino Transf (AST/SGOT) 20 U/L 10/12/18 1145 Alanine Aminotransferase (ALT/SGPT) 21 U/L 10/12/18 1145 Alkaline Phosphatase 119 U/L 10/12/18 1145 Troponin I < 0.012 ng/ml 10/12/18 1145 Total Protein 7.9 g/dl 10/12/18 1145 Albumin 4.2 g/dl 10/12/18 1145 B-Type Natriuretic Peptide 615 pg/ml H 10/12/18 1145 Troponin I 0.029 ng/ml 10/12/18 1553 Thyroid Stimulating Hormone (TSH) 0.17 uIU/ml L 10/13/18 0618 Magnesium Level 1.5 mg/dl L 10/12/18 1145 Prothrombin Time 13.6 seconds 10/12/18 1145 Prothromb Time International Ratio 1.04 10/12/18 1145 Activated Partial Thromboplast Time 41 seconds H 10/12/18 1145 Prothromb Time International Ratio 1.10 10/13/18 0618 Prothrombin Time 14.3 seconds 10/13/18 0618 Prothrombin Time 14.9 seconds H 10/14/18 0602 Prothromb Time International Ratio 1.16 10/14/18 0602 Imaging PATIENT NAME: Dimas Gandara : 1960 MR: [id number] V: [id number] EXAM DATE: ORDERING PHYSICIAN: GRETA MARCANO TECHNOLOGIST: Location: [facility] Patient: Dimas Gandara : 1960 Visit/Account:[id number] Date of Sevice: 10/12/2018 CT CTA CHEST W & W/O CON HISTORY: sob/post op ADDITIONAL HISTORY: None. TECHNIQUE: CTA chest with intravenous contrast. Axial imaging acquired following administration of IV contrast timed for maximum opacification of the pulmonary arterial vasculature. Slab 3-D MIP reconstructed images were also created for further evaluation and interpretation. Reconstruction of the source data set includes multiplanar 2-D in the sagittal and coronal planes and 3-D reconstructed coronal slab MIP series. 3-D images were created by the techno logist.Dose Lowering Technique One of the following dose optimization techniques was utilized in the performance of this exam: Automated exposure control; adjustment of the mA and/or kV according to the patient's size; or use of an iterative reconstruction technique. Specific details can be referenced in the facility's radiology CT exam operational policy. CONTRAST: 75 mL Isovue-370 COMPARISON: September 06, 2018 FINDINGS: Lungs/pleura: Four mm calcified nodule posterior aspect the right upper lobe again seen. There is a small posterior layering right pleural effusion slightly increased when compared the prior study. The adjacent airspace consolidation the right lower lobe however is partially improved. The small amount of airspace consolidation left lower lobe is also partially improved Heart/vessels: There is no evidence of pulmonary emboli to the segmental level. There is slightly limited opacification of the subsegmental arterial branches. Mildly prominent central pulmonary arteries again seen similar to the prior study There are moderate coronary artery calcifications Mediastinum/lymph nodes: There is a 2.1 x 1.3 cm pretracheal lymph node and smaller AP window and hilar lymph nodes Visualized upper abdomen: Negative. Bones/soft tissues: Spiculated mass in the deep central left breast appear slightly decreased in size although this has recently been biopsied. A biopsy clip is noted within the mass. There are spondylotic changes of the thoracic spine Additional findings: None IMPRESSION: There is no evidence of pulmonary emboli to the segmental level Small posterior layering right pleural effusion is slightly increased in size when compared the prior study although the adjacent airspace consolidation is slightly decreased Small amount of airspace consolidation left lower lobe is also partially improved Mildly prominent central pulmonary arteries appear similar to the prior study and may be related to pulmonary arterial hypertension 2.1 x 1.2 cm pretracheal lymph node may be reactive. Clinical correlation needed Speech related mass in the deep central left breast appears slightly decreased in size following recent biopsy Report Dictated By: Jeanne Cancino MD at 10/12/2018 12:59 PM Report E-Signed By: Jeanne Cancino MD at 10/12/2018 1:10 PM WSN:[facility]ICIV[facility] EKG PATIENT NAME: DIMAS GANDARA : [id number] MR: [id number] V: [id number] EXAM DATE: ORDERING PHYSICIAN: GRETA MARCANO TECHNOLOGIST: LIBIA Test Reason : NAUSEA Blood Pressure : / mmHG Vent. Rate : 144 BPM Atrial Rate : 144 BPM P-R Int : 000 ms QRS Dur : 084 ms QT Int : 262 ms P-R-T Axes : 000 019 230 degrees QTc Int : 405 ms Atrial fibrillation with premature ventricular or aberrantly conducted complexes Low voltage QRS Marked ST abnormality, possible inferior subendocardial injury Abnormal ECG When compared with ECG of 06-SEP-2018 08:29, Atrial fibrillation has replaced Sinus rhythm Vent. rate has increased BY [address] now depressed in Inferior leads T wave inversion now evident in Inferior leads T wave inversion now evident in Lateral leads Confirmed by ERENDIRA ARRINGTON (Carmen) on 10/12/2018 6:35:16 PM Referred By: JEET Confirmed By:ERENDIRA ARRINGTON PATIENT NAME: DIMAS GANDARA : [id number] MR: [id number] V: [id number] EXAM DATE: ORDERING PHYSICIAN: YANG CONN TECHNOLOGIST: Test Reason : atrial fibrillation Blood Pressure : / mmHG Vent. Rate : 061 BPM Atrial Rate : 061 BPM P-R Int : 132 ms QRS Dur : 098 ms QT Int : 654 ms P-R-T Axes : 043 047 037 degrees QTc Int : 659 ms Normal sinus rhythm Nonspecific ST and T wave abnormality Prolonged QT Abnormal ECG When compared with ECG of 12-OCT-2018 11:36, Sinus rhythm has replaced Atrial fibrillation Vent. rate has decreased BY 83 BPM T wave inversion no longer evident in Inferior leads T wave inversion no longer evident in Lateral leads Confirmed by YANG CONN (Nash) on 10/13/2018 11:14:46 AM Referred By: Confirmed By:YANG CONN PATIENT NAME: DIMAS GANDARA : [id number] MR: [id number] V: [id number] EXAM DATE: ORDERING PHYSICIAN: YANG CONN TECHNOLOGIST: Test Reason : Prolong QT Blood Pressure : / mmHG Vent. Rate : 057 BPM Atrial Rate : 057 BPM P-R Int : 172 ms QRS Dur : 100 ms QT Int : 654 ms P-R-T Axes : 050 024 014 degrees QTc Int : [address] abnormality, possible digitalis effect Prolonged QT Abnormal ECG When compared with ECG of 13-OCT-2018 09:41, Relatively unchanged Confirmed by YANG CONN (Nash) on 10/13/2018 3:56:33 PM Referred By: Confirmed By:YANG CONN Condition: Improved Discharge: Home, Self Care Follow-Up Labs: Finger Sticks (AC and HS), Other (Comprehensive Metabolic Panel in 1-[address] Parks.) Time Spent: > 30 min Discharge Instructions Home Meds Active Scripts Ipratropium/Albuterol Sulfate (IPRAT-ALBUT 0.5-3(2.5) MG/3 ML) 3 Ml Ampul.neb, 3 ML IH Q6H PRN for WHEEZING for 30 Days, #60 DOSE-PACK Prov:HOA SUAREZ DO 09/07/18 Reported Medications Spironolactone (SPIRONOLACTONE) 50 Mg Tablet, 1 TAB PO QDAY 10/13/18 Ibuprofen (IBUPROFEN) 600 Mg Tablet, 1 TAB PO Q6H PRN for PAIN, #20 TAB 0 R efills 10/09/18 Albuterol Sulfate 0.083% (ALBUTEROL SULFATE 0.083%) 2.5 Mg/3 Ml Vial.neb, 1 PKT INH QID PRN for WHEEZING, INH 09/06/18 Metoprolol Tartrate (METOPROLOL TARTRATE) 25 Mg Tablet, 1 TAB PO BID, TAB 08/16/18 Aspirin (ASPIRIN) 81 Mg Tab.chew, 81 MG PO QDAY, TAB.CHEW 08/16/18 Fluoxetine Hcl (PROZAC) 40 Mg Capsule, 80 MG PO QAM, CAPSULE 06/21/18 Atorvastatin Calcium (ATORVASTATIN CALCIUM) 20 Mg Tablet, 1 TAB PO HS 06/20/18 Acetaminophen (TYLENOL EXTRA STRENGTH) 500 Mg Tablet, 500 MG PO TID, TAB 12/13/17 Metformin Hcl (METFORMIN HCL) 500 Mg Tablet, 2 TAB PO BID, TAB 04/04/17 Losartan Potassium (LOSARTAN POTASSIUM) 50 Mg Tablet, 1 TAB PO QDAY 12/20/16 Pioglitazone Hcl (PIOGLITAZONE HCL) 45 Mg Tablet, 45 MG PO QDAY 12/20/16 Oxygen (Oxygen) 2 L Inha, 4-6 L INH DAILY, 0 Refills At Night With BiPap 03/10/11 Gabapentin (Neurontin) 300 Mg Cap, 600 MG PO TID, 0 Refills 03/10/11 Allopurinol (Zyloprim) 300 Mg Tab, 300 MG PO HS, 0 Refills 03/10/11 Albuterol (Proventil Inhaler) 17 Gm Inh, 1 PUFF INH Q4-6H PRN for SHORTNESS OF BREATH, 0 Refills 03/10/11 Discontinued Reported Medications Oxybutynin Chloride (OXYBUTYNIN CHLORIDE) 5 Mg Tablet, TAB PO TID 10/13/18 Tizanidine Hcl (TIZANIDINE HCL) 4 Mg Tablet, 1 TAB PO Q6H PRN for MUSCLE SPASMS 10/13/18 Phenazopyridine Hcl (PHENAZOPYRIDINE HCL) 200 Mg Tablet, 200 MG PO TID PRN for BURNING WITH URINATION, #20 TAB 10/09/18 Sumatriptan Succinate (SUMATRIPTAN SUCCINATE) 50 Mg Tablet, 1 TAB PO PRN FOR MIGRAINE; MAY REPEAT DOSE EVERY 2 HOURS PRN MAX OF 4 DOSES IN 24 HOURS 09/06/18 Cetirizine Hcl (ZYRTEC) 10 Mg Capsule, 10 MG PO QDAY, CAPSULE 06/21/18 Diphenhydramine Hcl (DIPHENHYDRAMINE HCL) 25 Mg Capsule, 25 MG PO HS, #2 CAPSULE 06/21/18 Guaifenesin/Dextromethorphan (MUCINEX DM ER 600-30 MG TABLET) 1 Each Tab.er.12h, 1 EACH PO TID 05/17/16 Oxybutynin Chloride (OXYBUTYNIN CHLORIDE ER) 15 Mg Tab.er.24, 15 MG PO QDAY PRN for URGENCY, #20 TAB.SA 10/09/18 Hydrocodone Bit/Acetaminophen (NORCO 5-325 TABLET) 1 Each Tablet, 1 EACH PO Q6H PRN for PAIN, #20 TAB 10/09/18 Docusate Sodium (COLACE) 100 Mg Capsule, 100 MG PO BID for STOOL SOFTENER, #30 CAPSULE 10/09/18 Oxybutynin Chloride (OXYBUTYNIN CHLORIDE) 5 Mg Tablet, 5 MG PO TID, TAB PRN URINARY INCONTINENCE 09/06/18 Tramadol Hcl (TRAMADOL HCL) 50 Mg Tablet, 1-2 TAB PO Q6H PRN for PAIN 06/20/18 Diet: Diabetic Activity: As Tolerated, No Exertion Special Instructions: Continue home oxygen and CPAP. Do not take the antihistamines, oxybutynin, tramadol until discuss with Dr. Parks and Dr. Villegas. Return to ER if any problems. Copies to: EVERARDO PARKS DO; ERENDIRA RINALDI MD ; Venous Thromboembolism Antithrombotics Is Pt On Any Antithrombotics?: No ADRIAN FELIX MD Oct 14, 2018 09:05
[2018-10-14] MEDS: ALBUTEROL/IPRATROPIUM 3 ML NEB INH PRN (09:41)
== END 2018-10-14 10:25 | disposition home or self-care (01) | DRG 309 ==
LOC: ER 11:53 → MED 16:43
PROVIDERS: ADMIT Family Medicine; ATTEND Family Medicine
PROC: 5A09357 Assistance with Respiratory Ventilation, Less than 24 Consecutive Hours, Continuous Positive Airway Pressure (ICD-10-PCS; principal; 2018-10-12)
DX: I48.91 Unspecified atrial fibrillation (principal); Z68.41 Body mass index [BMI] 40.0-44.9, adult; E83.42 Hypomagnesemia; E87.6 Hypokalemia; I45.81 Long QT syndrome; I25.10 Atherosclerotic heart disease of native coronary artery without angina pectoris; E11.9 Type 2 diabetes mellitus without complications; I10 Essential (primary) hypertension; J44.9 Chronic obstructive pulmonary disease, unspecified; F32.9 Major depressive disorder, single episode, unspecified; G47.33 Obstructive sleep apnea (adult) (pediatric); N63.20 Unspecified lump in the left breast, unspecified quadrant; M1A.9XX0 Chronic gout, unspecified, without tophus (tophi); E66.01 Morbid (severe) obesity due to excess calories; K21.9 Gastro-esophageal reflux disease without esophagitis; Z96.643 Presence of artificial hip joint, bilateral; I25.2 Old myocardial infarction; Z79.84 Long term (current) use of oral hypoglycemic drugs; Z95.1 Presence of aortocoronary bypass graft; Z90.49 Acquired absence of other specified parts of digestive tract; Z90.710 Acquired absence of both cervix and uterus; Z87.891 Personal history of nicotine dependence
CPT/HCPCS: 36415; 36416; 71275; 82040; 82247; 82310; 82374; 82435; 82565; 82947; 82948; 83735; 83880; 84075; 84132; 84155; 84295; 84436; 84443; 84450; 84460; 84481; 84484; 84520; 85025; 85610; 85730; 93005; 94640; 96365; 96366; 96368; 96375; 99284; C8929; J1650; J2405; J3475; J3490; J7050; Q9957; Q9967